=== PATIENT | female | born 1940 | race Caucasian/White ===

== ENCOUNTER → 2017-01-08 | Outpatient (CLI) | payer MEDICARE, BC ==
--- NOTE | 2017-01-09 09:29 | MM ---
Reason for exam: clinical finding. Last mammogram was performed 1 year and 9 months ago. History: Patient is postmenopausal. Physical Findings: Nurse did not find any significant physical abnormalities on exam. MG 3D Diag Mammo W/Cad EMETERIO CC with magnification and LM with magnification view(s) were taken of the right breast. Prior study comparison: April 21, 2015, right breast US breast workup limited RT. The breast tissue is heterogeneously dense. This may lower the sensitivity of mammography. Finding: There are fine, grouped calcifications in the 4 o'clock middle position of the right breast., approximately 6cm from nipple. New finding since April 21, 2015. These results were verbally communicated with the patient and result sheet given to the patient on 01/08/17. ASSESSMENT: Incomplete: need additional imaging evaluation, BI-RAD 0 RECOMMENDATION: Surgical consultation of the right breast. (calcifications) Stereotactic core biopsy of the right breast. (or localization and excision) Called Dr. Zaidi with mammographic findings and has scheduled an appointment for the patient for 01/23/17 at 2:[address] Marcelino. PRELIMINARY REPORT CALLED AND FAXED TO DR. MARCELINO ON 01/09/17 AT 300/TMP.
== END | disposition home or self-care (01) ==
LOC: RADMAMWWP 13:17
PROVIDERS: ATTEND Family Medicine
DX: N64.4 Mastodynia (principal)
CPT/HCPCS: G0204; G0279

== ENCOUNTER → 2017-02-03 | Day surgery (SDC) | payer MEDICARE, BC ==
[2017-02-03 08:17] VITALS: RESP 16; BMI 28.3
[2017-02-03 09:17] VITALS: BP 163/83; PULSE 67; TEMP 98.1
--- NOTE | 2017-02-03 10:06 | MM ---
Stereotactic core biopsy right breast. HISTORY: Microcalcifications. The calcifications in question within the right breast were targeted by the undersigned. The examina tion was performed by the surgeon. Specimen radiograph demonstrates numerous calcifications within t he specimen submitted. Post procedural mammogram demonstrates appropriate deployment of radiopaque c lip marker. The patient tolerated the procedure well and left the department in stable condition. P athology results are pending. IMPRESSION: Successful stereotactic core biopsy right breast with pathology results pending.
--- NOTE | 2017-02-03 11:23 | PCN ---
The patient is a 76-year-old white female who was seen in consultation for a mammographic abnormality noted in her right breast. Review of the radiographs reveal an area of grouped calcifications in the 4 o'clock middle position of the right breast approximately 6 cm from the nipple. The patient on physical examination was not noted to have any dominant masses or nodules of concern in either breast or axillary adenopathy of concern. PROCEDURE PERFORMED: Right breast stereotactic biopsy. LOCATION OF THE LESION: 4 o'clock middle position of the right breast, approximately 6 cm from the nipple. The approach used to target and biopsy the lesion was a CC inferior approach as this was the shortest distance and no obvious large vessels were in the path of biopsy. The patient was placed on the low RAD stereotactic table. The area of concern was localized. The skin was prepped using Betadine. 1% local anesthesia plain was used to anesthetize the area of the skin. An 8 gauge mammotome needle was driven to the correct coordinates. Multiple core biopsies were obtained. Radiographic specimen revealed that the microcalcifications of concern had been sampled. A mammo jovani 4 - [id number] marking clip was placed and radiographs reviewed that this was in the correct location. The patient tolerated the procedure in stable condition. The specimen was seen to Pathology. Patient will follow with Dr. Strickland for results of the biopsy and any further recommendation. JOSEPH
== END ==
LOC: RADMAMWWP 07:59
PROVIDERS: ATTEND Surgery
DX: N60.31 Fibrosclerosis of right breast (principal); R92.8 Other abnormal and inconclusive findings on diagnostic imaging of breast; N60.81 Other benign mammary dysplasias of right breast; N60.21 Fibroadenosis of right breast; N60.41 Mammary duct ectasia of right breast; N60.91 Unspecified benign mammary dysplasia of right breast; N64.89 Other specified disorders of breast; Z88.8 Allergy status to other drugs, medicaments and biological substances; Z91.09 Other allergy status, other than to drugs and biological substances
CPT/HCPCS: 88305; 19081; A4648; J2001

== ENCOUNTER → 2017-10-29 | Outpatient (CLI) | payer MEDICARE, BC ==
--- NOTE | 2017-10-29 14:53 | MM ---
Reason for exam: follow-up at short interval from prior study. Last mammogram was performed 10 months ago. History: Patient is postmenopausal. Benign MG stereo VAD BX RT of the right breast, February 03, 2017. Physical Findings: Nurse did not find any significant physical abnormalities on exam. MG 3D Diag Mammo W/Cad RT CC and MLO view(s) were taken of the right breast. Prior study comparison: January 08, 2017, bilateral MG 3d diag mammo w/cad EMETERIO. March 31, 2015, bilateral MG diagnostic mammo w CAD EMETERIO. There are scattered fibroglandular densities. Previous mammotome biopsy in the right breast. These results were verbally communicated with the patient and result sheet given to the patient on 10/29/17. ASSESSMENT: Benign, BI-RAD 2 RECOMMENDATION: Routine screening mammogram of both breasts in 3 months. Back on schedule for December 2017.
== END | disposition home or self-care (01) ==
LOC: RADMAMWWP 13:28
PROVIDERS: ATTEND Surgery
DX: R92.8 Other abnormal and inconclusive findings on diagnostic imaging of breast (principal)
CPT/HCPCS: 77065; G0279

== ENCOUNTER → 2019-04-13 | Outpatient (CLI) | payer MEDICARE, BC ==
--- NOTE | 2019-04-14 05:03 | CT ---
EXAMINATION TYPE: CT abdomen pelvis w con DATE OF EXAM: 04/13/2019 COMPARISON: 05/11/2015 HISTORY: 79-year-old female diverticulitis of large intestine TECHNIQUE: Contiguous axial scanning of the abdomen and pelvis following administration of 80 ml Omni paque 300 IV contrast. Delayed images through the kidneys and coronal/sagittal reconstructions perfo rmed. The technologist notes that the patient was unable to tolerate oral contrast. CT DLP: 720.6 mGycm Automated exposure control for dose reduction was used. FINDINGS: Heart upper limits of normal in size without pericardial effusion. Subpleural reticular densities sug gest underlying interstitial scarring. No pleural effusion. 1.8 cm anterior right hepatic dome lesion unchanged from 2015 suggesting a cyst. Similar smaller 1.5 cm lesion posterior right hepatic dome that is also stable. Status post cholecystectomy with stable 1 cm prominence of the bile duct. Portal venous system is pat ent. Adrenal glands, spleen with hilar splenule, and atrophic pancreas show no gross abnormality. Subcentimeter hypodensities within the left kidney too small for accurate CT characterization, likely cysts. There is delayed excretion of contrast from both kidneys. Multilocular cystic lesion with some internal thickened septations redemonstrated along the anterior upper to mid pole of the right kidney. This is larger now measuring 3.9 cm AP by 3.0 cm wide by 3.9 c m craniocaudal (versus 2.2 x 2.7 x 3.1 cm, previously). Moderate atherosclerotic calcifications abdominal aorta and iliac arteries. No dilated small bowel, free fluid, or free air. No mesenteric or retroperitoneal lymphadenopathy. Oral contrast progressed to the hepatic flexure. No significant stool burden. Diverticulosis at the l evel of the lower descending colon and sigmoid colon. Staple line from prior resection and reanastomo sis at the rectosigmoid junction with an end to side anastomosis demonstrated. No pericolonic inflamm atory change. Bladder urine distended. Tiny focus of nondependent intraluminal bladder air of uncertain etiology. U terus surgically absent. Pelvic phleboliths. What appears to be the right ovary is visualized. Left o vary not clearly seen. No abnormal fluid collection in the pelvis or pelvic lymphadenopathy. Bones: Degenerative changes at the hips. Advanced degenerative disc disease L4-L5. Hypertrophic facet arthropathy mid to lower lumbar spine. IMPRESSION: 1. LOWER DESCENDING AND SIGMOID DIVERTICULOSIS WITHOUT EVIDENCE FOR ACUTE DIVERTICULITIS. PRIOR RESEC TION AND REANASTOMOSIS AT THE RECTOSIGMOID JUNCTION. 2. COMPLEX CYSTIC RIGHT RENAL MASS HAS ENLARGED AT 3.9 X 2.9 X 3.0 CM (VERSUS 3.1 X 2.7 X 2.2 CM IN 2 015). THIS IS A B[place] CATEGORY 3 CYSTIC RENAL MASS AND RESECTION IS GENERALLY RECOMMENDED UNLESS TH ERE ARE PATIENT COMORBIDITIES, IN WHICH CASE, ANNUAL SURVEILLANCE IS INDICATED. CONSIDER UROLOGY REFE RRAL FOR FURTHER MANAGEMENT/SURVEILLANCE.
== END | disposition home or self-care (01) ==
LOC: RADCTMAIN 12:17
PROVIDERS: ATTEND Surgery Plastic and Reconstructive Surgery
DX: K57.30 Diverticulosis of large intestine without perforation or abscess without bleeding (principal)
CPT/HCPCS: 82565; 84520; 74177; 36415; Q9967 ×2

== ENCOUNTER 2019-04-21 08:07 | Day surgery (SDC) | payer MEDICARE, BC ==
[2019-04-19 08:22] VITALS: BMI 29.2
[~2019-04-21 08:07] MED LIST: DEXAMETHASONE SOD PHOSPHATE 10 MG/ML 1 ML VIAL IV ONE; LACTATED RINGERS 1,000 ML IV SCH; LIDOCAINE 1% 20 ML VIAL (10MG/ML) FOR IV START INTRADERMA PRN; MIDAZOLAM 2 MG/2 ML VIAL IV PRN; fentaNYL (PF) 50 MCG/ML 2 ML AMP IV PRN
[2019-04-21 08:23] VITALS: TEMP 97.2
[2019-04-21] MEDS ORDERED: LACTATED RINGERS 1,000 ML IV ONE ×2 (08:25)
[2019-04-21 08:28] LABS: Glucose,Whole Blood 134 mg/dL (75-99)
[2019-04-21] MEDS ORDERED: PROPOFOL 10 MG/ML 20 ML VIAL IV ONE (08:29)
--- NOTE | 2019-04-21 08:35 | P.GSHP ---
History of Present Illness H&P Date: 04/21/19 CHIEF COMPLAINT: Colon screen HISTORY OF PRESENT ILLNESS: The patient is a 79-year-old female who presents for colon screen. Lower endoscopy was offered for further evaluation and management. PAST MEDICAL HISTORY: Please see list. PAST SURGICAL HISTORY: Please see list. MEDICATIONS: Please see list. ALLERGIES: Please see list. SOCIAL HISTORY: No illicit drug use FAMILY HISTORY: No reports of Crohn disease or ulcerative colitis. REVIEW OF ORGAN SYSTEMS: CONSTITUTIONAL: No reports of fevers or chills. PHYSICAL EXAM: VITAL SIGNS: Stable GENERAL: Well-developed pleasant in no acute distress. HEENT: No scleral icterus. Extraocular movements grossly intact. Moist buccal mucosa. NECK: Supple without lymphadenopathy. CHEST: Unlabored respirations. Equal bilateral excursions. CARDIOVASCULAR: Regular rate and rhythm. Distal 2+ pulses. ABDOMEN: Soft, nontender, nondistended. MUSCULOSKELETAL: No clubbing, cyanosis, or edema. ASSESSMENT: 1. Colon screen. PLAN: 1. Recommend proceeding with a lower endoscopy Past Medical History Past Medical History: Coronary Artery Disease (CAD), Diabetes Mellitus, Eye Disorder, GERD/Reflux, Hypertension, Osteoarthritis (OA), Renal Disease Additional Past Medical History / Comment(s): Hx. 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 unaware of this hx., recent CT scan History of Any Multi-Drug Resistant Organisms: C-DIFF Date of last positivie culture/infection: 08/21/15 MDRO Source:: STOOL Past Surgical History: Bowel Resection, Cholecystectomy, Heart Catheterization, Hysterectomy, Tonsillectomy Additional Past Surgical History / Comment(s): 06/19/15 LAP SIGMOID RESECTION with lysis of adhesions. OTHER SX INCLUDE: lithotripsy, colonoscopy, L thigh cyst removed, cyst removed from underneath right breast, cataracts removed Past Anesthesia/Blood Transfusion Reactions: Previous Problems w/ Anesthesia Additional Past Anesthesia/Blood Transfusion Reaction / Comment(s): [facility] prior to past colonoscopy, not sure of issue but procedure was aborted, but has had anesthesia w/no problem Smoking Status: Never smoker - Past Family History Father Family Medical History: Cancer Mother Family Medical History: Cancer Medications and Allergies Home Medications Medication Instructions Recorded Confirmed Type Atenolol [Tenormin] 50 mg PO BID 06/08/15 04/16/19 History FLUoxetine HCL [PROzac] 40 mg PO DAILY PRN 01/27/17 04/16/19 History L.acidoph,Paracasei, B.lactis 1 tab PO DAILY PRN 01/27/17 04/16/19 History [Probiotic] Losartan/Hydrochlorothiazide 1 each PO DAILY 01/27/17 04/16/19 History [Hyzaar 50-12.5 Tablet] Gabapentin [Neurontin] 100 mg PO HS 04/19/19 04/19/19 History Insulin Degludec/Liraglutide 16 unit SQ HS 04/19/19 04/19/19 History [Xultophy 100 Unit-3.6MG/ml Pen] Allergies Allergy/AdvReac Type Severity Reaction Status Date / Time adhesive tape Allergy red skin Verified 04/16/19 15:26 pregabalin [From Lyrica] AdvReac Hallucinati Verified 04/16/19 15:26 ons Surgical - Exam Vital Signs Temp Pulse Resp BP Pulse Ox 97.2 F L 80 18 159/91 97 04/21/19 08:22 04/21/19 08:22 04/21/19 08:22 04/21/19 08:22 04/21/19 08:22 Results - Labs Abnormal Lab Results - Last 24 Hours (Table) 04/21/19 Range/Units 08:25 POC Glucose (mg/dL) 134 H (75-99) mg/dL
--- NOTE | 2019-04-21 08:49 | P.PCN ---
Date of Procedure: 04/21/19 Description of Procedure: PREOPERATIVE DIAGNOSIS: Change in bowel habits History of diverticulitis History of sigmoid colectomy POSTOPERATIVE DIAGNOSIS: Change in bowel habits History of sigmoid colectomy History of diverticulitis Diverticulosis, scattered, sigmoid External hemorrhoids, grade 3 OPERATION: Colonoscopy to the ileocecal valve and appendiceal orifice. SURGEON: Holly Marcelino MD. ANESTHESIA: MAC. INDICATIONS: The patient is a 79-year-old female who presents with change in bowel habits and history of diverticulitis. Benefits and risks were described and informed consent was obtained. DESCRIPTION OF PROCEDURE: The patient had undergone Gatorade, MiraLAX and Dulcolax prep. She had been brought into the operating room and laid in the left lateral decubitus position. After adequate intravenous sedation, the rectum was examined with 2% lidocaine jelly. External hemorrhoids were encountered. The rectal tone was within normal limits. No lesions were palpated in the rectal vault. An Olympus colonoscope was advanced until the ileocecal valve and appendiceal orifice were clearly viewed. The prep was excellent with clear visualization of the mucosal folds. The scope was removed with visualization of each mucosal fold. Scattered diverticulosis was encountered between 20 to 10 cm from the anal verge with colonic anastomosis at 10 cm from the anal verge. No large colonic polyps were found. No evidence of focal colitis was found. Retroflexion of the scope demonstrated grade 2 internal hemorrhoids without active bleeding or inflammation. The colon was desufflated. The patient had tolerated the procedure well. Withdrawal time was over 6 minutes. FINDINGS: Aronchick preparation quality scale 1 (1-5) Internal hemorrhoids, grade 2 External prolapsed hemorrhoids, grade 3 No arteriovenous malformations. No adenomatous polyps. No focal colitis. Moderate sigmoid diverticulosis between 20-10 cm from the anal verge Colonic anastomosis at 10 cm from the anal verge RECOMMENDATIONS: Lower endoscopy in 5 years, 2023 or use Cologuard Plan - Discharge Summary Discharge Rx Participant: No New Discharge Prescriptions: No Action Atenolol [Tenormin] 50 mg PO BID L.acidoph,Paracasei, B.lactis [Probiotic] 1 tab PO DAILY PRN PRN Reason: gi symptoms FLUoxetine HCL [PROzac] 40 mg PO DAILY PRN PRN Reason: Anxiety Losartan/Hydrochlorothiazide [Hyzaar 50-12.5 Tablet] 1 each PO DAILY Gabapentin [Neurontin] 100 mg PO HS Insulin Degludec/Liraglutide [Xultophy 100 Unit-3.6MG/ml Pen] 16 unit SQ HS Discharge Medication List Atenolol [Tenormin] 50 mg PO BID 06/08/15 [History] FLUoxetine HCL [PROzac] 40 mg PO DAILY PRN 01/27/17 [History] L.acidoph,Paracasei, B.lactis [Probiotic] 1 tab PO DAILY PRN 01/27/17 [History] Losartan/Hydrochlorothiazide [Hyzaar 50-12.5 Tablet] 1 each PO DAILY 01/27/17 [History] Gabapentin [Neurontin] 100 mg PO HS 04/19/19 [History] Insulin Degludec/Liraglutide [Xultophy 100 Unit-3.6MG/ml Pen] 16 unit SQ HS 04/19/19 [History] Follow up Appointment(s)/Referral(s): Holly Marcelino MD [STAFF PHYSICIAN] - 05/04/19 Patient Instructions/Handouts: Diverticulosis Diet (GEN), Diverticulosis (ED) Activity/Diet/Wound Care/Special Instructions: Repeat colonoscopy in 5 years, or use Cologuard Discharge Disposition: HOME SELF-CARE
[2019-04-21] MEDS ORDERED: LABETALOL 5 MG/ML VIAL MDV IVP ONE (10:00)
[2019-04-21 10:26] VITALS: BP 167/89; PULSE 61; RESP 18
== END 2019-04-21 10:38 | disposition home or self-care (01) ==
LOC: ORWHC2ENDO 08:07
PROVIDERS: ATTEND Surgery Plastic and Reconstructive Surgery
DX: K57.30 Diverticulosis of large intestine without perforation or abscess without bleeding (principal); K64.2 Third degree hemorrhoids; E11.9 Type 2 diabetes mellitus without complications; I10 Essential (primary) hypertension; I25.10 Atherosclerotic heart disease of native coronary artery without angina pectoris; K21.9 Gastro-esophageal reflux disease without esophagitis; K58.9 Irritable bowel syndrome, unspecified; M19.90 Unspecified osteoarthritis, unspecified site; Z79.4 Long term (current) use of insulin; Z79.899 Other long term (current) drug therapy; Z87.442 Personal history of urinary calculi; Z90.49 Acquired absence of other specified parts of digestive tract; H91.91 Unspecified hearing loss, right ear; I27.20 Pulmonary hypertension, unspecified; Z98.42 Cataract extraction status, left eye; Z98.41 Cataract extraction status, right eye; Z88.8 Allergy status to other drugs, medicaments and biological substances
CPT/HCPCS: 45378; J2704

== ENCOUNTER → 2019-12-28 | Outpatient (CLI) | payer MEDICARE, BC ==
--- NOTE | 2019-12-30 08:13 | MM ---
Reason for exam: screening (asymptomatic). Last mammogram was performed 2 years and 2 months ago. History: Patient is postmenopausal. Benign MG stereo VAD BX RT of the right breast, February 03, 2017. Physical Findings: A clinical breast exam by your physician is recommended on an annual basis and results should be correlated with mammographic findings. MG 3D Screening Mammo W/Cad Bilateral CC and MLO view(s) were taken. Prior study comparison: October 29, 2017, right breast MG 3d diag mammo w/cad RT. January 08, 2017, bilateral MG 3d diag mammo w/cad EMETERIO. Benign appearing bilateral calcifications. Previous mammotome biopsy in the right breast. ASSESSMENT: Benign, BI-RAD 2 RECOMMENDATION: Routine screening mammogram of both breasts in 1 year.
== END | disposition home or self-care (01) ==
LOC: RADMAMWWP 13:06
PROVIDERS: ATTEND Family Medicine
DX: Z12.31 Encounter for screening mammogram for malignant neoplasm of breast (principal)
CPT/HCPCS: 77063; 77067

== ENCOUNTER 2022-12-18 19:30 | Emergency (ER) | payer MEDICARE, BC ==
[2022-12-18 19:38] VITALS: RESP 18; TEMP 98
[2022-12-18 21:11] LABS: Basophils % (A) 0 %; Eosinophils % (A) 0 %; HCT 41.6 % (34.0-46.0); Lymphocytes # (A) 0.5 k/uL (1.0-4.8); Lymphocytes % (A) 7 %; MCH 29.6 pg (25.0-35.0); MCHC 33.6 g/dL (31.0-37.0); MCV 88.3 fL (80.0-100.0); Mean Platelet Volume 9.9; Monocytes # (A) 0.1 k/uL (0-1.0); Monocytes % (A) 1 %; Neutrophils % (A) 91 %; Platelet Count 169 k/uL (150-450); RBC 4.72 m/uL (3.80-5.40); RDW 14.2 % (11.5-15.5); WBC 7.7 k/uL (3.8-10.6)
[2022-12-18 21:47] VITALS: PULSE 100
[2022-12-18 21:54] LABS: Albumin 3.6 g/dL (3.5-5.0); C Reactive Protein 0.9 mg/dL (<1.0); Calcium 8.8 mg/dL (8.4-10.2); Potassium 3.7 mmol/L (3.5-5.1); Total Bilirubin 1.7 mg/dL (0.2-1.3); Total Protein 6.3 g/dL (6.3-8.2)
--- NOTE | 2022-12-18 22:30 | ED ---
General Adult HPI - General Chief complaint: Recheck/Abnormal Lab/Rx Stated complaint: Flank Pain Time Seen by Provider: 12/18/22 19:34 Source: patient, family (Daughter), EMS Mode of arrival: EMS Limitations: no limitations - History of Present Illness Initial comments: This patient is an 82-year-old woman transferred here from [facility]. The patient had gone to the other facility in relation to the left lower quadrant pain that is been going on for some time and she had a computed tomography scan performed there which showed no stone but reportedly showed some issues related to the left kidney. The patient then had subsequent CT angiogram which did show left renal artery narrowing. The patient was sent to have further evaluation. Patient also reportedly found to have evidence of urinary tract infection at the other facility. On arrival here the patient states that her symptoms are better following medication administered there. She did have a dose of antibiotics. -: days(s) Location: abdomen, left Radiation: flank Quality: dull Consistency: constant Improves with: none Worsens with: none Associated Symptoms: denies other symptoms Treatments Prior to Arrival: none - Related Data Home Medications Medication Instructions Recorded Confirmed atenoloL [Tenormin] 50 mg PO BID 06/08/15 12/18/22 Insulin Degludec/Liraglutide 18 unit SQ HS 04/19/19 12/18/22 [Xultophy 100 Unit-3.6MG/ml Pen] Losartan/Hydrochlorothiazide 1 tab PO DAILY 12/18/22 12/18/22 [Hyzaar 100-25 Tablet] Naproxen Sodium [Aleve] 220 mg PO DAILY PRN 12/18/22 12/18/22 amLODIPine [Norvasc] 10 mg PO DAILY 12/18/22 12/18/22 Previous Rx's Medication Instructions Recorded Cephalexin [Keflex] 500 mg PO Q6HR #28 cap 12/18/22 Allergies Allergy/AdvReac Type Severity Reaction Status Date / Time adhesive tape Allergy red skin Verified 12/18/22 20:15 pregabalin [From Lyrica] AdvReac Hallucinati Verified 12/18/22 20:15 ons Review of Systems ROS Statement: Those systems with pertinent positive or pertinent negative responses have been documented in the HPI. ROS Other: All systems not noted in ROS Statement are negative. Constitutional: Denies: fever, chills Respiratory: Denies: cough, dyspnea Cardiovascular: Denies: chest pain, palpitations Gastrointestinal: Reports: abdominal pain, nausea. 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 History of Any Multi-Drug Resistant Organisms: C-DIFF Date of last positivie culture/infection: 08/21/15 MDRO Source:: STOOL Past Surgical History: Cholecystectomy, Heart Catheterization, Hysterectomy, Tonsillectomy Additional Past Surgical History / Comment(s): 06/19/15 LAP SIGMOID RESECTION with lysis of adhesions. OTHER SX INCLUDE: lithotripsy, cardiac cath with mild disease to proximal LAD, colonoscopy, L thich cyst removed. Past Anesthesia/Blood Transfusion Reactions: No Reported Reaction Past Psychological History: Depression Smoking Status: Never smoker Past Alcohol Use History: None Reported Past Drug Use History: None Reported - Past Family History Father Family Medical History: Cancer Mother Family Medical History: Cancer General Exam Limitations: no limitations General appearance: alert, in no apparent distress Head exam: Present: atraumatic, normocephalic Eye exam: Present: normal appearance. Absent: scleral icterus, conjunctival injection Neck exam: Present: normal inspection Respiratory exam: Present: normal lung sounds bilaterally. Absent: respiratory distress, wheezes, rales, rhonchi, stridor Cardiovascular Exam: Present: regular rate, normal rhythm, normal heart sounds. Absent: systolic murmur, diastolic murmur, rubs, gallop GI/Abdominal exam: Present: soft. Absent: distended, tenderness, guarding, rebound, rigid, mass Extremities exam: Present: normal inspection, normal capillary refill. Absent: pedal edema, calf tenderness Back exam: Present: normal inspection. Absent: CVA tenderness (R), CVA tenderness (L) Neurological exam: Present: alert Skin exam: Present: warm, dry, intact, normal color. Absent: rash Course Vital Signs 12/18/22 12/18/22 12/18/22 19:34 20:00 20:30 Temperature 98 F Pulse Rate 106 H Respiratory 18 Rate Blood Pressure 173/108 164/104 170/105 O2 Sat by Pulse 94 L 94 L Oximetry 12/18/22 12/18/22 12/18/22 21:00 21:30 22:00 Temperature Pulse Rate 100 Respiratory 18 Rate Blood Pressure 175/108 157/96 149/85 O2 Sat by Pulse 96 92 L Oximetry 12/18/22 22:30 Temperature Pulse Rate Respiratory Rate Blood Pressure 161/96 O2 Sat by Pulse Oximetry Medical Decision Making - Medical Decision Making The patient did have repeat laboratory testing here. The vascular surgeon on- call was paged and I discussed the case with Dr. Britton. I reviewed the CAT scan readings with him, as well as the lab findings and clinical picture. The patient stable to have further follow-up in the clinic. He states that there is no acute intervention based on the current status. I discussed all this information with patient and family. They will continue the antibiotics for the urinary tract infection and follow-up. Discussed appropriate further care and follow-up as well as return parameters. Was pt. sent in by a medical professional or institution (, [facility], ASSOCIATE AUTOMATION ENGINEER, urgent care, hospital, or long-term...) When possible be specific @ -Yes transferred from other hospital Did you speak to anyone other than the patient for history (EMS, parent, family, police, friend...)? What history was obtained from this source @ -[EMS did report, patient's family also present Did you review nursing and triage notes (agree or disagree)? Why? @ -[I reviewed and agree with nursing and triage notes] Were old charts reviewed (outside hosp., previous admission, EMS record, old EKG, old radiological studies, urgent care reports/EKG's, long-term records)? Report findings @ -[The transfer records were reviewed Differential Diagnosis (chest pain, altered mental status, abdominal pain women, abdominal pain men, vaginal bleeding, weakness, fever, dyspnea, syncope, headache, dizziness, GI bleed, back pain, seizure, CVA, palpatations, mental health, musculoskeletal)? @ -[Differential Abdominal Pain Women: Appendicitis, Cholecystitis, diverticulosis, ischemic bowel, pancreatitis, hepatitis, UTI, gastroenteritis, AAA, incarcerated hernia, bowel obstruction, constipation, inflammatory bowel, hepatitis, peptic ulcer disease, splenic infarction, perforated viscus, vulvitis, ovarian torsion, PID, kidney stone, placenta abruption, this is not meant to be an all-inclusive list EKG interpreted by me (3pts min.). @ -[ X-rays interpreted by me (1pt min.). @ -[None done] CT interpreted by me (1pt min.). @ -[None done] U/S interpreted by me (1pt. min.). @ -[None done] What testing was considered but not performed or refused? (CT, X-rays, U/S, labs)? Why? @ -[None] What meds were considered but not given or refused? Why? @ -[None] Did you discuss the management of the patient with other professionals (professionals i.e. , PA, ASSOCIATE AUTOMATION ENGINEER, lab, RT, psych nurse, social sciences instructor, paper rewinder operator, teacher, chief safety officer, complex case manager)? Give summary @ -[As above case discussed with vascular surgery Was smoking cessation discussed for >3mins.? @ -[No] Was critical care preformed (if so, how long)? @ -[No] Were there social determinants of health that impacted care today? How? (Homel essness, low income, unemployed, alcoholism, drug addiction, transportation, low edu. Level, literacy, decrease access to med. care, half-way, rehab)? @ -[No] Was there de-escalation of care discussed even if they declined (Discuss DNR or withdrawal of care, Hospice)? DNR status @ -[No] What co-morbidities impacted this encounter? (DM, HTN, Smoking, COPD, CAD, Cancer, CVA, ARF, Chemo, Hep., AIDS, mental health diagnosis, sleep apnea, morbid obesity)? @ -[Hypertension Was patient admitted / discharged? Hospital course, mention meds given and route, prescriptions, significant lab abnormalities, going to OR and other pertinent info. @ -[Discharged with appropriate further care and follow-up is cussed Undiagnosed new problem with uncertain prognosis? @ -[No] Drug Therapy requiring intensive monitoring for toxicity (Heparin, Nitro, Insulin, Cardizem)? @ -[No] Were any procedures done? @ -[No] Diagnosis/symptom? @ -[Left renal artery atheroma/stenosis Urinary tract infection Acute, or Chronic, or Acute on Chronic? @ -[Acute Uncomplicated (without systemic symptoms) or Complicated (systemic symptoms)? @ -[Uncomplicated Side effects of treatment? @ -[No] Exacerbation, Progression, or Severe Exacerbation? @ -[No] Poses a threat to life or bodily function? How? (Chest pain, [place], [place], pneumonia, PE, COPD, DKA, ARF, appy, cholecystitis, CVA, Diverticulitis, Homicidal, Suicidal, threat to staff... and all critical care pts) @ -[No] - Lab Data Result diagrams: 12/18/22 20:59 12/18/22 20:59 Lab Results 12/18/22 12/18/22 Range/Units 20:59 20:59 WBC 7.7 (3.8-10.6) k/uL RBC 4.72 (3.80-5.40) m/uL Hgb 14.0 (11.4-16.0) gm/dL Hct 41.6 (34.0-46.0) % MCV 88.3 (80.0-100.0) fL MCH 29.6 (25.0-35.0) pg MCHC 33.6 (31.0-37.0) g/dL RDW 14.2 (11.5-15.5) % Plt Count 169 (150-450) k/uL MPV 9.9 Neutrophils % 91 % Lymphocytes % 7 % Monocytes % 1 % Eosinophils % 0 % Basophils % 0 % Neutrophils # 7.0 (1.3-7.7) k/uL Lymphocytes # 0.5 L (1.0-4.8) k/uL Monocytes # 0.1 (0-1.0) k/uL Eosinophils # 0.0 (0-0.7) k/uL Basophils # 0.0 (0-0.2) k/uL Sodium 136 L (137-145) mmol/L Potassium 3.7 (3.5-5.1) mmol/L Chloride 104 (98-107) mmol/L Carbon Dioxide 21 L (22-30) mmol/L Anion Gap 11 mmol/L BUN 21 H (7-17) mg/dL Creatinine 0.76 (0.52-1.04) mg/dL Est GFR (CKD-EPI)AfAm 86 (>60 ml/min/1.73 sqM) Est GFR (CKD-EPI)NonAf 74 (>60 ml/min/1.73 sqM) Glucose 135 H (74-99) mg/dL Calcium 8.8 (8.4-10.2) mg/dL Total Bilirubin 1.7 H (0.2-1.3) mg/dL AST 20 (14-36) U/L ALT 17 (4-34) U/L Alkaline Phosphatase 79 (38-126) U/L C-Reactive Protein 0.9 (<1.0) mg/dL Total Protein 6.3 (6.3-8.2) g/dL Albumin 3.6 (3.5-5.0) g/dL Disposition Clinical Impression: Urinary tract infection, Flank pain, Renal artery atheroma Disposition: HOME SELF-CARE Condition: Fair Instructions (If sedation given, give patient instructions): Urinary Tract Infection in Women (DC), Flank Pain (ED) Prescriptions: Cephalexin [Keflex] 500 mg PO Q6HR #28 cap Is patient prescribed a controlled substance at d/c from ED?: No Referrals: Dayana Fernandes MD [Primary Care Provider] - 1-2 days
[2022-12-18 22:39] VITALS: BP 161/96
== END 2022-12-18 23:03 | disposition home or self-care (01) ==
LOC: EC 19:30
DX: N39.0 Urinary tract infection, site not specified (principal); I70.1 Atherosclerosis of renal artery; I25.10 Atherosclerotic heart disease of native coronary artery without angina pectoris; I10 Essential (primary) hypertension; M19.90 Unspecified osteoarthritis, unspecified site; F32.A Depression, unspecified; Z79.1 Long term (current) use of non-steroidal anti-inflammatories (NSAID); Z79.4 Long term (current) use of insulin; Z91.09 Other allergy status, other than to drugs and biological substances; Z88.8 Allergy status to other drugs, medicaments and biological substances; Z79.899 Other long term (current) drug therapy
CPT/HCPCS: 36415; 80053; 85025; 86140; 99284

== ENCOUNTER 2023-01-29 07:12 | Day surgery (SDC) | payer MEDICARE, BC ==
[2023-01-27 09:46] VITALS: BMI 25.7
--- NOTE | 2023-01-29 06:20 | P.GSHP ---
History of Present Illness H&P Date: 01/29/23 CHIEF COMPLAINT: GERD and colon screen HISTORY OF PRESENT ILLNESS: The patient is a 82-year-old female who presents with gastroesophageal reflux disease and need for colon screen. Upper and lower endoscopy were offered for further evaluation and management. PAST MEDICAL HISTORY: Please see list. PAST SURGICAL HISTORY: Please see list. MEDICATIONS: Please see list. ALLERGIES: Please see list. SOCIAL HISTORY: No illicit drug use FAMILY HISTORY: No reports of Crohn disease or ulcerative colitis. REVIEW OF ORGAN SYSTEMS: CONSTITUTIONAL: No reports of fevers or chills. GI: Denies any blood in stools or constipation. PHYSICAL EXAM: VITAL SIGNS: Stable GENERAL: Well-developed pleasant in no acute distress. HEENT: No scleral icterus. Extraocular movements grossly intact. Moist buccal mucosa. NECK: Supple without lymphadenopathy. CHEST: Unlabored respirations. Equal bilateral excursions. CARDIOVASCULAR: Regular rate and rhythm. Distal 2+ pulses. ABDOMEN: Soft, nondistended. MUSCULOSKELETAL: No clubbing, cyanosis, or edema. ASSESSMENT: 1. Gastroesophageal reflux disease 2. Colon screen. PLAN: 1. 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 History of Any Multi-Drug Resistant Organisms: C-DIFF Date of last positivie culture/infection: 08/21/15 MDRO Source:: STOOL Past Surgical History: Bowel Resection, Cholecystectomy, Heart Catheterization, Hysterectomy, Tonsillectomy Additional Past Surgical History / Comment(s): 06/19/15 LAP SIGMOID RESECTION with lysis of adhesions, lithotripsy, cardiac cath with mild disease to proximal LAD, colonoscopy, L thiGH cyst removed. BILAT CATARACTS REMOVED WITH LENS IMPLANTS Past Anesthesia/Blood Transfusion Reactions: No Reported Reaction Smoking Status: Never smoker - Past Family History Father Family Medical History: Cancer Mother Family Medical History: Cancer Medications and Allergies Home Medications Medication Instructions Recorded Confirmed Type atenoloL [Tenormin] 50 mg PO BID 06/08/15 12/18/22 History Insulin Degludec/Liraglutide 18 unit SQ HS 04/19/19 12/18/22 History [Xultophy 100 Unit-3.6MG/ml Pen] Cephalexin [Keflex] 500 mg PO Q6HR #28 cap 12/18/22 Rx Losartan/Hydrochlorothiazide 1 tab PO DAILY 12/18/22 12/18/22 History [Hyzaar 100-25 Tablet] Naproxen Sodium [Aleve] 220 mg PO DAILY PRN 12/18/22 12/18/22 History amLODIPine [Norvasc] 10 mg PO DAILY 12/18/22 12/18/22 History Allergies Allergy/AdvReac Type Severity Reaction Status Date / Time adhesive tape Allergy red skin Verified 01/27/23 09:34 pregabalin [From Lyrica] AdvReac Hallucinati Verified 01/27/23 09:34 ons
[~2023-01-29 07:12] MED LIST changes: -DEXAMETHASONE SOD PHOSPHATE 10 MG/ML 1 ML VIAL IV ONE; +LIDOCAINE 1% (10MG/ML) FOR IV START INTRADERMA PRN; -LIDOCAINE 1% 20 ML VIAL (10MG/ML) FOR IV START INTRADERMA PRN; -MIDAZOLAM 2 MG/2 ML VIAL IV PRN; -fentaNYL (PF) 50 MCG/ML 2 ML AMP IV PRN
[2023-01-29 07:29] VITALS: TEMP 97.2
[2023-01-29] MEDS ORDERED: DEXTROSE 50% SYRINGE 50 ML IVP ONE (07:49)
[2023-01-29 07:53] LABS: Glucose,Whole Blood 80 mg/dL (70-110)
[2023-01-29 08:03] LABS: Glucose,Whole Blood 165 mg/dL (70-110)
[2023-01-29] MEDS ORDERED: PROPOFOL 10 MG/ML 20 ML VIAL IV ONE (08:04)
[2023-01-29] MEDS ORDERED: LIDOCAINE 2% INJ 20 MG/ML (2 ML VIAL) ONE (08:04)
--- NOTE | 2023-01-29 08:56 | P.PCN ---
Date of Procedure: 01/29/23 Description of Procedure: PREOPERATIVE DIAGNOSIS: Gastroesophageal reflux disease. Epigastric abdominal Change in bowel habits POSTOPERATIVE DIAGNOSIS: Acute gastritis with bleeding Acute gastric ulcers with bleeding Diaphragmatic hiatal hernia OPERATION: Esophagogastroduodenoscopy with biopsies along antrum and duodenum SURGEON: Holly Marcelino MD ANESTHESIA: MAC. INDICATIONS: The patient is a 82-year-old female who presents with epigastric abdominal pain change in bowel habits. Benefits and risks of the procedure were described. Informed consent was obtained. DESCRIPTION: The patient was brought into the endoscopy suite and laid in the left lateral decubitus position. An Olympus gastroscope was passed along the posterior oropharynx down to the distal esophagus where the squamocolumnar junction was encountered at 37 cm from the incisors. The stomach was entered and no bile reflux was found. Additional findings are listed below. Biopsies with cold forceps were obtained of the antrum. The first through third portion of the duodenum was examined. Retroflexion of the scope confirmed Hill grade 4 lower esophageal valve. The squamocolumnar junction demonstrated LA grade B erosive esophagitis. The stomach was desufflated. The patient tolerated the procedure well. FINDINGS: Squamocolumnar junction 37 cm from the incisors. Diaphragmatic hiatus at 40 cm. Hiatal hernia, 3 cm Hill grade 4 lower esophageal valve. LA grade B erosive esophagitis. Biopsies obtained of the duodenum. Bleeding acute gastritis with biopsies obtained. Acute gastric ulcers with bleeding, punctate at hiatal hernia and antrum RECOMMENDATIONS: Carafate 1 g twice a day Omeprazole 40 mg daily Treatment time 2-4 weeks Discontinue NSAIDs
--- NOTE | 2023-01-29 09:00 | P.PCN ---
Date of Procedure: 01/29/23 Description of Procedure: PREOPERATIVE DIAGNOSIS: Change in bowel habit Generalized abdominal pain History of sigmoid colectomy POSTOPERATIVE DIAGNOSIS: Diverticulosis Colitis, microscopic Internal/External hemorrhoids, grade 3 OPERATION: Colonoscopy to the cecum, ileocecal valve and appendiceal orifice. Colonoscopy with random cold forceps biopsies for microscopic colitis SURGEON: Holly Marcelino MD. ANESTHESIA: MAC. SPECIMENS: Stool for C. diff, stool active fair and, stool assays INDICATIONS: The patient is a 82-year-old female who presents with change in bowel habit. Benefits and risks were described and informed consent was obtained. DESCRIPTION OF PROCEDURE: The patient had undergone Sutab prep. The patient had been brought into the operating room and laid in the left lateral decubitus position. After adequate intravenous sedation, the rectum was examined with 2% lidocaine jelly. External hemorrhoids were encountered. The rectal tone was within normal limits. No lesions were palpated in the rectal vault. An Olympus colonoscope was advanced until the cecum, ileocecal valve and appendiceal orifice were clearly viewed. The prep was excellent. Sigmoid diverticulosis was encountered. Colorectal anastomosis without stricture. No colonic polyps were found. All forceps bio psies were obtained for microscopic colitis. Retroflexion of the scope demonstrated grade 3 internal hemorrhoids without active bleeding or inflammation. The colon was desufflated. The patient had tolerated the procedure well. Withdrawal time was over 6 minutes. FINDINGS: Aronchick preparation quality scale 1 (1-5) Internal hemorrhoids, grade 3 External prolapsed hemorrhoids, 3 Sigmoid diverticulosis with pandiverticulosis No arteriovenous malformations. No adenomatous polyps. Cold biopsies obtained for microscopic colitis RECOMMENDATIONS: Lower endoscopy as needed Plan - Discharge Summary Discharge Rx Participant: No New Discharge Prescriptions: New Sucralfate [Carafate] 1 gm PO BID #30 tablet Omeprazole [PriLOSEC] 40 mg PO DAILY #14 cap Continue atenoloL [Tenormin] 50 mg PO BID Insulin Degludec/Liraglutide [Xultophy 100 Unit-3.6MG/ml Pen] 18 unit SQ HS amLODIPine [Norvasc] 10 mg PO DAILY Losartan/Hydrochlorothiazide [Hyzaar 100-25 Tablet] 1 tab PO DAILY Discontinued Naproxen Sodium [Aleve] 220 mg PO DAILY PRN PRN Reason: Pain Cephalexin [Keflex] 500 mg PO Q6HR #28 cap Discharge Medication List atenoloL [Tenormin] 50 mg PO BID 06/08/15 [History] Insulin Degludec/Liraglutide [Xultophy 100 Unit-3.6MG/ml Pen] 18 unit SQ HS 04/19/19 [History] Losartan/Hydrochlorothiazide [Hyzaar 100-25 Tablet] 1 tab PO DAILY 12/18/22 [History] amLODIPine [Norvasc] 10 mg PO DAILY 12/18/22 [History] Omeprazole [PriLOSEC] 40 mg PO DAILY #14 cap 01/29/23 [Rx] Sucralfate [Carafate] 1 gm PO BID #30 tablet 01/29/23 [Rx] Follow up Appointment(s)/Referral(s): Holyl Marcelino MD [STAFF PHYSICIAN] - 03/04/23 1:00 pm Patient Instructions/Handouts: *Surgery [facility] - (Anesthesia) Discharge Instructions Outpatient Surgery, Peptic Ulcer (GEN), Gastritis (DC), Diverticulosis (ED), Diverticulosis Diet (GEN), Colonoscopy (DC), Upper Endoscopy (DC) Activity/Diet/Wound Care/Special Instructions: Repeat colonoscopy as needed Discharge Disposition: HOME SELF-CARE
[2023-01-29 09:03] VITALS: BP 151/86; PULSE 96; RESP 18
[2023-01-29 09:14] LABS: Glucose,Whole Blood 136 mg/dL (70-110)
== END 2023-01-29 09:27 | disposition home or self-care (01) ==
LOC: ORWHC2ENDO 07:12
PROVIDERS: ATTEND Surgery Plastic and Reconstructive Surgery
DX: K29.01 Acute gastritis with bleeding (principal); K21.9 Gastro-esophageal reflux disease without esophagitis; K44.9 Diaphragmatic hernia without obstruction or gangrene; K64.2 Third degree hemorrhoids; K64.8 Other hemorrhoids; K52.9 Noninfective gastroenteritis and colitis, unspecified; I25.10 Atherosclerotic heart disease of native coronary artery without angina pectoris; M19.90 Unspecified osteoarthritis, unspecified site; Z90.49 Acquired absence of other specified parts of digestive tract; Z90.710 Acquired absence of both cervix and uterus; Z90.89 Acquired absence of other organs; Z79.899 Other long term (current) drug therapy
CPT/HCPCS: 88305; 87045; 83630; 87046; 45380; 43239; J2704; J2001

== ENCOUNTER 2023-02-12 12:51 | Inpatient (IN) | payer MEDICARE, BC ==
--- NOTE | 2023-02-12 14:29 | ED ---
General Adult HPI - General Chief complaint: Shortness of Breath Stated complaint: post op - sob, black stools Time Seen by Provider: 02/12/23 13:00 Source: patient, RN notes reviewed, old records reviewed Mode of arrival: ambulatory Limitations: no limitations - History of Present Illness Initial comments: This is an 82-year-old female presents emergency Department stating a recent Colonoscopy she's had quite a bit of fullness and didn't she describes as air in her abdomen. Patient states she's also been constipated or having diarrhea since she's had the colonoscopy 2 weeks ago. Patient states she goes to bed and she's very uncomfortable and she takes a deep breath and she feels like somehow that makes her pain in her abdomen worse. Patient states it seems to move around a little bit. Patient states currently she is not having any pain. Patient denies any fevers or chills. Patient denies any nausea vomiting. Patient denies any chest pain patient denies any recent palpitations. Patient has a complaint also of generalized weakness. States she is very fatigued lately since she's had the colonoscopy. Patient also states she's had a black tarry stool and she was told she had a bleeding ulcer so this concerned her. - Related Data Home Medications Medication Instructions Recorded Confirmed Insulin Degludec/Liraglutide 14 unit SQ HS 04/19/19 02/12/23 [Xultophy 100 Unit-3.6MG/ml Pen] Losartan/Hydrochlorothiazide 1 tab PO DAILY 12/18/22 02/12/23 [Hyzaar 100-25 Tablet] amLODIPine [Norvasc] 10 mg PO DAILY 12/18/22 02/12/23 Previous Rx's Medication Instructions Recorded Omeprazole [PriLOSEC] 40 mg PO DAILY #14 cap 01/29/23 Allergies Allergy/AdvReac Type Severity Reaction Status Date / Time adhesive tape Allergy red skin Verified 02/12/23 13:40 pregabalin [From Lyrica] AdvReac Hallucinati Verified 02/12/23 13:40 ons Review of Systems ROS Statement: Those systems with pertinent positive or pertinent negative responses have been documented in the HPI. ROS Other: All systems not noted in ROS Statement are negative. 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 History of Any Multi-Drug Resistant Organisms: C-DIFF Date of last positivie culture/infection: 08/21/15 MDRO Source:: STOOL Past Surgical History: Bowel Resection, Cholecystectomy, Heart Catheterization, Hysterectomy, Tonsillectomy Additional Past Surgical History / Comment(s): 06/19/15 LAP SIGMOID RESECTION with lysis of adhesions, lithotripsy, cardiac cath with mild disease to proximal LAD, colonoscopy, L thiGH cyst removed. BILAT CATARACTS REMOVED WITH LENS IMPLANTS Past Anesthesia/Blood Transfusion Reactions: No Reported Reaction Past Psychological History: Depression Smoking Status: Never smoker Past Alcohol Use History: None Reported Past Drug Use History: None Reported - Past Family History Father Family Medical History: Cancer Mother Family Medical History: Cancer General Exam - General Exam Comments Initial Comments: GENERAL: Patient is well-developed and well-nourished. Patient is nontoxic and well- hydrated and is in mild distress. ENT: Neck is soft and supple. No significant lymphadenopathy is noted. Oropharynx is clear. Moist mucous membranes. Neck has full range of motion without eliciting any pain. EYES: The sclera were anicteric and conjunctiva were pink and moist. Extraocular movements were intact and pupils were equal round and reactive to light. Eyelids were unremarkable. PULMONARY: Unlabored respirations. Good breath sounds bilaterally. No audible rales rhonchi or wheezing was noted. CARDIOVASCULAR: There is a regular rate and rhythm without any murmurs gallops or rubs. ABDOMEN: Soft and nontender with normal bowel sounds. SKIN: Skin is clear with no lesions or rashes and otherwise unremarkable. NEUROLOGIC: Patient is alert and oriented x3. Cranial nerves II through XII are grossly intact. Motor and sensory are also intact. Normal speech, volume and content. Symmetrical smile. MUSCULOSKELETAL: Normal extremities with adequate strength and full range of motion. LYMPHATICS: No significant lymphadenopathy is noted PSYCHIATRIC: Normal psychiatric evaluation. Limitations: no limitations Course Vital Signs 02/12/23 02/12/23 02/12/23 12:53 14:00 15:25 Temperature 98.7 F Pulse Rate 99 92 99 Respiratory 20 18 16 Rate Blood Pressure 149/96 139/102 154/98 O2 Sat by Pulse 94 L 95 95 Oximetry Medical Decision Making - Medical Decision Making EKG is interpreted by myself EKG shows a sinus tachycardia at 100 bpm VT interval is 124 QRS is 122 QT interval 390 QTC is 455. Patient's EKG shows no ST segment elevation or depression. Was pt. sent in by a medical professional or institution (, PA, BODY DESIGNER, urgent care, hospital, or senior living...) When possible be specific @ -No Did you speak to anyone other than the patient for history (EMS, parent, family, police, friend...)? What history was obtained from this source @ -No Did you review nursing and triage notes (agree or disagree)? Why? @ -I reviewed and agree with nursing and triage notes Were old charts reviewed (outside hosp., previous admission, EMS record, old E KG, old radiological studies, urgent care reports/EKG's, senior living records)? Report findings @ -I reviewed prior charts per radiological studies prior medical labs Differential Diagnosis (chest pain, altered mental status, abdominal pain women, abdominal pain men, vaginal bleeding, weakness, fever, dyspnea, syncope, headache, dizziness, GI bleed, back pain, seizure, CVA, palpatations, mental health, musculoskeletal)? @ -Differential Dyspnea: Coronary syndrome, arrhythmia, tamponade, asthma, COPD, pulmonary embolism, pneumonia, pneumothorax, pulmonary effusion, anaphylaxis, diabetic ketoacidosis, flailed chest, pulmonary contusion, diaphragmatic rupture, anemia, neuromuscular, this is not meant to be an all-inclusive list. EKG interpreted by me (3pts min.). @ -As above X-rays interpreted by me (1pt min.). @ -Chest x-ray shows acute pulmonary edema CT interpreted by me (1pt min.). @ -None done U/S interpreted by me (1pt. min.). @ -None done What testing was considered but not performed or refused? (CT, X-rays, U/S, labs)? Why? @ -None What meds were considered but not given or refused? Why? @ -None Did you discuss the management of the patient with other professionals (prof carey i.eDarron Haines, PA, BODY DESIGNER, lab, RT, psych nurse, social security assessor, immigration lawyer, teacher, access control officer, director of casework department)? Give summary @ -I spoke with some physicians he agreed to admit the patient Was smoking cessation discussed for >3mins.? @ -No Was critical care preformed (if so, how long)? @ -No Were there social determinants of health that impacted care today? How? (Homelessness, low income, unemployed, alcoholism, drug addiction, transportation, low edu. Level, literacy, decrease access to med. care, usp, rehab)? @ -No Was there de-escalation of care discussed even if they declined (Discuss DNR or withdrawal of care, Hospice)? DNR status @ -No What co-morbidities impacted this encounter? (DM, HTN, Smoking, COPD, CAD, Cancer, CVA, ARF, Chemo, Hep., AIDS, mental health diagnosis, sleep apnea, morbid obesity)? @ -None Was patient admitted / discharged? Hospital course, mention meds given and route, prescriptions, significant lab abnormalities, going to OR and other pertinent info. @ -X-ray showed acute pulmonary edema. Patient also had an elevated BNP. I started the patient on Lasix and I saw physicians agreed to admit the patient admitted the patient I wrote admitting her to consult cardiology. I also ordered an echo. Undiagnosed new problem with uncertain prognosis? @ -No Drug Therapy requiring intensive monitoring for toxicity (Heparin, Nitro, Insulin, Cardizem)? @ -No Were any procedures done? @ -No Diagnosis/symptom? @ -Acute pulmonary edema Acute, or Chronic, or Acute on Chronic? @ -Acute Uncomplicated (without systemic symptoms) or Complicated (systemic symptoms)? @ -Complicated Side effects of treatment? @ -No Exacerbation, Progression, or Severe Exacerbation? @ -No Poses a threat to life or bodily function? How? (Chest pain, USA, ME, pneumonia, PE, COPD, DKA, ARF, appy, cholecystitis, CVA, Diverticulitis, Homicidal, Suicidal, threat to staff... and all critical care pts) @ -Yes this could lead to hypoxia and end organ dysfunction - Lab Data Result diagrams: 02/12/23 15:30 02/12/23 15:30 Lab Results 07/26/23 07/26/23 07/26/23 Range/Units 14:37 15:30 15:30 WBC 8.9 (3.8-10.6) k/uL RBC 4.59 (3.80-5.40) m/uL Hgb 13.9 (11.4-16.0) gm/dL Hct 41.5 (34.0-46.0) % MCV 90.3 (80.0-100.0) fL MCH 30.3 (25.0-35.0) pg MCHC 33.5 (31.0-37.0) g/dL RDW 14.1 (11.5-15.5) % Plt Count 207 (150-450) k/uL MPV 9.0 Neutrophils % 65 % Lymphocytes % 23 % Monocytes % 8 % Eosinophils % 2 % Basophils % 1 % Neutrophils # 5.7 (1.3-7.7) k/uL Lymphocytes # 2.0 (1.0-4.8) k/uL Monocytes # 0.7 (0-1.0) k/uL Eosinophils # 0.2 (0-0.7) k/uL Basophils # 0.1 (0-0.2) k/uL PT 11.1 (9.0-12.0) sec INR 1.1 (<1.2) APTT 25.0 (22.0-30.0) sec Sodium (137-145) mmol/L Potassium (3.5-5.1) mmol/L Chloride (98-107) mmol/L Carbon Dioxide (22-30) mmol/L Anion Gap mmol/L BUN (7-17) mg/dL Creatinine (0.52-1.04) mg/dL Est GFR (CKD-EPI)AfAm (>60 ml/min/1.73 sqM) Est GFR (CKD-EPI)NonAf (>60 ml/min/1.73 sqM) Glucose (74-99) mg/dL Plasma Lactic Acid Augustine (0.7-2.0) mmol/L Calcium (8.4-10.2) mg/dL Magnesium (1.6-2.3) mg/dL Total Bilirubin (0.2-1.3) mg/dL AST (14-36) U/L ALT (4-34) U/L Alkaline Phosphatase (38-126) U/L Troponin I (0.000-0.034) ng/mL NT-Pro-B Natriuret Pep pg/mL Total Protein (6.3-8.2) g/dL Albumin (3.5-5.0) g/dL Stool Occult Blood Negative (Negative) 02/12/23 02/12/23 02/12/23 Range/Units 15:30 15:30 15:30 WBC (3.8-10.6) k/uL RBC (3.80-5.40) m/uL Hgb (11.4-16.0) gm/dL Hct (34.0-46.0) % MCV (80.0-100.0) fL MCH (25.0-35.0) pg MCHC (31.0-37.0) g/dL RDW (11.5-15.5) % Plt Count (150-450) k/uL MPV Neutrophils % % Lymphocytes % % Monocytes % % Eosinophils % % Basophils % % Neutrophils # (1.3-7.7) k/uL Lymphocytes # (1.0-4.8) k/uL Monocytes # (0-1.0) k/uL Eosinophils # (0-0.7) k/uL Basophils # (0-0.2) k/uL PT (9.0-12.0) sec INR (<1.2) APTT (22.0-30.0) sec Sodium 138 (137-145) mmol/L Potassium 3.4 L (3.5-5.1) mmol/L Chloride 103 (98-107) mmol/L Carbon Dioxide 27 (22-30) mmol/L Anion Gap 8 mmol/L BUN 15 (7-17) mg/dL Creatinine 0.87 (0.52-1.04) mg/dL Est GFR (CKD-EPI)AfAm 72 (>60 ml/min/1.73 sqM) Est GFR (CKD-EPI)NonAf 63 (>60 ml/min/1.73 sqM) Glucose 79 (74-99) mg/dL Plasma Lactic Acid Augustine 1.1 (0.7-2.0) mmol/L Calcium 9.0 (8.4-10.2) mg/dL Magnesium 1.8 (1.6-2.3) mg/dL Total Bilirubin 1.3 (0.2-1.3) mg/dL AST 17 (14-36) U/L ALT 13 (4-34) U/L Alkaline Phosphatase 71 (38-126) U/L Troponin I 0.021 (0.000-0.034) ng/mL NT-Pro-B Natriuret Pep 52661 pg/mL Total Protein 6.3 (6.3-8.2) g/dL Albumin 3.4 L (3.5-5.0) g/dL Stool Occult Blood (Negative) Disposition Clinical Impression: Acute pulmonary edema Disposition: ADMITTED IP TO THIS HOSP Referrals: Dayana Fernandes MD [Primary Care Provider] - 1-2 days Time of Disposition: 17:53
--- NOTE | 2023-02-12 15:24 | XR ---
EXAMINATION TYPE: XR KUB DATE OF EXAM: 02/12/2023 3:16 PM INDICATION: Patient age:Female; 82 years old; Reason for study: Abdominal pain;. COMPARISON: None. TECHNIQUE: One radiographic view of the abdomen was obtained. FINDINGS: Atherosclerosis of the arterial vasculature. Surgical clips are upper quadrant left pelvis. Surgical sutures also in the pelvis. The bowel gas pattern is nonspecific without dilated loops of s mall or large bowel. There is no evidence for organomegaly or pneumoperitoneum. The osseous structur es are intact. No abnormal calcifications are present. Fecal material and gas are demonstrated throu ghout the colon and rectum. IMPRESSION: Nonspecific bowel gas pattern without radiographic evidence for acute process.
--- NOTE | 2023-02-12 15:25 | XR ---
EXAMINATION TYPE: XR chest 2V DATE OF EXAM: 02/12/2023 3:15 PM COMPARISON: Chest radiographs from chest radiograph 06/22/2015 TECHNIQUE: XR chest 2V Frontal and lateral views of the chest. CLINICAL INDICATION:Female, 82 years old with history of difficulty breathing; FINDINGS: Lungs/Pleura: Trace right and moderate-sized left pleural effusion with associated atelectasis. No pn eumothorax. Pulmonary vascularity: Pulmonary vascular congestion. Heart/mediastinum: Cardiomediastinal silhouette is enlarged and stable. Atherosclerotic calcificatio ns are seen in the aorta. Musculoskeletal: Multiple level degenerative disc disease changes seen throughout the spine. IMPRESSION: Cardiomegaly, pulmonary vascular congestion with trace right and moderate left pleural effusions. Cor relate with BNP for congestive heart failure.
[2023-02-12 16:18] LABS: Basophils # (A) 0.1 k/uL (0-0.2); Basophils % (A) 1 %; Eosinophils # (A) 0.2 k/uL (0-0.7); Eosinophils % (A) 2 %; HCT 41.5 % (34.0-46.0); HGB 13.9 gm/dL (11.4-16.0); Lymphocytes % (A) 23 %; MCH 30.3 pg (25.0-35.0); MCHC 33.5 g/dL (31.0-37.0); MCV 90.3 fL (80.0-100.0); Monocytes # (A) 0.7 k/uL (0-1.0); Monocytes % (A) 8 %; Neutrophils # (A) 5.7 k/uL (1.3-7.7); Neutrophils % (A) 65 %; Platelet Count 207 k/uL (150-450); RBC 4.59 m/uL (3.80-5.40); RDW 14.1 % (11.5-15.5); WBC 8.9 k/uL (3.8-10.6)
[2023-02-12 16:26] LABS: INR 1.1 (<1.2); Prothrombin Time 11.1 sec (9.0-12.0)
[2023-02-12 16:29] LABS: ALT 13 U/L (4-34); AST 17 U/L (14-36); African American GFR (CKD) 72 (>60 ml/min/1.73 sqM); Albumin 3.4 g/dL (3.5-5.0); Alkaline Phosphatase 71 U/L (38-126); Anion Gap 8 mmol/L; Blood Urea Nitrogen 15 mg/dL (7-17); Carbon Dioxide 27 mmol/L (22-30); Chloride 103 mmol/L (98-107); Glucose 79 mg/dL (74-99); Magnesium 1.8 mg/dL (1.6-2.3); Non-African American GFR(CKD) 63 (>60 ml/min/1.73 sqM); Potassium 3.4 mmol/L (3.5-5.1); Sodium 138 mmol/L (137-145); Total Bilirubin 1.3 mg/dL (0.2-1.3); Total Protein 6.3 g/dL (6.3-8.2)
[2023-02-12 16:59] LABS: NT-Pro-B-Type Natriuretic Pept 11100 pg/mL
[2023-02-12] MEDS ORDERED: FUROSEMIDE 10 MG/ML 2 ML VIAL IV ONE (17:31)
[2023-02-12] MEDS ORDERED: POTASSIUM CHLORIDE ER 20 MEQ TAB.ER PO STA (17:45)
[2023-02-12] MEDS: NITROGLYCERIN OINT 1 INCH/GM PACKET TOPICAL SCH (18:36)
[2023-02-12 22:33] LABS: Glucose,Whole Blood 85 mg/dL (70-110)
--- NOTE | 2023-02-13 01:37 | XR ---
EXAM: XR Right Shoulder Complete, 2 or More Views CLINICAL HISTORY: ITS.REASON XR Reason: dislocation TECHNIQUE: Two or more views of the right shoulder. COMPARISON: No relevant prior studies available. FINDINGS: Bones/joints: Anatomic alignment. Cortical irregularity along the undersurface of the head neck junction without a discrete fracture line. Potentially sequela of prior trauma. If there is concern for occult fracture consider CT. Soft tissues: Unremarkable. IMPRESSION: Anatomic alignment. Cortical irregularity along the undersurface of the head neck junction without a discrete fracture line. Potentially sequela of prior trauma. If there is concern for occult fracture consider CT.
[2023-02-13 02:19] LABS: Appearance,Urine Clear (Clear); Bilirubin,Urine Negative (Negative); Color,Urine Colorless; Glucose,Urine (UA) Negative (Negative); Ketones,Urine Trace (Negative); Protein,Urine Negative (Negative); Specific Gravity,Urine <1.005 (1.001-1.035)
[2023-02-13 02:20] LABS: Blood,Urine Negative (Negative); Leukocyte Esterase,Urine Large (Negative); Nitrite,Urine Negative (Negative); Urobilinogen,Urine <2.0 mg/dL (<2.0)
[2023-02-13 02:31] LABS: RBC,Urine 0 /hpf (0-5); Squamous Epithelial Cell,Urine 2 /hpf (0-4)
[2023-02-13 02:32] LABS: WBC,Urine 5 /hpf (0-5)
[2023-02-13] MEDS: NITROGLYCERIN OINT 1 INCH/GM PACKET TOPICAL SCH ×2 (03:21→06:36)
[2023-02-13] MEDS ORDERED: DEXTROSE 50% SYRINGE 50 ML IVP PRN ×2 (05:13)
--- NOTE | 2023-02-13 05:24 | P.HPIM ---
History of Present Illness H&P Date: 02/12/23 Chief Complaint: Abdominal distention 82-year-old female with coronary artery disease, hypertension, diabetes mellitus She is coming in today for increase abdominal distention feeling bloated since she had a colonoscopy done 2 weeks ago. This was done as a follow-up test as she had hemicolectomy 6 years ago for some adhesions and her surgeon recommended that she gets a follow-up colonoscopy after 5 years since she just got it 2 weeks ago along with an EGD and she was told she had 2 ulcers in her stomach. Since the procedure she noticed increased abdominal distention and having black tarry stool denies any overt bleeding she describes his stool as once every 3 d ays soft brown in color but turned black over the past couple days. Denies any vomiting denies any nausea denies any dizziness lightheadedness headache denies any chest pain however she does report some shortness of breath with mild exertion which is new to her but denies any leg edema denies any changes in her urinary habits denies any dysuria denies any hematuria. Denies fevers or chills Patient denies any orthopnea denies any paroxysmal maternal dyspnea however she noticed that just walking around the house is exerting her and this is again just since her colonoscopy she did not feel like this before the procedure. She denies any recent travel denies any history of blood clots. Denies any history of congestive heart failure She denies any tobacco smoking illicit drugs or alcohol She is also complaining of right shoulder pain since she was transferred from the stretcher to the hospital bed and initially she felt some numbness over her right hand currently at time of my exam she describes some numbness over the tips of her right fingers denies any swelling, however she feels extreme pain over her right shoulder, review of systems Pertinent positives as noted in HPI. All other systems were reviewed and are negative on exam Constitutional: No acute distress, conversant, pleasant Eyes: Anicteric sclerae, moist conjunctiva, Pupils equal round reactive to light ENMT: NC/AT Oropharynx clear, no erythema, or exudates Neck: Supple, no masses, or JVD No carotid bruits No thyromegaly Lungs: Inspiratory rales at lung bases otherwise good breath sounds throughout Clear to percussion Normal respiratory effort, no accessory muscle use Cardiovascular: Heart regular in rate and rhythm, No murmurs, gallops, or rubs No peripheral edema Abdominal: Soft Tenderness to gentle palpation diffusely, no guarding, rebound or rigidity Abdomen moving with respiration Normoactive bowel sounds No hepatomegaly, No splenomegaly No palpable mass No abdominal wall hernia noted Skin: Normal temperature, tone, texture, turgor Extremities: No digital cyanosis No clubbing Pedal pulses intact and symmetrical Radial pulses intact and symmetrical No calf tenderness Psychiatric: Alert and oriented to person, place and time Appropriate affect fair judgement Neuro Muscles Strength 5/5 in all 4 extremities with limitations over the right upper extremity due to pain over her right shoulder Sensation to light touch grossly present throughout Cranial nerves II-XII grossly intact Lymphatics: no palpable cervical or supraclavicular lymph nodes Past Medical History Past Medical History: Coronary Artery Disease (CAD), GERD/Reflux, Hypertension, Osteoarthritis (OA), Renal Disease Additional Past Medical History / Comment(s): IDDM, diverticulitis, C diff colitis, nephrolithiasis, "spots on liver per CT", arthritis, "complex mass on both kidneys"-pt instructed not to "worry about them", 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 History of Any Multi-Drug Resistant Organisms: C-DIFF Date of last positivie culture/infection: 08/21/15 MDRO Source:: STOOL Past Surgical History: Bowel Resection, Cholecystectomy, Heart Catheterization, Hysterectomy, Tonsillectomy Additional Past Surgical History / Comment(s): 06/19/15 LAP SIGMOID RESECTION with lysis of adhesions, lithotripsy, cardiac cath with mild disease to proxima l LAD, colonoscopy, L thiGH cyst removed. BILAT CATARACTS REMOVED WITH LENS IMPLANTS Past Anesthesia/Blood Transfusion Reactions: No Reported Reaction Past Psychological History: Depression Smoking Status: Never smoker Past Alcohol Use History: None Reported Past Drug Use History: None Reported - Past Family History Father Family Medical History: Cancer Mother Family Medical History: Cancer Medications and Allergies Home Medications Medication Instructions Recorded Confirmed Type Insulin Degludec/Liraglutide 14 unit SQ HS 04/19/19 02/12/23 History [Xultophy 100 Unit-3.6MG/ml Pen] Losartan/Hydrochlorothiazide 1 tab PO DAILY 12/18/22 02/12/23 History [Hyzaar 100-25 Tablet] amLODIPine [Norvasc] 10 mg PO DAILY 12/18/22 02/12/23 History Omeprazole [PriLOSEC] 40 mg PO DAILY #14 cap 01/29/23 02/12/23 Rx Allergies Allergy/AdvReac Type Severity Reaction Status Date / Time adhesive tape Allergy red skin Verified 02/12/23 13:40 pregabalin [From Lyrica] AdvReac Hallucinati Verified 02/12/23 13:40 ons Physical Exam Vitals: Vital Signs Temp Pulse Resp BP Pulse Ox 02/12/23 18:55 95 20 151/92 95 02/12/23 18:00 18 94 L 02/12/23 15:25 99 16 154/98 95 02/12/23 14:00 92 18 139/102 95 02/12/23 12:53 98.7 F 99 20 149/96 94 L Intake and Output 02/12/23 02/12/23 02/12/23 06:59 14:59 22:59 Other: Weight 65.771 kg Results CBC & Chem 7: 02/12/23 15:30 02/12/23 15:30 Labs: Abnormal Lab Results - Last 24 Hours (Table) 02/12/23 Range/Units 15:30 Potassium 3.4 L (3.5-5.1) mmol/L Albumin 3.4 L (3.5-5.0) g/dL Assessment and Plan Assessment: 82-year-old female coming in for new onset exertional dyspnea and increase abdominal bloating and distention I discussed the case with the ED doctor and accepted the admission to rule out acute congestive heart failure with anticipated length of stay more than 2 midnights Exertional dyspnea rule out acute congestive heart failure Check echocardiogram Cardiology consult EKG shows sinus tachycardia Elevated BMP 11,000 Troponins negative Renal function unremarkable BUN 15 creatinine 0.87 sodium 138 potassium 3.4 Chest x-ray showed pulmonary vascular congestion along with moderate left pleural effusion and trace right pleural effusion Continue with Lasix 20 mg IV twice a day Monitor vital signs Supplemental oxygen as needed Right shoulder pain X-ray of the right shoulder showed no acute fractures or dislocation Pain control with opiates Orthopedic consult Abdominal distention and bloating status post colonoscopy Peptic ulcers Continue with Protonix 40 mg twice a day Occult blood test is negative Monitor hemoglobin Pain control with opiates Diabetes mellitus Insulin sliding scale Hypertension Resume amlodipine Full code DVT prophylaxis heparin subcutaneously
[2023-02-13 05:58] LABS: Glucose,Whole Blood 116 mg/dL (70-110)
[2023-02-13] MEDS: INSULIN ASPART (NovoLOG) 100 UNIT/ML VIAL SQ SCH ×4 (06:21→20:31)
[2023-02-13] MEDS: PANTOPRAZOLE 40 MG TABLET PO SCH ×2 (06:36→16:57)
[2023-02-13] MEDS ORDERED: PANTOPRAZOLE 40 MG TABLET PO SCH (07:30)
[2023-02-13] MEDS: hydroCHLOROthiazide 25 MG TAB PO SCH (08:33)
[2023-02-13] MEDS: FUROSEMIDE 10 MG/ML 2 ML VIAL IV SCH ×2 (08:33→20:31)
[2023-02-13] MEDS: LOSARTAN 50 MG TAB PO SCH (08:33)
[2023-02-13] MEDS: HEPARIN SODIUM,PORCINE/PF 5,000 UNIT/0.5 ML SYRINGE SQ SCH ×2 (08:33→15:23)
[2023-02-13] MEDS: amLODIPine 10 MG TAB PO SCH (08:33)
[2023-02-13] MEDS: ACETAMINOPHEN TAB 325 MG TAB PO PRN (09:13)
--- NOTE | 2023-02-13 09:32 | P.CRDCN ---
History of Present Illness History of present illness: HISTORY OF PRESENT ILLNESS: This is a 82-year-old female with a past medical history significant for hypertension and diabetes. 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 We have been asked to see the patient in consultation for congestive heart failure. Patient examined at the bedside. Patient underwent EGD and colonoscopy on 01/29/[address] Marcelino. EGD revealed acute gastritis with bleeding, acute gastric ulcers with bleeding, and diaphragmatic hiatal hernia. Colonoscopy revealed diverticulosis, microscopic colitis, and internal and external hemorrhoids. Patient states since her endoscopy she has been feeling unwell. She reports that she has not had an appetite has not been eating well. She reports shortness of breath that is worse when she lays down and worse with exertion. She states she has been waking up at night short of breath. She denies having any chest pain or pressure. Denies any dizziness or lightheadedness. She states that she has had no energy. The patient was found to be in acute congestive heart failure on admission and started on IV Lasix. * EKG reveals sinus tachycardia with no signs of acute ischemia. Baseline artifact. * Chest xray cardiomegaly, pulmonary vascular congestion with trace right and moderate left pleural effusion. * Laboratory data: WBC 8.9. Hemoglobin 13.9. Platelet count 207. Sodium 138. Potassium 3.4. BUN 15. Creatinine 0.87. Troponin negative 1. ProBNP 11,100. * Current home cardiac medications include amlodipine 10 mg daily and losartan- hydrochlorothiazide 100-25mg daily * Most recent echocardiogram obtained in June 2015 revealed ejection fraction 60-65%, severe pulmonary hypertension, mild mitral regurgitation, and mild tricuspid regurgitation REVIEW OF SYSTEMS: At the time of my exam: CONSTITUTIONAL: Denies fever or chills. HEENT: Denies blurred vision, vision changes, or eye pain. Denies hemoptysis CARDIOVASCULAR: Denies chest pain. Denies orthopnea. Denies PND. Denies palpitations RESPIRATORY: Reports shortness of breath. GASTROINTESTINAL: Denies abdominal pain. Denies nausea or vomiting. HEMATOLOGIC: Denies bleeding disorders. GENITOURINARY: Denies any blood in urine. SKIN: Denies pruitis. Denies rash. PHYSICAL EXAM: VITAL SIGNS: Reviewed. GENERAL: Well-developed in no acute distress. HEENT: Head is normocephalic. Pupils are equal, round. Sclerae anicteric. Mucous membranes of the mouth are moist. Neck supple. No JVD or thyromegaly LUNGS: Respirations even and unlabored. Lungs diminished. Patient unable to sit up secondary to right shoulder pain to listen to lungs posteriorly. HEART: Regular rate and rhythm. S1 and S2 heard. ABDOMEN: Soft. Nondistended. Nontender. EXTREMITIES: Normal range of motion. No clubbing or cyanosis. Peripheral pulses intact. Trace bilateral ankle edema NEUROLOGIC: Awake and alert. Oriented x 3. ASSESSMENT: Generalized malaise Acute heart failure, proBNP 11,100, type unknown, repeat echo pending, previous EF 6065 Status post recent EGD and colonoscopy Hypertension Diabetes Right shoulder pain History of severe pulmonary hypertension PLAN: Obtain 2-D echo to assess cardiac structure and function Resume home cardiac medications Continue IV Lasix 20 mg every 12 hours Daily weights, accurate I&O, and monitoring of kidney function Further recommendations pending patient's course Nurse practitioner note has been reviewed by physician. Signing provider agrees with the documented findings, assessment, and plan of care. 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 History of Any Multi-Drug Resistant Organisms: C-DIFF Date of last positivie culture/infection: 08/21/15 MDRO Source:: STOOL Past Surgical History: Bowel Resection, Cholecystectomy, Heart Catheterization, Hysterectomy, Tonsillectomy Additional Past Surgical History / Comment(s): 06/19/15 LAP SIGMOID RESECTION wi th lysis of adhesions, lithotripsy, cardiac cath with mild disease to proximal LAD, colonoscopy, L thiGH cyst removed. BILAT CATARACTS REMOVED WITH LENS IMPLANTS Past Anesthesia/Blood Transfusion Reactions: No Reported Reaction Past Psychological History: Depression Smoking Status: Never smoker Past Alcohol Use History: None Reported Past Drug Use History: None Reported - Past Family History Father Family Medical History: Cancer Mother Family Medical History: Cancer Medications and Allergies Home Medications Medication Instructions Recorded Confirmed Type Insulin Degludec/Liraglutide 14 unit SQ HS 04/19/19 02/12/23 History [Xultophy 100 Unit-3.6MG/ml Pen] Losartan/Hydrochlorothiazide 1 tab PO DAILY 12/18/22 02/12/23 History [Hyzaar 100-25 Tablet] amLODIPine [Norvasc] 10 mg PO DAILY 12/18/22 02/12/23 History Omeprazole [PriLOSEC] 40 mg PO DAILY #14 cap 01/29/23 02/12/23 Rx Allergies Allergy/AdvReac Type Severity Reaction Status Date / Time adhesive tape Allergy red skin Verified 02/12/23 13:40 pregabalin [From Lyrica] AdvReac Hallucinati Verified 02/12/23 13:40 ons Physical Exam Vitals: Vital Signs Temp Pulse Pulse Resp BP BP Pulse Ox 02/13/23 03:29 97.6 F 105 H 16 167/103 92 L 02/13/23 01:51 97 02/12/23 23:37 97.6 F 100 16 168/90 91 L 02/12/23 22:13 98.0 F 97 16 156/94 92 L 02/12/23 21:43 95 22 151/92 97 02/12/23 18:55 95 20 151/92 95 02/12/23 18:00 18 94 L 02/12/23 15:25 99 16 154/98 95 02/12/23 14:00 92 18 139/102 95 02/12/23 12:53 98.7 F 99 20 149/96 94 L Intake and Output 02/12/23 02/13/23 02/13/23 22:59 06:59 14:59 Output Total 200 Balance -200 Output: Urine 200 Other: Voiding Method External Catheter Weight 65 kg Results 02/12/23 15:30 02/12/23 15:30 Cardiac Enzymes 02/12/23 02/12/23 Range/Units 15:30 15:30 AST 17 (14-36) U/L Troponin I 0.021 (0.000-0.034) ng/mL Coagulation 02/12/23 Range/Units 15:30 PT 11.1 (9.0-12.0) sec APTT 25.0 (22.0-30.0) sec CBC 02/12/23 Range/Units 15:30 WBC 8.9 (3.8-10.6) k/uL RBC 4.59 (3.80-5.40) m/uL Hgb 13.9 (11.4-16.0) gm/dL Hct 41.5 (34.0-46.0) % Plt Count 207 (150-450) k/uL Comprehensive Metabolic Panel 02/12/23 Range/Units 15:30 Sodium 138 (137-145) mmol/L Potassium 3.4 L (3.5-5.1) mmol/L Chloride 103 (98-107) mmol/L Carbon Dioxide 27 (22-30) mmol/L BUN 15 (7-17) mg/dL Creatinine 0.87 (0.52-1.04) mg/dL Glucose 79 (74-99) mg/dL Calcium 9.0 (8.4-10.2) mg/dL AST 17 (14-36) U/L ALT 13 (4-34) U/L Alkaline Phosphatase 71 (38-126) U/L Total Protein 6.3 (6.3-8.2) g/dL Albumin 3.4 L (3.5-5.0) g/dL Current Medications Generic Name Dose Route Start Last Admin Trade Name Freq PRN Reason Stop Dose Admin Amlodipine Besylate 10 mg 02/13/23 09:00 Amlodipine 10 Mg Tab PO DAILY [facility] Dextrose/Water 25 ml 02/13/23 05:13 Dextrose 50% Syringe 50 Ml IVP PER PROTOCOL PRN Hypoglycemia Protocol Dextrose/Water 50 ml 02/13/23 05:13 Dextrose 50% Syringe 50 Ml IVP PER PROTOCOL PRN Hypoglycemia Protocol Furosemide 20 mg 02/13/23 09:00 Furosemide 10 Mg/Ml 2 Ml Vial IV Q12HR [facility] Heparin Sodium (Porcine) 5,000 unit 02/13/23 08:00 Heparin Sodium,Porcine/Pf 5,000 Unit/0.5 Ml Syringe SQ Q8HR [facility] Hydrochlorothiazide 25 mg 02/13/23 09:00 Hydrochlorothiazide 25 Mg Tab PO DAILY [facility] Insulin Aspart 0 unit 02/13/23 07:30 02/13/23 06:21 Insulin Aspart (Novolog) 100 Unit/Ml Vial SQ Not Given ACHS [facility] Protocol Losartan Potassium 100 mg 02/13/23 09:00 Losartan 50 Mg Tab PO DAILY [facility] Nitroglycerin 1 inch 02/12/23 18:00 02/13/23 06:36 Nitroglycerin Oint 1 Inch/Gm Packet TOPICAL 02/13/23 18:01 1 inch Q6HR [facility] Administration Pantoprazole Sodium 40 mg 02/13/23 07:30 02/13/23 06:36 Pantoprazole 40 Mg Tablet PO 40 mg AC-BID [facility] Administration Intake and Output 02/12/23 02/13/23 02/13/23 22:59 06:59 14:59 Output Total 200 Balance -200 Output: Urine 200 Other: Voiding Method External Catheter Weight 65 kg 02/12/23 15:30 02/12/23 15:30
[2023-02-13] MEDS: traMADol 50 MG TAB PO PRN ×2 (11:05→20:31)
[2023-02-13 11:31] LABS: Glucose,Whole Blood 141 mg/dL (70-110)
--- NOTE | 2023-02-13 11:54 | P.CNOR ---
History of Present Illness - [facility] Consult date: 02/13/23 Consult reason: joint pain (Right shoulder pain) History of present illness: Patient is an 82-year-old female who was admitted to [facility] on 02/12/2023 2 to generalized fatigue and abdominal distention. Patient had a colonoscopy about 2 weeks ago and has had on-and-off constipation and diarrhea. She does have history of previous colon surgery and follows with a general surgeon in [facility]. After being admitted to the hospital, patient was being removed from the ER stretcher to a hospital bed when her arm got stuck between the bed, she heard a pop involving the right upper extremity and had immediate pain. Our orthopedic team was consulted for this reason. Patient was evaluated today at bedside, she is resting comfortably in her hospital bed, she has family at bedside. Patient was able to sit up at bedside exam. She states most the pain is in the proximal aspect of the right upper extremity. She's had a very difficult time moving the shoulder since the moving incident. Patient denies previous surgery to the right upper extremity. She denies any neck pain currently. She was getting a little bit of numbness and tingling in the hand, this seems to have improved. She is able to move the hand and wrist with minimal difficulty. Elbow range of motion is also intact, this does reproduce low bit of discomfort in the proximal aspect of the upper extremity. Shoulder range of motion is very limited at this time. Patient denies any pain involving the left upper extremity. Patient denies any pain of the bilateral lower extremities. 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 History of Any Multi-Drug Resistant Organisms: C-DIFF Year Discovered:: 08/21/15 MDRO Source:: STOOL Past Surgical History: Bowel Resection, Cholecystectomy, Heart Catheterization, Hysterectomy, Tonsillectomy Additional Past Surgical History / Comment(s): 06/19/15 LAP SIGMOID RESECTION with lysis of adhesions, lithotripsy, cardiac cath with mild disease to proximal LAD, colonoscopy, L thiGH cyst removed. BILAT CATARACTS REMOVED WITH LENS IMPLANTS Past Anesthesia/Blood Transfusion Reactions: No Reported Reaction Past Psychological History: Depression Smoking Status: Never smoker Past Alcohol Use History: None Reported Past Drug Use History: None Reported - Past Family History Father Family Medical History: Cancer Mother Family Medical History: Cancer Medications and Allergies Home Medications Medication Instructions Recorded Confirmed Type Insulin Degludec/Liraglutide 14 unit SQ HS 04/19/19 02/12/23 History [Xultophy 100 Unit-3.6MG/ml Pen] Losartan/Hydrochlorothiazide 1 tab PO DAILY 12/18/22 02/12/23 History [Hyzaar 100-25 Tablet] amLODIPine [Norvasc] 10 mg PO DAILY 12/18/22 02/12/23 History Omeprazole [PriLOSEC] 40 mg PO DAILY #14 cap 01/29/23 02/12/23 Rx Allergies Allergy/AdvReac Type Severity Reaction Status Date / Time adhesive tape Allergy red skin Verified 02/12/23 13:40 pregabalin [From Lyrica] AdvReac Hallucinati Verified 02/12/23 13:40 ons Physical Examination Osteopathic Statement: *. No significant issues noted on an osteopathic structural exam other than those noted in the History and Physical/Consult. Right upper extremity: No obvious open lesions or sores are visualized throughout the extremity, no erythema She does demonstrate some tenderness with palpation to the glenohumeral joint line, there is some swelling noted in that area. Patient is nontender to the acromioclavicular joint. She is nontender to the mid shaft of the humerus. She's nontender with palpation throughout the elbow, forearm, hand and wrist Wrist extension, wrist flexion and leak detection engineer are intact. Elbow extension and flexion are intact, this does reproduce some discomfort in the upper part of the arm. Active range of motion of the shoulder is very difficult with forward elevation and abduction due to pain. Passive range of motion, I can forward elevate and abduct to about 90 before pain is reproduced Sensory exam to light touch is intact throughout the extremity Radial and ulnar pulses are 2+ Results - Labs Labs: Abnormal Lab Results - Last 24 Hours (Table) 02/12/23 02/13/2302/13/23 Range/Units 15:30 05:57 11:30 Potassium 3.4 L (3.5-5.1) mmol/L POC Glucose (mg/dL) 116 H 141 H (70-110) mg/dL Albumin 3.4 L (3.5-5.0) g/dL H & H 02/12/23 Range/Units 15:30 Hgb 13.9 (11.4-16.0) gm/dL Hct 41.5 (34.0-46.0) % Coagulation 02/12/23 Range/Units 15:30 INR 1.1 (<1.2) Result Diagrams: 02/12/23 15:30 02/12/23 15:30 - Diagnostic results Shoulder x-ray: report reviewed, image reviewed Shoulder CT: report reviewed, image reviewed Assessment and Plan Assessment: Right shoulder pain Right shoulder acromioclavicular joint osteoarthritis Right shoulder glenohumeral joint arthritis Other medical comorbidities Plan: Imaging: Shoulder x-rays and computed tomography scan were reviewed from 02/13/2023, this concluded report and images. Images demonstrate no fractures or dislocations. There are some cortical changes noted to the surgical neck region of the humerus, this could've likely represent previous fracture that has healed or arthritic changes. There is also arthritic changes noted throughout the acromioclavicular joint. There are some subchondral cystic changes also noted in the greater tuberosity Plan: I was able to discuss the case, this including the physical exam findings and imaging studies my attending Dr. Padilla. No emergent orthopedic surgical intervention is recommended at this time Recommending conservative measures, this including the use of an arm sling as needed. We discussed icing the shoulder often. Patient cannot take oral anti- inflammatories at this time, recommending the use of Tylenol. I did order tramadol 50 mg every 6 hours to use as needed. She also could consider a topical NSAID if needed Would avoid excess lifting with the right upper extremity at this time Patient can advance her range of motion of the right shoulder she can tolerate, basic hand and wrist exercises are okay DVT prophylaxis per primary medical service Other medical solution recommendations appreciated Our orthopedic information will be placed in chart for follow-up, please contact our service any further questions regarding this patient Time with Patient: Less than 30
--- NOTE | 2023-02-13 11:56 | P.GSCN ---
History of Present Illness Consult date: 02/13/23 History of present illness: CHIEF COMPLAINT: Shortness of breath, abdominal pain HISTORY OF PRESENT ILLNESS: This is a 82-year-old female who had a recent colonoscopy and EGD about [address] Marcelino. Results had shown acute gastritis with bleeding and acute gastric ulcers with bleeding and a diaphragmatic hiatal hernia. Colonoscopy has shown diverticulosis, colitis and internal and external hemorrhoids. Patient presents to the hospital with complaints of abdominal pain with bloating, decreased appetite and shortness of breath. Patient reports that she has been having flatus. She also had black stools but scopes had shown gastric ulcers. Patient reports no bowel movement today. She also has had shortness of breath. Hemoglobin was stable at 13.9 chest x-ray had shown evidence of pulmonary vascular congestion and patient started on IV Lasix. Patient does report taking the omeprazole and Carafate at home. Hemoglobin stable at 13.9. Stool for occult blood was negative. Surgical service consulted due to abdominal distention and recent colonoscopy. KUB x-ray nonspecific bowel gas pattern without acute process. No pneumoperitoneum. Fecal material and gas are demonstrated throughout the colon and rectum. Patient does report her abdominal bloating and distention is less today. She continues to have decreased appetite. PAST MEDICAL HISTORY: See below PAST SURGICAL HISTORY: See below MEDICATIONS: See below ALLERGIES: See below SOCIAL HISTORY: No illicit drug use. REVIEW OF SYSTEMS: CONSTITUTIONAL: Denies fever or chills. HEENT: Denies blurred vision, vision changes, or eye pain. Denies hemoptysis CARDIOVASCULAR: Denies chest pain or pressure. RESPIRATORY: No shortness of breath. GASTROINTESTINAL: See HPI for pertinent findings HEMATOLOGIC: Denies bleeding disorders. GENITOURINARY: Denies any blood in urine or increased urinary frequency. SKIN: Denies pruitis. Denies rash. PHYSICAL EXAM: VITAL SIGNS: Reviewed GENERAL: Well-developed in no acute distress. HEENT: No sclera icterus. Extraocular movements grossly intact. Moist buccal mucosa. Head is atraumatic, normocephalic. No nasal drainage. ABDOMEN: Soft. Nondistended. Minimal Tenderness with palpation across upper abdomen NEUROLOGIC: Alert and oriented. Cranial nerves II through XII grossly intact. LABORATORY DATA: WBC 8.9 Hgb 13.9 platelets 207 Sodium 138 potassium 3.4 creatinine 0.87 Lactic acid 1.1 LFTs normal Urinalysis negative for infection Stool for occult blood negative BNP 11,100 IMAGING: KUB x-ray as stated above Chest x-ray cardiomegaly, pulmonary vascular congestion with trace right and moderate left pleural effusions. ASSESSMENT: 1. Abdominal pain with bloating and recent endoscopies 2. Recent diagnosis of gastric ulcers with bleeding and gastritis with bleeding. Patient having melanotic stool. But stool for occult blood negative. hemoglobin stable at 13.9 3. Acute congestive heart failure 4. Hypokalemia PLAN: -Computed tomography scan abdomen and pelvis with oral and IV contrast ordered for further evaluation of abdominal pain -Keep patient nothing by mouth -Cardiology management for congestive heart failure -Patient receiving potassium supplement -Continue supportive care -Further recommendations forthcoming per surgeon Physician Automatic Head Sawyer note has been reviewed by physician. Signing provider agrees with the documented findings, assessment, and plan of care. I have personally seen and examined the patient, reviewed the TRACK LAYER /PAs history, exam and MDM and agree with the assessment and plan as written. Based on total visit time, I have performed more than 50% of the visit. As above: Patient with abdominal pain and some bloating. Underwent recent endoscopy. Described black colored stools however did take Pepto-Bismol. Hemoccult negative. Await CT abdomen and pelvis. Resume diet if negative. 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 History of Any Multi-Drug Resistant Organisms: C-DIFF Year Discovered:: 08/21/15 MDRO Source:: STOOL Past Surgical History: Bowel Resection, Cholecystectomy, Heart Catheterization, Hysterectomy, Tonsillectomy Additional Past Surgical History / Comment(s): 06/19/15 LAP SIGMOID RESECTION with lysis of adhesions, lithotripsy, cardiac cath with mild disease to proximal LAD, colonoscopy, L thiGH cyst removed. BILAT CATARACTS REMOVED WITH LENS IMPLANTS Past Anesthesia/Blood Transfusion Reactions: No Reported Reaction Past Psychological History: Depression Smoking Status: Never smoker Past Alcohol Use History: None Reported Past Drug Use History: None Reported - Past Family History Father Family Medical History: Cancer Mother Family Medical History: Cancer Medications and Allergies Home Medications Medication Instructions Recorded Confirmed Type Insulin Degludec/Liraglutide 14 unit SQ HS 04/19/19 02/12/23 History [Xultophy 100 Unit-3.6MG/ml Pen] Losartan/Hydrochlorothiazide 1 tab PO DAILY 12/18/22 02/12/23 History [Hyzaar 100-25 Tablet] amLODIPine [Norvasc] 10 mg PO DAILY 12/18/22 02/12/23 History Omeprazole [PriLOSEC] 40 mg PO DAILY #14 cap 01/29/23 02/12/23 Rx Allergies Allergy/AdvReac Type Severity Reaction Status Date / Time adhesive tape Allergy red skin Verified 02/12/23 13:40 pregabalin [From Lyrica] AdvReac Hallucinati Verified 02/12/23 13:40 ons Surgical - Exam Vital Signs Temp Pulse Resp BP Pulse Ox 98.7 F 99 20 149/96 94 L 02/12/23 12:53 02/12/23 12:53 02/12/23 12:53 02/12/23 12:53 02/12/23 12:53 Results - Labs 02/12/23 15:30 02/12/23 15:30 Abnormal Lab Results - Last 24 Hours (Table) 02/12/23 02/13/23 Range/Units 15:30 05:57 Potassium 3.4 L (3.5-5.1) mmol/L POC Glucose (mg/dL) 116 H (70-110) mg/dL Albumin 3.4 L (3.5-5.0) g/dL Diabetes panel 02/12/23 Range/Units 15:30 Sodium 138 (137-145) mmol/L Potassium 3.4 L (3.5-5.1) mmol/L Chloride 103 (98-107) mmol/L Carbon Dioxide 27 (22-30) mmol/L BUN 15 (7-17) mg/dL Creatinine 0.87 (0.52-1.04) mg/dL Glucose 79 (74-99) mg/dL Calcium 9.0 (8.4-10.2) mg/dL AST 17 (14-36) U/L ALT 13 (4-34) U/L Alkaline Phosphatase 71 (38-126) U/L Total Protein 6.3 (6.3-8.2) g/dL Albumin 3.4 L (3.5-5.0) g/dL Calcium panel 02/12/23 Range/Units 15:30 Calcium 9.0 (8.4-10.2) mg/dL Albumin 3.4 L (3.5-5.0) g/dL Pituitary panel 02/12/23 Range/Units 15:30 Sodium 138 (137-145) mmol/L Potassium 3.4 L (3.5-5.1) mmol/L Chloride 103 (98-107) mmol/L Carbon Dioxide 27 (22-30) mmol/L BUN 15 (7-17) mg/dL Creatinine 0.87 (0.52-1.04) mg/dL Glucose 79 (74-99) mg/dL Calcium 9.0 (8.4-10.2) mg/dL Adrenal panel 02/12/23 Range/Units 15:30 Sodium 138 (137-145) mmol/L Potassium 3.4 L (3.5-5.1) mmol/L Chloride 103 (98-107) mmol/L Carbon Dioxide 27 (22-30) mmol/L BUN 15 (7-17) mg/dL Creatinine 0.87 (0.52-1.04) mg/dL Glucose 79 (74-99) mg/dL Calcium 9.0 (8.4-10.2) mg/dL Total Bilirubin 1.3 (0.2-1.3) mg/dL AST 17 (14-36) U/L ALT 13 (4-34) U/L Alkaline Phosphatase 71 (38-126) U/L Total Protein 6.3 (6.3-8.2) g/dL Albumin 3.4 L (3.5-5.0) g/dL
--- NOTE | 2023-02-13 12:36 | P.PN ---
Subjective Progress Note Date: 02/13/23 Hospital Course: 82-year-old female with coronary artery disease, hypertension, diabetes mellitus presenting for her exertional dyspnea and abdominal bloating following colonoscopy. On presentation, patient was saturating at 94% on room air, rest of the vital signs within normal limits. Laboratory workup showed potassium of 3.4, creatinine 0.87, proBNP 11,000. EKG showed sinus tachycardia. Troponin negative. Chest x-ray showed pulmonary vascular congestion with moderate left pleural effusion and trace right pleural effusion. Patient was started on IV Lasix. Cardiology consulted. Patient also complaining of right shoulder pain, orthopedic consulted. Subjective: She is seen and examined at bedside. No acute events overnight. Pertinent positives and negatives as discussed above, a complete review of systems was performed and all other systems are negative. Vitals Signs Reviewed. General: nontoxic, no distress, appears at stated age Derm: warm, dry Head: atraumatic, normocephalic, symmetric Eyes: EOMI, no lid lag, anicteric sclera Mouth: no lip lesion, mucus membranes moist Cardiovascular: S1S2 reg, no murmur Lungs: Bilateral rales , no accessory muscle use Abdominal: soft, nontender to palpation, no guarding, no appreciable organomegaly Ext: no gross muscle atrophy, trace edema, no contractures Neuro: CN II-XI grossly intact, no focal neuro deficits Psych: Alert, oriented, appropriate affect Data Reviewed Today: Pertinent Labs: Blood sugars range between 85-141 Imaging: Shoulder right x-ray, no discrete fracture line noted. Assessment and Plan: Active: Exertional dyspnea Suspected congestive heart failure Right shoulder pain Abdominal distention/bloating status post colonoscopy Peptic ulcer disease Diabetes mellitus -Continue Lasix 20 mg IV every 12 hours, monitor renal function -Echocardiogram pending -Cardiology note reviewed, continue diuretics -Orthopedic note reviewed, continue conservative therapy, shoulder CT pending -Surgery appropriate, CT abdomen and pelvis pending, currently NPO -Protonix 40 twice a day Resolved: Sinus tachycardia Chronic: Hypertension DVT ppx: Subcu heparin Code status: Full code Anticipated discharge place: Home Anticipated discharge time: 1-2 days Objective - Vital Signs Vital signs: Vital Signs Temp 98.0 F 02/13/23 08:26 Pulse 94 02/13/23 11:02 Resp 20 02/13/23 11:02 BP 138/85 02/13/23 11:02 Pulse Ox 97 02/13/23 11:03 FiO2 Intake & Output 02/12/23 02/13/23 02/13/23 18:59 06:59 18:59 Output Total 200 650 Balance -200 -650 Weight 65.771 kg 65 kg Output: Urine 200 650 Other: Voiding Method External Catheter External Catheter - Labs CBC & Chem 7: 02/12/23 15:30 02/12/23 15:30 Labs: Abnormal Lab Results - Last 24 Hours (Table) 02/12/23 02/13/23 02/13/23 Range/Units 15:30 05:57 11:30 Potassium 3.4 L (3.5-5.1) mmol/L POC Glucose (mg/dL) 116 H 141 H (70-110) mg/dL Albumin 3.4 L (3.5-5.0) g/dL
[2023-02-13] MEDS: IOPAMIDOL CONTRAST (ORAL USE) VIAL PO PRN ×2 (12:37→13:27)
--- NOTE | 2023-02-13 13:58 | CT ---
EXAMINATION TYPE: CT shoulder RT wo con CT DLP: 481.9 mGycm, Automated exposure control for dose reduction was used. DATE OF EXAM: 02/13/2023 10:54 AM COMPARISON: Extremity radiograph same day. CLINICAL INDICATION:Female, 82 years old with history of right shoulder pain; PHH, Right shoulder stef n TECHNIQUE: Axial images were obtained of the right shoulder . Additional coronal and sagittal reform atted images and soft tissue and bone window were obtained for review. 3-D reconstruction was created on a separate workstation. Contrast used: None Oral contrast used: None FINDINGS: There is degeneration changes of the right shoulder with osteophyte formation of the distal clavicle, acromion, humerus and glenoid. There is no evidence of fracture or dislocation. There is j oint space narrowing present. A small joint effusion is present. Tissues are grossly unremarkable. Vi sualized portions of the chest demonstrate right pleural effusion. No rib fractures are visualized. R otator cuff volume demonstrates atrophy changes of the supraspinatus and to a lesser extent infraspin atus. Acromiohumeral interval is decreased measuring 4 mm. IMPRESSION: Moderate to severe degeneration of the right shoulder with osteophyte formation joint space narrowing and effusion. No displaced fracture visualized. Atrophy changes of the supraspinatus muscle suggestive of rotator cuff tear slightly completely evalu ated with MRI if clinically warranted.
--- NOTE | 2023-02-13 15:17 | CT ---
EXAMINATION TYPE: CT abdomen pelvis w con CT DLP: 873.1 mGycm, Automated exposure control for dose reduction was used. DATE OF EXAM: 02/13/2023 2:52 PM COMPARISON: Multiple priors including 12/18/2022, 04/13/2019 and 05/11/2015. CLINICAL INDICATION:Female, 82 years old with history of abdominal pain; Abdominal pain. TECHNIQUE: Axial CT of the abdomen and pelvis. Sagittal and coronal reformats were created on a [employer] workstation. Contrast used:100ml mL of Isovue 300 with IV Contrast, (none if empty) Oral contrast used: with Oral Contrast (none if empty) FINDINGS: LOWER CHEST: Trace right and small left pleural effusion. Severe coronary artery cusp patient's. The heart is enlarged for size. ABDOMEN LIVER: Right hepatic lobe dome cystic lesion not significantly changed from priors. GALLBLADDER AND B ILE DUCTS: Gallbladder is surgically absent with mild intrahepatic and extra hepatic biliary dilatati on likely physiologic and a postcholecystectomy change. No evidence of choledocholithiasis. PANCREAS: Unremarkable. SPLEEN: Unremarkable. ADRENAL GLANDS: Unremarkable. KIDNEYS AND URETERS: Right anterior exophytic cystic renal lesion measuring 4.2 x 3.7 x 3.9 cm. Which is larger than 2019 right measured 3.2 x 3.0 x 3.3 cm. There is enhancing septi along this lesion most pronounced mediall y. Left kidney has similar dilation of the left collecting system. No evidence for obstructing mass. No left renal calculi. PELVIS BLADDER: Unremarkable REPRODUCTIVE: Unremarkable. ABDOMEN & PELVIS STOMACH AND BOWEL: No evidence of bowel obstruction. Scattered colonic diverticula. PERITONEUM/RETROPERITONEUM: No evidence of pneumoperitoneum or free fluid. No evidence distention of shortness of of colon within the ascending colon measuring up to 6.5 cm in length. No obvious wall th ickening visualized. VASCULATURE: Moderate atherosclerotic calcifications are present throughout the abdominal aorta and i ts branches. No evidence of aortic aneurysm. MUSCULOSKELETAL: No acute osseous abnormalities. Moderate disc degeneration changes are present throu ghout the thoracolumbar spine. LYMPH NODES: No gross evidence for lymphadenopathy. SOFT TISSUE/ABDOMINAL WALL: Unremarkable IMPRESSION: 1. No evidence for acute abdominal process. 2. Increasing size of right superior renal pole exophytic cystic lesion which is seen dating back to 2014. Urology consultation is recommended if not already performed. 3. Short segment of nondistention of the ascending colon. Findings could be secondary to nondistenti on. 4. Cardiomegaly with severe coronary artery calcifications. 5. Small left and trace right pleural effusion. 6. Colonic diverticulosis.
[2023-02-13 16:14] LABS: Glucose,Whole Blood 160 mg/dL (70-110)
--- NOTE | 2023-02-13 17:46 | CA ---
Transthoracic Echo Report Name: Estephania Varma Age: 82 Gender: F : 1940 Exam Date: 02/13/2023 07:46 Exam Location: [facility] Ht (in): 64 Wt (lb): 145 Ordering Physician: Keny Payan MD Attending/Referring Phys: [employer]dn[employer] Artificer Helper Melba Frausto [facility] Procedure CPT: Indications: Heart failure Cardiac Hx: Technical Quality: Fair Contrast 1: Lumason Total Dose (mL): 5 Contrast 2: Total Dose (mL): MEASUREMENTS (Male / Female) Normal Values 2D ECHO LV Diastolic Diameter PLAX 5.7 cm 4.2 - 5.9 / 3.9 - 5.3 cm LV Systolic Diameter PLAX 4.7 cm IVS Diastolic Thickness 0.8 cm 0.6 - 1.0 / 0.6 - 0.9 cm LVPW Diastolic Thickness 0.9 cm 0.6 - 1.0 / 0.6 - 0.9 cm LV Relative Wall Thickness 0.3 LVOT Diameter 2.0 cm LV Diastolic Volume MOD BP 192.4 cm??? 67 - 155 / 56 - 104 cm??? LV Systolic Volume MOD BP 122.1 cm??? 22 - 58 / 19 - 49 cm??? LV Ejection Fraction MOD BP 36.5 % >= 55 % LV Cardiac Index MOD BP 4053.0 cm???/min???m??? LV Diastolic Volume MOD 4C 166.0 cm??? LV Systolic Volume MOD 4C 96.3 cm??? LV Ejection Fraction MOD 4C 42.0 % LV Cardiac Index MOD 4C 4023.3 cm???/min???m??? LV Diastolic Length 4C 9.1 cm LV Systolic Length 4C 8.4 cm LV Diastolic Volume MOD 2C 200.8 cm??? LV Systolic Volume MOD 2C 138.2 cm??? LV Ejection Fraction MOD 2C 31.2 % LV Cardiac Index MOD 2C 3613.5 cm???/min???m??? LV Diastolic Length 2C 10.2 cm LV Systolic Length 2C 9.5 cm DOPPLER AV Peak Velocity 133.5 cm/s AV Peak Gradient 7.1 mmHg AV Mean Velocity 99.2 cm/s AV Mean Gradient 4.3 mmHg AV Velocity Time Integral 23.0 cm LVOT Peak Velocity 90.5 cm/s LVOT Peak Gradient 3.3 mmHg LVOT Velocity Time Integral 14.6 cm LVOT Stroke Volume 47.0 cm??? LVOT Stroke Volume Index 27.6 ml/m??? LVOT Cardiac Index 2710.4 cm???/min???m??? AV Area Cont Eq vti 2.0 cm??? AV Area Cont Eq pk 2.2 cm??? Mitral E Point Velocity 105.0 cm/s LV E' Lateral Velocity 9.3 cm/s Mitral E to LV E' Lateral Ratio 11.3 LV E' Septal Velocity 6.8 cm/s Mitral E to LV E' Septal Ratio 15.3 TR Peak Velocity 236.0 cm/s TR Peak Gradient 22.3 mmHg Right Atrial Pressure 8.0 mmHg Pulmonary Artery Systolic Pressu 30.3 mmHg Right Ventricular Systolic Press 30.3 mmHg FINDINGS Left Ventricle Mildly dilated left ventricular with severe impairment in the systolic function with anteroapical, anteroseptal and anterolateral akinesis. Ejection fraction is estimated at 25-30%. Right Ventricle Normal right ventricular size. Right Atrium Normal right atrial size. Left Atrium Moderate left atrial dilatation. Mitral Valve Mitral valve thickened. Mild mitral annular calcification. Mild to moderate mitral regurgitation. Aortic Valve Aortic valve not well visualized. No aortic regurgitation. Tricuspid Valve Structurally normal tricuspid valve. mild tricuspid regurgitation. Pulmonic Valve Pulmonic valve not well visualized. Pericardium No pericardial effusion. Left pleural effusion. Aorta Normal size aortic root. CONCLUSIONS 1. Severely impaired left ventricular systolic function with segmental wall abnormality consistent with CAD 2. [id number] mitral with mild tricuspid regurgitation and no evidence of pulmonary hypertension Previewed by: Dr. Todd Lehman MD (Electronically Signed) Final Date: 13 February 2023 17:45
[2023-02-13 19:56] LABS: Glucose,Whole Blood 240 mg/dL (70-110)
[2023-02-13] MEDS: ATORVASTATIN 20 MG TAB PO SCH (20:30)
[2023-02-14] MEDS: HEPARIN SODIUM,PORCINE/PF 5,000 UNIT/0.5 ML SYRINGE SQ SCH ×4 (01:07→23:56)
[2023-02-14 06:06] LABS: Glucose,Whole Blood 148 mg/dL (70-110)
[2023-02-14] MEDS: INSULIN ASPART (NovoLOG) 100 UNIT/ML VIAL SQ SCH ×4 (06:08→20:45)
[2023-02-14] MEDS: PANTOPRAZOLE 40 MG TABLET PO SCH ×2 (06:27→17:27)
[2023-02-14 06:34] LABS: African American GFR (CKD) 58 (>60 ml/min/1.73 sqM); Anion Gap 8 mmol/L; Blood Urea Nitrogen 16 mg/dL (7-17); Calcium 8.6 mg/dL (8.4-10.2); Carbon Dioxide 26 mmol/L (22-30); Chloride 96 mmol/L (98-107); Glucose 138 mg/dL (74-99); Magnesium 1.5 mg/dL (1.6-2.3); Non-African American GFR(CKD) 50 (>60 ml/min/1.73 sqM); Potassium 3.4 mmol/L (3.5-5.1); Sodium 130 mmol/L (137-145)
[2023-02-14] MEDS ORDERED: POTASSIUM CHLORIDE ER 20 MEQ TAB.ER PO STA (07:43)
[2023-02-14] MEDS ORDERED: ONDANSETRON 4 MG/2 ML VIAL IVP PRN (08:29)
[2023-02-14] MEDS: hydroCHLOROthiazide 25 MG TAB PO SCH (08:35)
[2023-02-14] MEDS: amLODIPine 10 MG TAB PO SCH (08:35)
[2023-02-14] MEDS: LOSARTAN 50 MG TAB PO SCH ×2 (08:35→08:36)
[2023-02-14] MEDS: MAGNESIUM SULFATE-D5W PMX 1 GM in DEXTROSE/WATER 1 100ML.BAG IVPB SCH ×2 (08:35→09:53)
[2023-02-14] MEDS: FUROSEMIDE 10 MG/ML 2 ML VIAL IV SCH (08:35)
[2023-02-14] MEDS: carvediloL 6.25 MG TAB PO SCH ×2 (10:01→17:27)
[2023-02-14] MEDS: ASPIRIN 81 MG PO SCH (10:01)
[2023-02-14] MEDS: SPIRONOLACTONE 25 MG TAB PO SCH (10:01)
--- NOTE | 2023-02-14 11:19 | P.PN ---
Subjective Progress Note Date: 02/14/23 Principal diagnosis: Abdominal pain Patient feels better today. She is tolerating regular foods. CAT scan performed yesterday shows no acute abnormalities to explain her abdominal discomfort. Mild nausea this morning. No vomiting. Objective - Vital Signs Vital signs: Vital Signs Temp 97.8 F 02/14/23 08:25 Pulse 82 02/14/23 11:14 Resp 16 02/14/23 11:14 BP 121/74 02/14/23 11:14 Pulse Ox 94 L 02/14/23 11:14 FiO2 Intake & Output 02/13/23 02/14/23 02/14/23 18:59 06:59 18:59 Intake Total 180 Output Total 1450 700 Balance -1450 -700 180 Weight 65 kg 68.5 kg Intake: Oral 180 Output: Urine 1450 700 Other: Voiding Method External Catheter External Catheter External Catheter - Exam Abdomen: Soft, nontender, nondistended - Labs CBC & Chem 7: 02/12/23 15:30 02/14/23 05:59 Labs: Abnormal Lab Results - Last 24 Hours (Table) 02/13/23 02/13/23 02/13/23 Range/Units 11:30 16:13 19:54 Sodium (137-145) mmol/L Potassium (3.5-5.1) mmol/L Chloride (98-107) mmol/L Creatinine (0.52-1.04) mg/dL Glucose (74-99) mg/dL POC Glucose (mg/dL) 141 H 160 H 240 H (70-110) mg/dL Magnesium (1.6-2.3) mg/dL 02/14/23 02/14/23 Range/Units 05:59 06:04 Sodium 130 L (137-145) mmol/L Potassium 3.4 L (3.5-5.1) mmol/L Chloride 96 L (98-107) mmol/L Creatinine 1.05 H (0.52-1.04) mg/dL Glucose 138 H (74-99) mg/dL POC Glucose (mg/dL) 148 H (70-110) mg/dL Magnesium 1.5 L (1.6-2.3) mg/dL Assessment and Plan (1) Abdominal pain Narrative/Plan: Patient doing well at this time. Continue regular diet. We'll sign off. Please reconsult if needed. Current Visit: Yes Status: Acute Code(s): R10.9 - UNSPECIFIED ABDOMINAL PAIN SNOMED Code(s): 97609721
[2023-02-14 11:37] LABS: Glucose,Whole Blood 254 mg/dL (70-110)
[2023-02-14 12:04] VITALS: BMI 25.9
--- NOTE | 2023-02-14 12:32 | P.PN ---
Subjective HISTORY OF PRESENT ILLNESS: This is a 82-year-old female with a past medical history significant for hypertension and diabetes. 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 We have been asked to see the patient in consultation for congestive heart failure. Patient examined at the bedside. Patient underwent EGD and colonoscopy on 01/29/[address] Marcelino. EGD revealed acute gastritis with bleeding, acute gastric ulcers with bleeding, and diaphragmatic hiatal hernia. Colonoscopy revealed diverticulosis, microscopic colitis, and internal and external hemorrhoids. Patient states since her endoscopy she has been feeling unwell. She reports that she has not had an appetite has not been eating well. She reports shortness of breath that is worse when she lays down and worse with exertion. She states she has been waking up at night short of breath. She denies having any chest pain or pressure. Denies any dizziness or lightheadedness. She states that she has had no energy. The patient was found to be in acute congestive heart failure on admission and started on IV Lasix. * EKG reveals sinus tachycardia with no signs of acute ischemia. Baseline artifact. * Chest xray cardiomegaly, pulmonary vascular congestion with trace right and moderate left pleural effusion. * Laboratory data: WBC 8.9. Hemoglobin 13.9. Platelet count 207. Sodium 138. Potassium 3.4. BUN 15. Creatinine 0.87. Troponin negative 1. ProBNP 11,100. * Current home cardiac medications include amlodipine 10 mg daily and losartan- hydrochlorothiazide 100-25mg daily * Most recent echocardiogram obtained in June 2015 revealed ejection fraction 60-65%, severe pulmonary hypertension, mild mitral regurgitation, and mild tricuspid regurgitation 02/14/2023 Patient examined this morning at the bedside. Patients son is present. Patient denies chest pain or pressure. She reports improvement in her shortness of breath. She remains on IV Lasix. Echocardiogram completed revealing ejection fraction 25-30%, anterior apical, anterior septal, and anterior lateral akinesis, [id number] mitral and mild tricuspid regurgitation. PHYSICAL EXAM: VITAL SIGNS: Reviewed. GENERAL: Well-developed in no acute distress. HEENT: Head is normocephalic. Pupils are equal, round. Sclerae anicteric. Mucous membranes of the mouth are moist. Neck supple. No JVD or thyromegaly LUNGS: Respirations even and unlabored. Lungs diminished. HEART: Regular rate and rhythm. S1 and S2 heard. ABDOMEN: Soft. Nondistended. Nontender. EXTREMITIES: Normal range of motion. No clubbing or cyanosis. Peripheral pulses intact. Trace bilateral ankle edema NEUROLOGIC: Awake and alert. Oriented x 3. ASSESSMENT: Generalized malaise Acute heart failure with reduced EF, 25-30% New-onset cardiomyopathy, etiology unclear, rule out underlying CAD Status post recent EGD and colonoscopy Hypertension Diabetes Right shoulder pain History of severe pulmonary hypertension PLAN: Discontinue IV Lasix. Begin oral Lasix 40 mg twice a day Discontinue amlodipine Add aspirin 81 mg daily, carvedilol 6.25 mg twice a day, and Aldactone 25 mg daily Continue losartan 100 mg daily Continue to maximize cardiomyopathy regimen Patient will require cardiac catheterization to rule out underlying CAD. Dr. Napoles discussed this with patient and her son and can be performed on an outpatient basis. Further recommendations pending patient's course Nurse practitioner note has been reviewed by physician. Signing provider agrees with the documented findings, assessment, and plan of care. Objective - Vital Signs Vital signs: Vital Signs Temp 97.8 F 02/14/23 08:25 Pulse 82 02/14/23 11:14 Resp 16 02/14/23 11:14 BP 121/74 02/14/23 11:14 Pulse Ox 94 L 02/14/23 11:14 FiO2 Intake & Output 02/13/23 02/14/23 02/14/23 18:59 06:59 18:59 Intake Total 180 Output Total 1450 700 Balance -1450 -700 180 Weight 65 kg 68.5 kg 68.5 kg Intake: Oral 180 Output: Urine 1450 700 Other: Voiding Method External Catheter External Catheter External Catheter - Labs CBC & Chem 7: 02/12/23 15:30 02/14/23 05:59 Labs: Abnormal Lab Results - Last 24 Hours (Table) 02/13/23 02/13/23 02/14/23 Range/Units 16:13 19:54 05:59 Sodium 130 L (137-145) mmol/L Potassium 3.4 L (3.5-5.1) mmol/L Chloride 96 L (98-107) mmol/L Creatinine 1.05 H (0.52-1.04) mg/dL Glucose 138 H (74-99) mg/dL POC Glucose (mg/dL) 160 H 240 H (70-110) mg/dL Magnesium 1.5 L (1.6-2.3) mg/dL 02/14/23 02/14/23 Range/Units 06:04 11:36 Sodium (137-145) mmol/L Potassium (3.5-5.1) mmol/L Chloride (98-107) mmol/L Creatinine (0.52-1.04) mg/dL Glucose (74-99) mg/dL POC Glucose (mg/dL) 148 H 254 H (70-110) mg/dL Magnesium (1.6-2.3) mg/dL
--- NOTE | 2023-02-14 13:37 | P.PN ---
Subjective Progress Note Date: 02/14/23 Hospital Course: 82-year-old female with coronary artery disease, hypertension, diabetes mellitus presenting for her exertional dyspnea and abdominal bloating following colonoscopy. On presentation, patient was saturating at 94% on room air, rest of the vital signs within normal limits. Laboratory workup showed potassium of 3.4, creatinine 0.87, proBNP 11,000. EKG showed sinus tachycardia. Troponin negative. Chest x-ray showed pulmonary vascular congestion with moderate left pleural effusion and trace right pleural effusion. Patient was started on IV Lasix. Cardiology consulted. Patient also complaining of right shoulder pain, orthopedic consulted. Now on oral lasix. Subjective: She is seen and examined at bedside. No acute events overnight. Breathing is improved. There is some nausea but denies any significant abdominal pain/bloating. Pertinent positives and negatives as discussed above, a complete review of systems was performed and all other systems are negative. Vitals Signs Reviewed. General: nontoxic, no distress, appears at stated age Derm: warm, dry Head: atraumatic, normocephalic, symmetric Eyes: EOMI, no lid lag, anicteric sclera Mouth: no lip lesion, mucus membranes moist Cardiovascular: S1S2 reg, no murmur Lungs: Bilateral rales , no accessory muscle use Abdominal: soft, nontender to palpation, no guarding, no appreciable organomegaly Ext: no gross muscle atrophy, trace edema, no contractures Neuro: CN II-XI grossly intact, no focal neuro deficits Psych: Alert, oriented, appropriate affect Data Reviewed Today: Pertinent Labs: Na 130. K 3.4, Cr 1.05, magnesium 1.5, blood sugars range between 138-40 Imaging: CT abdomen and pelvis shows increasing size of right superior renal pole exophytic cystic lesion, which has been seen dating back to 2014, cardiomegaly with severe coronary artery calcifications, small left and trace right pleural effusion, and colonic diverticulosis Shoulder CT showed moderate to severe degeneration of right shoulder with osteophyte formation, atrophy changes of the supraspinatus muscle suggestive of rotator cuff tear slightly. Assessment and Plan: Active: Systolic heart failure exacerbation, EF 25-30% Suspected ischemic cardiomyopathy Hypokalemia Hypomagnesemia Right shoulder pain Right rotator cuff tear Abdominal distention/bloating status post colonoscopy, resolved 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 Colonic diverticulosis, without diverticulitis Peptic ulcer disease Diabetes mellitus -Cardiology note reviewed, patient started on aspirin, carvedilol, Aldactone, oral Lasix -Continue losartan -40 mEq oral potassium given, and 2 g IV magnesium sulfate, repeat BMP and magnesium tomorrow -Needs to get evaluated for cardiomyopathy, will need cardiac catheterization as an outpatient -Orthopedic following, right arm in sling -Surgery note reviewed, continue regular diet, signed off -Protonix 40 twice a day -Sliding scale insulin Resolved: Sinus tachycardia Chronic: Hypertension DVT ppx: Subcu heparin Code status: Full code Anticipated discharge place: Home with home care Anticipated discharge time: Likely tomorrow Objective - Vital Signs Vital signs: Vital Signs Temp 97.8 F 02/14/23 08:25 Pulse 82 02/14/23 13:07 Resp 16 02/14/23 11:14 BP 121/74 02/14/23 11:14 Pulse Ox 94 L 02/14/23 11:14 FiO2 Intake & Output 02/13/23 02/14/23 02/14/23 18:59 06:59 18:59 Intake Total 180 Output Total 1450 700 Balance -1450 -700 180 Weight 65 kg 68.5 kg 68.5 kg Intake: Oral 180 Output: Urine 1450 700 Other: Voiding Method External Catheter External Catheter External Catheter - Labs CBC & Chem 7: 02/12/23 15:30 02/14/23 05:59 Labs: Abnormal Lab Results - Last 24 Hours (Table) 02/13/23 02/13/23 02/14/23 Range/Units 16:13 19:54 05:59 Sodium 130 L (137-145) mmol/L Potassium 3.4 L (3.5-5.1) mmol/L Chloride 96 L (98-107) mmol/L Creatinine 1.05 H (0.52-1.04) mg/dL Glucose 138 H (74-99) mg/dL POC Glucose (mg/dL) 160 H 240 H (70-110) mg/dL Magnesium 1.5 L (1.6-2.3) mg/dL 02/14/23 02/14/23 Range/Units 06:04 11:36 Sodium (137-145) mmol/L Potassium (3.5-5.1) mmol/L Chloride (98-107) mmol/L Creatinine (0.52-1.04) mg/dL Glucose (74-99) mg/dL POC Glucose (mg/dL) 148 H 254 H (70-110) mg/dL Magnesium (1.6-2.3) mg/dL
[2023-02-14] MEDS: FUROSEMIDE 40 MG TAB PO SCH (15:30)
[2023-02-14 16:39] LABS: Glucose,Whole Blood 137 mg/dL (70-110)
[2023-02-14] MEDS: traMADol 50 MG TAB PO PRN (18:43)
[2023-02-14 20:21] LABS: Glucose,Whole Blood 234 mg/dL (70-110)
[2023-02-14] MEDS: ATORVASTATIN 20 MG TAB PO SCH (20:45)
[2023-02-15 06:20] LABS: Glucose,Whole Blood 163 mg/dL (70-110)
[2023-02-15] MEDS: PANTOPRAZOLE 40 MG TABLET PO SCH ×2 (06:44→16:58)
[2023-02-15] MEDS: INSULIN ASPART (NovoLOG) 100 UNIT/ML VIAL SQ SCH ×4 (06:45→20:30)
[2023-02-15] MEDS: HEPARIN SODIUM,PORCINE/PF 5,000 UNIT/0.5 ML SYRINGE SQ SCH ×2 (08:32→16:58)
[2023-02-15] MEDS: FUROSEMIDE 40 MG TAB PO SCH (08:32)
[2023-02-15] MEDS: ASPIRIN 81 MG PO SCH (08:32)
[2023-02-15 10:17] LABS: African American GFR (CKD) 26 (>60 ml/min/1.73 sqM); Anion Gap 5 mmol/L; Blood Urea Nitrogen 30 mg/dL (7-17); Calcium 8.5 mg/dL (8.4-10.2); Carbon Dioxide 31 mmol/L (22-30); Chloride 90 mmol/L (98-107); Glucose 144 mg/dL (74-99); Magnesium 2.1 mg/dL (1.6-2.3); Non-African American GFR(CKD) 23 (>60 ml/min/1.73 sqM); Sodium 126 mmol/L (137-145)
--- NOTE | 2023-02-15 11:15 | P.PN ---
Subjective Progress Note Date: 02/15/23 This is a 82-year-old female with a past medical history significant for hypertension and diabetes. Patient does not follow with a public welfare director. We have been asked to see the patient in consultation for congestive heart failure. Patient examined at the bedside. Patient underwent EGD and colonoscopy on 01/29/[address] Marcelino. EGD revealed acute gastritis with bleeding, acute gastric ulcers with bleeding, and diaphragmatic hiatal hernia. Colonoscopy revealed diverticulosis, microscopic colitis, and internal and external hemorrhoids. Patient states since her endoscopy she has been feeling unwell. She reports that she has not had an appetite has not been eating well. She reports shortness of breath that is worse when she lays down and worse with exertion. She states she has been waking up at night short of breath. She denies having any chest pain or pressure. Denies any dizziness or lightheadedness. She states that she has had no energy. The patient was found to be in acute congestive heart failure on admission and started on IV Lasix. * EKG reveals sinus tachycardia with no signs of acute ischemia. Baseline artifact. * Chest xray cardiomegaly, pulmonary vascular congestion with trace right and moderate left pleural effusion. * Laboratory data: WBC 8.9. Hemoglobin 13.9. Platelet count 207. Sodium 138. Potassium 3.4. BUN 15. Creatinine 0.87. Troponin negative 1. ProBNP 11,100. * Current home cardiac medications include amlodipine 10 mg daily and losartan- hydrochlorothiazide 100-25mg daily * Most recent echocardiogram obtained in June 2015 revealed ejection fraction 60-65%, severe pulmonary hypertension, mild mitral regurgitation, and mild tricuspid regurgitation 02/15/23 Patient is is doing well from cardiac standpoint. She did not have any acute overnight events. She is tolerating by mouth diuretic therapy value. She did not extend his any lightheadedness or dizziness while participating in physical therapy and went to the restroom. She is going to be discharged home cardiac vessel standpoint PHYSICAL EXAM: VITAL SIGNS: Reviewed. GENERAL: Well-developed in no acute distress. HEENT: Head is normocephalic. Pupils are equal, round. Sclerae anicteric. Mucous membranes of the mouth are moist. Neck supple. No JVD or thyromegaly LUNGS: Respirations even and unlabored. Lungs diminished. HEART: Regular rate and rhythm. S1 and S2 heard. ABDOMEN: Soft. Nondistended. Nontender. EXTREMITIES: Normal range of motion. No clubbing or cyanosis. Peripheral pulses intact. Trace bilateral ankle edema NEUROLOGIC: Awake and alert. Oriented x 3. ASSESSMENT: Generalized malaise Acute heart failure with reduced EF, 25-30% New-onset cardiomyopathy, etiology unclear, rule out underlying CAD Status post recent EGD and colonoscopy Hypertension Diabetes Right shoulder pain History of severe pulmonary hypertension PLAN: Continue oral Lasix 40 mg twice a day Continue aspirin 81 mg daily, carvedilol 6.25 mg twice a day, and Aldactone 25 mg daily Continue losartan 100 mg daily Patient is cleared to be discharged from cardiac vessel standpoint. She needs outpatient follow-up with Dr. marquez in outpatient heart catheterization for new cardiomyopathy Objective - Vital Signs Vital signs: Vital Signs Temp 97.4 F L 02/15/23 08:00 Pulse 70 02/15/23 08:00 Resp 20 02/15/23 08:00 BP 94/61 02/15/23 08:00 Pulse Ox 90 L 02/15/23 08:00 FiO2 Intake & Output 02/14/23 02/15/23 02/15/23 18:59 06:59 18:59 Intake Total 360 180 Output Total 200 Balance 160 180 Weight 68.5 kg Intake: Oral 360 180 Output: Urine 200 Other: Voiding Method External Catheter External Catheter - Labs CBC & Chem 7: 02/12/23 15:30 02/15/23 09:07 Labs: Abnormal Lab Results - Last 24 Hours (Table) 02/14/23 02/14/23 02/14/23 Range/Units 11:36 16:37 20:19 Sodium (137-145) mmol/L Chloride (98-107) mmol/L Carbon Dioxide (22-30) mmol/L BUN (7-17) mg/dL Creatinine (0.52-1.04) mg/dL Glucose (74-99) mg/dL POC Glucose (mg/dL) 254 H 137 H 234 H (70-110) mg/dL 02/15/23 02/15/23 Range/Units 06:18 09:07 Sodium 126 L (137-145) mmol/L Chloride 90 L (98-107) mmol/L Carbon Dioxide 31 H (22-30) mmol/L BUN 30 H (7-17) mg/dL Creatinine 2.03 H (0.52-1.04) mg/dL Glucose 144 H (74-99) mg/dL POC Glucose (mg/dL) 163 H (70-110) mg/dL
[2023-02-15 11:32] LABS: Glucose,Whole Blood 161 mg/dL (70-110)
[2023-02-15] MEDS: SPIRONOLACTONE 25 MG TAB PO SCH (12:10)
[2023-02-15] MEDS: carvediloL 6.25 MG TAB PO SCH ×2 (12:10→16:58)
--- NOTE | 2023-02-15 14:34 | P.PN ---
Subjective Progress Note Date: 02/15/23 Hospital Course: 82-year-old female with coronary artery disease, hypertension, diabetes mellitus presenting for her exertional dyspnea and abdominal bloating following colonoscopy. On presentation, patient was saturating at 94% on room air, rest of the vital signs within normal limits. Laboratory workup showed potassium of 3.4, creatinine 0.87, proBNP 11,000. EKG showed sinus tachycardia. Troponin negative. Chest x-ray showed pulmonary vascular congestion with moderate left pleural effusion and trace right pleural effusion. Patient was started on IV Lasix. Cardiology consulted. Patient also complaining of right shoulder pain, orthopedic consulted. Now on oral lasix. Renal function worsened. Hyponatremia worsening, Lasix decreased, losartan also decreased. Patient pending rehab discharge. CT abdomen and pelvis shows increasing size of right superior renal pole exop hytic cystic lesion, which has been seen dating back to 2014, cardiomegaly with severe coronary artery calcifications, small left and trace right pleural effusion, and colonic diverticulosis Shoulder CT showed moderate to severe degeneration of right shoulder with osteophyte formation, atrophy changes of the supraspinatus muscle suggestive of rotator cuff tear slightly. Subjective: She is seen and examined at bedside. No acute events overnight. Breathing is improved. Pertinent positives and negatives as discussed above, a complete review of systems was performed and all other systems are negative. Vitals Signs Reviewed. General: nontoxic, no distress, appears at stated age Derm: warm, dry Head: atraumatic, normocephalic, symmetric Eyes: EOMI, no lid lag, anicteric sclera Mouth: no lip lesion, mucus membranes moist Cardiovascular: S1S2 reg, no murmur Lungs: Bilateral rales , no accessory muscle use Abdominal: soft, nontender to palpation, no guarding, no appreciable organomega ly Ext: no gross muscle atrophy, trace edema, no contractures Neuro: CN II-XI grossly intact, no focal neuro deficits Psych: Alert, oriented, appropriate affect Data Reviewed Today: Pertinent Labs: Na 126, chloride 90, bicarb 31, BUN 30, creatinine 2.03, glucose range between 144-234 Imaging: No new imaging Assessment and Plan: Active: Systolic heart failure exacerbation, EF 25-30% Suspected ischemic cardiomyopathy Hypokalemia, resolved Hypomagnesemia, resolved Acute kidney injury Hyponatremia Right shoulder pain Right rotator cuff tear Abdominal distention/bloating status post colonoscopy, resolved 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, outpatient MRI pending Colonic diverticulosis, without diverticulitis Peptic ulcer disease Diabetes mellitus -Cardiology note reviewed, patient started on aspirin, carvedilol, Aldactone, losartan oral Lasix -Diuretic dose decreased in the setting of hyponatremia and worsening renal function, losartan decreased -repeat BMP and magnesium tomorrow -Needs to get evaluated for cardiomyopathy, will need cardiac catheterization as an outpatient -Orthopedic following, right arm in sling -Surgery signed off, continue regular diet, signed off -Protonix 40 twice a day -Sliding scale insulin Resolved: Sinus tachycardia Chronic: Hypertension DVT ppx: Subcu heparin Code status: Full code Anticipated discharge place: Rehab facility Anticipated discharge time: Likely Friday Objective - Vital Signs Vital signs: Vital Signs Temp 97.8 F 02/15/23 11:44 Pulse 70 02/15/23 11:44 Resp 20 02/15/23 11:44 BP 105/54 02/15/23 11:44 Pulse Ox 93 L 02/15/23 11:44 FiO2 Intake & Output 02/14/23 02/15/23 02/15/23 18:59 06:59 18:59 Intake Total 360 300 Output Total 200 Balance 160 300 Weight 68.5 kg Intake: Oral 360 300 Output: Urine 200 Other: Voiding Method External Catheter External Catheter - Labs CBC & Chem 7: 02/12/23 15:30 02/15/23 09:07 Labs: Abnormal Lab Results - Last 24 Hours (Table) 02/14/23 02/14/23 02/15/23 Range/Units 16:37 20:19 06:18 Sodium (137-145) mmol/L Chloride (98-107) mmol/L Carbon Dioxide (22-30) mmol/L BUN (7-17) mg/dL Creatinine (0.52-1.04) mg/dL Glucose (74-99) mg/dL POC Glucose (mg/dL) 137 H 234 H 163 H (70-110) mg/dL 02/15/23 02/15/23 Range/Units 09:07 11:31 Sodium 126 L (137-145) mmol/L Chloride 90 L (98-107) mmol/L Carbon Dioxide 31 H (22-30) mmol/L BUN 30 H (7-17) mg/dL Creatinine 2.03 H (0.52-1.04) mg/dL Glucose 144 H (74-99) mg/dL POC Glucose (mg/dL) 161 H (70-110) mg/dL
[2023-02-15 16:20] LABS: Glucose,Whole Blood 191 mg/dL (70-110)
[2023-02-15 19:52] LABS: Glucose,Whole Blood 215 mg/dL (70-110)
[2023-02-15] MEDS: ATORVASTATIN 20 MG TAB PO SCH (20:30)
[2023-02-15] MEDS: traMADol 50 MG TAB PO PRN (20:31)
[2023-02-16] MEDS: HEPARIN SODIUM,PORCINE/PF 5,000 UNIT/0.5 ML SYRINGE SQ SCH ×4 (00:11→23:45)
[2023-02-16] MEDS: ACETAMINOPHEN TAB 325 MG TAB PO PRN (00:14)
[2023-02-16 06:17] LABS: Glucose,Whole Blood 175 mg/dL (70-110)
[2023-02-16] MEDS: carvediloL 6.25 MG TAB PO SCH ×2 (06:45→17:05)
[2023-02-16] MEDS: INSULIN ASPART (NovoLOG) 100 UNIT/ML VIAL SQ SCH ×4 (06:45→20:49)
[2023-02-16] MEDS: PANTOPRAZOLE 40 MG TABLET PO SCH ×2 (06:45→17:05)
[2023-02-16 08:44] LABS: African American GFR (CKD) 30 (>60 ml/min/1.73 sqM); Anion Gap 6 mmol/L; Blood Urea Nitrogen 33 mg/dL (7-17); Calcium 8.5 mg/dL (8.4-10.2); Carbon Dioxide 30 mmol/L (22-30); Chloride 89 mmol/L (98-107); Glucose 160 mg/dL (74-99); Magnesium 1.8 mg/dL (1.6-2.3); Non-African American GFR(CKD) 26 (>60 ml/min/1.73 sqM); Potassium 4.3 mmol/L (3.5-5.1); Sodium 125 mmol/L (137-145)
[2023-02-16] MEDS: SPIRONOLACTONE 25 MG TAB PO SCH (09:02)
[2023-02-16] MEDS: ASPIRIN 81 MG PO SCH (09:02)
[2023-02-16] MEDS: LOSARTAN 25 MG TAB PO SCH (09:02)
[2023-02-16] MEDS: FUROSEMIDE 40 MG TAB PO SCH (09:02)
[2023-02-16 11:35] LABS: Glucose,Whole Blood 191 mg/dL (70-110)
--- NOTE | 2023-02-16 11:51 | P.PN ---
Subjective Progress Note Date: 02/16/23 Hospital Course: 82-year-old female with coronary artery disease, hypertension, diabetes mellitus presenting for her exertional dyspnea and abdominal bloating following colonoscopy. On presentation, patient was saturating at 94% on room air, rest of the vital signs within normal limits. Laboratory workup showed potassium of 3.4, creatinine 0.87, proBNP 11,000. EKG showed sinus tachycardia. Troponin negative. Chest x-ray showed pulmonary vascular congestion with moderate left pleural effusion and trace right pleural effusion. Patient was started on IV Lasix. Cardiology consulted. Patient also complaining of right shoulder pain, orthopedic consulted. Now on oral lasix. Renal function worsened. Hyponatremia worsening, Lasix decreased, losartan also decreased. Patient pending rehab discharge. CT abdomen and pelvis shows increasing size of right superior renal pole exophytic cystic lesion, which has been seen dating back to 2014, cardiomegaly with severe coronary artery calcifications, small left and trace right pleural effusion, and colonic diverticulosis Shoulder CT showed moderate to severe degeneration of right shoulder with osteophyte formation, atrophy changes of the supraspinatus muscle suggestive of rotator cuff tear slightly. Subjective: She is seen and examined at bedside. No acute events overnight. Breathing is improved. Pertinent positives and negatives as discussed above, a complete review of systems was performed and all other systems are negative. Vitals Signs Reviewed. General: nontoxic, no distress, appears at stated age Derm: warm, dry Head: atraumatic, normocephalic, symmetric Eyes: EOMI, no lid lag, anicteric sclera Mouth: no lip lesion, mucus membranes moist Cardiovascular: S1S2 reg, no murmur Lungs: Bilateral rales , no accessory muscle use Abdominal: soft, nontender to palpation, no guarding, no appreciable organomegaly Ext: no gross muscle atrophy, trace edema, no contractures Neuro: CN II-XI grossly intact, no focal neuro deficits Psych: Alert, oriented, appropriate affect Data Reviewed Today: Pertinent Labs: Na 125, chloride 89, BUN 33, creatinine 1.79 range between 160 to 2:15 Imaging: No new imaging Assessment and Plan: Active: Systolic heart failure exacerbation, EF 25-30% Suspected ischemic cardiomyopathy Hypokalemia, resolved Hypomagnesemia, resolved Acute kidney injury, resolving Hyponatremia, stable Right shoulder pain Right rotator cuff tear Abdominal distention/bloating status post colonoscopy, resolved 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, outpatient MRI pending Colonic diverticulosis, without diverticulitis Peptic ulcer disease Diabetes mellitus -Cardiology following, patient started on aspirin, carvedilol, Aldactone, losartan oral Lasix -Renal function improving, continue reduced dose of Lasix and losartan -repeat BMP and magnesium tomorrow -Needs to get evaluated for cardiomyopathy, will need cardiac catheterization as an outpatient -Orthopedic following, right arm in sling -Surgery signed off, continue regular diet, signed off -Protonix 40 twice a day -Sliding scale insulin Resolved: Sinus tachycardia Chronic: Hypertension DVT ppx: Subcu heparin Code status: Full code Anticipated discharge place: Rehab facility Anticipated discharge time: Likely Friday Objective - Vital Signs Vital signs: Vital Signs Temp 97.6 F 02/16/23 08:00 Pulse 64 02/16/23 08:00 Resp 20 02/16/23 08:00 BP 106/65 02/16/23 08:00 Pulse Ox 93 L 02/16/23 08:00 FiO2 Intake & Output 02/15/23 02/16/23 02/16/23 18:59 06:59 18:59 Intake Total 300 120 Output Total 450 825 Balance -150 -825 120 Intake: Oral 300 120 Output: Urine 450 825 Other: Voiding Method External Catheter External Catheter - Labs CBC & Chem 7: 02/12/23 15:30 02/16/23 06:40 Labs: Abnormal Lab Results - Last 24 Hours (Table) 02/15/23 02/15/23 02/16/23 Range/Units 16:18 19:50 06:15 Sodium (137-145) mmol/L Chloride (98-107) mmol/L BUN (7-17) mg/dL Creatinine (0.52-1.04) mg/dL Glucose (74-99) mg/dL POC Glucose (mg/dL) 191 H 215 H 175 H (70-110) mg/dL 02/16/23 02/16/23 Range/Units 06:40 11:34 Sodium 125 L (137-145) mmol/L Chloride 89 L (98-107) mmol/L BUN 33 H (7-17) mg/dL Creatinine 1.79 H (0.52-1.04) mg/dL Glucose 160 H (74-99) mg/dL POC Glucose (mg/dL) 191 H (70-110) mg/dL
--- NOTE | 2023-02-16 14:13 | P.PN ---
Subjective Progress Note Date: 02/16/23 This is a 82-year-old female with a past medical history significant for hypertension and diabetes. Patient does not follow with a ordained minister. We have been asked to see the patient in consultation for congestive heart failure. Patient examined at the bedside. Patient underwent EGD and colonoscopy on 01/29/[address] Marcelino. EGD revealed acute gastritis with bleeding, acute gastric ulcers with bleeding, and diaphragmatic hiatal hernia. Colonoscopy revealed diverticulosis, microscopic colitis, and internal and external hemorrhoids. Patient states since her endoscopy she has been feeling unwell. She reports that she has not had an appetite has not been eating well. She reports shortness of breath that is worse when she lays down and worse with exertion. She states she has been waking up at night short of breath. She denies having any chest pain or pressure. Denies any dizziness or lightheadedness. She states that she has had no energy. The patient was found to be in acute congestive heart failure on admission and started on IV Lasix. * EKG reveals sinus tachycardia with no signs of acute ischemia. Baseline artifact. * Chest xray cardiomegaly, pulmonary vascular congestion with trace right and moderate left pleural effusion. * Laboratory data: WBC 8.9. Hemoglobin 13.9. Platelet count 207. Sodium 138. Potassium 3.4. BUN 15. Creatinine 0.87. Troponin negative 1. ProBNP 11,100. * Current home cardiac medications include amlodipine 10 mg daily and losartan- hydrochlorothiazide 100-25mg daily * Most recent echocardiogram obtained in June 2015 revealed ejection fraction 60-65%, severe pulmonary hypertension, mild mitral regurgitation, and mild tricuspid regurgitation 02/15/23 Patient is is doing well from cardiac standpoint. She did not have any acute overnight events. She is tolerating by mouth diuretic therapy value. She did not extend his any lightheadedness or dizziness while participating in physical therapy and went to the restroom. She is going to be discharged home cardiac vessel standpoint 02/16/2023 Patient is doing well from cardiovascular standpoint. Her renal function is stable. She is cleared to discharge from cardiac vessel standpoint PHYSICAL EXAM: VITAL SIGNS: Reviewed. GENERAL: Well-developed in no acute distress. HEENT: Head is normocephalic. Pupils are equal, round. Sclerae anicteric. Mucous membranes of the mouth are moist. Neck supple. No JVD or thyromegaly LUNGS: Respirations even and unlabored. Lungs diminished. HEART: Regular rate and rhythm. S1 and S2 heard. ABDOMEN: Soft. Nondistended. Nontender. EXTREMITIES: Normal range of motion. No clubbing or cyanosis. Peripheral pulses intact. Trace bilateral ankle edema NEUROLOGIC: Awake and alert. Oriented x 3. ASSESSMENT: Generalized malaise Acute heart failure with reduced EF, 25-30% New-onset cardiomyopathy, etiology unclear, rule out underlying CAD Status post recent EGD and colonoscopy Hypertension Diabetes Right shoulder pain History of severe pulmonary hypertension PLAN: Continue oral Lasix 40 mg twice a day Continue aspirin 81 mg daily, carvedilol 6.25 mg twice a day, and Aldactone 25 mg daily Continue losartan 100 mg daily Patient is cleared to be discharged from cardiac vessel standpoint. She needs outpatient follow-up with Dr. Napoles in outpatient heart catheterization for new cardiomyopathy Objective - Vital Signs Vital signs: Vital Signs Temp 98 F 02/16/23 12:01 Pulse 70 02/16/23 12:01 Resp 20 02/16/23 12:01 BP 120/74 02/16/23 12:01 Pulse Ox 96 02/16/23 13:00 FiO2 Intake & Output 02/15/23 02/16/23 02/16/23 18:59 06:59 18:59 Intake Total 300 240 Output Total 450 825 Balance -150 -825 240 Intake: Oral 300 240 Output: Urine 450 825 Other: Voiding Method External Catheter External Catheter # Bowel Movements 1 - Labs CBC & Chem 7: 02/12/23 15:30 02/16/23 06:40 Labs: Abnormal Lab Results - Last 24 Hours (Table) 02/15/23 02/15/23 02/16/23 Range/Units 16:18 19:50 06:15 Sodium (137-145) mmol/L Chloride (98-107) mmol/L BUN (7-17) mg/dL Creatinine (0.52-1.04) mg/dL Glucose (74-99) mg/dL POC Glucose (mg/dL) 191 H 215 H 175 H (70-110) mg/dL 02/16/23 02/16/23 Range/Units 06:40 11:34 Sodium 125 L (137-145) mmol/L Chloride 89 L (98-107) mmol/L BUN 33 H (7-17) mg/dL Creatinine 1.79 H (0.52-1.04) mg/dL Glucose 160 H (74-99) mg/dL POC Glucose (mg/dL) 191 H (70-110) mg/dL
[2023-02-16 16:43] LABS: Glucose,Whole Blood 254 mg/dL (70-110)
[2023-02-16 20:41] LABS: Glucose,Whole Blood 133 mg/dL (70-110)
[2023-02-16 20:44] VITALS: RESP 16
[2023-02-16] MEDS: traMADol 50 MG TAB PO PRN (20:47)
[2023-02-16] MEDS: ATORVASTATIN 20 MG TAB PO SCH (20:47)
[2023-02-17 06:06] LABS: Glucose,Whole Blood 161 mg/dL (70-110)
[2023-02-17] MEDS: PANTOPRAZOLE 40 MG TABLET PO SCH (06:25)
[2023-02-17] MEDS: carvediloL 6.25 MG TAB PO SCH (06:26)
[2023-02-17] MEDS: INSULIN ASPART (NovoLOG) 100 UNIT/ML VIAL SQ SCH ×2 (06:26→12:04)
[2023-02-17] MEDS: SPIRONOLACTONE 25 MG TAB PO SCH (09:34)
[2023-02-17] MEDS: HEPARIN SODIUM,PORCINE/PF 5,000 UNIT/0.5 ML SYRINGE SQ SCH (09:34)
[2023-02-17] MEDS: ASPIRIN 81 MG PO SCH (09:34)
[2023-02-17] MEDS: FUROSEMIDE 40 MG TAB PO SCH (09:34)
[2023-02-17] MEDS: LOSARTAN 25 MG TAB PO SCH (09:34)
[2023-02-17 09:45] VITALS: TEMP 97.6
--- NOTE | 2023-02-17 11:08 | P.PN ---
Subjective Progress Note Date: 02/17/23 CHIEF COMPLAINT: Diarrhea/constipation with abdominal pain HISTORY OF PRESENT ILLNESS: The patient is a 82-year-old female who recently had colonoscopy for change in bowel habits. Incidentally, patient had notified my office of abdominal pain and, to the emergency room. Patient was being evaluated by covering provider. Per request of the patient, she is requesting further assessment. Since admission, she reports abdominal pain has improved. She reports intermittent diarrhea versus constipation where constipation is 3 days followed by diarrhea. She presented with shortness of breath due to congestive heart failure. ROS: No reports of nausea and vomiting. No fevers or chills. No new chest pain. No productive sputum PHYSICAL EXAM: VITAL SIGNS: Reviewed CONSTITUTIONAL: Well developed and in no acute distress. EYES: Conjuctivae without sclera icterus. Extraocular movements grossly intact. HEAD, EARS, NOSE, THROAT: Moist buccal mucosa. Head is atraumatic, normocephalic. Hears conversational speech. No nasal drainage. RESPIRATORY: Non-labored respirations and equal bilateral excursions. CARDIOVASCULAR: Palpable 2+ radial pulses. ABDOMEN: No peritonitis. MUSCULOSKELETAL: No gross deformity of the lower extremities noted. No clubbing. No cyanosis. SKIN: Good skin turgor. Well perfused. NEUROLOGIC: Cranial nerves II through XII grossly intact. No focal or lateraliz ing signs. PSYCH: Appropriate affect. Alert and oriented to person, place and time. CLINICAL LABS: Reviewed. Sodium at 125, low, hyponatremia. Creatinine elevated 1.79 STUDIES: CT of the abdomen and pelvis independently reviewed demonstrates a large left pleural effusion with pulmonary edema. Exophytic extrarenal mass along the superior pole of the right kidney identified questionable for neoplastic process. This is my independent interpretation. Colonic diverticulosis without colitis identified. No fat stranding for colitis identified. REPORT: CT report reviewed demonstrating growing neoplastic process of the right kidney. ASSESSMENT: 1. Change in bowel habits with abdominal pain 2. Left pleural effusion 3. Acute pulmonary edema and congestive heart failure 4. Hyponatremia 5. Right neoplasm, kidney PLAN: 1. Overall, clinically she stable regarding her change in bowel habits. Recommend bowel regimen for constipation/diarrhea 2. She has increasing growth of a mass of the right kidney suspicious for neoplasm. Urology consulted. Objective - Vital Signs Vital signs: Vital Signs Temp 97.6 F 02/17/23 08:00 Pulse 67 02/17/23 08:00 Resp 16 02/17/23 08:00 BP 104/63 02/17/23 08:00 Pulse Ox 95 02/17/23 08:00 FiO2 Intake & Output 02/16/23 02/17/23 02/17/23 18:59 06:59 18:59 Intake Total 360 120 Output Total 750 700 275 Balance -390 -580 -275 Intake: Oral 360 120 Output: Urine 750 700 275 Other: Voiding Method External Catheter External Catheter # Bowel Movements 1 - Labs CBC & Chem 7: 02/12/23 15:30 02/16/23 06:40 Labs: Abnormal Lab Results - Last 24 Hours (Table) 02/16/23 02/16/23 02/16/23 Range/Units 11:34 16:41 20:40 POC Glucose (mg/dL) 191 H 254 H 133 H (70-110) mg/dL 02/17/23 Range/Units 06:04 POC Glucose (mg/dL) 161 H (70-110) mg/dL
[2023-02-17 11:15] LABS: Glucose,Whole Blood 210 mg/dL (70-110)
[2023-02-17 12:08] VITALS: BP 100/67; PULSE 78
[2023-02-17 12:14] LABS: African American GFR (CKD) 45 (>60 ml/min/1.73 sqM); Anion Gap 9 mmol/L; Blood Urea Nitrogen 35 mg/dL (7-17); Carbon Dioxide 28 mmol/L (22-30); Chloride 90 mmol/L (98-107); Glucose 203 mg/dL (74-99); Magnesium 1.7 mg/dL (1.6-2.3); Non-African American GFR(CKD) 39 (>60 ml/min/1.73 sqM); Potassium 4.4 mmol/L (3.5-5.1); Sodium 127 mmol/L (137-145)
--- NOTE | 2023-02-17 12:56 | P.DS ---
Providers Date of admission: 02/12/23 17:54 Expected date of discharge: 02/17/23 Attending physician: Raymundo New MD Consults: 02/12/23 17:54 Consult Physician Routine Consulting Provider: [facility] Consult Reason/Comments: Acute pulmonary edema Do you want consulting provider notified?: Yes 02/13/23 05:13 Consult Physician Routine Consulting Provider: Todd Padilla Consult Reason/Comments: right shoulder pain Do you want consulting provider notified?: Yes, Notify in am 02/17/23 11:08 Consult Physician Routine Consulting Provider: Reed Miguel Consult Reason/Comments: Renal mass, right Do you want consulting provider notified?: Yes Primary care physician: Dayana Fernandes MD Hospital Course: Discharge Diagnosis: Systolic heart failure exacerbation, EF 25-30% Suspected ischemic cardiomyopathy Hypokalemia Hypomagnesemia Acute kidney injury Hyponatremia Right shoulder pain Right rotator cuff tear Abdominal distention/bloating status post colonoscopy Right shoulder osteoarthritis Worsening Right superior renal pole exophytic cystic lesion, outpatient MRI scheduled Colonic diverticulosis, without diverticulitis Peptic ulcer disease Diabetes mellitus Hospital Course: 82-year-old female with coronary artery disease, hypertension, diabetes mellitus presenting for her exertional dyspnea and abdominal bloating following colonos copy. On presentation, patient was saturating at 94% on room air, rest of the vital signs within normal limits. Laboratory workup showed potassium of 3.4, creatinine 0.87, proBNP 11,000. EKG showed sinus tachycardia. Troponin negative. Chest x-ray showed pulmonary vascular congestion with moderate left pleural effusion and trace right pleural effusion. Patient was started on IV Lasix. Cardiology consulted. Patient also complaining of right shoulder pain, orthopedic consulted. Now on oral lasix. Renal function worsened. Hyponatremia worsening, Lasix decreased, losartan also decreased. Patient now stable for discharge. CT abdomen and pelvis shows increasing size of right superior renal pole exophytic cystic lesion, which has been seen dating back to 2014, cardiomegaly with severe coronary artery calcifications, small left and trace right pleural effusion, and colonic diverticulosis Shoulder CT showed moderate to severe degeneration of right shoulder with osteophyte formation, atrophy changes of the supraspinatus muscle suggestive of rotator cuff tear slightly. Patient already scheduled right renal mass. Follow-up outpatient. Patient seen and examined at bedside. Vital signs reviewed and stable. General: nontoxic, no distress, appears at stated age Derm: warm, dry Head: atraumatic, normocephalic, symmetric Eyes: EOMI, no lid lag, anicteric sclera Mouth: no lip lesion, mucus membranes moist Cardiovascular: S1S2 reg, no murmur Lungs: Bilateral rales , no accessory muscle use Abdominal: soft, nontender to palpation, no guarding, no appreciable organomegaly Ext: no gross muscle atrophy, trace edema, no contractures Neuro: CN II-XI grossly intact, no focal neuro deficits Psych: Alert, oriented, appropriate affect A total of 36 minutes of time were spent preparing this complex discharge summary. Patient was discharged on 02/17/23 at 11:15. Patient Condition at Discharge: Stable Plan - Discharge Summary Discharge Rx Participant: No New Discharge Prescriptions: New Spironolactone [Aldactone] 25 mg PO DAILY tab carvediloL [Coreg] 6.25 mg PO BID-W/MEALS tab Losartan [Cozaar] 25 mg PO DAILY tab Acetaminophen Tab [Tylenol] 650 mg PO Q6HR PRN tab PRN Reason: Fever And/ Or Pain traMADol HCL 50 mg PO Q8H PRN 3 Days #9 tab PRN Reason: Severe Breakthrough Pain Furosemide [Lasix] 40 mg PO DAILY tab Atorvastatin [Lipitor] 20 mg PO HS tab traMADol HCl [Ultram] 50 mg PO TID PRN tab PRN Reason: Pain Continue Insulin Degludec/Liraglutide [Xultophy 100 Unit-3.6MG/ml Pen] 14 unit SQ HS Omeprazole [PriLOSEC] 40 mg PO DAILY #14 cap Discontinued amLODIPine [Norvasc] 10 mg PO DAILY Losartan/Hydrochlorothiazide [Hyzaar 100-25 Tablet] 1 tab PO DAILY Discharge Medication List Insulin Degludec/Liraglutide [Xultophy 100 Unit-3.6MG/ml Pen] 14 unit SQ HS 04/19/19 [History] Omeprazole [PriLOSEC] 40 mg PO DAILY #14 cap 01/29/23 [Rx] Acetaminophen Tab [Tylenol] 650 mg PO Q6HR PRN tab 02/17/23 [Rx] Atorvastatin [Lipitor] 20 mg PO HS tab 02/17/23 [Rx] Furosemide [Lasix] 40 mg PO DAILY tab 02/17/23 [Rx] Losartan [Cozaar] 25 mg PO DAILY tab 02/17/23 [Rx] Spironolactone [Aldactone] 25 mg PO DAILY tab 02/17/23 [Rx] carvediloL [Coreg] 6.25 mg PO BID-W/MEALS tab 02/17/23 [Rx] traMADol HCL 50 mg PO Q8H PRN 3 Days #9 tab 02/17/23 [Rx] traMADol HCl [Ultram] 50 mg PO TID PRN tab 02/17/23 [Rx] Follow up Appointment(s)/Referral(s): Gisel Napoles MD [STAFF PHYSICIAN] - 1 Week Rajesh Salcido DO [Doctor of Osteopathic Medicine] - As Needed Dayana Fernandes MD [Primary Care Provider] - 1-2 days [facility] [NON-STAFF] - 1-2 Days ([facility] will call you to schedule your in home nursing and physical therapy visits.) Patient Instructions/Handouts: Heart Failure (DC) Activity/Diet/Wound Care/Special Instructions: Please see cardiology. You will also need repeat blood work in 3 days to find out about your kidney function and electrolytes. Please also see your PCP. Resources to obtain a bedside commode: 1. [facility]: [phone] 2. [facility] on [phone] 3. You may also purchase one on [employer] or at most local pharmacies and medical equipment [employer]. Discharge Disposition: TRANSFER TO SNF/ECF
== END 2023-02-17 13:50 | DRG 291 ==
LOC: EC 12:51 → 3SCARD 17:54
PROVIDERS: ADMIT Student in an Organized Health Care Education/Training Program; ATTEND Student in an Organized Health Care Education/Training Program
DX: I11.0 Hypertensive heart disease with heart failure (principal); I50.23 Acute on chronic systolic (congestive) heart failure; N17.9 Acute kidney failure, unspecified; E87.1 Hypo-osmolality and hyponatremia; I27.20 Pulmonary hypertension, unspecified; I25.5 Ischemic cardiomyopathy; F32.A Depression, unspecified; I25.10 Atherosclerotic heart disease of native coronary artery without angina pectoris; H91.91 Unspecified hearing loss, right ear; K44.9 Diaphragmatic hernia without obstruction or gangrene; H81.01 Meniere's disease, right ear; E87.6 Hypokalemia; E83.42 Hypomagnesemia; E11.9 Type 2 diabetes mellitus without complications; K57.90 Diverticulosis of intestine, part unspecified, without perforation or abscess without bleeding; K58.2 Mixed irritable bowel syndrome; K64.8 Other hemorrhoids; K64.4 Residual hemorrhoidal skin tags; M19.011 Primary osteoarthritis, right shoulder; M75.101 Unspecified rotator cuff tear or rupture of right shoulder, not specified as traumatic; N28.89 Other specified disorders of kidney and ureter; Z79.4 Long term (current) use of insulin; Z79.899 Other long term (current) drug therapy; Z88.8 Allergy status to other drugs, medicaments and biological substances; Z87.442 Personal history of urinary calculi; Z90.49 Acquired absence of other specified parts of digestive tract; Z87.11 Personal history of peptic ulcer disease
CPT/HCPCS: 36415; 71046; 74018; 74177; 80048; 80053; 81001; 82272; 83036; 83605; 83735; 83880; 84484; 85025; 85610; 85730; 93005; 93306; 94760; 96374; 99285

== ENCOUNTER → 2023-05-30 | Day surgery (SDC) | payer MEDICARE, BC ==
[~2023-05-30] MED LIST changes: +ACETAMINOPHEN TAB 325 MG TAB ONE; +ACETAMINOPHEN TAB 325 MG TAB PO ONE; +ACETAMINOPHEN TAB 500 MG TAB PO PRN; +DEXTROSE 50% SYRINGE 50 ML IVP ONE; +HEPARIN SODIUM,PORCINE/PF 5,000 UNIT/0.5 ML SYRINGE SQ PRN; +LIDOCAINE 0.5%-EPI 1:200,000 50 ML VIAL SQ ONE; -LIDOCAINE 1% (10MG/ML) FOR IV START INTRADERMA PRN; +MELOXICAM 7.5 MG TAB PO PRN; +MIDAZOLAM 2 MG/2 ML VIAL IVP ONE; +ONDANSETRON 4 MG/2 ML VIAL IVP ONE; +ONDANSETRON 4 MG/2 ML VIAL IVP PRN; +fentaNYL (PF) 50 MCG/ML 2 ML AMP IVP ONE
--- NOTE | 2023-05-30 07:27 | P.GSHP ---
History of Present Illness H&P Date: 05/30/23 CHIEF COMPLAINT: Ventral hernia. HISTORY OF PRESENT ILLNESS: The patient is a 83-year-old female who presents with swelling along the abdomen for over 1 month with pain and tenderness. Findings were consistent with ventral hernia. She reports change in bowel habits as a result. Now she presents for further evaluation and management. PAST MEDICAL HISTORY: Please see list and reviewed. PAST SURGICAL HISTORY: Please see list and reviewed. MEDICATIONS: Please see list and reviewed. ALLERGIES: Please see list and reviewed. SOCIAL HISTORY: Please see list and reviewed. FAMILY HISTORY: No reports of Crohn disease or ulcerative colitis. REVIEW OF ORGAN SYSTEMS: CONSTITUTIONAL: No reports of fevers or chills. GI: Denies any blood in stools or constipation. HEENT: Denies any trouble with vision, hearing or nosebleeds. No difficulty swallowing. LYMPHATIC: The patient denies any lumps and bumps around the neck. ENDOCRINE: Denies any thyroid disorders. Has blood sugar glucose intolerance. RESPIRATORY: Denies pneumonia. Denies any troubles with breathing or dyspnea on exertion. CARDIOVASCULAR: Denies any chest pain, palpitations, or recent heart attacks. GENITOURINARY: Denies any blood in urine or increased urinary frequency. MUSCULOSKELETAL: Denies any back pain, stiffness, joint arthritis. NEUROLOGIC: Denies any numbness or tingling along the distal extremities. No seizure disorders or headaches. PSYCHIATRIC: Has depression. No suidical ideation. HEMATOLOGIC: Denies any abnormal bleeding or bruising. BREASTS: Denies any breast lumps, pain or nipple discharge. PHYSICAL EXAM: VITAL SIGNS: Stable GENERAL: Well-developed pleasant female in no acute distress. HEENT: No scleral icterus. Extraocular movements grossly intact. Moist buccal mucosa. NECK: Supple without lymphadenopathy. CHEST: Unlabored respirations. Equal bilateral excursions. CARDIOVASCULAR: Regular rate and rhythm. Distal 2+ pulses. ABDOMEN: Soft, nondistended. Tender along the abdomen. MUSCULOSKELETAL: No clubbing, cyanosis, or edema. SKIN: Well perfused. PSYCH: Alert and oriented. No focal or lateralizing signs. ASSESSMENT: 1. Ventral hernia. PLAN: 1. Recommend proceeding with robotic ventral hernia repair with mesh. 2. Benefits and risks of surgical intervention was discussed including possibility of open technique. 3. DVT prophylaxis. 4. Antibiotic prophylaxis. 5. She is elevated risk with pre-existing comorbidities 6. Non-narcotic pain managment reviewed. 7. Diabetes with strict glycemic control reviewed. 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 History of Any Multi-Drug Resistant Organisms: C-DIFF Date of last positivie culture/infection: 08/21/15 MDRO Source:: STOOL Past Surgical History: Bowel Resection, Cholecystectomy, Heart Catheterization, Hysterectomy, Tonsillectomy Additional Past Surgical History / Comment(s): 06/19/15 LAP SIGMOID RESECTION with lysis of adhesions, lithotripsy, cardiac cath with mild disease to proximal LAD, colonoscopy, L thiGH cyst removed. BILAT CATARACTS REMOVED WITH LENS IMPLANTS Past Anesthesia/Blood Transfusion Reactions: No Reported Reaction Smoking Status: Never smoker - Past Family History Father Family Medical History: Cancer Mother Family Medical History: Cancer Medications and Allergies Home Medications Medication Instructions Recorded Confirmed Type Insulin Degludec/Liraglutide 14 unit SQ HS 04/19/19 05/27/23 History [Xultophy 100 Unit-3.6MG/ml Pen] Acetaminophen Tab [Tylenol] 650 mg PO Q6HR PRN tab 02/17/23 05/27/23 Rx Atorvastatin [Lipitor] 20 mg PO HS tab 02/17/23 05/27/23 Rx carvediloL [Coreg] 6.25 mg PO BID-W/MEALS tab 02/17/23 05/27/23 Rx Aspirin [Adult Low Dose Aspirin EC] 81 mg PO HS 05/27/23 05/27/23 History Cephalexin [Keflex] 250 mg PO HS 05/27/23 05/27/23 History Coq 10 (Unk) 200 mg PO DAILY 05/27/23 05/27/23 History Cranberry(Unk) 2 tab PO DAILY 05/27/23 05/27/23 History Donepezil [Aricept] 10 mg PO HS 05/27/23 05/27/23 History Furosemide [Lasix] 20 mg PO DAILY 05/27/23 05/27/23 History Isosorbide Mononitrate ER [Imdur] 30 mg PO DAILY 05/27/23 05/27/23 History Losartan [Cozaar] 25 mg PO 1200 05/27/23 05/27/23 History Magnesium 400 mg PO HS 05/27/23 05/27/23 History Multivitamins, Thera [Multivitamin 1 tab PO DAILY 05/27/23 05/27/23 History (formulary)] traMADol HCl [Ultram] 50 mg PO BID 05/27/23 05/27/23 History Allergies Allergy/AdvReac Type Severity Reaction Status Date / Time adhesive tape Allergy red skin Verified 05/27/23 15:55 pregabalin [From Lyrica] AdvReac Hallucinati Verified 05/27/23 15:55 ons
[2023-05-30 08:31] LABS: Glucose,Whole Blood 52 mg/dL (70-110)
[2023-05-30 08:38] LABS: Basophils % (A) 0 %; Eosinophils # (A) 0.2 k/uL (0-0.7); Eosinophils % (A) 2 %; HCT 38.2 % (34.0-46.0); HGB 12.8 gm/dL (11.4-16.0); Lymphocytes # (A) 2.1 k/uL (1.0-4.8); Lymphocytes % (A) 26 %; MCHC 33.4 g/dL (31.0-37.0); MCV 89.9 fL (80.0-100.0); Mean Platelet Volume 9.3; Monocytes # (A) 0.6 k/uL (0-1.0); Monocytes % (A) 8 %; Neutrophils # (A) 4.7 k/uL (1.3-7.7); Neutrophils % (A) 59 %; Platelet Count 218 k/uL (150-450); RBC 4.25 m/uL (3.80-5.40); RDW 14.5 % (11.5-15.5); WBC 7.9 k/uL (3.8-10.6)
[2023-05-30 08:48] LABS: Glucose,Whole Blood 87 mg/dL (70-110)
[2023-05-30 08:49] VITALS: RESP 16
[2023-05-30 08:53] LABS: ALT 15 U/L (4-34); AST 22 U/L (14-36); African American GFR (CKD) 74 (>60 ml/min/1.73 sqM); Albumin 3.7 g/dL (3.5-5.0); Alkaline Phosphatase 71 U/L (38-126); Anion Gap 9 mmol/L; Blood Urea Nitrogen 21 mg/dL (7-17); Calcium 9.2 mg/dL (8.4-10.2); Carbon Dioxide 29 mmol/L (22-30); Chloride 102 mmol/L (98-107); Non-African American GFR(CKD) 64 (>60 ml/min/1.73 sqM); Potassium 3.5 mmol/L (3.5-5.1); Sodium 140 mmol/L (137-145); Total Bilirubin 1.7 mg/dL (0.2-1.3); Total Protein 6.6 g/dL (6.3-8.2)
[2023-05-30 08:57] LABS: Glucose 43 mg/dL (74-99)
--- NOTE | 2023-05-30 09:29 | P.ANPRN ---
Procedure Note - Anesthesia - Nerve Block Performed Bilateral Erector Spinae Single Time Out Performed: Yes Date of Procedure: 05/30/23 Procedure Start Time: 08:55 Procedure Stop Time: 09:07 Location of Patient: PreOp Indication: Acute Post-Operative Pain, Requested by Surgeon Sedation Type: Sedate with meaningful contact maintained Preparation: Sterile Prep Position: Sitting Needle Types: Pajunk Needle Gauge: 21 Ultrasound used to visualize needle placement: Yes Ultrasound used to observe medication spread: Yes Injectate: 0.5% Ropivacaine (see comment for volume) (15 ml +15 ml NS +4 mg Dexamethasone per side) Blood Aspirated: No Pain Paresthesia on Injection Noted: No Resistance on Injection: Normal Image Stored and Saved: Yes Events: Uneventful and Well Tolerated
[2023-05-30 10:41] LABS: Glucose,Whole Blood 84 mg/dL (70-110)
[2023-05-30 11:38] LABS: Glucose,Whole Blood 104 mg/dL (70-110)
[2023-05-30 11:41] VITALS: TEMP 96.8
[2023-05-30] MEDS: HYDROmorphone 0.5 MG/0.5 ML SYRINGE IVP ONE ×2 (13:15→13:33)
--- NOTE | 2023-05-30 13:37 | P.OP ---
Date of Procedure: 05/30/23 Description of Procedure: SURGEON: HOLLY MARCELINO MD PREOPERATIVE DIAGNOSES: 1. Initial incisional ventral hernia with incarceration, 5-cm 2. Diabetes type 2, [id number] 3. Hypertensive heart disease with congestive heart failure and stage III chronic kidney disease 4. Dementia 5. History of refractory C. diff colitis 6. Hyperlipidemia 7. Coronary artery disease 8. History of multiple abdominal procedures 9. Gastroesophageal reflux disease 10. Kidney stones 11. Renal neoplasm 12. Pulmonary hypertension 13. Mnire's disease POSTOPERATIVE DIAGNOSES: 1. Initial incisional ventral hernia with incarceration, 5-cm 2. Diabetes type 2, [id number] 3. Hypertensive heart disease with congestive heart failure and stage III chronic kidney disease 4. Dementia 5. History of refractory C. diff colitis 6. Hyperlipidemia 7. Coronary artery disease 8. History of multiple abdominal procedures 9. Gastroesophageal reflux disease 10. Kidney stones 11. Renal neoplasm 12. Pulmonary hypertension 13. Mnire's disease 14. Severe pelvic adhesions 15. Severe intra-abdominal adhesions OPERATION: 1. Robotic-assisted daVinci Xi laparoscopic repair of initial incarcerated incisional ventral hernia 5-cm with fascial imbrication 3 without mesh 2. Robotic-assisted daVinci Xi laparoscopic extensive lysis of adhesions over 1 hour ANESTHESIA: General with local, blck ESTIMATED BLOOD LOSS: 5 mL. SPECIMENS: None. COMPLICATIONS: None. Operative Findings: 1. Severe intra-abdominal adhesions including pelvic adhesions requiring additional trocar pelvis 2. Fascial defect 2 cm addressed with fascial imbrication 3 4. Placement of mesh avoided due to severe intra-abdominal adhesions INDICATIONS: The patient is a 83-year-old female who presents with incisional ventral hernia and diffuse abdominal pain. Surgical intervention with laparoscopic versus robotic and open techniques were reviewed. Placement of mesh was also reviewed. Benefits and risks were thoroughly described. Informed consent was obtained. DESCRIPTION OF PROCEDURE: The patient was brought into the operating room and laid in supine position. After general induction, the abdomen had been prepped and draped in standard sterile fashion. Ioban draping was also placed. Prior to incision, a timeout protocol was confirmed with surgical team regarding the patient's name including procedures to be performed. The robot was primed prior to the procedure. A field block using local anesthetis was placed along hernia site including the proposed port sites. Initial incision was made with an #11 blade along the left upper quadrant. A 0 degree 5 mm laparoscopic trocar entry was performed. Diagnostic laparoscopy demonstrated severe peritoneal adhesions along the midline, upper abdomen and pelvis. Peritoneal adhesions of small bowel to the abdominal wall along the midline was identified leading pelvis. Robotic 8 mm trochars were placed on the left lateral abdominal wall including above the pelvis. The 5-mm port was exchanged for an 12 mm robotic port. Placements of the ports were 15 cm from the target anatomy and 9 cm apart. The da Karime XI robot was previously primed, prepped and draped then docked along the left side of the patient. I then sat at the robot Da Karime XI console where working arms of the robot including Bovie cautery connected to robotic scissors, vessel sealer and graspers placed by the retail assistant manager. Adhesions along the midline were initially addressed with scissors and vessel sealer however limited view of the left upper quadrant was confirmed. The robot was docked for repositioning of trochars The robot was re-docked. Extensive lysis of adhesions occurred over 1 hour without enterotomies using vessel sealer and blunt dissection to release the small bowel including colon from the abdominal wall right upper quadrant and pelvis. The hernia bordering fascia was cleaned of peritoneal fat. Next, hemostasis was checked with cautery. The hernia defect was oversewn using #1 VLOC with fascial imbrication 3. Mesh placement was avoided given the severe peritoneal adhesions and foreign body reaction to the mesh. A final endoscopic imaging was obtained. All instruments and pneumoperitoneum were evacuated from the abdominal cavity. The da Karime XI robot was undocked from the patient. I re-scrubbed into the case for closure of incisions. The incisions were reapproximated using 4-0 Monocryl in an interrupted subcuticular fashion. Liquid glue was applied to the skin. At the end of the procedure, needle, sponge, and instrument count had been verified correct by surgical resident. The patient was taken to the postanesthesia care unit in stable condition with abdominal binder. Plan - Discharge Summary Discharge Rx Participant: No New Discharge Prescriptions: New Acetaminophen Tab [Tylenol Tab] 1,000 mg PO Q6HR PRN #30 tablet PRN Reason: Pain Continue Insulin Degludec/Liraglutide [Xultophy 100 Unit-3.6MG/ml Pen] 14 unit SQ HS carvediloL [Coreg] 6.25 mg PO BID-W/MEALS tab Furosemide [Lasix] 20 mg PO DAILY Losartan [Cozaar] 25 mg PO 1200 Isosorbide Mononitrate ER [Imdur] 30 mg PO DAILY Atorvastatin [Lipitor] 20 mg PO HS tab traMADol HCl [Ultram] 50 mg PO BID Cephalexin [Keflex] 250 mg PO HS Donepezil [Aricept] 10 mg PO HS Multivitamins, Thera [Multivitamin (formulary)] 1 tab PO DAILY Magnesium 400 mg PO HS Cranberry(Unk) 2 tab PO DAILY Coq 10 (Unk) 200 mg PO DAILY Aspirin [Adult Low Dose Aspirin EC] 81 mg PO HS Discontinued Acetaminophen Tab [Tylenol] 650 mg PO Q6HR PRN tab PRN Reason: Fever And/ Or Pain Discharge Medication List Insulin Degludec/Liraglutide [Xultophy 100 Unit-3.6MG/ml Pen] 14 unit SQ HS 04/19/19 [History] Atorvastatin [Lipitor] 20 mg PO HS tab 02/17/23 [Rx] carvediloL [Coreg] 6.25 mg PO BID-W/MEALS tab 02/17/23 [Rx] Aspirin [Adult Low Dose Aspirin EC] 81 mg PO HS 05/27/23 [History] Cephalexin [Keflex] 250 mg PO HS 05/27/23 [History] Coq 10 (Unk) 200 mg PO DAILY 05/27/23 [History] Cranberry(Unk) 2 tab PO DAILY 05/27/23 [History] Donepezil [Aricept] 10 mg PO HS 05/27/23 [History] Furosemide [Lasix] 20 mg PO DAILY 05/27/23 [History] Isosorbide Mononitrate ER [Imdur] 30 mg PO DAILY 05/27/23 [History] Losartan [Cozaar] 25 mg PO 1200 05/27/23 [History] Magnesium 400 mg PO HS 05/27/23 [History] Multivitamins, Thera [Multivitamin (formulary)] 1 tab PO DAILY 05/27/23 [History] traMADol HCl [Ultram] 50 mg PO BID 05/27/23 [History] Acetaminophen Tab [Tylenol Tab] 1,000 mg PO Q6HR PRN #30 tablet 05/30/23 [Rx] Follow up Appointment(s)/Referral(s): Holly Marcelino MD [STAFF PHYSICIAN] - 06/03/23 3:00 pm Patient Instructions/Handouts: Laparoscopic Herniorrhaphy (PRE), Ventral Hernia Repair (DC), Abdominal Binder (DC), High Protein Diet (DC) Activity/Diet/Wound Care/Special Instructions: TELEHEALTH - DR WILL CALL YOU BETWEEN 8 am to 8 pm No lifting for 4 pounds in 4 weeks, Jun 29 Using antibacterial soap. November shower. No bathtub soaks for 2 weeks, Jun 03 Wear abdominal binder daily for comfort except for showering. Use ice along incisions for today to prevent swelling. Use Tylenol, simethicone and ibuprofen or Aleve scheduled for the next 24-48 hours for best pain relief. Discharge Disposition: HOME SELF-CARE
[2023-05-30 15:29] LABS: Glucose,Whole Blood 113 mg/dL (70-110)
[2023-05-30 17:07] VITALS: BP 135/85; PULSE 87
== END | disposition home or self-care (01) ==
LOC: OR 07:55
PROVIDERS: ATTEND Surgery Plastic and Reconstructive Surgery
DX: K43.6 Other and unspecified ventral hernia with obstruction, without gangrene (principal); M19.90 Unspecified osteoarthritis, unspecified site; K21.9 Gastro-esophageal reflux disease without esophagitis; E11.9 Type 2 diabetes mellitus without complications; N73.6 Female pelvic peritoneal adhesions (postinfective); K43.2 Incisional hernia without obstruction or gangrene; E11.22 Type 2 diabetes mellitus with diabetic chronic kidney disease; I50.9 Heart failure, unspecified; I13.0 Hypertensive heart and chronic kidney disease with heart failure and stage 1 through stage 4 chronic kidney disease, or unspecified chronic kidney disease; N18.30 Chronic kidney disease, stage 3 unspecified; F03.90 Unspecified dementia, unspecified severity, without behavioral disturbance, psychotic disturbance, mood disturbance, and anxiety; E78.5 Hyperlipidemia, unspecified; N20.0 Calculus of kidney; I27.20 Pulmonary hypertension, unspecified; Z90.49 Acquired absence of other specified parts of digestive tract; Z79.82 Long term (current) use of aspirin; Z79.4 Long term (current) use of insulin; Z91.048 Other nonmedicinal substance allergy status; Z98.890 Other specified postprocedural states; Z79.899 Other long term (current) drug therapy
CPT/HCPCS: 49594; S2900; 64999; 80053; 85025

== ENCOUNTER → 2023-08-04 | Outpatient (CLI) | payer MEDICARE, BC ==
--- NOTE | 2023-08-04 12:52 | XR ---
EXAMINATION TYPE: XR chest 2V DATE OF EXAM: 08/04/2023 12:10 PM CLINICAL INDICATION:Female, 83 years old with history of C64.1 renal ca; [facility] COMPARISON: Chest radiographs from 02/12/2023 TECHNIQUE: XR chest 2V Frontal and lateral views of the chest. FINDINGS: Lungs/Pleura: There is no evidence of pleural effusion, focal consolidation, or pneumothorax. Pulmonary vascularity: Unremarkable. Heart/mediastinum: Cardiomediastinal silhouette is enlarged and stable. Atherosclerotic calcificatio ns are seen in the aorta. Musculoskeletal: No acute osseous pathology. Other findings: None IMPRESSION: No acute cardiopulmonary disease/process.
== END | disposition home or self-care (01) ==
LOC: RADXRMAIN 11:55
PROVIDERS: ATTEND Urology
DX: C64.1 Malignant neoplasm of right kidney, except renal pelvis (principal)
CPT/HCPCS: 71046

== ENCOUNTER 2023-08-28 11:08 | Day surgery (SDC) | payer MEDICARE, BC ==
[2023-08-21 11:17] VITALS: BMI 23.0
--- NOTE | 2023-08-27 21:15 | P.GSHP ---
History of Present Illness H&P Date: 08/27/23 Chief Complaint: Right renal mass The patient is an 83-year-old white female with a right upper pole cystic renal mass with enhancing septi, measuring 3.7 x 4.2 cm in size. This has been slowly growing since 2016. The appearance is suspicious for renal cell carcinoma. Based on the size and location of the mass, it is not amenable to a partial nephrectomy. 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-65% History of Any Multi-Drug Resistant Organisms: C-DIFF Date of last positivie culture/infection: 08/21/15 MDRO Source:: STOOL Past Surgical History: Bowel Resection, Cholecystectomy, Heart Catheterization, Hernia Repair, Hysterectomy, Orthopedic Surgery, Tonsillectomy Additional Past Surgical History / Comment(s): 06/19/15 LAP SIGMOID RESECTION with lysis of adhesions, lithotripsy, cardiac cath with mild disease to proximal LAD, colonoscopy, L thigh cyst removed, BILAT CATARACTS REMOVED WITH LENS IMPLANTS, left ACL repair Past Anesthesia/Blood Transfusion Reactions: No Reported Reaction Past Psychological History: Depression Additional Psychological History / Comment(s): due to pain Smoking Status: Never smoker Past Alcohol Use History: None Reported Additional Past Alcohol Use History / Comment(s): . Past Drug Use History: None Reported - Past Family History Father Family Medical History: Cancer Additional Family Medical History / Comment(s): prostate CA Mother Family Medical History: Cancer Additional Family Medical History / Comment(s): liver issues Medications and Allergies Home Medications Medication Instructions Recorded Confirmed Type Insulin Degludec/Liraglutide 14 unit SQ HS 04/19/19 08/21/23 History [Xultophy 100 Unit-3.6MG/ml Pen] Atorvastatin [Lipitor] 20 mg PO HS tab 02/17/23 08/21/23 Rx carvediloL [Coreg] 6.25 mg PO BID-W/MEALS tab 02/17/23 08/21/23 Rx Aspirin [Adult Low Dose Aspirin EC] 81 mg PO HS 05/27/23 08/21/23 History Coq 10 (Unk) 0 mg PO DAILY 05/27/23 08/21/23 History Cranberry(Unk) 2 tab PO DAILY 05/27/23 08/21/23 History Donepezil [Aricept] 10 mg PO HS 05/27/23 08/21/23 History Furosemide [Lasix] 20 mg PO DAILY 05/27/23 08/21/23 History Isosorbide Mononitrate ER [Imdur] 30 mg PO DAILY 05/27/23 08/21/23 History Losartan [Cozaar] 25 mg PO 1200 05/27/23 08/21/23 History Magnesium 400 mg PO HS 05/27/23 08/21/23 History Multivitamins, Thera [Multivitamin 1 tab PO DAILY 05/27/23 08/21/23 History (formulary)] traMADol HCl [Ultram] 50 mg PO BID 05/27/23 08/21/23 History Acetaminophen Tab [Tylenol Tab] 1,000 mg PO Q6HR PRN #30 tablet 05/30/23 08/21/23 Rx Allergies Allergy/AdvReac Type Severity Reaction Status Date / Time adhesive tape Allergy red skin Verified 08/21/23 09:35 pregabalin [From Lyrica] AdvReac Hallucinati Verified 08/21/23 09:35 ons Surgical - Exam - General well developed, well nourished, no distress - Neck no masses, trachea midline - Respiratory normal respiratory effort - Abdomen Abdomen: soft, non tender, no guarding, no rigid, no rebound - Psychiatric oriented to time (Vomiting sleep and into his room but ambulance and then I will make), oriented to person, oriented to place, speech is normal, memory intact Results - Imaging CT scan - abdomen: report reviewed, image reviewed Assessment and Plan (1) Neoplasm of uncertain behavior of right kidney Status: Acute Code(s): D41.01 - NEOPLASM OF UNCERTAIN BEHAVIOR OF RIGHT KIDNEY SNOMED Code(s): 977989033869747 Plan: Right radical nephrectomy. The procedure has been reviewed in detail with the patient and her daughter. She has been made aware of potential risks, which include anesthesia, bleeding, infection, bowel injury, chylous ascites, paralytic ileus, pneumonia, deep venous thrombosis, and wound related complications. She was offered the option of this being performed via an open or robotic approach and chose to undergo the former. She has been cleared by Cardiology (Dr. Eddy), though at an increased risk given her history of CHF, cardiomyopathy, and LV dysfunction.
[~2023-08-28 11:08] MED LIST changes: -ACETAMINOPHEN TAB 325 MG TAB ONE; -ACETAMINOPHEN TAB 325 MG TAB PO ONE; -ACETAMINOPHEN TAB 500 MG TAB PO PRN; +DEXAMETHASONE SOD PHOSPHATE 4 MG/ML 1 ML VIAL IV ONE; -DEXTROSE 50% SYRINGE 50 ML IVP ONE; -HEPARIN SODIUM,PORCINE/PF 5,000 UNIT/0.5 ML SYRINGE SQ PRN; +HYDROmorphone 0.5 MG/0.5 ML SYRINGE IVP PRN; -LIDOCAINE 0.5%-EPI 1:200,000 50 ML VIAL SQ ONE; +LIDOCAINE 1% (10MG/ML) FOR IV START INTRADERMA PRN; -MELOXICAM 7.5 MG TAB PO PRN; +MIDAZOLAM 2 MG/2 ML VIAL IV PRN; -MIDAZOLAM 2 MG/2 ML VIAL IVP ONE; -ONDANSETRON 4 MG/2 ML VIAL IVP PRN; -fentaNYL (PF) 50 MCG/ML 2 ML AMP IVP ONE
[2023-08-28] MEDS: ONDANSETRON 4 MG/2 ML VIAL IVP ONE (12:10)
[2023-08-28] MEDS: DEXAMETHASONE SOD PHOSPHATE 4 MG/ML 1 ML VIAL IVP ONE (12:10)
[2023-08-28] MEDS: LACTATED RINGERS 1,000 ML IV ONE (12:10)
[2023-08-28] MEDS: MIDAZOLAM 2 MG/2 ML VIAL IVP ONE ×2 (12:21)
[2023-08-28 12:28] LABS: Glucose,Whole Blood 121 mg/dL (70-110)
[2023-08-28 13:03] VITALS: BP 162/77; PULSE 71; RESP 14; TEMP 97.7
[2023-08-28] MEDS ORDERED: NALOXONE 0.4 MG/ML 1 ML VIAL IV PRN (13:20)
[2023-08-28] MEDS ORDERED: diphenhydrAMINE 50 MG/ML 1 ML VIAL IVP PRN (13:26)
[2023-08-28] MEDS ORDERED: ROPIVACAINE 250 MG, HYDROMORPHONE (PF) 2.5 MG in SODIUM CHLORIDE 0.9% 200 ML EPIDURAL PRN (13:26)
[2023-08-28] MEDS ORDERED: ONDANSETRON 4 MG/2 ML VIAL IVP PRN (13:26)
[2023-08-28] MEDS ORDERED: NALBUPHINE 10 MG/ML (10 ML MDV) IV PRN (13:26)
--- NOTE | 2023-08-28 13:35 | P.ANPRN ---
Procedure Note - Anesthesia - Epidural/Spinal Epidural Date of Procedure: 08/28/23 Procedure Start Time: 12:20 Procedure Stop Time: 12:31 Indication: Acute Post-Operative Pain, Requested by Surgeon Sedation Type: Sedate with meaningful contact maintained Preparation: Sterile Prep Position: Sitting Catheter Depth at Skin (cm): 11 Catheter: Indwelling Needle Guage: 18 Narrative: T7-8 level Blood Aspirated: No Pain Paresthesia on Injection Noted: No Events: Uneventful and Well Tolerated
[2023-08-28 13:45] LABS: African American GFR (CKD) 73 (>60 ml/min/1.73 sqM); Blood Urea Nitrogen 24 mg/dL (7-17); Non-African American GFR(CKD) 64 (>60 ml/min/1.73 sqM)
--- NOTE | 2023-08-28 13:48 | P.ANPRN ---
Procedure Note - Anesthesia - Invasive Line Left Arterial Line Time Out Performed: Yes Date of Procedure: 08/28/23 Time of Procedure: 12:36 Preparation: Sterile Prep, Sterile Dressing Arterial Line Location: Radial Ultrasound Used: No Narrative: Central line placement per sterile protocol utilized.
== END 2023-08-28 14:21 | disposition home or self-care (01) ==
LOC: UNDOADMIN 11:08 → 2ORMAIN 11:08 → OR 11:08 → EDSTATUS 12:00 → OR 14:21 → UNDODISIN 14:21
PROVIDERS: ATTEND Urology
DX: D41.01 Neoplasm of uncertain behavior of right kidney (principal); I11.0 Hypertensive heart disease with heart failure; I50.9 Heart failure, unspecified; I25.10 Atherosclerotic heart disease of native coronary artery without angina pectoris; E11.9 Type 2 diabetes mellitus without complications; K21.9 Gastro-esophageal reflux disease without esophagitis; Z79.82 Long term (current) use of aspirin; Z79.899 Other long term (current) drug therapy
CPT/HCPCS: 86900; 86901; 83880; 82565; 84520; 86850; J2250; J1100; J2405

== ENCOUNTER 2023-09-23 11:07 | Inpatient (IN) | payer MEDICARE, BC ==
--- NOTE | 2023-09-23 11:20 | ED ---
Back Pain HPI - General Chief Complaint: Back Pain/Injury Stated Complaint: Back Lower Pain Source: patient, RN notes reviewed Limitations: no limitations - History of Present Illness Initial Comments: 83 year-old female presents with chief complaint of left flank and left lower quadrant abdominal pain. Patient states that this pain has been ongoing since Friday and worsening is a stabbing pain in the left flank region that is exacerbated with movement and radiates to the front left lower quadrant. She denies hematuria, painful urination, hematochezia, bladder or bowel incontinence. Patient has a known history of multiple cysts on bilateral kidneys that is documented as non-ammendable to surgery. - Related Data Home Medications Medication Instructions Recorded Confirmed Insulin Degludec/Liraglutide 9 unit SQ HS 04/19/19 09/23/23 [Xultophy 100 Unit-3.6MG/ml Pen] Aspirin [Adult Low Dose Aspirin EC] 81 mg PO HS 05/27/23 09/23/23 Donepezil [Aricept] 10 mg PO HS 05/27/23 09/23/23 Furosemide [Lasix] 40 mg PO DAILY 05/27/23 09/23/23 Isosorbide Mononitrate ER [Imdur] 30 mg PO DAILY 05/27/23 09/23/23 Losartan [Cozaar] 25 mg PO DAILY@1200 05/27/23 09/23/23 Magnesium 400 mg PO HS 05/27/23 09/23/23 Multivitamins, Thera [Multivitamin 1 tab PO HS 05/27/23 09/23/23 (formulary)] traMADol HCl [Ultram] 50 mg PO BID PRN 05/27/23 09/23/23 HYDROcodone/APAP 5-325MG [[place] 1 tab PO Q4HR PRN 09/23/23 09/23/23 5-325] Insulin Glargine,Hum.rec.anlog 8 units SQ DIRECTED 09/23/23 09/23/23 [Basaglar Kwikpen U-100] Ondansetron [Zofran] 4 mg PO BID PRN 09/23/23 09/23/23 Ubidecarenone [Coenzyme Q10] 200 mg PO HS 09/23/23 09/23/23 Previous Rx's Medication Instructions Recorded Atorvastatin [Lipitor] 20 mg PO HS tab 02/17/23 carvediloL [Coreg] 6.25 mg PO BID-W/MEALS tab 02/17/23 Acetaminophen Tab [Tylenol Tab] 1,000 mg PO Q6HR PRN #30 tablet 05/30/23 Allergies Allergy/AdvReac Type Severity Reaction Status Date / Time adhesive tape Allergy red skin Verified 08/21/23 09:35 pregabalin [From Lyrica] AdvReac Hallucinati Verified 08/21/23 09:35 ons Review of Systems ROS Statement: Those systems with pertinent positive or pertinent negative responses have been documented in the HPI. ROS Other: All systems not noted in ROS Statement are negative. 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-65% History of Any Multi-Drug Resistant Organisms: C-DIFF Date of last positivie culture/infection: 08/21/15 MDRO Source:: STOOL Past Surgical History: Bowel Resection, Cholecystectomy, Heart Catheterization, Hernia Repair, Hysterectomy, Orthopedic Surgery, Tonsillectomy Additional Past Surgical History / Comment(s): 06/19/15 LAP SIGMOID RESECTION with lysis of adhesions, lithotripsy, cardiac cath with mild disease to proximal LAD, colonoscopy, L thigh cyst removed, BILAT CATARACTS REMOVED WITH LENS IMPLANTS, left ACL repair Past Anesthesia/Blood Transfusion Reactions: No Reported Reaction Past Psychological History: Depression Smoking Status: Never smoker Past Alcohol Use History: None Reported Past Drug Use History: None Reported - Past Family History Father Family Medical History: Cancer Additional Family Medical History / Comment(s): prostate CA Mother Family Medical History: Cancer Additional Family Medical History / Comment(s): liver issues General Exam Limitations: no limitations General appearance: alert, in distress Head exam: Present: atraumatic, normocephalic, normal inspection Eye exam: Present: normal appearance, PERRL, EOMI. Absent: scleral icterus, conjunctival injection, periorbital swelling ENT exam: Present: normal exam, mucous membranes moist Neck exam: Present: normal inspection. Absent: tenderness, meningismus, lymphadenopathy Respiratory exam: Present: normal lung sounds bilaterally. Absent: respiratory distress, wheezes, rales, rhonchi, stridor Cardiovascular Exam: Present: regular rate, normal rhythm, normal heart sounds. Absent: systolic murmur, diastolic murmur, rubs, gallop, clicks GI/Abdominal exam: Present: soft, tenderness (left lower quadrant), normal bowel sounds. Absent: pulsatile mass, hernia Extremities exam: Present: normal inspection, full ROM, normal capillary refill. Absent: tenderness, pedal edema, joint swelling, calf tenderness Back exam: Present: normal inspection, tenderness (left flank), CVA tenderness (L). Absent: CVA tenderness (R), rash noted Neurological exam: Present: alert, oriented X3, CN II-XII intact Psychiatric exam: Present: normal affect, normal mood Skin exam: Present: warm, dry, intact, normal color. Absent: rash Course Vital Signs 09/23/23 09/23/23 09/23/23 11:08 12:56 14:46 Temperature 97.7 F Pulse Rate 65 66 80 Respiratory 18 16 18 Rate Blood Pressure 203/97 187/87 186/97 O2 Sat by Pulse 97 94 L 93 L Oximetry 09/23/23 09/23/23 17:26 18:38 Temperature Pulse Rate 67 65 Respiratory 18 18 Rate Blood Pressure 158/109 164/89 O2 Sat by Pulse 95 95 Oximetry - Reevaluation(s) Reevaluation #1: pain has improved since morphine administration. 09/23/23 12:38 Reevaluation #2: States that pain is starting to come back, ordered second dose of morphine. 09/23/23 14:20 Medical Decision Making - Medical Decision Making Was pt. sent in by a medical professional or institution (, PA, NURSES DIRECTOR, urgent care, hospital, or residential...) When possible be specific @ -No Did you speak to anyone other than the patient for history (EMS, parent, family, police, friend...)? What history was obtained from this source @ -Patient's family at bedside states that patient has been having increasing back pain and bloating complaints over the past few weeks. Did you review nursing and triage notes (agree or disagree)? Why? @ -I reviewed and agree with nursing and triage notes Were old charts reviewed (outside hosp., previous admission, EMS record, old EKG, old radiological studies, urgent care reports/EKG's, residential records)? Report findings @ -previous charts reviewed. There are known right kidney masses of bilateral kidneys, and patient was previous candidate for possible right total nephrectomy, but surgery has since been canceled due to patient's kidney function. Differential Diagnosis (chest pain, altered mental status, abdominal pain women, abdominal pain men, vaginal bleeding, weakness, fever, dyspnea, syncope, headache, dizziness, GI bleed, back pain, seizure, CVA, palpatations, mental health, musculoskeletal)? @ -Differential Abdominal Pain Women: Appendicitis, Cholecystitis, diverticulosis, ischemic bowel, pancreatitis, hepatitis, UTI, gastroenteritis, AAA, incarcerated hernia, bowel obstruction, constipation, inflammatory bowel, hepatitis, peptic ulcer disease, splenic infarction, perforated viscus, vulvitis, ovarian torsion, PID, kidney stone, placenta abruption, this is not meant to be an all-inclusive list EKG interpreted by me (3pts min.). @ -None X-rays interpreted by me (1pt min.). @ -KUB xray interpreted as gas pattern nonobstructive, significant vascular calcific calcifications abdominal aorta, visualized portions of the heart moderately enlarged. CT interpreted by me (1pt min.). @ -CT abdomen pelvis. Moderate bilateral hydronephrosis ends at the ureteropelvic junctions. Subacute appearing compression fracture of L1 vertebral body. U/S interpreted by me (1pt. min.). @ -None done What testing was considered but not performed or refused? (CT, X-rays, U/S, labs)? Why? @ -None What meds were considered but not given or refused? Why? @ -None Did you discuss the management of the patient with other professionals (professionals i.e. , PA, NURSES DIRECTOR, lab, RT, psych nurse, oncology social work, game agent, teacher, custom protection officer, case checker)? Give summary @ -Intermittent discussed with attending and admitting physician for further evaluation and treatment of patient's recent lumbar fracture Was smoking cessation discussed for >3mins.? @ -No Was critical care preformed (if so, how long)? @ -No Were there social determinants of health that impacted care today? How? (Homelessness, low income, unemployed, alcoholism, drug addiction, transportat ion, low edu. Level, literacy, decrease access to med. care, long term, rehab)? @ -No Was there de-escalation of care discussed even if they declined (Discuss DNR or withdrawal of care, Hospice)? DNR status @ -No What co-morbidities impacted this encounter? (DM, HTN, Smoking, COPD, CAD, Cancer, CVA, ARF, Chemo, Hep., AIDS, mental health diagnosis, sleep apnea, morbid obesity)? @ -Diabetes CHF, HTN Was patient admitted / discharged? Hospital course, mention meds given and route, prescriptions, significant lab abnormalities, going to OR and other pertinent info. @ -83-year-old female presents with chief complaint of left flank pain and left lower quadrant abdominal pain. On arrival to ED patient appeared to be in extreme distress, dose of morphine given. CMP revealed potassium of 3.0, rate 95 CO2 36 BUN 19 glucose 70. Alkalosis likely secondary to hypokalemia, potassium supplement given to patient and given orange juice at bedside for low glucose. States that pain has decreased since given morphine. KUB xray interpreted as gas pattern nonobstructive, significant vascular calcific calcif ications abdominal aorta, visualized portions of the heart moderately enlarged. CT abdomen pelvis revealed Moderate bilateral hydronephrosis ends at the ureteropelvic junctions. Subacute appearing compression fracture of L1 vertebral body. straight catheterization done to obtain urinalysis with reflex culture to rule out possible urinary tract infection. UA with no signs of acute infection. Family at bedside, and is concerned for patient's increasing incontinence, generalized weakness, and pain. discussed admission with general medicine team for further evaluation and treatment. Undiagnosed new problem with uncertain prognosis? @ -No Drug Therapy requiring intensive monitoring for toxicity (Heparin, Nitro, Insulin, Cardizem)? @ -No Were any procedures done? @ -No Diagnosis/symptom? @ -Lumbar fracture, incontinence, generalized weakness Acute, or Chronic, or Acute on Chronic? @ -Acute Uncomplicated (without systemic symptoms) or Complicated (systemic symptoms)? @ -Uncomplicated Side effects of treatment? @ -No Exacerbation, Progression, or Severe Exacerbation? @ -No Poses a threat to life or bodily function? How? (Chest pain, [place], [place], pneumonia, PE, COPD, DKA, ARF, appy, cholecystitis, CVA, Diverticulitis, Homicidal, Suicidal, threat to staff... and all critical care pts) @ Yes. Patient's increasing weakness is leading to difficulty completing ALDs at home, and patient lives at home by herself with little difficulty. Patient to be admitted for pain management and further evaluation by general medicine and orthopedics. - Lab Data Result diagrams: 09/24/23 05:53 09/24/23 05:53 Lab Results 09/23/23 09/23/23 09/23/23 Range/Units 11:56 11:56 11:56 WBC 8.8 (3.8-10.6) k/uL RBC 4.64 (3.80-5.40) m/uL Hgb 13.8 (11.4-16.0) gm/dL Hct 42.0 (34.0-46.0) % MCV 90.3 (80.0-100.0) fL MCH 29.8 (25.0-35.0) pg MCHC 32.9 (31.0-37.0) g/dL RDW 14.2 (11.5-15.5) % Plt Count 224 (150-450) k/uL MPV 8.9 Neutrophils % 73 % Lymphocytes % 17 % Monocytes % 7 % Eosinophils % 1 % Basophils % 1 % Neutrophils # 6.4 (1.3-7.7) k/uL Lymphocytes # 1.4 (1.0-4.8) k/uL Monocytes # 0.6 (0-1.0) k/uL Eosinophils # 0.1 (0-0.7) k/uL Basophils # 0.1 (0-0.2) k/uL Sodium (137-145) mmol/L Potassium (3.5-5.1) mmol/L Chloride (98-107) mmol/L Carbon Dioxide (22-30) mmol/L Anion Gap mmol/L BUN (7-17) mg/dL Creatinine (0.52-1.04) mg/dL Est GFR (CKD-EPI)AfAm (>60 ml/min/1.73 sqM) Est GFR (CKD-EPI)NonAf (>60 ml/min/1.73 sqM) Glucose (74-99) mg/dL Plasma Lactic Acid [place] 1.2 (0.7-2.0) mmol/L Calcium (8.4-10.2) mg/dL Total Bilirubin (0.2-1.3) mg/dL AST (14-36) U/L ALT (4-34) U/L Alkaline Phosphatase (38-126) U/L Total Protein (6.3-8.2) g/dL Albumin (3.5-5.0) g/dL Amylase (30-110) U/L Lipase (23-300) U/L Urine Color Colorless Urine Appearance Clear (Clear) Urine pH 6.0 (5.0-8.0) Ur Specific [place] 1.012 (1.001-1.035) Urine Protein Negative (Negative) Urine Glucose (UA) Negative (Negative) Urine Ketones Trace H (Negative) Urine Blood Negative (Negative) Urine Nitrite Negative (Negative) Urine Bilirubin Negative (Negative) Urine Urobilinogen <2.0 (<2.0) mg/dL Ur Leukocyte Esterase Moderate H (Negative) Urine RBC 4 (0-5) /hpf Urine WBC 3 (0-5) /hpf Ur Squamous Epith Cells <1 (0-4) /hpf Urine Mucus Rare H (None) /hpf 09/23/23 Range/Units 11:56 WBC (3.8-10.6) k/uL RBC (3.80-5.40) m/uL Hgb (11.4-16.0) gm/dL Hct (34.0-46.0) % MCV (80.0-100.0) fL MCH (25.0-35.0) pg MCHC (31.0-37.0) g/dL RDW (11.5-15.5) % Plt Count (150-450) k/uL MPV Neutrophils % % Lymphocytes % % Monocytes % % Eosinophils % % Basophils % % Neutrophils # (1.3-7.7) k/uL Lymphocytes # (1.0-4.8) k/uL Monocytes # (0-1.0) k/uL Eosinophils # (0-0.7) k/uL Basophils # (0-0.2) k/uL Sodium 138 (137-145) mmol/L Potassium 3.0 L (3.5-5.1) mmol/L Chloride 95 L (98-107) mmol/L Carbon Dioxide 36 H (22-30) mmol/L Anion Gap 7 mmol/L BUN 19 H (7-17) mg/dL Creatinine 0.84 (0.52-1.04) mg/dL Est GFR (CKD-EPI)AfAm 75 (>60 ml/min/1.73 sqM) Est GFR (CKD-EPI)NonAf 65 (>60 ml/min/1.73 sqM) Glucose 70 L (74-99) mg/dL Plasma Lactic Acid [place] (0.7-2.0) mmol/L Calcium 9.0 (8.4-10.2) mg/dL Total Bilirubin 1.1 (0.2-1.3) mg/dL AST 30 (14-36) U/L ALT 15 (4-34) U/L Alkaline Phosphatase 87 (38-126) U/L Total Protein 6.7 (6.3-8.2) g/dL Albumin 3.8 (3.5-5.0) g/dL Amylase 53 (30-110) U/L Lipase 61 (23-300) U/L Urine Color Urine Appearance (Clear) Urine pH (5.0-8.0) Ur Specific [place] (1.001-1.035) Urine Protein (Negative) Urine Glucose (UA) (Negative) Urine Ketones (Negative) Urine Blood (Negative) Urine Nitrite (Negative) Urine Bilirubin (Negative) Urine Urobilinogen (<2.0) mg/dL Ur Leukocyte Esterase (Negative) Urine RBC (0-5) /hpf Urine WBC (0-5) /hpf Ur Squamous Epith Cells (0-4) /hpf Urine Mucus (None) /hpf Disposition Clinical Impression: Lumbar compression fracture, Generalized weakness, Back pain Disposition: ADMITTED IP TO THIS [facility] Condition: Good Is patient prescribed a controlled substance at d/c from ED?: No Time of Disposition: 14:40 Decision to Admit Reason: Admit from EC
[2023-09-23] MEDS: ONDANSETRON ODT 4 MG TAB PO STA (11:51)
[2023-09-23] MEDS: MORPHINE SULFATE 2 MG/ML SYRINGE IVP ONE ×2 (11:51→14:47)
[2023-09-23 12:08] LABS: Basophils # (A) 0.1 k/uL (0-0.2); Basophils % (A) 1 %; Eosinophils # (A) 0.1 k/uL (0-0.7); Eosinophils % (A) 1 %; HGB 13.8 gm/dL (11.4-16.0); Lymphocytes # (A) 1.4 k/uL (1.0-4.8); Lymphocytes % (A) 17 %; MCH 29.8 pg (25.0-35.0); MCHC 32.9 g/dL (31.0-37.0); MCV 90.3 fL (80.0-100.0); Mean Platelet Volume 8.9; Monocytes # (A) 0.6 k/uL (0-1.0); Monocytes % (A) 7 %; Neutrophils # (A) 6.4 k/uL (1.3-7.7); Neutrophils % (A) 73 %; Platelet Count 224 k/uL (150-450); RBC 4.64 m/uL (3.80-5.40); RDW 14.2 % (11.5-15.5); WBC 8.8 k/uL (3.8-10.6)
[2023-09-23 12:18] LABS: ALT 15 U/L (4-34); AST 30 U/L (14-36); African American GFR (CKD) 75 (>60 ml/min/1.73 sqM); Albumin 3.8 g/dL (3.5-5.0); Alkaline Phosphatase 87 U/L (38-126); Amylase 53 U/L (30-110); Anion Gap 7 mmol/L; Blood Urea Nitrogen 19 mg/dL (7-17); Carbon Dioxide 36 mmol/L (22-30); Chloride 95 mmol/L (98-107); Glucose 70 mg/dL (74-99); Lipase 61 U/L (23-300); Non-African American GFR(CKD) 65 (>60 ml/min/1.73 sqM); Sodium 138 mmol/L (137-145); Total Bilirubin 1.1 mg/dL (0.2-1.3); Total Protein 6.7 g/dL (6.3-8.2)
--- NOTE | 2023-09-23 12:34 | XR ---
Supine abdomen. DATE: 09/23/2023. COMPARISON: None available. Clinical history: Abdominal pain. IMPRESSION: The bowel gas pattern is nonobstructive. There is significant vascular calcification throughout the abdominal aorta and iliac vessels. Mild scoliotic curvature of the spine and degenerative changes are otherwise noted. The visualized portions of the heart appear moderately enlarged.
[2023-09-23] MEDS: SODIUM CHLORIDE 0.9% 1,000 ML IV STA (12:59)
[2023-09-23] MEDS: POTASSIUM CHLORIDE ER 20 MEQ TAB.ER PO STA (12:59)
--- NOTE | 2023-09-23 13:15 | CT ---
EXAMINATION: CT ABDOMEN AND PELVIS WITH IV CONTRAST DATE OF EXAMINATION: 09/23/2023. COMPARISON: 02/13/2023. INDICATION: Flank pain. Known renal cell carcinoma. PROCEDURE: Axial CT of the abdomen and pelvis was performed with contrast and sagittal and coronal reformatted images were performed. CT dose lowering techniques were used, to include: automated expos ure control, adjustment for patient size, and/or use of iterative reconstruction. 100 mL of Isovue-30 0 was given intravenously. FINDINGS: LOWER CHEST : There are a few linear bands of opacities at the lung bases bilaterally which are like ly atelectasis or scarring. There are no pleural or pericardial effusions. Mild cardiomegaly to moder ate cardiomegaly. ABDOMEN: Liver and Biliary system: Slightly hyperdense lesions within the right and left lobe of the liver ap pear very similar to the previous examination and remain indeterminate. No new liver lesions are seen . Adrenal glands: Normal. Kidneys and ureters: There is an enhancing mass within the interpolar region to upper pole of the rig ht kidney that measures approximately 4.0 x 3.5 cm in diameter which is very similar to the previous examination. Moderate bilateral hydronephrosis appears to end at the ureteropelvic junction and is in creased since the previous examination. Spleen: Normal. Pancreas: Normal. Gallbladder: Surgically absent. Lymph nodes, Peritoneum and mesentery: There is no mesenteric or retroperitoneal lymphadenopathy. Gastrointestinal tract: There are no dilated loops of bowel or free intraperitoneal air. The appe ndix is normal. There is mild descending colonic and sigmoid colonic diverticulosis without evidence of diverticulitis. There appears to be a rectosigmoid anastomosis. Duodenal diverticulum is present. Aorta/IVC: There is significant vascular calcification throughout the abdominal aorta without evide nce of aneurysmal dilation or dissection IVC normal. Abdominal wall: Normal. PELVIS: Fluid: There is no free fluid in the pelvis. Lymph Nodes: There is no pelvic or inguinal lymphadenopathy.. Urinary bladder: Normal. BONES: Multilevel degenerative disc and facet changes are seen throughout the spine. There is a suba cute to chronic compression deformity with approximately 50% vertebral body height loss of the T12 ve rtebral body. There are no acute osseous abnormalities. ADDITIONAL SIGNIFICANT FINDINGS: None. IMPRESSION: 1. Similar appearance to the right renal cell carcinoma. 2. Moderate bilateral hydronephrosis appears to end at the ureteropelvic junctions and is increased s nery the previous examination. 3. Indeterminate liver lesions are very similar to the previous examination. No new liver lesions are identified. 4. Diverticulosis without evidence of diverticulitis. 5. Subacute appearing compression fracture of the L1 vertebral body is new since the previous examina tion.
[2023-09-23 15:03] LABS: Appearance,Urine Clear (Clear); Bilirubin,Urine Negative (Negative); Blood,Urine Negative (Negative); Color,Urine Colorless; Glucose,Urine (UA) Negative (Negative); Ketones,Urine Trace (Negative); Leukocyte Esterase,Urine Moderate (Negative); Mucus,Urine Rare /hpf; Nitrite,Urine Negative (Negative); Protein,Urine Negative (Negative); RBC,Urine 4 /hpf (0-5); Specific Gravity,Urine 1.012 (1.001-1.035); Squamous Epithelial Cell,Urine <1 /hpf (0-4); Urobilinogen,Urine <2.0 mg/dL (<2.0); WBC,Urine 3 /hpf (0-5)
[2023-09-23] MEDS ORDERED: NALOXONE 0.4 MG/ML 1 ML VIAL IV PRN (16:03)
[2023-09-23] MEDS ORDERED: ONDANSETRON 4 MG TAB PO PRN (16:21)
[2023-09-23] MEDS ORDERED: DEXTROSE 50% SYRINGE 50 ML IVP PRN ×2 (17:09)
--- NOTE | 2023-09-23 17:21 | P.HPIM ---
History of Present Illness H&P Date: 09/23/23 Chief Complaint: Back pain and nausea and vomiting Patient is a 83-year-old female with a past medical history of coronary artery disease, hypertension, diabetes mellitus, chronic systolic heart failure, right renal mass, urinary incontinence, stool incontinence who presents to the ED with 1 week of lower back pain that is radiating to her left side and also nausea vomiting with a poor appetite. Per family patient did go to another ED a week ago and was discharged home on [place] and Zofran. Per patient the [place] is not helping with her pain. Patient was scheduled for a right-sided nephrectomy 1 month ago. Patient states that the surgery was canceled because the surgeon was concerned about her renal function and patient herself was concerned about the surgery because it was high risk so no longer wanted it. In the ED patient had a CT scan done that showed similar appearance of the right renal cell carcinoma. Bilateral moderate size hydronephrosis, indeterminant liver lesions that are similar to previous examination with no new liver lesions, subacute compression fraction of L1 is new from previous examination and moderately distended bladder. Daughter states that about a week ago patient was fixing her bed and afterwards did complain of some back pain. Patient states that in the ED she did have a straight cath done with large amount of urine output. She states that after the straight cath her abdominal pain did not resolve. I was unable to confirm with the nurse how much urine output the patient had. Review of systems: 10 ROS reviewed and are negative except as noted in HPI Physical exam General: [Alert and oriented, well nourished, no acute distress]. Eye: [PERRL, EOMI, normal conjunctiva]. HENT: [Normocephalic, clear tympanic membranes, normal hearing, moist oral mucosa, no scleral icterus, no sinus tenderness]. Neck: [Supple, non-tender, no carotid bruits, no JVD, no lymphadenopathy]. Lungs: [Clear to auscultation and percussion, non-labored respiration]. Heart: [Normal rate, regular rhythm, no murmur, gallop or edema]. Abdomen: [Soft, non-tender, non-distended, normal bowel sounds, no masses]. Musculoskeletal: [Tenderness to palpate of the lower spine]. Skin: [Skin is warm, dry and pink, no rashes or lesions]. Neurologic: [Awake, alert, and oriented X3, CN II-XII intact]. Psychiatric: [Cooperative, appropriate mood and affect]. Assessment and plan Lower back pain radiating to left side I suspect this is most likely from the subacute lumbar fracture Will consult orthopedic surgery Pain control with IV morphine as needed Will also resume [place] and tramadol as needed which are patient's home medications Moderate-sized bilateral hydronephrosis Urinary incontinence I requested nurse to place a Mendes catheter Will monitor urine output Consult urology Intractable nausea vomiting Unclear etiology UA was negative for UTI CT abdomen and pelvis showed the findings as above which would not explain her intractable nausea vomiting This may be due to bladder distention from urinary incontinence. Will monitor the patient's symptoms after Mendes catheter insertion Symptomatic care with as needed Zofran Hypokalemia Patient given 40 mill eq of potassium chloride Monitor BMP Right-sided renal mass Patient refused surgery I doubt this is causing patient's symptoms due to location of her pain Chronic systolic heart failure Patient appears compensated Resume losartan Imdur and home dose Lasix and Coreg and aspirin and statin Diabetes mellitus Continue Levemir 8 units at bedtime and sliding scale insulin Dementia Continue with donepezil Hyperlipidemia Continue with statin DVT prophylaxis: Subcu heparin 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-65% History of Any Multi-Drug Resistant Organisms: C-DIFF Date of last positivie culture/infection: 08/21/15 MDRO Source:: STOOL Past Surgical History: Bowel Resection, Cholecystectomy, Heart Catheterization, Hernia Repair, Hysterectomy, Orthopedic Surgery, Tonsillectomy Additional Past Surgical History / Comment(s): 06/19/15 LAP SIGMOID RESECTION with lysis of adhesions, lithotripsy, cardiac cath with mild disease to proximal LAD, colonoscopy, L thigh cyst removed, BILAT CATARACTS REMOVED WITH LENS IMPLANTS, left ACL repair Past Anesthesia/Blood Transfusion Reactions: No Reported Reaction Past Psychological History: Depression Smoking Status: Never smoker Past Alcohol Use History: None Reported Past Drug Use History: None Reported - Past Family History Father Family Medical History: Cancer Additional Family Medical History / Comment(s): prostate CA Mother Family Medical History: Cancer Additional Family Medical History / Comment(s): liver issues Medications and Allergies Home Medications Medication Instructions Recorded Confirmed Type Insulin Degludec/Liraglutide 9 unit SQ HS 04/19/19 09/23/23 History [Xultophy 100 Unit-3.6MG/ml Pen] Atorvastatin [Lipitor] 20 mg PO HS tab 02/17/23 09/23/23 Rx carvediloL [Coreg] 6.25 mg PO BID-W/MEALS tab 02/17/23 09/23/23 Rx Aspirin [Adult Low Dose Aspirin EC] 81 mg PO HS 05/27/23 09/23/23 History Donepezil [Aricept] 10 mg PO HS 05/27/23 09/23/23 History Furosemide [Lasix] 40 mg PO DAILY 05/27/23 09/23/23 History Isosorbide Mononitrate ER [Imdur] 30 mg PO DAILY 05/27/23 09/23/23 History Losartan [Cozaar] 25 mg PO DAILY@1200 05/27/23 09/23/23 History Magnesium 400 mg PO HS 05/27/23 09/23/23 History Multivitamins, Thera [Multivitamin 1 tab PO HS 05/27/23 09/23/23 History (formulary)] traMADol HCl [Ultram] 50 mg PO BID PRN 05/27/23 09/23/23 History Acetaminophen Tab [Tylenol Tab] 1,000 mg PO Q6HR PRN #30 tablet 05/30/23 09/23/23 Rx HYDROcodone/APAP 5-325MG [[place] 1 tab PO Q4HR PRN 09/23/23 09/23/23 History 5-325] Insulin Glargine,Hum.rec.anlog 8 units SQ DIRECTED 09/23/23 09/23/23 History [Basaglar Kwikpen U-100] Ondansetron [Zofran] 4 mg PO BID PRN 09/23/23 09/23/23 History Ubidecarenone [Coenzyme Q10] 200 mg PO HS 09/23/23 09/23/23 History Allergies Allergy/AdvReac Type Severity Reaction Status Date / Time adhesive tape Allergy red skin Verified 08/21/23 09:35 pregabalin [From Lyrica] AdvReac Hallucinati Verified 08/21/23 09:35 ons Physical Exam Osteopathic Statement: *. No significant issues noted on an osteopathic structural exam other than those noted in the History and Physical/Consult. Vitals: Vital Signs Temp Pulse Resp BP Pulse Ox 09/23/23 14:46 80 18 186/97 93 L 09/23/23 12:56 66 16 187/87 94 L 09/23/23 11:08 97.7 F 65 18 203/97 97 Intake and Output 09/23/23 09/23/23 09/23/23 06:59 14:59 22:59 Other: Weight 58.967 kg Results CBC & Chem 7: 09/23/23 11:56 09/23/23 11:56 Labs: Abnormal Lab Results - Last 24 Hours (Table) 09/23/23 09/23/23 Range/Units 11:56 11:56 Potassium 3.0 L (3.5-5.1) mmol/L Chloride 95 L (98-107) mmol/L Carbon Dioxide 36 H (22-30) mmol/L BUN 19 H (7-17) mg/dL Glucose 70 L (74-99) mg/dL Urine Ketones Trace H (Negative) Ur Leukocyte Esterase Moderate H (Negative) Urine Mucus Rare H (None) /hpf
[2023-09-23 18:23] LABS: Glucose,Whole Blood 72 mg/dL (70-110)
[2023-09-23] MEDS: INSULIN ASPART (NovoLOG) 100 UNIT/ML VIAL SQ SCH (18:23)
[2023-09-23] MEDS: MORPHINE SULFATE 4 MG/ML SYRINGE IV PRN (18:38)
[2023-09-23] MEDS: carvediloL 6.25 MG TAB PO SCH (18:38)
[2023-09-23 20:22] LABS: Glucose,Whole Blood 78 mg/dL (70-110)
[2023-09-23] MEDS ORDERED: INS SQ SCH (21:00)
[2023-09-23] MEDS ORDERED: NON FORMULARY DRUG (Ubidecarenone [Coenzyme Q10] 200 MG Capsule) PO SCH (21:00)
[2023-09-23] MEDS ORDERED: INSULIN DEGLUDEC SQ SCH (21:00)
[2023-09-23] MEDS ORDERED: LIRAGLUTIDE SQ SCH (21:00)
[2023-09-23] MEDS: INSULIN DETEMIR (LEVEMIR) 100 UNIT/ML SYR SQ SCH (21:50)
[2023-09-23] MEDS: MAGNESIUM OXIDE 400 MG TAB PO SCH (21:56)
[2023-09-23] MEDS: ASPIRIN 81 MG PO SCH (21:56)
[2023-09-23] MEDS: MULTIVITAMINS, THERA 1 EACH TAB PO SCH (21:57)
[2023-09-23] MEDS: DONEPEZIL 10 MG TAB PO SCH (21:57)
[2023-09-23] MEDS: ATORVASTATIN 20 MG TAB PO SCH (21:57)
[2023-09-23] MEDS: HEPARIN SODIUM,PORCINE 5,000 UNIT/ML 1 ML VIAL SQ SCH (21:57)
[2023-09-24 02:55] LABS: Glucose,Whole Blood 66 mg/dL (70-110)
[2023-09-24 03:16] LABS: Glucose,Whole Blood 77 mg/dL (70-110)
[2023-09-24 07:37] LABS: Glucose,Whole Blood 93 mg/dL (70-110)
[2023-09-24 08:37] LABS: Basophils # (A) 0.09 X 10*3/uL (0.00-0.10); Basophils % (A) 1.3 %; Eosinophils # (A) 0.22 X 10*3/uL (0.04-0.35); Eosinophils % (A) 3.1 %; HCT 38.7 % (37.2-46.3); HGB 12.5 g/dL (12.0-15.0); Lymphocytes # (A) 2.73 X 10*3/uL (0.90-5.00); Lymphocytes % (A) 38.8 %; MCH 28.9 pg (27.0-32.0); MCHC 32.3 g/dL (32.0-37.0); MCV 89.6 FL (80.0-97.0); Mean Platelet Volume 11.6 FL (9.5-12.2); Monocytes # (A) 0.82 X 10*3/uL (0.20-1.00); Monocytes % (A) 11.7 %; NRBC Per 100 WBC 0 X 10*3/uL (0.00-0.01); Neutrophils # (A) 3.14 X 10*3/uL (1.80-7.70); Neutrophils % (A) 44.7 %; Platelet Count 219 X 10*3/uL (140-440); RBC 4.32 X 10*6/uL (4.10-5.20); RDW 14.4 % (11.5-14.5); WBC 7.03 X 10*3/uL (4.50-10.00)
[2023-09-24 08:42] LABS: Blood Urea Nitrogen 14.3 mg/dL (9.0-27.0); Calcium 9.2 mg/dL (8.7-10.3); Carbon Dioxide 33.5 mmol/L (21.6-31.8); Chloride 97 mmol/L (96-109); Glucose 81 mg/dL (70-110); Potassium 3.5 mmol/L (3.5-5.5); Sodium 140 mmol/L (135-145)
[2023-09-24] MEDS: ISOSORBIDE MONONITRATE ER 30 MG TAB.ER.24H PO SCH (09:47)
[2023-09-24] MEDS: FUROSEMIDE 40 MG TAB PO SCH (09:47)
[2023-09-24] MEDS: ONDANSETRON 4 MG/2 ML VIAL IVP PRN (10:05)
[2023-09-24 12:01] LABS: Glucose,Whole Blood 127 mg/dL (70-110)
--- NOTE | 2023-09-24 12:57 | P.GSCN ---
History of Present Illness Consult date: 09/24/23 Reason for Consult: Bilateral hydronephrosis, right renal mass History of present illness: This is an 83-year-old female patient of Dr. Miguel history of right-sided renal mass that is being managed with active surveillance, she is refused tate rgery due to concern of requiring hemodialysis postoperatively. Presented to the hospital with left flank/back pain. Underwent a CT abdomen and pelvis that showed bilateral hydronephrosis, that is chronic but has worsened compared to baseline. CT also showed L1 subacute compression fracture. in addition the bladder was distended and subsequently a Mendes catheter was placed. She does have history of chronic urinary incontinence which is unchanged compared to her baseline. But is also complaining of some fecal incontinence which is new onset. Denies any dysuria or gross hematuria. Denies any right-sided flank pain. Indicated flank pain is associated with nausea and vomiting. She did indicate some improvement of the flank pain since hospital admission. Her creatinine is at 1 her baseline is a 0.8-0.9 Review of Systems - Constitutional Denies fever, Denies weight loss - EENT Ears, nose, mouth and throat: Denies dysphagia - Respiratory Denies cough, Denies 7 - Gastrointestinal Reports abdominal pain, Reports nausea, Reports vomiting - Genitourinary Genitourinary: Reports flank pain 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-65% History of Any Multi-Drug Resistant Organisms: C-DIFF Year Discovered:: 08/21/15 MDRO Source:: STOOL Past Surgical History: Bowel Resection, Cholecystectomy, Heart Catheterization, Hernia Repair, Hysterectomy, Orthopedic Surgery, Tonsillectomy Additional Past Surgical History / Comment(s): 06/19/15 LAP SIGMOID RESECTION with lysis of adhesions, lithotripsy, cardiac cath with mild disease to proximal LAD, colonoscopy, L thigh cyst removed, BILAT CATARACTS REMOVED WITH LENS IMPLANTS, left ACL repair Past Anesthesia/Blood Transfusion Reactions: No Reported Reaction Smoking Status: Never smoker Past Alcohol Use History: None Reported Additional Past Alcohol Use History / Comment(s): . Past Drug Use History: None Reported - Past Family History Father Family Medical History: Cancer Additional Family Medical History / Comment(s): prostate CA Mother Family Medical History: Cancer Additional Family Medical History / Comment(s): liver issues Medications and Allergies Home Medications Medication Instructions Recorded Confirmed Type Insulin Degludec/Liraglutide 9 unit SQ HS 04/19/19 09/23/23 History [Xultophy 100 Unit-3.6MG/ml Pen] Atorvastatin [Lipitor] 20 mg PO HS tab 02/17/23 09/23/23 Rx carvediloL [Coreg] 6.25 mg PO BID-W/MEALS tab 02/17/23 09/23/23 Rx Aspirin [Adult Low Dose Aspirin EC] 81 mg PO HS 05/27/23 09/23/23 History Donepezil [Aricept] 10 mg PO HS 05/27/23 09/23/23 History Furosemide [Lasix] 40 mg PO DAILY 05/27/23 09/23/23 History Isosorbide Mononitrate ER [Imdur] 30 mg PO DAILY 05/27/23 09/23/23 History Losartan [Cozaar] 25 mg PO DAILY@1200 05/27/23 09/23/23 History Magnesium 400 mg PO HS 05/27/23 09/23/23 History Multivitamins, Thera [Multivitamin 1 tab PO HS 05/27/23 09/23/23 History (formulary)] traMADol HCl [Ultram] 50 mg PO BID PRN 05/27/23 09/23/23 History Acetaminophen Tab [Tylenol Tab] 1,000 mg PO Q6HR PRN #30 tablet 05/30/2312/11 Rx HYDROcodone/APAP 5-325MG [[place] 1 tab PO Q4HR PRN 09/23/23 09/23/23 History 5-325] Insulin Glargine,Hum.rec.anlog 8 units SQ DIRECTED 09/23/23 09/23/23 History [Basaglar Kwikpen U-100] Ondansetron [Zofran] 4 mg PO BID PRN 09/23/23 09/23/23 History Ubidecarenone [Coenzyme Q10] 200 mg PO HS 09/23/23 09/23/23 History Allergies Allergy/AdvReac Type Severity Reaction Status Date / Time adhesive tape Allergy red skin Verified 08/21/23 09:35 pregabalin [From Lyrica] AdvReac Hallucinati Verified 08/21/23 09:35 ons Surgical - Exam Vital Signs Temp Pulse Resp BP Pulse Ox 97.7 F 65 18 203/97 97 09/23/23 11:08 09/23/23 11:08 09/23/23 11:08 09/23/23 11:08 09/23/23 11:08 - General no distress, moderate pain - Eyes normal ocular movement, no pale - ENT normal nares, normal mucosa - Respiratory normal expansion, normal respiratory effort - Abdomen Abdomen: soft, non tender - Psychiatric oriented to time, oriented to person, oriented to place Results - Labs 09/24/23 05:53 09/24/23 05:53 Abnormal Lab Results - Last 24 Hours (Table) 09/23/23 09/24/23 09/24/23 Range/Units 11:56 02:50 05:53 Carbon Dioxide 33.5 H (21.6-31.8) mmol/L POC Glucose (mg/dL) 66 L (70-110) mg/dL Urine Ketones Trace H (Negative) Ur Leukocyte Esterase Moderate H (Negative) Urine Mucus Rare H (None) /hpf 09/24/23 Range/Units 12:00 Carbon Dioxide (21.6-31.8) mmol/L POC Glucose (mg/dL) 127 H (70-110) mg/dL Urine Ketones (Negative) Ur Leukocyte Esterase (Negative) Urine Mucus (None) /hpf Diabetes panel 09/24/23 Range/Units 05:53 Sodium 140 (135-145) mmol/L Potassium 3.5 (3.5-5.5) mmol/L Chloride 97 (96-109) mmol/L Carbon Dioxide 33.5 H (21.6-31.8) mmol/L BUN 14.3 (9.0-27.0) mg/dL Creatinine 1.0 (0.6-1.5) mg/dL Glucose 81 (70-110) mg/dL Calcium 9.2 (8.7-10.3) mg/dL Calcium panel 09/24/23 Range/Units 05:53 Calcium 9.2 (8.7-10.3) mg/dL Pituitary panel 09/24/23 Range/Units 05:53 Sodium 140 (135-145) mmol/L Potassium 3.5 (3.5-5.5) mmol/L Chloride 97 (96-109) mmol/L Carbon Dioxide 33.5 H (21.6-31.8) mmol/L BUN 14.3 (9.0-27.0) mg/dL Creatinine 1.0 (0.6-1.5) mg/dL Glucose 81 (70-110) mg/dL Calcium 9.2 (8.7-10.3) mg/dL Adrenal panel 09/24/23 Range/Units 05:53 Sodium 140 (135-145) mmol/L Potassium 3.5 (3.5-5.5) mmol/L Chloride 97 (96-109) mmol/L Carbon Dioxide 33.5 H (21.6-31.8) mmol/L BUN 14.3 (9.0-27.0) mg/dL Creatinine 1.0 (0.6-1.5) mg/dL Glucose 81 (70-110) mg/dL Calcium 9.2 (8.7-10.3) mg/dL - Imaging CT scan - abdomen: image reviewed (Right-sided renal mass, bilateral mild hydronephrosis, bladder) Assessment and Plan Assessment: 83-year-old female admitted to the hospital with left flank pain, history of right-sided renal mass. CT did show bilateral hydronephrosis, and bladder distention. Creatinine is at baseline. Her right-sided renal mass is not the cause of her left flank pain, there is potential that the left hydronephrosis could be the cause of her pain. At this time recommend continued pain management, will reassess tomorrow if still having persistent pain then we will proceed with left retrograde pyelogram and possible stent -Keep Mendes catheter in place -Will add Toradol for pain -Will reassess tomorrow, if having persistent pain then we will proceed with left retrograde pyelogram and possible stent
--- NOTE | 2023-09-24 13:59 | P.PN ---
Subjective Progress Note Date: 09/24/23 Patient is a 83-year-old female with a past medical history of coronary artery disease, hypertension, diabetes mellitus, chronic systolic heart failure, right renal mass, urinary incontinence, stool incontinence who presents to the ED with 1 week of lower back pain that is radiating to her left side and also nausea vomiting with a poor appetite. Per family patient did go to another ED a week ago and was discharged home on [place] and Zofran. Per patient the [place] is not helping with her pain. Patient was scheduled for a right-sided nephrectomy 1 month ago. Patient states that the surgery was canceled because the surgeon was concerned about her renal function and patient herself was concerned about the surgery because it was high risk so no longer wanted it. In the ED patient had a CT scan done that showed similar appearance of the right renal cell carcinoma. Bilateral moderate size hydronephrosis, indeterminant liver lesions that are similar to previous examination with no new liver lesions, subacute compression fraction of L1 is new from previous examination and moderately distended chela dder. Daughter states that about a week ago patient was fixing her bed and afterwards did complain of some back pain. Patient states that in the ED she did have a straight cath done with large amount of urine output. She states that after the straight cath her abdominal pain did not resolve. I was unable to confirm with the nurse how much urine output the patient had. Patient seen this morning. Patient states that she is still having back pain. She states that she took 2 bites of her pancake this morning and was able to keep down some juice and coffee. She states that she has not vomited since she was admitted however still feels nauseous. Patient states that the morphine is helping with her pain. Review of systems: 10 ROS reviewed and are negative except as noted in HPI Physical exam General examination - Alert and Oriented 3 in NAD Heart - + S1S2 no murmurs Lungs - Clear to auscultation Abdomen soft NT ND +ve BS Extremities - No edema FISH RECEIVER - Moving all 4 extremities spontaneously Psych - Calm and cooperative Assessment and plan Lower back pain radiating to left side I suspect this is most likely from the subacute lumbar fracture Per urology pain could also be due to the left-sided hydronephrosis Urology plans on doing left-sided urogram and possible cystoscopy if patient has persistent pain Will consult orthopedic surgery. Consult is still pending Pain control with IV morphine as needed Will also resume [place] and tramadol as needed which are patient's home medications Moderate-sized bilateral hydronephrosis Urinary incontinence Will keep the Mendes catheter in for now Will monitor urine output Urology on board Intractable nausea vomiting Unclear etiology UA was negative for UTI CT abdomen and pelvis showed the findings as above which would not explain her intractable nausea vomiting We will continue with the workup as above If all workup is negative then we will have to consider psychiatric cause as a reason for her nausea and vomiting. Currently patient states that she feels nauseous however she is able to keep food and fluids down and denies having any vomiting since admission. Hypokalemia Resolved Right-sided renal mass Patient refused surgery I doubt this is causing patient's symptoms due to location of her pain Chronic systolic heart failure Patient appears compensated Resume losartan Imdur and home dose Lasix and Coreg and aspirin and statin Diabetes mellitus Continue Levemir 8 units at bedtime and sliding scale insulin Dementia Continue with donepezil Hyperlipidemia Continue with statin DVT prophylaxis: Subcu heparin Patient's labs are unremarkable so no need to trend Objective - Vital Signs Vital signs: Vital Signs Temp 98.5 F 09/24/23 11:23 Pulse 61 09/24/23 11:23 Resp 16 09/24/23 11:23 BP 118/53 09/24/23 11:23 Pulse Ox 92 L 09/24/23 11:23 FiO2 Intake & Output 09/23/23 09/24/23 09/24/23 18:59 06:59 18:59 Intake Total 590 Balance 590 Weight 58.967 kg 58.967 kg Intake: Oral 590 Other: Voiding Method Indwelling Catheter Indwelling Catheter - Labs CBC & Chem 7: 09/24/23 05:53 09/24/23 05:53 Labs: Abnormal Lab Results - Last 24 Hours (Table) 09/23/23 09/24/23 09/24/23 Range/Units 11:56 02:50 05:53 Carbon Dioxide 33.5 H (21.6-31.8) mmol/L POC Glucose (mg/dL) 66 L (70-110) mg/dL Urine Ketones Trace H (Negative) Ur Leukocyte Esterase Moderate H (Negative) Urine Mucus Rare H (None) /hpf 09/24/23 Range/Units 12:00 Carbon Dioxide (21.6-31.8) mmol/L POC Glucose (mg/dL) 127 H (70-110) mg/dL Urine Ketones (Negative) Ur Leukocyte Esterase (Negative) Urine Mucus (None) /hpf
[2023-09-24] MEDS: LOSARTAN 25 MG TAB PO SCH (14:14)
--- NOTE | 2023-09-24 15:24 | P.CNOR ---
History of Present Illness - [facility] Consult date: 09/24/23 Requesting physician: Keny Tong Consult reason: fracture (T12 compression fracture) History of present illness: Patient is a very pleasant 83-year-old female who is seen and examined at bedside for further evaluation of her thoracolumbar spine. Patient states she has been experiencing back pain that started 1 week ago without injury. She was seen and examined by Dr. Amato and pain management at [facility] on yesterday. She has been following him for treatment. She has had injections at her lumbar spine in the past. She presented to the emergency department for further evaluation 1 week ago and was discharged home with oral [place] and Zofran. Patient does admit to increased pain at her lower thoracic spine with palpation. She states she has had some increased difficulty with her mobilization due to her pain. She does not describe any specific lower extremity weakness or radiculopathy pattern. During evaluation the emergency department, CT imaging of the abdomen pelvis was performed. This showed evidence of T12 compression fracture deformity. She is being seen and examined by urology. She was previously scheduled for right nephrectomy but decided not to proceed forward with surgical intervention. She has a history of right-sided renal mass that is being managed with active surveillance, she has refused surgery due to concern of requiring hemodialysis postoperatively. Presented to the hospital with left flank/back pain. Underwent a CT abdomen and pelvis that showed bilateral hydronephrosis, that is chronic but has worsened compared to baseline. Patient does state she is having difficulty with her right kidney before but currently has some increased pain at her left flank area. She also has pain along the midline at the thoracolumbar junction. She has a Mendes catheter intact. Urology is planning for continued evaluation with reassessment tomorrow. Patient is being seen and examined by medicine as well. 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-65% History of Any Multi-Drug Resistant Organisms: C-DIFF Year Discovered:: 08/21/15 MDRO Source:: STOOL Past Surgical History: Bowel Resection, Cholecystectomy, Heart Catheterization, Hernia Repair, Hysterectomy, Orthopedic Surgery, Tonsillectomy Additional Past Surgical History / Comment(s): 06/19/15 LAP SIGMOID RESECTION with lysis of adhesions, lithotripsy, cardiac cath with mild disease to proximal LAD, colonoscopy, L thigh cyst removed, BILAT CATARACTS REMOVED WITH LENS IMPLANTS, left ACL repair Past Anesthesia/Blood Transfusion Reactions: No Reported Reaction Smoking Status: Never smoker Past Alcohol Use History: None Reported Additional Past Alcohol Use History / Comment(s): . Past Drug Use History: None Reported - Past Family History Father Family Medical History: Cancer Additional Family Medical History / Comment(s): prostate CA Mother Family Medical History: Cancer Additional Family Medical History / Comment(s): liver issues Medications and Allergies Home Medications Medication Instructions Recorded Confirmed Type Insulin Degludec/Liraglutide 9 unit SQ HS 04/19/19 09/23/23 History [Xultophy 100 Unit-3.6MG/ml Pen] Atorvastatin [Lipitor] 20 mg PO HS tab 02/17/23 09/23/23 Rx carvediloL [Coreg] 6.25 mg PO BID-W/MEALS tab 02/17/23 09/23/23 Rx Aspirin [Adult Low Dose Aspirin EC] 81 mg PO HS 05/27/23 09/23/23 History Donepezil [Aricept] 10 mg PO HS 05/27/23 09/23/23 History Furosemide [Lasix] 40 mg PO DAILY 05/27/23 09/23/23 History Isosorbide Mononitrate ER [Imdur] 30 mg PO DAILY 05/27/23 09/23/23 History Losartan [Cozaar] 25 mg PO DAILY@1200 05/27/23 09/23/23 History Magnesium 400 mg PO HS 05/27/23 09/23/23 History Multivitamins, Thera [Multivitamin 1 tab PO HS 05/27/23 09/23/23 History (formulary)] traMADol HCl [Ultram] 50 mg PO BID PRN 05/27/23 09/23/23 History Acetaminophen Tab [Tylenol Tab] 1,000 mg PO Q6HR PRN #30 tablet 05/30/23 09/23/23 Rx HYDROcodone/APAP 5-325MG [[place] 1 tab PO Q4HR PRN 09/23/23 09/23/23 History 5-325] Insulin Glargine,Hum.rec.anlog 8 units SQ DIRECTED 09/23/23 09/23/23 History [Basaglar Kwikpen U-100] Ondansetron [Zofran] 4 mg PO BID PRN 09/23/23 09/23/23 History Ubidecarenone [Coenzyme Q10] 200 mg PO HS 09/23/23 09/23/23 History Allergies Allergy/AdvReac Type Severity Reaction Status Date / Time adhesive tape Allergy red skin Verified 08/21/23 09:35 pregabalin [From Lyrica] AdvReac Hallucinati Verified 08/21/23 09:35 ons Physical Examination Osteopathic Statement: *. No significant issues noted on an osteopathic structural exam other than those noted in the History and Physical/Consult. Physical exam: Patient is awake, alert, and oriented 3 Vital signs stable Good chest excursion with deep inspiration and expiration Examination of thoracic and lumbar spine reveals skin is intact with no abrasions, lacerations, or bruises; no erythema, purulence or signs of infection Pain with palpation at the midline at the lower thoracic spine No significant pain with palpation along the lumbar spine Dorsiflexion, plantarflexion, and extensor hallucis longus positive sustained bilaterally Patient is able to lift her legs off of the bed independently Straight leg test negative bilateral lower extremities No signs or symptoms of DVT; no calf pain No pain with internal and external rotation of the hips bilaterally Neurovascularly intact Mendes catheter intact Results Pertinent studies: CT of the abdomen pelvis: T12 wedging compression fracture deformity approximately 30% height loss which appears new as compared to previous imaging taken on 02/13/2023; L3-4 spinal stenosis; L4-5 significant degenerative disc disease and spinal canal stenosis; there may be endplate change at the superior endplate of L3 - Labs Labs: Abnormal Lab Results - Last 24 Hours (Table) 09/23/23 09/24/23 09/24/23 Range/Units 11:56 02:50 05:53 Carbon Dioxide 33.5 H (21.6-31.8) mmol/L POC Glucose (mg/dL) 66 L (70-110) mg/dL Urine Ketones Trace H (Negative) Ur Leukocyte Esterase Moderate H (Negative) Urine Mucus Rare H (None) /hpf 09/24/23 Range/Units 12:00 Carbon Dioxide (21.6-31.8) mmol/L POC Glucose (mg/dL) 127 H (70-110) mg/dL Urine Ketones (Negative) Ur Leukocyte Esterase (Negative) Urine Mucus (None) /hpf H & H 09/23/23 09/24/23 Range/Units 11:56 05:53 Hgb 13.8 12.5 (11.4-16.0) gm/dL Hct 42.0 38.7 (34.0-46.0) % Result Diagrams: 09/24/23 05:53 09/24/23 05:53 Assessment and Plan Assessment: Assessment: T12 subacute compression fracture deformity with approximate 30% height loss Lower thoracic back pain Difficulty with ambulation due to pain L3-4 and L4-5 spinal stenosis Possible L3 superior endplate change Renal disease Right renal mass Hydronephrosis Coronary artery disease Diabetes mellitus Hypertension (1) T12 compression fracture Current Visit: Yes Status: Acute Code(s): S22.080A - WEDGE COMPRESSION FRACTURE OF T11-T12 VERTEBRA, INIT SNOMED Code(s): 070012644 (2) Thoracic back pain Current Visit: Yes Status: Acute Code(s): M54.6 - PAIN IN THORACIC SPINE SNOMED Code(s): 931061913 (3) Lumbar spinal stenosis Current Visit: Yes Status: Acute Code(s): M48.061 - SPINAL STENOSIS, LUMBAR REGION WITHOUT NEUROGENIC ESPERANZA SNOMED Code(s): 80880126 (4) Renal mass, right Current Visit: Yes Status: Acute Code(s): N28.89 - OTHER SPECIFIED DISORDERS OF KIDNEY AND URETER SNOMED Code(s): 017364082 (5) Renal disease Current Visit: Yes Status: Acute Code(s): N28.9 - DISORDER OF KIDNEY AND URETER, UNSPECIFIED SNOMED Code(s): 81582529 (6) Hydronephrosis Current Visit: Yes Status: Acute Code(s): N13.30 - UNSPECIFIED HYDRONEPHROSIS SNOMED Code(s): 60642390 (7) Coronary artery disease Current Visit: Yes Status: Acute Code(s): I25.10 - ATHSCL HEART DISEASE OF [place] CORONARY ARTERY W/O ANG PCTRS SNOMED Code(s): 46368348 (8) Hypertension Current Visit: Yes Status: Acute Code(s): I10 - ESSENTIAL (PRIMARY) HYPERTEN FER[place]NDEZ SNOMED Code(s): 08897223 (9) Difficulty in walking Current Visit: Yes Status: Acute Code(s): R26.2 - DIFFICULTY IN WALKING, NOT ELSEWHERE CLASSIFIED SNOMED Code(s): 641086277 (10) Diabetes Current Visit: No Status: Acute Code(s): E11.9 - TYPE 2 DIABETES MELLITUS WITHOUT COMPLICATIONS SNOMED Code(s): 03796673 Plan: Plan: 1. Patient has been experiencing significant back pain since last Friday without injury. Reviewing of imaging does show evidence of at least subacute T12 compression fracture deformity. She does have pain with palpation at her lower thoracic spine along the midline. She always other multilevel degenerative change at her lumbar spine and has follow with pain management in the outpatient setting. She has undergone injections at her lumbar spine previously. Currently, given her T12 compression fracture deformity, we will plan to treat this conservatively. After reviewing of imaging, physical examination the patient, and further discussion with the patient, will currently planned to continue with conservative treatment at this time. At this time we'll plan for bracing. A prescription has been written and provided to case management for a Spinomed TLSO brace or equivalent bracing. Once this brace is delivered and fitted appropriately, patient should wear this brace while sitting upright at greater than 45, during increase activities, during ambulation. Brace does not have to or while lying in bed or while bathing. Following fitting of this brace, patient is clear for discharge from an orthopedic spine standpoint. Following discharge, patient may follow-up with Santiago Brasher PA-C or Dr. Nirav Green at [facility]. 2. Patient will continue to be seen and examined by medicine and urology for her other medical diagnoses The patient is seen and examined. I reviewed the images. I agree with ordering a TLSO brace for her T12 compression fracture. She should continue her medical management as well.. Time with Patient: Greater than 30 (Including obtaining history, physical examination, reviewing of imaging, and dictation.)
[2023-09-24] MEDS: KETOROLAC 15 MG/ML 1 ML VIAL IVP SCH (16:25)
[2023-09-24 17:27] LABS: Glucose,Whole Blood 155 mg/dL (70-110)
[2023-09-24 20:33] LABS: Glucose,Whole Blood 200 mg/dL (70-110)
[2023-09-25 07:39] LABS: Glucose,Whole Blood 137 mg/dL (70-110)
[2023-09-25] MEDS: traMADol 50 MG TAB PO PRN (09:17)
[2023-09-25] MEDS: HYDROcodone/APAP 5-325MG 1 EACH TAB PO PRN (10:54)
--- NOTE | 2023-09-25 11:28 | P.PN ---
Subjective Progress Note Date: 09/25/23 No acute overnight event, pain is improved this morning significantly. Denies any nausea or vomiting. Urine is clear. Was evaluated by orthopedic surgery yesterday which recommended a back brace for her lumbar fracture Objective - Vital Signs Vital signs: Vital Signs Temp 98.2 F 09/25/23 07:12 Pulse 57 L 09/25/23 07:12 Resp 15 09/25/23 07:12 BP 161/80 09/25/23 07:12 Pulse Ox 95 09/25/23 07:12 FiO2 Intake & Output 09/24/23 09/25/23 09/25/23 18:59 06:59 18:59 Intake Total 200 240 Output Total 1000 300 Balance -800 -300 240 Intake: Oral 200 240 Output: Urine 1000 300 Other: Voiding Method Indwelling Catheter Indwelling Catheter Indwelling Catheter # Bowel Movements 0 - Constitutional General appearance: Present: no acute distress - Labs CBC & Chem 7: 09/24/23 05:53 09/24/23 05:53 Labs: Abnormal Lab Results - Last 24 Hours (Table) 09/24/23 09/24/23 09/24/23 Range/Units 12:00 17:25 20:32 POC Glucose (mg/dL) 127 H 155 H 200 H (70-110) mg/dL 09/25/23 Range/Units 07:15 POC Glucose (mg/dL) 137 H (70-110) mg/dL Assessment and Plan Assessment: 83-year-old female admitted to the hospital with left flank pain, history of right-sided renal mass. CT did show bilateral hydronephrosis, and bladder distention. Creatinine is at baseline. Her right-sided renal mass is not the cause of her left flank pain. Pain improved this morning. Denies any nausea or vomiting. Creatinine is stable at baseline -Mendes catheter can be removed prior to discharge -Okay for discharge from a urology standpoint, she does have a follow-up scheduled with Dr. Velasco in November, advised her to keep that follow-up
[2023-09-25 12:07] LABS: Glucose,Whole Blood 179 mg/dL (70-110)
--- NOTE | 2023-09-25 16:03 | P.PN ---
Subjective Progress Note Date: 09/25/23 Pt is doing better in terms of pain. Working with PT today is the plan. Pending discharge to either home or SNF, awaiting recommendations from PT/CM. Gen: In NAD, non-toxic HEENT: normocephalic, atraumatic, hearing acuity is intant, mucous membranes moist CVS: perfusing all extremities well, no pitting edema, Respiratory: symmetric chest expansion, no accessory muscle use, GI: soft, NTTP, ND, : no suprapubic tenderness, no CVA tenderness MSK/Derm: no rashes, cyanosis Neuro: CN II-XII intact, no motor weakness, Psych: cooperative, euthymic mood, judgment and insight is intact Hospital course: Patient is a 83-year-old female with a past medical history of coronary artery disease, hypertension, diabetes mellitus, chronic systolic heart failure, right renal mass, urinary incontinence, stool incontinence who presents to the ED with 1 week of lower back pain that is radiating to her left side and also nausea vomiting with a poor appetite. Per family patient did go to another ED a week ago and was discharged home on [place] and Zofran. Per patient the [place] is not helping with her pain. Patient was scheduled for a right-sided nephrectomy 1 month ago. Patient states that the surgery was canceled because the surgeon was concerned about her renal function and patient herself was concerned about the surgery because it was high risk so no longer wanted it. In the ED patient had a CT scan done that showed similar appearance of the right renal cell carcinoma. Bilateral moderate size hydronephrosis, indeterminant liver lesions that are similar to previous examination with no new liver lesions, subacute compression fraction of L1 is new from previous examination and moderately distended bladder. Daughter states that about a week ago patient was fixing her bed and afterwards did complain of some back pain. Patient states that in the ED she did have a straight cath done with large amount of urine output. She states that after the straight cath her abdominal pain did not resolve. I was unable to confirm with the nurse how much urine output the patient had. Patient seen this morning. Patient states that she is still having back pain. She states that she took 2 bites of her pancake this morning and was able to keep down some juice and coffee. She states that she has not vomited since she was admitted however still feels nauseous. Patient states that the morphine is helping with her pain. Assessment and plan Lower back pain radiating to left side I suspect this is most likely from the subacute lumbar fracture Per urology pain could also be due to the left-sided hydronephrosis Urology plans on doing left-sided urogram and possible cystoscopy if patient has persistent pain Will consult orthopedic surgery. Consult is still pending Pain control with IV morphine as needed Will also resume [place] and tramadol as needed which are patient's home medications Moderate-sized bilateral hydronephrosis Urinary incontinence Will keep the Mendes catheter in for now Will monitor urine output Urology on board Intractable nausea vomiting Unclear etiology UA was negative for UTI CT abdomen and pelvis showed the findings as above which would not explain her intractable nausea vomiting We will continue with the workup as above If all workup is negative then we will have to consider psychiatric cause as a reason for her nausea and vomiting. Currently patient states that she feels nauseous however she is able to keep food and fluids down and denies having any vomiting since admission. Hypokalemia Resolved Right-sided renal mass Patient refused surgery I doubt this is causing patient's symptoms due to location of her pain Chronic systolic heart failure Patient appears compensated Resume losartan Imdur and home dose Lasix and Coreg and aspirin and statin Diabetes mellitus Continue Levemir 8 units at bedtime and sliding scale insulin Dementia Continue with donepezil Hyperlipidemia Continue with statin DVT prophylaxis: Subcu heparin Patient's labs are unremarkable so no need to trend Objective - Vital Signs Vital signs: Vital Signs Temp 98.4 F 09/25/23 12:59 Pulse 56 L 09/25/23 12:59 Resp 19 09/25/23 12:59 BP 133/66 09/25/23 12:59 Pulse Ox 97 09/25/23 12:59 FiO2 Intake & Output 09/24/23 09/25/23 09/25/23 18:59 06:59 18:59 Intake Total 200 360 Output Total 1000 300 Balance -800 -300 360 Intake: Oral 200 360 Output: Urine 1000 300 Other: Voiding Method Indwelling Catheter Indwelling Catheter Indwelling Catheter # Bowel Movements 0 - Labs CBC & Chem 7: 09/24/23 05:53 09/24/23 05:53 Labs: Abnormal Lab Results - Last 24 Hours (Table) 09/24/23 09/24/23 09/25/23 Range/Units 17:25 20:32 07:15 POC Glucose (mg/dL) 155 H 200 H 137 H (70-110) mg/dL 09/25/23 Range/Units 12:01 POC Glucose (mg/dL) 179 H (70-110) mg/dL
[2023-09-25 17:29] LABS: Glucose,Whole Blood 198 mg/dL (70-110)
[2023-09-25 20:36] LABS: Glucose,Whole Blood 243 mg/dL (70-110)
[2023-09-26 07:22] LABS: Glucose,Whole Blood 96 mg/dL (70-110)
[2023-09-26 08:20] VITALS: BP 136/78; PULSE 60; RESP 16; TEMP 98.5
--- NOTE | 2023-09-26 09:13 | P.PN ---
Progress Note - Text Progress Note Date: 09/26/23 Orthopedic spine: History of present illness: Patient is a very pleasant 83-year-old female who is seen and examined at bedside for follow-up evaluation of her thoracolumbar spine. Patient is also discussed in detail with the patient's daughter over the phone. Patient states she has been experiencing back pain that started 1 week ago without injury. She was seen and examined by Dr. Amato and pain management at [facility] on yesterday. She has been following him for treatment. She has had injections at her lumbar spine in the past. She presented to the emergency department for further evaluation 1 week ago and was discharged home with oral [place] and Zofran. Patient does admit to increased pain at her lower thoracic spine with palpation. She states she has had some increased difficulty with her mobilization due to her pain. She does not describe any specific lower extremity weakness or radiculopathy pattern. During evaluation the emergency department, CT imaging of the abdomen pelvis was performed. This showed evidence of T12 compression fracture deformity. She was prescribed and fitted with a TLSO brace. She does not have this brace intact well sitting in bed. She does state today she continues to have some pain at the midline at the level of the teeth 12 compression fracture site. She feels her left flank pain has improved. Currently, patient is planned for discharge to a rehabilitation facility pending authorization. She is being seen and examined by urology. She was previously scheduled for right nephrectomy but decided not to proceed forward with surgical intervention. She has a history of right-sided renal mass that is being managed with active surveillance, she has refused surgery due to concern of requiring hemodialysis postoperatively. Presented to the hospital with left flank/back pain. Underwent a CT abdomen and pelvis that showed bilateral hydronephrosis, that is chronic but has worsened compared to baseline. Patient does state she is having difficulty with her right kidney before but currently has some increased pain at her left flank area. She also has pain along the midline at the thoracolumbar junction. She has a Mendes catheter intact. Urology has continued to follow the patient and states based on the patient's improvement, she is cleared for discharge from their standpoint with plans to follow-up with Dr. Miguel in the outpatient setting. Patient is being seen and examined by medicine as well. She has multiple other medical diagnoses including coronary artery disease, diabetes mellitus, and hypertension Physical exam: Patient is awake, alert, and oriented 3 Vital signs stable Good chest excursion with deep inspiration and expiration Examination of thoracic and lumbar spine reveals skin is intact with no ab rasions, lacerations, or bruises; no erythema, purulence or signs of infection Pain with palpation at the midline at the lower thoracic spine No significant pain with palpation along the lumbar spine Dorsiflexion, plantarflexion, and extensor hallucis longus positive sustained bilaterally Patient is able to lift her legs off of the bed independently Straight leg test negative bilateral lower extremities No signs or symptoms of DVT; no calf pain No pain with internal and external rotation of the hips bilaterally Neurovascularly intact Mendes catheter intact Pertinent studies: CT of the abdomen pelvis: T12 wedging compression fracture deformity approximately 30% height loss which appears new as compared to previous imaging taken on 02/13/2023; L3-4 spinal stenosis; L4-5 significant degenerative disc disease and spinal canal stenosis; there may be endplate change at the superior endplate of L3 Assessment: T12 subacute compression fracture deformity with approximate 30% height loss Lower thoracic back pain Difficulty with ambulation due to pain L3-4 and L4-5 spinal stenosis Possible L3 superior endplate change Renal disease Right renal mass Hydronephrosis Coronary artery disease Diabetes mellitus Hypertension Plan: 1. Patient has been experiencing significant back pain since last Friday without injury. Reviewing of imaging does show evidence of at least subacute T12 compression fracture deformity. She does have pain with palpation at her lower thoracic spine along the midline. She also has evidence of other multilevel degenerative change at her lumbar spine and has follow with pain management in the outpatient setting. She has undergone injections at her lumbar spine previously. Currently, given her T12 compression fracture deformity, we will plan to treat this conservatively. After reviewing of imaging, physical examination the patient, and further discussion with the patient, will currently planned to continue with conservative treatment at this time. Currently, we will plan to continue with our plan of care as set forth previously after further discussion with the patient and her daughter. At this time we'll plan for bracing. A prescription was written and provided to case management for a Spinomed TLSO brace or equivalent bracing. This brace has been delivered and fitted appropriately, patient should wear this brace while sitting upright at greater than 45, during increase activities, during ambulation. Brace does not have to or while lying in bed or while bathing. Following fitting of this brace, patient is clear for discharge from an orthopedic spine standpoint. Following discharge, patient may follow-up with Santiago Brasher PA-C or Dr. Nirav Green at [facility] in approximately 2 weeks. We did discuss if she were to fail conservative treatment we may plan to proceed forward with T12 kyphoplasty with biopsy. Patient and her daughter feel this is a good plan of care. 2. Patient will continue to be seen and examined by medicine and urology for her other medical diagnoses
[2023-09-26 12:42] LABS: Glucose,Whole Blood 126 mg/dL (70-110)
--- NOTE | 2023-09-26 13:40 | P.DS ---
Providers Date of admission: 09/23/23 16:38 Expected date of discharge: 09/26/23 Attending physician: Raymundo New MD Consults: 09/23/23 15:43 Consult Physician Routine Consulting Provider: Roderick Cassidy Consult Reason/Comments: back pain Do you want consulting provider notified?: Yes, Notify in am 09/23/23 17:21 Consult Physician Routine Consulting Provider: Reed Miguel Consult Reason/Comments: Bilateral hydronephrosis and urinary incontinence Do you want consulting provider notified?: Yes Primary care physician: Dayana Fernandes MD Hospital Course: Lower back pain radiating to left side, Compression Fracture Moderate-sized bilateral hydronephrosis Urinary incontinence Intractable nausea vomiting Hypokalemia Right-sided renal mass Chronic systolic heart failure Diabetes mellitus Dementia Hyperlipidemia Gen: In NAD, non-toxic HEENT: normocephalic, atraumatic, hearing acuity is intant, mucous membranes moist CVS: perfusing all extremities well, no pitting edema, Respiratory: symmetric chest expansion, no accessory muscle use, GI: soft, NTTP, ND, : no suprapubic tenderness, no CVA tenderness MSK/Derm: no rashes, cyanosis Neuro: CN II-XII intact, no motor weakness, Psych: cooperative, euthymic mood, judgment and insight is intact Hospital course: Patient is a 83-year-old female with a past medical history of coronary artery disease, hypertension, diabetes mellitus, chronic systolic heart failure, right renal mass, urinary incontinence, stool incontinence who presents to the ED with 1 week of lower back pain that is radiating to her left side and also nausea vomiting with a poor appetite. Per family patient did go to another ED a week ago and was discharged home on Bryant and Zofran. Per patient the Bryant is not helping with her pain. Patient was scheduled for a right-sided nephrectomy 1 month ago. Patient states that the surgery was canceled because the surgeon was concerned about her renal function and patient herself was concerned about the surgery because it was high risk so no longer wanted it. In the ED patient had a CT scan done that showed similar appearance of the right renal cell carcinoma. Bilateral moderate size hydronephrosis, indeterminant liver lesions that are similar to previous examination with no new liver lesions, subacute compression fraction of L1 is new from previous examination and moderately distended bladder. Pt was seen and cleared by urology for outpatient f/u regarding her renal mass. For her compression fracture, seen by orthopedic surgery who recommended conservative management with TLSO brace, PT, and pain control. Failing these measures, she would be considered for kyphoplasty outpatient. She is stable for discharge with ortho, urology, and PCP f/u. I spent 38 minutes coordinating this discharge on 09/25 Patient Condition at Discharge: Good Plan - Discharge Summary Discharge Rx Participant: No New Discharge Prescriptions: Continue Insulin Degludec/Liraglutide [Xultophy 100 Unit-3.6MG/ml Pen] 9 unit SQ HS carvediloL [Coreg] 6.25 mg PO BID-W/MEALS tab Furosemide [Lasix] 40 mg PO DAILY Losartan [Cozaar] 25 mg PO DAILY@1200 Isosorbide Mononitrate ER [Imdur] 30 mg PO DAILY Acetaminophen Tab [Tylenol] 1,000 mg PO Q6HR PRN #30 tablet PRN Reason: Pain Insulin Glargine,Hum.rec.anlog [Shaanaglrimma Grimes U-100] 8 units SQ DIRECTED Ubidecarenone [Coenzyme Q10] 200 mg PO HS Ondansetron [Zofran] 4 mg PO BID PRN PRN Reason: Nausea HYDROcodone/APAP 5-325MG [[place] 5-325] 1 tab PO Q4HR PRN #18 tab PRN Reason: Severe Pain (Scale 7 To 10) Atorvastatin [Lipitor] 20 mg PO HS tab Donepezil [Aricept] 10 mg PO HS Multivitamins, Thera [Multivitamin (formulary)] 1 tab PO HS Magnesium 400 mg PO HS Aspirin [Adult Low Dose Aspirin EC] 81 mg PO HS traMADol HCl [Ultram] 50 mg PO BID PRN #6 tab PRN Reason: Moderate Pain (Scale 4 To 6) Discharge Medication List Insulin Degludec/Liraglutide [Xultophy 100 Unit-3.6MG/ml Pen] 9 unit SQ HS 04/19/19 [History] Atorvastatin [Lipitor] 20 mg PO HS tab 02/17/23 [Rx] carvediloL [Coreg] 6.25 mg PO BID-W/MEALS tab 02/17/23 [Rx] Aspirin [Adult Low Dose Aspirin EC] 81 mg PO HS 05/27/23 [History] Donepezil [Aricept] 10 mg PO HS 05/27/23 [History] Furosemide [Lasix] 40 mg PO DAILY 05/27/23 [History] Isosorbide Mononitrate ER [Imdur] 30 mg PO DAILY 05/27/23 [History] Losartan [Cozaar] 25 mg PO DAILY@1200 05/27/23 [History] Magnesium 400 mg PO HS 05/27/23 [History] Multivitamins, Thera [Multivitamin (formulary)] 1 tab PO HS 05/27/23 [History] Acetaminophen Tab [Tylenol] 1,000 mg PO Q6HR PRN #30 tablet 05/30/23 [Rx] Insulin Glargine,Hum.rec.anlog [Basaglar Kwikpen U-100] 8 units SQ DIRECTED 09/23/23 [History] Ondansetron [Zofran] 4 mg PO BID PRN 09/23/23 [History] Ubidecarenone [Coenzyme Q10] 200 mg PO HS 09/23/23 [History] HYDROcodone/APAP 5-325MG [[place] 5-325] 1 tab PO Q4HR PRN #18 tab 09/26/23 [Rx] traMADol HCl [Ultram] 50 mg PO BID PRN #6 tab 09/26/23 [Rx] Follow up Appointment(s)/Referral(s): Santiago Brasher PAC [PHYSICIAN SHAFTING WORKER] - 2 Weeks (Patient may follow-up with Santiago Brasher PA-C or Dr. Nirav Green at [facility] in 2-3 weeks following discharge. ) Dayana Fernandes MD [Primary Care Provider] - 1-2 days Activity/Diet/Wound Care/Special Instructions: 1. Patient may wear TLSO brace for comfort and support while sitting upright at greater than 45, while working with therapy, and while ambulating; patient does not have to wear the brace while lying in bed or bathing 2. Patient should avoid excessive bending, twisting, and lifting; no lifting greater than 10 pounds Discharge Disposition: TRANSFER TO SNF/ECF
== END 2023-09-26 14:53 | DRG 543 ==
LOC: EC 11:07 → 5NMEDONC 16:38
PROVIDERS: ADMIT Student in an Organized Health Care Education/Training Program; ATTEND Student in an Organized Health Care Education/Training Program
DX: M48.54XA Collapsed vertebra, not elsewhere classified, thoracic region, initial encounter for fracture (principal); C64.1 Malignant neoplasm of right kidney, except renal pelvis; N13.30 Unspecified hydronephrosis; E87.3 Alkalosis; I50.22 Chronic systolic (congestive) heart failure; M48.56XA Collapsed vertebra, not elsewhere classified, lumbar region, initial encounter for fracture; E87.6 Hypokalemia; Z53.9 Procedure and treatment not carried out, unspecified reason; K76.89 Other specified diseases of liver; E78.5 Hyperlipidemia, unspecified; R32 Unspecified urinary incontinence; E11.9 Type 2 diabetes mellitus without complications; H91.91 Unspecified hearing loss, right ear; F32.A Depression, unspecified; I11.0 Hypertensive heart disease with heart failure; M48.061 Spinal stenosis, lumbar region without neurogenic claudication; N32.89 Other specified disorders of bladder; Z79.4 Long term (current) use of insulin; Z79.82 Long term (current) use of aspirin; Z79.899 Other long term (current) drug therapy; Z87.442 Personal history of urinary calculi; Z87.891 Personal history of nicotine dependence; Z90.5 Acquired absence of kidney; Z90.710 Acquired absence of both cervix and uterus; Z96.1 Presence of intraocular lens; Z87.19 Personal history of other diseases of the digestive system; Z90.49 Acquired absence of other specified parts of digestive tract; Z91.048 Other nonmedicinal substance allergy status
CPT/HCPCS: 36415; 51702; 74018; 74177; 80048; 80053; 81001; 82150; 83605; 83690; 83735; 85025; 96361; 96374; 96376; 99285

== ENCOUNTER → 2023-10-24 | Outpatient (CLI) | payer MEDICARE, BC ==
--- NOTE | 2023-10-24 12:35 | XR ---
EXAMINATION TYPE: XR chest 2V DATE OF EXAM: 10/24/2023 COMPARISON: 08/04/2023 INDICATION: Presurgical testing TECHNIQUE: Frontal and lateral views of the chest are obtained. FINDINGS: The heart size is normal. The pulmonary vasculature is normal. The lungs are clear. IMPRESSION: 1. No acute pulmonary process.
[2023-10-24 13:05] LABS: INR 1.1 (<1.2); Partial Thromboplastin Time 26.3 sec (22.0-30.0); Prothrombin Time 11.8 sec (10.0-12.5)
[2023-10-24 15:55] LABS: Basophils # (A) 0.08 X 10*3/uL (0.00-0.10); Basophils % (A) 1.3 %; Eosinophils # (A) 0.17 X 10*3/uL (0.04-0.35); Eosinophils % (A) 2.7 %; HCT 39.9 % (37.2-46.3); HGB 12.5 g/dL (12.0-15.0); Lymphocytes # (A) 1.88 X 10*3/uL (0.90-5.00); Lymphocytes % (A) 29.4 %; MCH 29.5 pg (27.0-32.0); MCHC 31.3 g/dL (32.0-37.0); MCV 94.1 FL (80.0-97.0); Mean Platelet Volume 11.5 FL (9.5-12.2); Monocytes # (A) 0.68 X 10*3/uL (0.20-1.00); Monocytes % (A) 10.6 %; NRBC Per 100 WBC 0 X 10*3/uL (0.00-0.01); Neutrophils # (A) 3.58 X 10*3/uL (1.80-7.70); Neutrophils % (A) 55.8 %; Platelet Count 223 X 10*3/uL (140-440); RBC 4.24 X 10*6/uL (4.10-5.20); RDW 15.9 % (11.5-14.5)
[2023-10-24 16:03] LABS: BUN/Creat Ratio 11.56 Ratio (12.00-20.00); Blood Urea Nitrogen 10.4 mg/dL (9.0-27.0); Calcium 9.6 mg/dL (8.7-10.3); Carbon Dioxide 30.3 mmol/L (21.6-31.8); Chloride 98 mmol/L (96-109); Glucose 105 mg/dL (70-110); Potassium 3.8 mmol/L (3.5-5.5); Sodium 138 mmol/L (135-145)
[2023-10-24 16:28] LABS: Appearance,Urine Clear (Clear); Bilirubin,Urine Negative (Negative); Blood,Urine Negative (Negative); Color,Urine Yellow (Yellow); Ketones,Urine Negative (Negative); Nitrite,Urine Negative (Negative); Specific Gravity,Urine 1.009 (1.001-1.030); Urobilinogen,Urine 0.2 E.U./DL
[2023-10-24 16:41] LABS: Bacteria,Urine None Seen (None Seen)
== END | disposition home or self-care (01) ==
LOC: LABPAT 10:37
PROVIDERS: ATTEND Orthopaedic Surgery Orthopaedic Surgery of the Spine
DX: Z01.818 Encounter for other preprocedural examination (principal); S22.089A Unspecified fracture of T11-T12 vertebra, initial encounter for closed fracture; X58.XXXA Exposure to other specified factors, initial encounter; I44.4 Left anterior fascicular block; R94.31 Abnormal electrocardiogram [ECG] [EKG]
CPT/HCPCS: 36415; 71046; 80048; 81001; 85025; 85610; 85730; 87070; 93005

== ENCOUNTER 2023-11-05 07:12 | Day surgery (SDC) | payer MEDICARE, BC ==
[~2023-11-05 07:12] MED LIST changes: -DEXAMETHASONE SOD PHOSPHATE 4 MG/ML 1 ML VIAL IV ONE; -LACTATED RINGERS 1,000 ML IV SCH; -LIDOCAINE 1% (10MG/ML) FOR IV START INTRADERMA PRN; -MIDAZOLAM 2 MG/2 ML VIAL IV PRN; -ONDANSETRON 4 MG/2 ML VIAL IVP ONE; +SODIUM CHLORIDE 0.9% IRRIGATIO 1,000 ML IRRIGATION PRN; +fentaNYL (PF) 50 MCG/ML 2 ML AMP IV PRN
[2023-11-05] MEDS: LACTATED RINGERS 1,000 ML IV SCH (08:18)
[2023-11-05] MEDS ORDERED: PROPOFOL 10 MG/ML 20 ML VIAL IV ONE (08:26)
[2023-11-05] MEDS ORDERED: ePHEDrine 50 MG/ML 1 ML VIAL ONE (08:26)
[2023-11-05] MEDS ORDERED: LIDOCAINE 1% INJ 10MG/ML (20 ML MDV) ONE (08:26)
[2023-11-05] MEDS ORDERED: fentaNYL (PF) 50 MCG/ML 2 ML AMP ONE (08:26)
[2023-11-05] MEDS ORDERED: SUCCINYLCHOLINE CHLORIDE 200 MG/10 ML VIAL IV ONE (08:26)
[2023-11-05] MEDS: DEXTROSE 50% SYRINGE 50 ML IVP ONE (08:27)
[2023-11-05] MEDS: ONDANSETRON 4 MG/2 ML VIAL IVP ONE (08:29)
[2023-11-05 08:32] LABS: Glucose,Whole Blood 55 mg/dL (70-110)
[2023-11-05] MEDS: LIDOCAINE 1%-EPI 1:100,000 20 ML VIAL SQ ONE ×3 (08:47→08:58)
[2023-11-05] MEDS: IOPAMIDOL M200 10 ML VIAL INTRATHECA ONE ×2 (08:48→08:58)
[2023-11-05] MEDS: LACTATED RINGERS 1,000 ML IV ONE ×2 (09:14)
[2023-11-05] MEDS ORDERED: BENZOCAINE/MENTHOL LOZENG 1 EACH LOZENGE MUCOUS MEM PRN (09:28)
[2023-11-05] MEDS ORDERED: HYDROmorphone 0.5 MG/0.5 ML SYRINGE IVP PRN (09:28)
[2023-11-05] MEDS ORDERED: ONDANSETRON 4 MG/2 ML VIAL IVP PRN (09:29)
[2023-11-05] MEDS ORDERED: ACETAMINOPHEN TAB 500 MG TAB PO PRN ×2 (09:29→09:31)
[2023-11-05] MEDS ORDERED: KETOROLAC 15 MG/ML 1 ML VIAL IVP PRN (09:29)
[2023-11-05] MEDS ORDERED: IBUPROFEN 600 MG TAB PO PRN (09:29)
[2023-11-05] MEDS ORDERED: HYDROcodone/APAP 5-325MG 1 EACH TAB PO PRN (09:31)
[2023-11-05] MEDS ORDERED: ONDANSETRON 4 MG TAB PO PRN (09:31)
[2023-11-05] MEDS ORDERED: traMADol 50 MG TAB PO PRN (09:31)
--- NOTE | 2023-11-05 09:35 | P.OP ---
Date of Procedure: 11/05/23 Preoperative Diagnosis: T12 subacute compression fracture, osteoporotic Thoracolumbar back pain Failed conservative management Degenerative spondylosis thoracolumbar spine Postoperative Diagnosis: Same Anesthesia: GETA Pathology: other (T12 vertebral body biopsy sent to pathology) Condition: stable Disposition: PACU Description of Procedure: BRIEF OPERATIVE NOTE Preoperative Diagnosis: T12 subacute compression fracture, osteoporotic Thoracolumbar back pain Failed conservative management Degenerative spondylosis thoracolumbar spine Postoperative Diagnosis: Same Procedure: Kyphoplasty T12 Vertebral body biopsy T12 Use of biplanar fluoroscopic guidance Surgeon: Dr. Green [employer] Supervisor: Santiago PEACE who is present throughout the entire the case persistence during positioning, dissection, exposure, visualization, and all crucial elements of the case as well as closure. Anesthesia: General anesthesia Estimated blood loss: Less than 10 mL Specimen: Vertebral body biopsy sent to pathology in formalin Complications: None apparent Components implanted: Bone cement approximately 5 and half cc Disposition: To recovery room in good stable condition. OPERATIVE INDICATIONS The patient has been having issues in their back ever since sustaining an injury. She has a long history of low back pain but was having new pain after an injury. She was found to have compression deformity at T12 and significant osteopenia which correlated with well with her osteoporotic compression fracture. The patient has been through conservative treatment. They attempted conservative care with bracing however they're not having any benefit despite brace use. They continue to have significant pain and debility due to their f racture. We discussed various treatment options including surgery, and the patient wishes to proceed with surgery We discussed the risk, patient's alternatives and benefits of surgery including but not limited to, risk of bleeding risk of infection, risk of need for further surgery, risk of decreased, loss of motion, loss of function, cement extravasation, nerve damage, paralysis, heart attack, blindness and . OPERATIVE SUMMARY After discussing all the risks, patient alternatives and benefits at length, the patient elected to proceed with surgical intervention, signed informed consent, and presented for their procedure. The patient was seen and examined in the preoperative holding area and the surgical site was marked. The patient was given antibiotics and brought to the operating room. The patient was sedated and intubated by anesthesia in standard fashion. The patient was positioned on to the operating room table in a prone position on the appropriate well-padded and well molded bilateral chest rolls. We were careful to pad any bony prominences and pressure points. We were careful to maintain the patient's cervical spine and good neutral alignment and position throughout. We used 2 C-arm machines to establish biplanar fluoroscopic guidance in AP and lateral positions. We were able to localize the fractures appropriately. The patient was prepped and draped in a normal standard fashion. An appropriate timeout and keystone protocol performed. We were able to proceed with the surgery. The local wound area was infiltrated with local anesthetic. An incision was made over the lateral aspect of the pedicle over the appropriate levels with a small 2 mm stab incision on the left side pedicle of T12. Intraoperative fluoroscopy was taken which showed a marker at the appropriate level at T12. With the appropriate level positively confirmed, I was able to position a sharp trocar over the lateral aspect of the pedicle. As able to advance the trocar into the pedicle and into the posterior aspect of vertebral body being careful to avoid penetration cephalad caudad or medially. The trocar was placed appropriately into the posterior aspect of vertebral body at the appropriate levels. This was confirmed with C-arm guidance. With the trocar intact I was then able to take a bone biopsy with a biopsy punch or a bony drill. The biopsy specimen was passed off to be sent to pathology in formalin. I was then able to place the kyphoplasty balloon within the vertebral body. The position was checked on C-arm. I was able to inflate the balloon under low pressure and visualization with C-arm. The balloon was well enclosed within the vertebral body. The cement was prepared. With the cement at appropriate working condition the balloons were deflated and removed. I was able to place bony cement with trocar with the cement delivery device under low pressure. It had good fill within the vertebral body. There is no evidence of any extravasation of the cement posteriorly toward the canal. The cement was well contained at the appropriate levels approximately 5 and half cc. The cement was allowed to cure appropriately. The trochars removed and final images were taken on C-arm. This showed the cement at the appropriate levels. We were able to proceed with closure. The wound was cleaned and dried and dressed with the appropriate dressing. The drapes were broken down. The patient was gently rolled back onto their hospital bed being careful to maintain their cervical spine and good neutral alignment and position. They were woken up by anesthesia, extubated, and brought to the recovery room in good stable condition. The patient will be admitted to the hospital for observation and for appropriate postoperative care, medical management and monitoring. We will continue to follow them closely about the postoperative course.
[2023-11-05 09:47] LABS: Glucose,Whole Blood 84 mg/dL (70-110)
--- NOTE | 2023-11-05 10:37 | FL ---
EXAMINATION TYPE: FL guidance operating room, XR thoracic spine 2V Intraoperative/procedural fluorosc opic services were provided. Total fluoroscopy time is 52 seconds with a total of 2 submitted images to PACS. Please see the operative/procedural note for further details. DAP: 1.19359 Gycm2
[2023-11-05] MEDS: hydrALAZINE HCL 20 MG/ML 1 ML VIAL IVP ONE (10:52)
[2023-11-05] MEDS: HYDROcodone/APAP 5-325MG 1 EACH TAB PO PRN (14:29)
[2023-11-05] MEDS ORDERED: hydrALAZINE HCL 20 MG/ML 1 ML VIAL IVP PRN (14:40)
[2023-11-05 16:00] LABS: Glucose,Whole Blood 117 mg/dL (70-110)
[2023-11-05] MEDS: carvediloL 6.25 MG TAB PO SCH (19:03)
[2023-11-05] MEDS: SODIUM CHLORIDE 0.9% 1,000 ML IV SCH (19:03)
[2023-11-05 20:55] LABS: Glucose,Whole Blood 202 mg/dL (70-110)
[2023-11-05] MEDS: DONEPEZIL 10 MG TAB PO SCH (21:11)
[2023-11-05] MEDS: ATORVASTATIN 20 MG TAB PO SCH (21:11)
[2023-11-05] MEDS: ASPIRIN 81 MG PO SCH (21:11)
[2023-11-05] MEDS: traMADol 50 MG TAB PO PRN (21:11)
[2023-11-05] MEDS: INSULIN DETEMIR (LEVEMIR) 100 UNIT/ML SYR SQ SCH (21:18)
--- NOTE | 2023-11-05 22:42 | CONS ---
CONSULTATION REASON FOR CONSULTATION: Advice regarding diabetes mellitus and hypertension, CHF, requested by Orthopedics. HISTORY OF PRESENT ILLNESS: This is an 83-year-old woman with a past medical history of multiple medical problems including hypertension, diabetes mellitus, CHF, underwent kyphoplasty of T12 and biopsy, possibly the patient has some elevation of blood pressure, which was managed by hydralazine. There is no history of any fever, rigors, or chills at this time. The patient has some [id number] pain at this time. PAST MEDICAL HISTORY: Reviewed include CAD, CHF, diabetes, hypertension, rest of the history and rest of the chart is also reviewed. HOME MEDICATIONS: Reviewed include Zofran, doses and rest of medications reviewed. ALLERGIES: Adhesive tapes. FAMILY HISTORY: History of CHF in the family. SOCIAL HISTORY: No history of smoking or alcohol. REVIEW OF SYSTEMS: A 14-point review is negative except as mentioned earlier. PHYSICAL EXAMINATION: VITAL SIGNS: Pulse 78, blood pressure 150/88, respirations 17. HEENT: Conjunctivae normal. NECK: No jugular venous distention. CARDIOVASCULAR: S1, S2. RESPIRATIONS: Diminished at the bases. No rhonchi, no crackles. ABDOMEN: Soft, nontender. LEGS: No edema. NERVOUS SYSTEM: Nonfocal. SKIN: No ulcers or rashes. JOINTS: No active deforming arthropathy. LABORATORY DATA: Glucose 55 and 84. ASSESSMENT: 1. Status post kyphoplasty T12. 2. Hypertension. 3. CHF. 4. Diabetes mellitus, type 2. 5. DJD. 6. History of C difficile. 7. Multiple complex medical issues. RECOMMENDATIONS AND DISCUSSION: This 83-year-old woman presented after surgery. At this time, I recommended to continue current management, continue symptomatic treatment, resume the home medications. I would also recommend hydralazine p.r.n. to control further blood pressure, pain management, DVT prophylaxis. We will follow the patient closely with you. MMODL / IJN: [id number] /
[2023-11-06 05:51] LABS: Glucose,Whole Blood 55 mg/dL (70-110)
[2023-11-06 06:06] LABS: Glucose,Whole Blood 53 mg/dL (70-110)
[2023-11-06 06:24] LABS: Glucose,Whole Blood 71 mg/dL (70-110)
[2023-11-06 08:28] VITALS: BP 127/73; PULSE 61; RESP 16; TEMP 98.3
[2023-11-06] MEDS ORDERED: ANTIBIOTIC PO SCH (09:00)
[2023-11-06] MEDS: LOSARTAN 25 MG TAB PO SCH (09:05)
[2023-11-06] MEDS: ISOSORBIDE MONONITRATE ER 30 MG TAB.ER.24H PO SCH (09:05)
[2023-11-06] MEDS: FUROSEMIDE 10 MG TAB PO SCH (09:05)
--- NOTE | 2023-11-06 09:27 | P.DS ---
Providers Expected date of discharge: 11/06/23 Attending physician: Krish Green Consults: 11/05/23 12:09 Consult Physician Routine Consulting Provider: Corky Benavides Consult Reason/Comments: OVERNIGHT MEDICAL MAMAGEMENT Do you want consulting provider notified?: Yes Primary care physician: Dayana Fernandes MD - Discharge Diagnosis(es) (1) Status post kyphoplasty Status: Acute (2) T12 compression fracture Status: Acute Hospital Course: This is an 83-year-old female with a known history of recent T12 compression fracture. The patient presented to the orthopedic office for evaluation and treatment. After discussion and consideration the patient elects to proceed with a T12 kyphoplasty. The patient was seen preoperatively by her primary care physician and cleared for surgery. The patient was admitted to [facility] on 11/05/2023 for a T12 kyphoplasty. The procedure was performed without complication or sequelae. The patient is doing well postoperatively. Vital signs are stable the day of discharge. Her pain is controlled. On the day of discharge the patient's back incision is healing well. There is no erythema. There is no drainage noted at this time. The patient has full foot and ankle motion without difficulty or pain. Neurovascular and circulatory status to the bilateral lower extremities are intact. The patient will be discharged home today in stable condition. Pertinent Studies: Laboratory Tests 11/06/23 11:32 POC Glucose (mg/dL) 117 H Patient Condition at Discharge: Stable Plan - Discharge Summary Discharge Rx Participant: No New Discharge Prescriptions: New HYDROcodone/APAP 5-325MG [[place] 5] 1 each PO Q6HR PRN #20 tab PRN Reason: Severe Pain (Scale 7 To 10) traMADol HCl [Ultram] 50 mg PO Q4H PRN #20 tab PRN Reason: Moderate Pain (Scale 4 To 6) No Action carvediloL [Coreg] 6.25 mg PO BID-W/MEALS tab Furosemide [Lasix] 30 mg PO QAM Losartan [Cozaar] 25 mg PO QAM Isosorbide Mononitrate ER [Imdur] 30 mg PO QAM Acetaminophen Tab [Tylenol] 1,000 mg PO Q6HR PRN #30 tablet PRN Reason: Pain Insulin Glargine,Hum.rec.anlog [Basaglar Kwikpen U-100] 8 units SQ HS Ondansetron [Zofran] 8 mg PO BID PRN PRN Reason: Nausea traMADol HCl [Ultram] 50 mg PO BID PRN PRN Reason: Pain HYDROcodone/APAP 5-325MG [[place] 5-325] 1 tab PO Q4HR PRN PRN Reason: Pain Antibiotic 1 tab PO DAILY Atorvastatin [Lipitor] 20 mg PO HS tab Donepezil [Aricept] 10 mg PO HS Aspirin [Adult Low Dose Aspirin EC] 81 mg PO HS Discharge Medication List Atorvastatin [Lipitor] 20 mg PO HS tab 02/17/23 [Rx] carvediloL [Coreg] 6.25 mg PO BID-W/MEALS tab 02/17/23 [Rx] Aspirin [Adult Low Dose Aspirin EC] 81 mg PO HS 05/27/23 [History] Donepezil [Aricept] 10 mg PO HS 05/27/23 [History] Furosemide [Lasix] 30 mg PO QAM 05/27/23 [History] Isosorbide Mononitrate ER [Imdur] 30 mg PO QAM 05/27/23 [History] Losartan [Cozaar] 25 mg PO QAM 05/27/23 [History] Acetaminophen Tab [Tylenol] 1,000 mg PO Q6HR PRN #30 tablet 05/30/23 [Rx] Insulin Glargine,Hum.rec.anlog [Basaglar Kwikpen U-100] 8 units SQ HS 09/23/23 [History] Ondansetron [Zofran] 8 mg PO BID PRN 09/23/23 [History] Antibiotic 1 tab PO DAILY 10/31/23 [History] HYDROcodone/APAP 5-325MG [[place] 5-325] 1 tab PO Q4HR PRN 10/31/23 [History] traMADol HCl [Ultram] 50 mg PO BID PRN 10/31/23 [History] HYDROcodone/APAP 5-325MG [[place] 5] 1 each PO Q6HR PRN #20 tab 11/06/23 [Rx] traMADol HCl [Ultram] 50 mg PO Q4H PRN #20 tab 11/06/23 [Rx] Follow up Appointment(s)/Referral(s): Krish Green DO [Doctor of Osteopathic Medicine] - 11/21/23 9:30 am Activity/Diet/Wound Care/Special Instructions: Keep site clean. May shower with waterproof Tegaderm intact. Do not soak in a tub. After 72 hours postoperatively, patient May remove dressing and then may shower with area uncovered. Leave glue intact and allow it to fray off on its own. May ambulate as tolerated. Avoid heavy or rigorous activity. No repetitive bending twisting or lifting. No overhead work. Discharge Disposition: HOME SELF-CARE
[2023-11-06 10:41] VITALS: BMI 24.7
[2023-11-06 11:34] LABS: Glucose,Whole Blood 117 mg/dL (70-110)
--- NOTE | 2023-11-06 14:11 | PN ---
PROGRESS NOTE DATE OF SERVICE: 11/06/2023 SUBJECTIVE: This is an 83-year-old woman who was admitted after kyphoplasty, improved significantly. No chest pain, no palpitation, no fever. OBJECTIVE: VITAL SIGNS: Pulse is 61, blood pressure 127/70, respirations 16. CHEST: Clear to auscultation. CARDIOVASCULAR: S1, S2. ABDOMEN: Soft. NERVOUS SYSTEM: No focal deficits. LABORATORY DATA: Accu-Cheks noted. ASSESSMENT: 1. Status post kyphoplasty T12. 2. Hypertension. 3. CHF. 4. Diabetes mellitus, type 2. 5. DJD. RECOMMENDATIONS: Recommended to continue current management, continue symptomatic treatment. Otherwise resume the home medications, closely follow with primary physician. Rest of the recommendations per Orthopedic surgery. MMODL / IJN: [id number] /
== END 2023-11-06 13:10 | disposition home or self-care (01) ==
LOC: OR 07:12 → 4SSUR 13:26 → OR 11-06 13:10
PROVIDERS: ATTEND Orthopaedic Surgery Orthopaedic Surgery of the Spine
DX: S22.080A Wedge compression fracture of T11-T12 vertebra, initial encounter for closed fracture (principal); I10 Essential (primary) hypertension; E78.5 Hyperlipidemia, unspecified; F32.A Depression, unspecified; E11.9 Type 2 diabetes mellitus without complications; Z82.49 Family history of ischemic heart disease and other diseases of the circulatory system; Z90.710 Acquired absence of both cervix and uterus; Z79.899 Other long term (current) drug therapy; Z79.82 Long term (current) use of aspirin; Z90.49 Acquired absence of other specified parts of digestive tract; Z98.890 Other specified postprocedural states; X58.XXXA Exposure to other specified factors, initial encounter
CPT/HCPCS: 94760 ×2; 97161; 84132; 88307; 88311; 72070; 22513; C1713; J0360; J0690; J2405; Q9966

== ENCOUNTER → 2023-11-24 | Outpatient (CLI) | payer MEDICARE, BC ==
[2023-11-24 18:21] LABS: Blood Urea Nitrogen 15.3 mg/dL (9.0-27.0)
--- NOTE | 2023-11-25 12:27 | CT ---
EXAMINATION TYPE: CT abdomen wo con CT DLP: 427 mGycm, Automated exposure control for dose reduction was used. DATE OF EXAM: 11/24/2023 2:15 PM COMPARISON: CT abdomen pelvis most recent from 09/23/2023 CLINICAL INDICATION:Female, 83 years old with history of D41.01 Right renal mass; Right renal mass TECHNIQUE: Axial CT abdomen wo con;Sagittal and coronal reformats were created on a separate worksta tion. Contrast used: mL of , (none if empty) Oral contrast used: without Oral Contrast (none if empty) FINDINGS: LOWER CHEST: Unremarkable ABDOMEN LIVER: Unremarkable. Due to lack of IV contrast, poorly visible benign-appearing liver cysts are re identified and appear stable. GALLBLADDER AND BILE DUCTS: Cholecystectomy clips in the gallbladder fossa. PANCREAS: Unremarkable. SPLEEN: Unremarkable. ADRENAL GLANDS: Unremarkable. KIDNEYS AND URETERS: Poorly illustrated right kidney mass appears similar size to the prior exam fr om September 23, 2023. Lack of IV contrast limits evaluation. Left kidney extrarenal pelvis. No evidence of hydronephrosis or renal calculus. The ureters are unremarkable. PELVIS BLADDER: Unremarkable REPRODUCTIVE: Unremarkable. ABDOMEN & PELVIS STOMACH AND BOWEL: No evidence of bowel obstruction. PERITONEUM/RETROPERITONEUM: No evidence of pneumoperitoneum or free fluid. VASCULATURE: No evidence of aortic aneurysm. MUSCULOSKELETAL: No acute osseous abnormalities LYMPH NODES: No gross evidence for lymphadenopathy. SOFT TISSUE/ABDOMINAL WALL: Unremarkable IMPRESSION: 1.. Evaluation and comparison to previous study is limited due to lack of IV contrast, no change is a ppreciated
== END | disposition home or self-care (01) ==
LOC: RADCTMAIN 12:58
PROVIDERS: ATTEND Urology
DX: D41.01 Neoplasm of uncertain behavior of right kidney (principal); N28.89 Other specified disorders of kidney and ureter
CPT/HCPCS: 36415; 74150; 82565; 84520

== ENCOUNTER 2024-01-06 18:44 | Inpatient (IN) | payer MEDICARE, BC ==
[2024-01-06] MEDS ORDERED: NALOXONE 0.4 MG/ML 1 ML VIAL IV PRN (19:17)
[2024-01-06] MEDS ORDERED: ONDANSETRON 4 MG/2 ML VIAL IVP PRN (19:17)
--- NOTE | 2024-01-06 19:24 | ED ---
SOB HPI - General Chief Complaint: Shortness of Breath Stated Complaint: SOB, hypertension Time Seen by Provider: 01/06/24 18:46 Source: EMS, RN notes reviewed, old records reviewed Mode of arrival: EMS Limitations: no limitations - History of Present Illness Initial Comments: This is an 83-year-old female to the ER for evaluation of persistent dyspnea. Patient accepted in transfer from outpatient facility for evaluation of persistent shortness of breath despite diuresis with history of CHF. Patient will be admitted for further cardiology evaluation MD Complaint: shortness of breath, cough, chest pain, pain with inspiration, anxiety -: hour(s) Radiation: back Severity: moderate Severity scale (1-10): 5 Consistency: constant Improves With: nothing Worsens With: nothing, exertion Known History Of: congestive heart failure Context: recent URI, recent illness Associated Symptoms: chest pain Treatments Prior to Arrival: none - Related Data Home Medications Medication Instructions Recorded Confirmed Aspirin [Adult Low Dose Aspirin EC] 81 mg PO HS 05/27/23 01/06/24 Donepezil [Aricept] 10 mg PO HS 05/27/23 01/06/24 Furosemide [Lasix] 40 mg PO DAILY 05/27/23 01/06/24 Losartan [Cozaar] 25 mg PO DAILY 05/27/23 01/06/24 Insulin Glargine,Hum.rec.anlog 8 units SQ HS 09/23/23 01/06/24 [Basaglar Kwikpen U-100] Ondansetron [Zofran] 8 mg PO BID PRN 09/23/23 01/06/24 Calcium Carbonate/Vitamin D3 2 tab PO DAILY 01/06/24 01/06/24 [Calcium 600 mg-Vit D3 10 mcg (400 Unit)] Dicyclomine HCl 10 mg PO DAILY PRN 01/06/24 01/06/24 Magnesium Oxide [Mag-Ox] 400 mg PO HS 01/06/24 01/06/24 Multivitamins, Thera [Multivitamin 1 tab PO DAILY 01/06/24 01/06/24 (formulary)] Ubidecarenone [Q-Sorb Co Q-10] 200 mg PO DAILY 01/06/24 01/06/24 traMADol HCl [Ultram] 50 mg PO BID PRN 01/06/24 01/06/24 Previous Rx's Medication Instructions Recorded carvediloL [Coreg] 6.25 mg PO BID-W/MEALS tab 02/17/23 Acetaminophen Tab [Tylenol] 1,000 mg PO Q6HR PRN #30 tablet 05/30/23 Atorvastatin [Lipitor] 40 mg PO HS #60 tab 01/10/24 Dapagliflozin Propanediol [Farxiga] 10 mg PO DAILY #60 tab 01/10/24 Isosorbide Mononitrate ER [Imdur] 60 mg PO DAILY #0 01/10/24 Pantoprazole [Protonix] 40 mg PO DAILY #60 tab 01/10/24 Spironolactone [Aldactone] 25 mg PO DAILY #60 tab 01/10/24 Allergies Allergy/AdvReac Type Severity Reaction Status Date / Time adhesive tape Allergy red skin Verified 01/06/24 19:27 pregabalin [From Lyrica] AdvReac Hallucinati Verified 01/06/24 19:27 ons Review of Systems ROS Statement: Those systems with pertinent positive or pertinent negative responses have been documented in the HPI. ROS Other: All systems not noted in ROS Statement are negative. 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-65% History of Any Multi-Drug Resistant Organisms: C-DIFF Date of last positivie culture/infection: 08/21/15 MDRO Source:: STOOL Past Surgical History: Bowel Resection, Cholecystectomy, Heart Catheterization, Hernia Repair, Hysterectomy, Orthopedic Surgery, Tonsillectomy Additional Past Surgical History / Comment(s): 06/19/15 LAP SIGMOID RESECTION with lysis of adhesions, lithotripsy, cardiac cath with mild disease to proximal LAD, colonoscopy, L thigh cyst removed, BILAT CATARACTS REMOVED WITH LENS IMPLANTS, left ACL repair Past Anesthesia/Blood Transfusion Reactions: No Reported Reaction Past Psychological History: Depression Smoking Status: Never smoker Past Alcohol Use History: None Reported Past Drug Use History: None Reported - Past Family History Father Family Medical History: Cancer, Congestive Heart Failure (CHF) Additional Family Medical History / Comment(s): prostate CA,lived to 93 Mother Family Medical History: Cancer Additional Family Medical History / Comment(s): liver issues-caused by tylenol. lived to 95 General Exam Limitations: no limitations General appearance: alert, in no apparent distress, anxious Head exam: Present: atraumatic, normocephalic, normal inspection Eye exam: Present: normal appearance, PERRL, EOMI. Absent: scleral icterus, conjunctival injection, periorbital swelling ENT exam: Present: normal exam, mucous membranes moist Neck exam: Present: normal inspection. Absent: tenderness, meningismus, lymphadenopathy Respiratory exam: Present: respiratory distress, wheezes, accessory muscle use, decreased breath sounds, prolonged expiratory. Absent: rales, rhonchi, stridor Cardiovascular Exam: Present: normal rhythm, tachycardia, normal heart sounds. Absent: systolic murmur, diastolic murmur, rubs, gallop, clicks GI/Abdominal exam: Present: soft, normal bowel sounds. Absent: distended, tenderness, guarding, rebound, rigid Extremities exam: Present: normal inspection, full ROM, normal capillary refill. Absent: tenderness, pedal edema, joint swelling, calf tenderness Back exam: Present: normal inspection Neurological exam: Present: alert, oriented X3, CN II-XII intact Psychiatric exam: Present: normal affect, normal mood Skin exam: Present: warm, dry, intact, normal color. Absent: rash Course Vital Signs 01/06/24 01/06/24 01/06/24 18:46 19:30 20:00 Temperature 97.8 F Pulse Rate 78 75 70 Respiratory 18 13 22 Rate Blood Pressure 164/115 172/100 167/103 O2 Sat by Pulse 93 L 94 L 94 L Oximetry 01/06/24 01/07/24 22:58 00:00 Temperature Pulse Rate 66 71 Respiratory 22 25 H Rate Blood Pressure 155/99 147/94 O2 Sat by Pulse 97 95 Oximetry - Reevaluation(s) Reevaluation #1: 01/06/24 19:20 Medical records reviewed Reevaluation #2: 01/06/24 19:20 Symptoms are unchanged Reevaluation #3: 01/06/24 19:20 1 results questions answered Reevaluation #4: Was pt. sent in by a medical professional or institution (, PA, [employer], urgent care, hospital, or penitentiary...) When possible be specific @ -no Did you speak to anyone other than the patient for history (EMS, parent, family, police, friend...)? What history was obtained from this source @ -no Did you review nursing and triage notes (agree or disagree)? Why? @ -agree Are old charts reviewed (outside hosp., previous admission, EMS record, old EKG, old radiological studies, urgent care reports/EKG's, penitentiary records)? Report findings @ -yes Differential Diagnosis (chest pain, altered mental status, abdominal pain women, abdominal pain men, vaginal bleeding, weakness, fever, dyspnea, syncope, h eadache, dizziness, GI bleed, back pain, seizure, CVA, palpatations, mental health, musculoskeletal)? @ -prior EKG interpreted by me (3pts min.). @ -yes X-rays interpreted by me (1pt min.). @ -yes negative for acute disease CT interpreted by me (1pt min.). @ -no U/S interpreted by me (1pt. min.). @ -no What testing was considered but not performed or refused? (CT, X-rays, U/S, labs)? Why? @ -none What meds were considered but not given or refused? Why? @ -none Did you discuss the management of the patient with other professionals (professionals i.e. , PA, [employer], lab, RT, psych nurse, social media intern, associate manager, teacher, public affairs officer, case supervisor)? Give summary @ -no Was smoking cessation discussed for >3mins.? @ -no Was critical care preformed (if so, how long)? @ -no Were there social determinants of health that impacted care today? How? (Homelessness, low income, unemployed, alcoholism, drug addiction, transportation, low edu. Level, literacy, decrease access to med. care, shelter, rehab)? @ -none Was there de-escalation of care discussed even if they declined (Discuss DNR or withdrawal of care, Hospice)? DNR status @ -no What co-morbidities impacted this encounter? (DM, HTN, Smoking, COPD, CAD, Cancer, CVA, ARF, Chemo, Hep., AIDS, mental health diagnosis, sleep apnea, morbid obesity)? @ -none Was patient admitted / discharged? Hospital course, mention meds given and route, prescriptions, significant lab abnormalities, going to OR and other pertinent info. @ - 83 Female to ER for severe dyspnea and shortness of breath with CHF. Patient will be admitted for further evaluation of heart failure Admitted Undiagnosed new problem with uncertain prognosis? @ -no Drug Therapy requiring intensive monitoring for toxicity (Heparin, Nitro, Insulin, Cardizem)? @ -no Were any procedures done? @ -no Diagnosis/symptom? @ -Chest pain, CHF Acute, or Chronic, or Acute on Chronic? @ -Acute Uncomplicated (without systemic symptoms) or Complicated (systemic symptoms)? @ -Complicated Side effects of treatment? @ -no Exacerbation, Progression, or Severe Exacerbation? @ -exacerbation Poses a threat to life or bodily function? How? (Chest pain, [place], [place], pneumonia, PE, COPD, DKA, ARF, appy, cholecystitis, CVA, Diverticulitis, Homicidal, Suicidal, threat to staff... and all critical care pts) @ -yes with extremes of age Reevaluation #5: Differential Dyspnea: Coronary syndrome, arrhythmia, tamponade, asthma, COPD, pulmonary embolism, pn eumonia, pneumothorax, pulmonary effusion, anaphylaxis, diabetic ketoacidosis, flailed chest, pulmonary contusion, diaphragmatic rupture, anemia, neuromuscular, this is not meant to be an all-inclusive list. - Consultations Consultation #1: Spoke with sound who agrees to admit this patient Medical Decision Making - Medical Decision Making 83 Female to ER for severe dyspnea and shortness of breath with CHF. Patient will be admitted for further evaluation of heart failure - Lab Data Result diagrams: 01/07/24 07:10 01/10/24 06:16 Lab Results 01/06/24 01/06/24 01/06/24 Range/Units 19:25 19:25 19:25 WBC 4.7 (3.8-10.6) k/uL RBC 4.91 (3.80-5.40) m/uL Hgb 15.1 (11.4-16.0) gm/dL Hct 47.4 H (34.0-46.0) % MCV 96.4 (80.0-100.0) fL MCH 30.6 (25.0-35.0) pg MCHC 31.8 (31.0-37.0) g/dL RDW 15.2 (11.5-15.5) % Plt Count 152 (150-450) k/uL MPV 10.5 Immature Gran % (Auto) % Absolute Nucleated RBC % Neutrophils % 84 % Lymphocytes % 12 % Monocytes % 3 % Eosinophils % 0 % Basophils % 1 % Immature Gran # (0.00-0.04) X 10*3/uL Neutrophils # 4.0 (1.3-7.7) k/uL Lymphocytes # 0.6 L (1.0-4.8) k/uL Monocytes # 0.1 (0-1.0) k/uL Eosinophils # 0.0 (0-0.7) k/uL Basophils # 0.0 (0-0.2) k/uL NRBC/100 WBC Diff (0.00-0.01) X 10*3/uL PT 14.3 H (10.0-12.5) sec INR 1.4 H (<1.2) APTT 22.7 (22.0-30.0) sec Sodium 137 (137-145) mmol/L Potassium 3.7 (3.5-5.1) mmol/L Chloride 100 (98-107) mmol/L Carbon Dioxide 26 (22-30) mmol/L Anion Gap 11 mmol/L BUN 32 H (7-17) mg/dL Creatinine 0.96 (0.52-1.04) mg/dL Est GFR (CKD-EPI) (>=60) Est GFR (CKD-EPI)AfAm 64 (>60 ml/min/1.73 sqM) Est GFR (CKD-EPI)NonAf 55 (>60 ml/min/1.73 sqM) BUN/Creatinine Ratio (12.00-20.00) Ratio Glucose 254 H (74-99) mg/dL POC Glucose (mg/dL) (70-110) mg/dL POC Glu Microbiology Laboratory Manager ID Calcium 8.8 (8.4-10.2) mg/dL Phosphorus (2.4-5.1) mg/dL Magnesium 1.7 (1.6-2.3) mg/dL Total Bilirubin 2.4 H (0.2-1.3) mg/dL AST 41 H (14-36) U/L ALT 41 H (4-34) U/L Alkaline Phosphatase 97 (38-126) U/L Troponin I (0.000-0.034) ng/mL NT-Pro-B Natriuret Pep 87076 pg/mL Total Protein 5.9 L (6.3-8.2) g/dL Albumin 3.5 (3.5-5.0) g/dL Globulin (1.6-3.3) g/dL Albumin/Globulin Ratio (1.60-3.17) Ratio 01/06/24 01/06/24 01/07/24 Range/Units 19:25 20:54 05:36 WBC (3.8-10.6) k/uL RBC (3.80-5.40) m/uL Hgb (11.4-16.0) gm/dL Hct (34.0-46.0) % MCV (80.0-100.0) fL MCH (25.0-35.0) pg MCHC (31.0-37.0) g/dL RDW (11.5-15.5) % Plt Count (150-450) k/uL MPV Immature Gran % (Auto) % Absolute Nucleated RBC % Neutrophils % % Lymphocytes % % Monocytes % % Eosinophils % % Basophils % % Immature Gran # (0.00-0.04) X 10*3/uL Neutrophils # (1.3-7.7) k/uL Lymphocytes # (1.0-4.8) k/uL Monocytes # (0-1.0) k/uL Eosinophils # (0-0.7) k/uL Basophils # (0-0.2) k/uL NRBC/100 WBC Diff (0.00-0.01) X 10*3/uL PT (10.0-12.5) sec INR (<1.2) APTT (22.0-30.0) sec Sodium (137-145) mmol/L Potassium (3.5-5.1) mmol/L Chloride (98-107) mmol/L Carbon Dioxide (22-30) mmol/L Anion Gap mmol/L BUN (7-17) mg/dL Creatinine (0.52-1.04) mg/dL Est GFR (CKD-EPI) (>=60) Est GFR (CKD-EPI)AfAm (>60 ml/min/1.73 sqM) Est GFR (CKD-EPI)NonAf (>60 ml/min/1.73 sqM) BUN/Creatinine Ratio (12.00-20.00) Ratio Glucose (74-99) mg/dL POC Glucose (mg/dL) 218 H 179 H (70-110) mg/dL POC Glu Microbiology Laboratory Manager ID Priscilla Edouard Allison Calcium (8.4-10.2) mg/dL Phosphorus (2.4-5.1) mg/dL Magnesium (1.6-2.3) mg/dL Total Bilirubin (0.2-1.3) mg/dL AST (14-36) U/L ALT (4-34) U/L Alkaline Phosphatase (38-126) U/L Troponin I 0.022 (0.000-0.034) ng/mL NT-Pro-B Natriuret Pep pg/mL Total Protein (6.3-8.2) g/dL Albumin (3.5-5.0) g/dL Globulin (1.6-3.3) g/dL Albumin/Globulin Ratio (1.60-3.17) Ratio 01/07/24 01/07/24 01/07/24 Range/Units 07:10 07:10 12:22 WBC 6.79 (3.8-10.6) k/uL RBC 4.55 (3.80-5.40) m/uL Hgb 13.7 (11.4-16.0) gm/dL Hct 42.1 (34.0-46.0) % MCV 92.5 (80.0-100.0) fL MCH 30.1 (25.0-35.0) pg MCHC 32.5 (31.0-37.0) g/dL RDW 15.9 H (11.5-15.5) % Plt Count 165 (150-450) k/uL MPV 12.2 Immature Gran % (Auto) 0.30 % Absolute Nucleated RBC 0 % Neutrophils % 65.2 % Lymphocytes % 20.2 % Monocytes % 13.7 % Eosinophils % 0 % Basophils % 0.6 % Immature Gran # 0.02 (0.00-0.04) X 10*3/uL Neutrophils # 4.43 (1.3-7.7) k/uL Lymphocytes # 1.37 (1.0-4.8) k/uL Monocytes # 0.93 (0-1.0) k/uL Eosinophils # 0 L (0-0.7) k/uL Basophils # 0.04 (0-0.2) k/uL NRBC/100 WBC Diff 0 (0.00-0.01) X 10*3/uL PT (10.0-12.5) sec INR (<1.2) APTT (22.0-30.0) sec Sodium 137 (137-145) mmol/L Potassium 3.8 (3.5-5.1) mmol/L Chloride 98 (98-107) mmol/L Carbon Dioxide 26.2 (22-30) mmol/L Anion Gap 12.80 H mmol/L BUN 31.4 H (7-17) mg/dL Creatinine 1.2 (0.52-1.04) mg/dL Est GFR (CKD-EPI) 45 L (>=60) Est GFR (CKD-EPI)AfAm (>60 ml/min/1.73 sqM) Est GFR (CKD-EPI)NonAf (>60 ml/min/1.73 sqM) BUN/Creatinine Ratio 26.17 H (12.00-20.00) Ratio Glucose 199 H (74-99) mg/dL POC Glucose (mg/dL) 156 H (70-110) mg/dL POC Glu Microbiology Laboratory Manager ID Diana Sanchez Calcium 9.1 (8.4-10.2) mg/dL Phosphorus 5.0 (2.4-5.1) mg/dL Magnesium 1.8 (1.6-2.3) mg/dL Total Bilirubin 1.4 H (0.2-1.3) mg/dL AST 26 (14-36) U/L ALT 37 (4-34) U/L Alkaline Phosphatase 78 (38-126) U/L Troponin I (0.000-0.034) ng/mL NT-Pro-B Natriuret Pep pg/mL Total Protein 5.5 L (6.3-8.2) g/dL Albumin 3.6 L (3.5-5.0) g/dL Globulin 1.9 (1.6-3.3) g/dL Albumin/Globulin Ratio 1.89 (1.60-3.17) Ratio - EKG Data -: EKG Interpreted by Me (EKG is sinus 69 AR 185 QRS 102 QTc 452) - Radiology Data Radiology results: report reviewed (CXR is Positive for pulmonary edema), image reviewed Disposition Clinical Impression: Congestive heart failure, Generalized weakness, Systolic congestive heart failure Disposition: ADMITTED IP TO THIS HOSP Condition: Stable Is patient prescribed a controlled substance at d/c from ED?: No
[2024-01-06] MEDS: IPRATROPIUM-ALBUTEROL 3 ML NEB INHALATION STA (19:34)
[2024-01-06 19:37] LABS: Basophils % (A) 1 %; Eosinophils % (A) 0 %; HCT 47.4 % (34.0-46.0); HGB 15.1 gm/dL (11.4-16.0); Lymphocytes # (A) 0.6 k/uL (1.0-4.8); Lymphocytes % (A) 12 %; MCH 30.6 pg (25.0-35.0); MCHC 31.8 g/dL (31.0-37.0); MCV 96.4 fL (80.0-100.0); Mean Platelet Volume 10.5; Monocytes # (A) 0.1 k/uL (0-1.0); Monocytes % (A) 3 %; Neutrophils % (A) 84 %; Platelet Count 152 k/uL (150-450); RBC 4.91 m/uL (3.80-5.40); RDW 15.2 % (11.5-15.5); WBC 4.7 k/uL (3.8-10.6)
[2024-01-06] MEDS: SODIUM CHLORIDE 0.9% 1,000 ML IV SCH (19:40)
[2024-01-06 19:46] LABS: INR 1.4 (<1.2); Partial Thromboplastin Time 22.7 sec (22.0-30.0); Prothrombin Time 14.3 sec (10.0-12.5)
[2024-01-06 20:02] LABS: ALT 41 U/L (4-34); AST 41 U/L (14-36); African American GFR (CKD) 64 (>60 ml/min/1.73 sqM); Albumin 3.5 g/dL (3.5-5.0); Alkaline Phosphatase 97 U/L (38-126); Anion Gap 11 mmol/L; Blood Urea Nitrogen 32 mg/dL (7-17); Calcium 8.8 mg/dL (8.4-10.2); Carbon Dioxide 26 mmol/L (22-30); Chloride 100 mmol/L (98-107); Glucose 254 mg/dL (74-99); Magnesium 1.7 mg/dL (1.6-2.3); Non-African American GFR(CKD) 55 (>60 ml/min/1.73 sqM); Potassium 3.7 mmol/L (3.5-5.1); Sodium 137 mmol/L (137-145); Total Bilirubin 2.4 mg/dL (0.2-1.3); Total Protein 5.9 g/dL (6.3-8.2)
--- NOTE | 2024-01-06 20:08 | XR ---
EXAMINATION TYPE: XR chest 1V portable DATE OF EXAM: 01/06/2024 8:02 PM CLINICAL INDICATION:Female, 83 years old with history of cp; [facility] COMPARISON: Chest radiographs from 10/24/2023 TECHNIQUE: XR chest 1V portable Frontal view of the chest. FINDINGS: Lungs/Pleura: Demonstration with slight progression of hazy airspace opacity within the right lower q uadrant. A trace right pleural effusion is identified. No evidence of pneumothorax. Pulmonary vascularity: Unremarkable. Heart/mediastinum: Cardiomediastinal silhouette is unremarkable. Atherosclerotic calcifications are seen in the aorta. Musculoskeletal: No acute osseous pathology. IMPRESSION: Right lung base airspace disease with associated trace pleural effusion.
[2024-01-06 20:32] LABS: NT-Pro-B-Type Natriuretic Pept 47800 pg/mL
[2024-01-06 20:55] LABS: Glucose,Whole Blood 218 mg/dL (70-110)
[2024-01-07] MEDS: MORPHINE SULFATE 4 MG/ML SYRINGE IV PRN (00:20)
--- NOTE | 2024-01-07 03:04 | P.HPIM ---
History of Present Illness H&P Date: 01/06/24 Patient is a 83-year-old female with a PMH of type II DM, chronic systolic CHF, hyperlipidemia, hypertension, urinary incontinence, and dementia who was transferred from [facility] where the patient had presented with complaints of shortness of breath. The patient notes that she has been feeling short of breath for the past several weeks and has also noticed some lower extremity edema. She denied experiencing chest discomfort, cough, fever, chills, nausea, vomiting, abdominal pain, diarrhea. The patient underwent an extensive evaluation at [facility] which was all reviewed with EKG showing sinus rhythm at [address]/T wave changes noted aside from poor R wave progression as reviewed by me. A CTA chest with contrast revealed mild bilateral pleural effusions with no pulmonary embolism. A CT abdomen and pelvis with contrast revealed a complex enhancing cystic mass in the superior pole of the right kidney suspicious for potential carcinoma with MRI recommended with a simple appearing cyst of the liver as well as bilateral hydronephrosis. Laboratory evaluation was remarkable for sodium 142, potassium 3.8, chloride 102, CO2 26, BUN 32, creatinine 1.2, troponin less than 0.05, with BNP 3900. WBC count was 7.1, hemoglobin 13.2, platelet count 149. The patient was treated for CHF exacerbation with IV Lasix prior to transfer. The patient had an SpO2 of 88% on room air in the emergency room. ED documentation reviewed and case discussed with ED provider. Review of systems: Pertinent positives and negatives as discussed in HPI, a complete review of s ystems was performed and all other systems are negative. Physical examination: Vital signs reviewed General: non toxic, no distress, appears at stated age, normal weight Derm: no unusual rashes/lesions, warm Head: atraumatic, normocephalic, symmetric Eyes: EOMI, no lid lag, anicteric sclera, pupils equal round reactive to light ENT: Nose and ears atraumatic Neck: No cervical lymphadenopathy, trachea midline, supple Mouth: no lip lesion, mucus membranes moist Cardiovascular: S1S2 reg, no murmur, positive dorsalis pedis pulse bilateral, 1+ bilateral lower extremity pitting edema Lungs: CTA bilateral, no rhonchi, no rales, no accessory muscle use Abdominal: soft, nontender to palpation, no guarding Ext: muscle strength 4 out of 5 in all 4 extremities grossly, no gross muscle atrophy, no contractures, Neuro: CN II-XI grossly intact, no gross focal neuro deficits Psych: Alert, oriented, appropriate affect Assessment: Acute CHF exacerbation with acute hypoxic respiratory failure Chronic conditions: Type II DM, hypertension, hyperlipidemia, urinary incontinence Imaging: The patient underwent an extensive evaluation at [facility] which was all reviewed with EKG showing sinus rhythm at [address]/T wave changes noted aside from poor R wave progression as reviewed by me. A CTA chest with contrast revealed mild bilateral pleural effusions with no pulmonary embolism. A CT abdomen and pelvis with contrast revealed a complex enhancing cystic mass in the superior pole of the right kidney suspicious for potential carcinoma with MRI recommended with a simple appearing cyst of the liver as well as bilateral hydronephrosis. Data Review: Laboratory evaluation was remarkable for sodium 142, potassium 3.8, chloride 102, CO2 26, BUN 32, creatinine 1.2, troponin less than 0.05, with BNP 3900. WBC count was 7.1, hemoglobin 13.2, platelet count 149. The patient was treated for CHF exacerbation with IV Lasix prior to transfer. The patient had an SpO2 of 88% on room air in the emergency room. Plan: Continue patient on IV Lasix 40 mg every 12 hourly Cardiology consulted Cardiac monitoring Monitor electrolytes daily Intake and output Daily weights Continue with Mendes catheter in light of patient's incontinence Insulin sliding scale blood glucose monitoring Resume patient's home medications DVT prophylaxis: Lovenox subcu The patient is admitted with an anticipated less than 2 midnight stay for evaluation of CHF CODE STATUS: Full Code Discussed with: Patient Anticipated discharge place: Home Past Medical History Past Medical History: Coronary Artery Disease (CAD), Cancer, Diabetes Mellitus, GERD/Reflux, Hypertension, Myocardial Infarction ([place]), Osteoarthritis (OA), Renal Disease Additional Past Medical History / Comment(s): IDDM, diverticulitis, C diff colitis, nephrolithiasis, "spots on liver per CT", arthritis, renal mass- cancerous (being monitored), 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, IBS, severe pulmonary HTN with EF 60-65%, silent [place] Last Myocardial Infarction Date:: unknown History of Any Multi-Drug Resistant Organisms: C-DIFF Date of last positivie culture/infection: 08/21/15 MDRO Source:: STOOL Past Surgical History: Bowel Resection, Cholecystectomy, Heart Catheterization, Hernia Repair, Hysterectomy, Orthopedic Surgery, Tonsillectomy Additional Past Surgical History / Comment(s): 06/19/15 LAP SIGMOID RESECTION with lysis of adhesions, lithotripsy, cardiac cath with mild disease to proximal LAD, colonoscopy, L thigh cyst removed, BILAT CATARACTS REMOVED WITH LENS IMPLANTS, left ACL repair Past Anesthesia/Blood Transfusion Reactions: No Reported Reaction Past Psychological History: Depression Additional Psychological History / Comment(s): due to pain Smoking Status: Never smoker Past Alcohol Use History: None Reported Additional Past Alcohol Use History / Comment(s): . Past Drug Use History: None Reported - Past Family History Father Family Medical History: Cancer, Congestive Heart Failure (CHF) Additional Family Medical History / Comment(s): prostate CA,lived to 93 Mother Family Medical History: Cancer Additional Family Medical History / Comment(s): liver issues-caused by tylenol. lived to 95 Medications and Allergies Home Medications Medication Instructions Recorded Confirmed Type Atorvastatin [Lipitor] 20 mg PO HS tab 02/17/23 01/06/24 Rx carvediloL [Coreg] 6.25 mg PO BID-W/MEALS tab 02/17/23 01/06/24 Rx Aspirin [Adult Low Dose Aspirin EC] 81 mg PO HS 05/27/23 01/06/24 History Donepezil [Aricept] 10 mg PO HS 05/27/23 01/06/24 History Furosemide [Lasix] 40 mg PO DAILY 05/27/23 01/06/24 History Isosorbide Mononitrate ER [Imdur] 30 mg PO DAILY 05/27/23 01/06/24 History Losartan [Cozaar] 25 mg PO DAILY 05/27/23 01/06/24 History Acetaminophen Tab [Tylenol] 1,000 mg PO Q6HR PRN #30 tablet 05/30/23 01/06/24 Rx Insulin Glargine,Hum.rec.anlog 8 units SQ HS 09/23/23 01/06/24 History [Basaglar Kwikpen U-100] Ondansetron [Zofran] 8 mg PO BID PRN 09/23/23 01/06/24 History Calcium Carbonate/Vitamin D3 2 tab PO DAILY 01/06/24 01/06/24 History [Calcium 600 mg-Vit D3 10 mcg (400 Unit)] Dicyclomine HCl 10 mg PO DAILY PRN 01/06/24 01/06/24 History Magnesium Oxide [Mag-Ox] 400 mg PO HS 01/06/24 01/06/24 History Multivitamins, Thera [Multivitamin 1 tab PO DAILY 01/06/24 01/06/24 History (formulary)] Ubidecarenone [Q-Sorb Co Q-10] 200 mg PO DAILY 01/06/24 01/06/24 History traMADol HCl [Ultram] 50 mg PO BID PRN 01/06/24 01/06/24 History Allergies Allergy/AdvReac Type Severity Reaction Status Date / Time adhesive tape Allergy red skin Verified 01/06/24 19:27 pregabalin [From Lyrica] AdvReac Hallucinati Verified 01/06/24 19:27 ons Physical Exam Vitals: Vital Signs Temp Pulse Pulse Resp BP BP Pulse Ox 01/07/24 00:56 97.5 F L 76 16 167/94 97 01/07/24 00:00 71 25 H 147/94 95 01/06/24 22:58 66 22 155/99 97 01/06/24 20:00 70 22 167/103 94 L 01/06/24 19:30 75 13 172/100 94 L 01/06/24 18:46 97.8 F 78 18 164/115 93 L Intake and Output 01/06/24 01/06/24 01/07/24 14:59 22:59 06:59 Other: Weight 60.781 kg Results CBC & Chem 7: 01/06/24 19:25 01/06/24 19:25 Labs: Abnormal Lab Results - Last 24 Hours (Table) 01/06/24 01/06/24 01/06/24 Range/Units 19:25 19:25 19:25 Hct 47.4 H (34.0-46.0) % Lymphocytes # 0.6 L (1.0-4.8) k/uL PT 14.3 H (10.0-12.5) sec INR 1.4 H (<1.2) BUN 32 H (7-17) mg/dL Glucose 254 H (74-99) mg/dL POC Glucose (mg/dL) (70-110) mg/dL Total Bilirubin 2.4 H (0.2-1.3) mg/dL AST 41 H (14-36) U/L ALT 41 H (4-34) U/L Total Protein 5.9 L (6.3-8.2) g/dL 01/06/24 Range/Units 20:54 Hct (34.0-46.0) % Lymphocytes # (1.0-4.8) k/uL PT (10.0-12.5) sec INR (<1.2) BUN (7-17) mg/dL Glucose (74-99) mg/dL POC Glucose (mg/dL) 218 H (70-110) mg/dL Total Bilirubin (0.2-1.3) mg/dL AST (14-36) U/L ALT (4-34) U/L Total Protein (6.3-8.2) g/dL Thrombosis Risk Factor Assmnt - Choose All That Apply Any of the Below Risk Factors Present?: Yes Each Risk Factor Represents 3 Points: Age 75 years or older Thrombosis Risk Factor Assessment Total Risk Factor Score: 3 Thrombosis Risk Factor Assessment Level: Moderate Risk
[2024-01-07 05:37] LABS: Glucose,Whole Blood 179 mg/dL (70-110)
[2024-01-07] MEDS: INSULIN ASPART (NovoLOG) 100 UNIT/ML VIAL SQ SCH (05:44)
[2024-01-07] MEDS: PANTOPRAZOLE 40 MG/10 ML VIAL IV SCH (10:00)
[2024-01-07] MEDS: MULTIVITAMINS, THERA 1 EACH TAB PO SCH (10:00)
[2024-01-07] MEDS: FUROSEMIDE 10 MG/ML 4 ML VIAL IV SCH (10:01)
[2024-01-07] MEDS: ENOXAPARIN 40 MG/0.4 ML SYRINGE SQ SCH (10:01)
[2024-01-07] MEDS: ISOSORBIDE MONONITRATE ER 30 MG TAB.ER.24H PO SCH (10:01)
[2024-01-07] MEDS: LOSARTAN 25 MG TAB PO SCH (10:01)
[2024-01-07] MEDS: SPIRONOLACTONE 25 MG TAB PO SCH (10:01)
[2024-01-07] MEDS: DAPAGLIFLOZIN PROPANEDIOL 10 MG TABLET PO SCH (10:02)
[2024-01-07 10:10] LABS: Basophils # (A) 0.04 X 10*3/uL (0.00-0.10); Basophils % (A) 0.6 %; Eosinophils # (A) 0 X 10*3/uL (0.04-0.35); Eosinophils % (A) 0 %; HCT 42.1 % (37.2-46.3); HGB 13.7 g/dL (12.0-15.0); Lymphocytes # (A) 1.37 X 10*3/uL (0.90-5.00); Lymphocytes % (A) 20.2 %; MCH 30.1 pg (27.0-32.0); MCHC 32.5 g/dL (32.0-37.0); MCV 92.5 FL (80.0-97.0); Mean Platelet Volume 12.2 FL (9.5-12.2); Monocytes # (A) 0.93 X 10*3/uL (0.20-1.00); Monocytes % (A) 13.7 %; NRBC Per 100 WBC 0 X 10*3/uL (0.00-0.01); Neutrophils # (A) 4.43 X 10*3/uL (1.80-7.70); Neutrophils % (A) 65.2 %; Platelet Count 165 X 10*3/uL (140-440); RBC 4.55 X 10*6/uL (4.10-5.20); RDW 15.9 % (11.5-14.5); WBC 6.79 X 10*3/uL (4.50-10.00)
[2024-01-07] MEDS: carvediloL 6.25 MG TAB PO SCH (10:23)
[2024-01-07 10:27] LABS: ALT 37 U/L (8-44); AST 26 U/L (13-35); Albumin 3.6 g/dL (3.8-4.9); Albumin/Globulin Ratio 1.89 Ratio (1.60-3.17); Alkaline Phosphatase 78 U/L (41-126); BUN/Creat Ratio 26.17 Ratio (12.00-20.00); Blood Urea Nitrogen 31.4 mg/dL (9.0-27.0); Calcium 9.1 mg/dL (8.7-10.3); Carbon Dioxide 26.2 mmol/L (21.6-31.8); Chloride 98 mmol/L (96-109); Globulin 1.9 g/dL (1.6-3.3); Glucose 199 mg/dL (70-110); Magnesium 1.8 mg/dL (1.5-2.4); Potassium 3.8 mmol/L (3.5-5.5); Sodium 137 mmol/L (135-145); Total Bilirubin 1.4 mg/dL (0.3-1.2); Total Protein 5.5 g/dL (6.2-8.2)
--- NOTE | 2024-01-07 11:00 | P.CRDCN ---
History of Present Illness History of present illness: HISTORY OF PRESENT ILLNESS: This is a 83-year-old female with a past medical history significant for hypertension, hyperlipidemia, diabetes, congestive heart failure, and cardiomyopathy. Patient follows in the office with Dr. Eddy. We have been asked to see the patient in consultation for congestive heart failure. Patient examined at the bedside. Patient states that she began feeling short of breath on Friday and it has progressively got worse. She states that she is having a hard time having a conversation due to her dyspnea. She also reports increased swelling in her lower extremities. She states that she has not gained any weight recently. She states that she has been compliant at home with her Lasix and a low-sodium diet. It is noted that the patient had an echocardiogram performed last year revealing EF 25 to 30%, anterior apical anterior septal and anterior lateral akinesis, mild to moderate mitral regurgitation, and mild tricuspid regurgitation. Patient's previous echocardiogram revealed preserved EF. The patient states that she does not remember having a cardiac catheterization. She states if she did it was at least 5 to 10 years ago. DIAGNOSTICS: - EKG reveals sinus mechanism with Q waves inferiorly and anteriorly. No signs of acute ischemia.. - Chest xray right lung base airspace disease with associated trace pleural effusion. - Laboratory data: WBC 6.79. Hemoglobin 13.7. Platelet count 165. Sodium 137. Potassium 3.8. BUN 31. Creatinine 1.2. Troponin negative x 1. proBNP 47,800. - Current home cardiac medications include carvedilol 6.25 mg twice a day, losartan 25 mg daily, Imdur 30 mg daily, Lasix 40 mg daily, Lipitor 20 mg at n ight, aspirin 81 mg at night. REVIEW OF SYSTEMS: At the time of my exam: CONSTITUTIONAL: Denies fever or chills. HEENT: Denies blurred vision, vision changes, or eye pain. Denies hemoptysis CARDIOVASCULAR: Denies chest pain. Denies orthopnea. Denies PND. Denies palpitations RESPIRATORY: Denies shortness of breath. GASTROINTESTINAL: Denies abdominal pain. Denies nausea or vomiting. HEMATOLOGIC: Denies bleeding disorders. GENITOURINARY: Denies any blood in urine. SKIN: Denies pruitis. Denies rash. PHYSICAL EXAM: VITAL SIGNS: Reviewed. GENERAL: Well-developed in no acute distress. HEENT: Head is normocephalic. Pupils are equal, round. Sclerae anicteric. Mucous membranes of the mouth are moist. Neck supple. No JVD or thyromegaly LUNGS: Respirations even and unlabored. Lungs essentially clear to auscultation bilaterally. HEART: Regular rate and rhythm. S1 and S2 heard. ABDOMEN: Soft. Nondistended. Nontender. EXTREMITIES: Normal range of motion. No clubbing or cyanosis. Peripheral pulses intact. Trace bilateral lower extremity edema, worse at the ankles NEUROLOGIC: Awake and alert. Oriented x 3. ASSESSMENT: Shortness of breath Acute on chronic heart failure with reduced EF, 35 to 40% New onset cardiomyopathy in 2022, Ischemic versus nonischemic, no record of previous catheterization Hypertension Hyperlipidemia Diabetes PLAN: 2D echo has been ordered. Await results Resume home cardiac medications Aldactone 25 mg daily Add Farxiga 10 mg daily Add IV Lasix 40 mg every 12 hours Daily weights, accurate intake and output, and monitoring of kidney function Patient will require cardiac catheterization when she is medically stable to evaluate cardiomyopathy Further recommendations pending patient course Nurse practitioner note has been reviewed by physician. Signing provider agrees with the documented findings, assessment, and plan of care documented by PROCESS MECHANIC as a scribe. 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, IBS, severe pulmonary HTN with EF 60-65%, silent PR Last Myocardial Infarction Date:: unknown History of Any Multi-Drug Resistant Organisms: C-DIFF Date of last positivie culture/infection: 08/21/15 MDRO Source:: STOOL Past Surgical History: Bowel Resection, Cholecystectomy, Heart Catheterization, Hernia Repair, Hysterectomy, Orthopedic Surgery, Tonsillectomy Additional Past Surgical History / Comment(s): 06/19/15 LAP SIGMOID RESECTION with lysis of adhesions, lithotripsy, cardiac cath with mild disease to proximal LAD, colonoscopy, L thigh cyst removed, BILAT CATARACTS REMOVED WITH LENS IMPLANTS, left ACL repair Past Anesthesia/Blood Transfusion Reactions: No Reported Reaction Past Psychological History: Depression Additional Psychological History / Comment(s): due to pain Smoking Status: Never smoker Past Alcohol Use History: None Reported Additional Past Alcohol Use History / Comment(s): . Past Drug Use History: None Reported - Past Family History Father Family Medical History: Cancer, Congestive Heart Failure (CHF) Additional Family Medical History / Comment(s): prostate CA,lived to 93 Mother Family Medical History: Cancer Additional Family Medical History / Comment(s): liver issues-caused by tylenol. lived to 95 Medications and Allergies Home Medications Medication Instructions Recorded Confirmed Type Atorvastatin [Lipitor] 20 mg PO HS tab 02/17/23 01/06/24 Rx carvediloL [Coreg] 6.25 mg PO BID-W/MEALS tab 02/17/23 01/06/24 Rx Aspirin [Adult Low Dose Aspirin EC] 81 mg PO HS 05/27/23 01/06/24 History Donepezil [Aricept] 10 mg PO HS 05/27/23 01/06/24 History Furosemide [Lasix] 40 mg PO DAILY 05/27/23 01/06/24 History Isosorbide Mononitrate ER [Imdur] 30 mg PO DAILY 05/27/23 01/06/24 History Losartan [Cozaar] 25 mg PO DAILY 05/27/23 01/06/24 History Acetaminophen Tab [Tylenol] 1,000 mg PO Q6HR PRN #30 tablet 05/30/23 01/06/24 Rx Insulin Glargine,Hum.rec.anlog 8 units SQ HS 09/23/23 01/06/24 History [Basaglar Kwikpen U-100] Ondansetron [Zofran] 8 mg PO BID PRN 09/23/23 01/06/24 History Calcium Carbonate/Vitamin D3 2 tab PO DAILY 01/06/24 01/06/24 History [Calcium 600 mg-Vit D3 10 mcg (400 Unit)] Dicyclomine HCl 10 mg PO DAILY PRN 01/06/24 01/06/24 History Magnesium Oxide [Mag-Ox] 400 mg PO HS 01/06/24 01/06/24 History Multivitamins, Thera [Multivitamin 1 tab PO DAILY 01/06/24 01/06/24 History (formulary)] Ubidecarenone [Q-Sorb Co Q-10] 200 mg PO DAILY 01/06/24 01/06/24 History traMADol HCl [Ultram] 50 mg PO BID PRN 01/06/24 01/06/24 History Allergies Allergy/AdvReac Type Severity Reaction Status Date / Time adhesive tape Allergy red skin Verified 01/06/24 19:27 pregabalin [From Lyrica] AdvReac Hallucinati Verified 01/06/24 19:27 ons Physical Exam Vitals: Vital Signs Temp Pulse Pulse Resp BP BP Pulse Ox 01/07/24 07:00 97.5 F L 71 18 160/83 97 01/07/24 00:56 97.5 F L 76 16 167/94 97 01/07/24 00:00 71 25 H 147/94 95 01/06/24 22:58 66 22 155/99 97 01/06/24 20:00 70 22 167/103 94 L 01/06/24 19:30 75 13 172/100 94 L 01/06/24 18:46 97.8 F 78 18 164/115 93 L Intake and Output 01/06/24 01/07/24 01/07/24 22:59 06:59 14:59 Output Total 1 Balance -1 Output: Urine 1 Other: # Bowel Movements 0 Weight 60.781 kg 61.2 kg Results 01/07/24 07:10 01/07/24 07:10 Cardiac Enzymes 01/06/24 01/06/24 01/07/24 Range/Units 19:25 19:25 07:10 AST 41 H 26 (14-36) U/L Troponin I 0.022 (0.000-0.034) ng/mL Coagulation 01/06/24 Range/Units 19:25 PT 14.3 H (10.0-12.5) sec APTT 22.7 (22.0-30.0) sec CBC 01/06/24 01/07/24 Range/Units 19:25 07:10 WBC 4.7 6.79 (3.8-10.6) k/uL RBC 4.91 4.55 (3.80-5.40) m/uL Hgb 15.1 13.7 (11.4-16.0) gm/dL Hct 47.4 H 42.1 (34.0-46.0) % Plt Count 152 165 (150-450) k/uL Comprehensive Metabolic Panel 01/06/24 01/07/24 Range/Units 19:25 07:10 Sodium 137 137 (137-145) mmol/L Potassium 3.7 3.8 (3.5-5.1) mmol/L Chloride 100 98 (98-107) mmol/L Carbon Dioxide 26 26.2 (22-30) mmol/L BUN 32 H 31.4 H (7-17) mg/dL Creatinine 0.96 1.2 (0.52-1.04) mg/dL Glucose 254 H 199 H (74-99) mg/dL Calcium 8.8 9.1 (8.4-10.2) mg/dL AST 41 H 26 (14-36) U/L ALT 41 H 37 (4-34) U/L Alkaline Phosphatase 97 78 (38-126) U/L Total Protein 5.9 L 5.5 L (6.3-8.2) g/dL Albumin 3.5 3.6 L (3.5-5.0) g/dL Current Medications Generic Name Dose Route Start Last Admin Trade Name Freq PRN Reason Stop Dose Admin Acetaminophen 1,000 mg 01/07/24 08:15 Acetaminophen Tab 500 Mg Tab PO Q6HR PRN Pain Aspirin 81 mg 01/07/24 21:00 Aspirin 81 Mg PO HS HOLLY Atorvastatin Calcium 40 mg 01/07/24 21:00 Atorvastatin 40 Mg Tab PO HS HOLLY Carvedilol 6.25 mg 01/07/24 08:15 01/07/24 10:23 Carvedilol 6.25 Mg Tab PO 6.25 mg BID-W/MEALS HOLLY Administration Dapagliflozin 10 mg 01/07/24 09:00 01/07/24 10:02 Dapagliflozin Propanediol 10 Mg Tablet PO 10 mg DAILY HOLLY Administration Donepezil HCl 10 mg 01/07/24 21:00 Donepezil 10 Mg Tab PO HS HOLLY Enoxaparin Sodium 40 mg 01/07/24 09:00 01/07/24 10:01 Enoxaparin 40 Mg/0.4 Ml Syringe SQ 40 mg DAILY HOLLY Administration Furosemide 40 mg 01/07/24 09:00 01/07/24 10:01 Furosemide 10 Mg/Ml 4 Ml Vial IV 40 mg Q12HR HOLLY Administration Insulin Aspart 0 unit 01/07/24 07:30 01/07/24 05:44 Insulin Aspart (Novolog) 100 Unit/Ml Vial SQ 2 unit ACHS HOLLY Administration Protocol Insulin Detemir 8 unit 01/07/24 21:00 Insulin Detemir (Levemir) 100 Unit/Ml Syr SQ HS HOLLY Isosorbide Mononitrate 30 mg 01/07/24 09:00 01/07/24 10:01 Isosorbide Mononitrate Er 30 Mg Tab.Er.24h PO 30 mg DAILY HOLLY Administration Losartan Potassium 25 mg 01/07/24 09:00 01/07/24 10:01 Losartan 25 Mg Tab PO 25 mg DAILY HOLLY Administration Morphine Sulfate 4 mg 01/06/24 19:17 Morphine Sulfate 4 Mg/Ml Syringe IV Q4HR PRN Severe Pain (Scale 7 to 10) Multivitamins 1 each 01/07/24 09:00 01/07/24 10:00 Multivitamins, Thera 1 Each Tab PO 1 each DAILY HOLLY Administration Naloxone HCl 0.2 mg 01/06/24 19:17 Naloxone 0.4 Mg/Ml 1 Ml Vial IV Q2M PRN Opioid Reversal Ondansetron HCl 4 mg 01/06/24 19:17 Ondansetron 4 Mg/2 Ml Vial IVP Q8HR PRN Nausea And Vomiting Pantoprazole Sodium 40 mg 01/07/24 09:00 01/07/24 10:00 Pantoprazole 40 Mg/10 Ml Vial IV 40 mg DAILY HOLLY Administration Spironolactone 25 mg 01/07/24 09:00 01/07/24 10:01 Spironolactone 25 Mg Tab PO 25 mg DAILY HOLLY Administration Intake and Output 01/06/24 01/07/24 01/07/24 22:59 06:59 14:59 Output Total 1 Balance -1 Output: Urine 1 Other: # Bowel Movements 0 Weight 60.781 kg 61.2 kg 01/07/24 07:10 01/07/24 07:10
[2024-01-07 12:24] LABS: Glucose,Whole Blood 156 mg/dL (70-110)
[2024-01-07 14:31] VITALS: BMI 23.8
--- NOTE | 2024-01-07 14:36 | CA ---
Transthoracic Echo Report Name: Estephania Varma Age: 83 Gender: F : 1940 Exam Date: 01/07/2024 10:48 Exam Location: [place] [facility] Ht (in): 63 Wt (lb): 134 Ordering Physician: Rafaela Manning Attending/Referring Phys: [id number], Nigel Hvac Designer Taylor Conrad RDCS Procedure CPT: Indications: LV function, CHF Cardiac Hx: Technical Quality: Good Contrast 1: Definity Total Dose (mL): 1 Contrast 2: Total Dose (mL): MEASUREMENTS (Male / Female) Normal Values 2D ECHO LV Diastolic Diameter PLAX 4.8 cm 4.2 - 5.9 / 3.9 - 5.3 cm LV Systolic Diameter PLAX 4.4 cm IVS Diastolic Thickness 1.4 cm 0.6 - 1.0 / 0.6 - 0.9 cm LVPW Diastolic Thickness 1.3 cm 0.6 - 1.0 / 0.6 - 0.9 cm LV Relative Wall Thickness 0.6 RV Internal Dim ED PLAX 3.7 cm LA Systolic Diameter LX 4.2 cm 3.0 - 4.0 / 2.7 - 3.8 cm LV Diastolic Volume MOD BP 175.5 cm??? 67 - 155 / 56 - 104 cm??? LV Systolic Volume MOD BP 121.5 cm??? 22 - 58 / 19 - 49 cm??? LV Ejection Fraction MOD BP 30.8 % >= 55 % LV Cardiac Index MOD BP 2322.6 cm???/min???m??? LV Diastolic Volume MOD 4C 168.9 cm??? LV Systolic Volume MOD 4C 103.7 cm??? LV Ejection Fraction MOD 4C 38.6 % LV Cardiac Index MOD 4C 2803.1 cm???/min???m??? LV Diastolic Length 4C 9.7 cm LV Systolic Length 4C 8.6 cm LV Diastolic Volume MOD 2C 174.8 cm??? LV Systolic Volume MOD 2C 140.2 cm??? LV Ejection Fraction MOD 2C 19.8 % LV Cardiac Index MOD 2C 1486.4 cm???/min???m??? LV Diastolic Length 2C 9.3 cm LV Systolic Length 2C 8.8 cm M-MODE Aortic Root Diameter MM 2.9 cm AV Cusp Separation MM 1.8 cm DOPPLER AV Peak Velocity 126.8 cm/s AV Peak Gradient 6.4 mmHg AI Peak Velocity 254.6 cm/s AI Peak Gradient 25.9 mmHg AI Pressure Half Time 949.5 ms Mitral E Point Velocity 90.2 cm/s Mitral A Point Velocity 77.2 cm/s Mitral E to A Ratio 1.2 MV Deceleration Time 171.9 ms MV E' Velocity 4.1 cm/s Mitral E to MV E' Ratio 22.0 TR Peak Velocity 372.4 cm/s TR Peak Gradient 55.5 mmHg Right Ventricular Systolic Press 70.8 mmHg FINDINGS Left Ventricle Left ventricular ejection fraction is estimated at 25-30 %. Left ventricular cavity size normal. Moderately increased septal wall thickness. Mildly increased posterior wall thickness. Severely increased left ventricular diastolic volume. Severely increased left ventricular systolic volume. Moderately decreased left ventricular ejection fraction. No thromus in LV [place] Right Ventricle Mild right ventricular dilatation. Severe pulmonary hypertension. Right ventricular systolic pressure estimated at 71 mm hg. Right Atrium Normal right atrial size. No right atrial thrombus or mass seen. Left Atrium Mildly increased left atrial diameter. No left atrial thrombus or mass present. Mitral Valve Structurally normal mitral valve. Moderate mitral regurgitation. Aortic Valve Trileaflet aortic valve. No aortic valve stenosis or regurgitation. Tricuspid Valve Structurally normal tricuspid valve. [id number] tricuspid regurgitation. Pulmonic Valve Pulmonic valve not well visualized. No pulmonic regurgitation. Pericardium No pericardial effusion. Aorta Normal size aortic root and proximal ascending aorta. CONCLUSIONS Impaired LV function with EF around 30% Moderate mitral regurgitation Severe pulmonary hypertension Previewed by: Dr. Serafin Zheng MD (Electronically Signed) Final Date: 07 January 2024 14:35
--- NOTE | 2024-01-07 15:29 | P.PN ---
Subjective Progress Note Date: 01/07/24 Hospital Course: 83-year-old female with a PMH of type II DM, chronic systolic CHF, hyperlipide susie, hypertension, urinary incontinence, and dementia who was transferred from outside hospital where the patient had presented with complaints of shortness of breath. The patient underwent an extensive evaluation at [facility] which was all reviewed with EKG showing sinus rhythm at [address]/T wave changes noted aside from poor R wave progression as reviewed by me. A CTA chest with contrast revealed mild bilateral pleural effusions with no pulmonary embolism. A CT abdomen and pelvis with contrast revealed a complex enhancing cystic mass in the superior pole of the right kidney suspicious for potential carcinoma with MRI recommended with a simple appearing cyst of the liver as well as bilateral hydronephrosis. Laboratory evaluation was remarkable for sodium 142, potassium 3.8, chloride 102, CO2 26, BUN 32, creatinine 1.2, troponin less than 0.05, with BNP 3900. WBC count was 7.1, hemoglobin 13.2, platelet count 149. The patient was treated for CHF exacerbation with IV Lasix prior to transfer. The patient had an SpO2 of 88% on room air in the emergency room. Urology consulted. Subjective: Patient seen and examined at bedside. No acute events overnight. Still having orthopnea and conversational dyspnea Pertinent positives and negatives as discussed above, a complete review of systems was performed and all other systems are negative. Vitals Signs Reviewed. General: Nontoxic, no distress, appears at stated age Derm: Warm, dry Head: Atraumatic, normocephalic, symmetric Eyes: EOMI, no lid lag, anicteric sclera Mouth: No lip lesion, mucus membranes moist Cardiovascular: S1S2 reg, no murmur Lungs: Bibasilar rales, no accessory muscle use Abdominal: Soft, nontender to palpation, no guarding, no appreciable organomegaly Ext: No gross muscle atrophy, no edema, no contractures Neuro: CN II-XI grossly intact, no focal neuro deficits Psych: Alert, oriented, appropriate affect Data Reviewed Today: Pertinent Labs: WBC 6.79, hemoglobin 13.7, platelet 165, creatinine 1.2, potassium 3.8, magnesium 1.8 Imaging: Echocardiogram report reviewed, shows LVEF around 30%, moderate mitral regurgitation, severe pulmonary hypertension. EKG independently interpreted, shows sinus rhythm and prolonged QTc Assessment and Plan: Active: Acute systolic CHF exacerbation Cardiomyopathy Hypertension Dyslipidemia -Cardiology note reviewed,,continue IV Lasix 40 mg every 12 hours, monitor electrolytes and renal function -Intake and output, daily weights -Continue aspirin 81 mg, atorvastatin 40 mg, carvedilol 6.25 mg, Farxiga added by cardiology at 10 mg daily, losartan 25 mg, isosorbide 30 mg Diabetes -Continue Levemir 8 units nightly -Sliding scale insulin, monitor for hypoglycemia Chronic: GERD Cognitive impairment DVT ppx: Lovenox Code status: Full code Anticipated discharge place: Pending clinical course Anticipated discharge time: Pending clinical course Objective - Vital Signs Vital signs: Vital Signs Temp 98 F 01/07/24 14:23 Pulse 69 01/07/24 14:23 Resp 16 01/07/24 14:23 BP 120/62 01/07/24 14:23 Pulse Ox 95 01/07/24 14:23 FiO2 Intake & Output 01/06/24 01/07/24 01/07/24 18:59 06:59 18:59 Intake Total 236 Output Total 1 Balance -1 236 Weight 60.781 kg 61.2 kg 61.2 kg Intake: Oral 236 Output: Urine 1 Other: # Voids 2 # Bowel Movements 0 - Labs CBC & Chem 7: 01/07/24 07:10 01/07/24 07:10 Labs: Abnormal Lab Results - Last 24 Hours (Table) 01/06/24 01/06/24 01/06/24 Range/Units 19:25 19:25 19:25 Hct 47.4 H (34.0-46.0) % RDW (11.5-14.5) % Lymphocytes # 0.6 L (1.0-4.8) k/uL Eosinophils # (0.04-0.35) X 10*3/uL PT 14.3 H (10.0-12.5) sec INR 1.4 H (<1.2) Anion Gap (4.00-12.00) mmol/L BUN 32 H (7-17) mg/dL Est GFR (CKD-EPI) (>=60) BUN/Creatinine Ratio (12.00-20.00) Ratio Glucose 254 H (74-99) mg/dL POC Glucose (mg/dL) (70-110) mg/dL Total Bilirubin 2.4 H (0.2-1.3) mg/dL AST 41 H (14-36) U/L ALT 41 H (4-34) U/L Total Protein 5.9 L (6.3-8.2) g/dL Albumin (3.8-4.9) g/dL 01/06/24 01/07/24 01/07/24 Range/Units 20:54 05:36 07:10 Hct (34.0-46.0) % RDW 15.9 H (11.5-14.5) % Lymphocytes # (1.0-4.8) k/uL Eosinophils # 0 L (0.04-0.35) X 10*3/uL PT (10.0-12.5) sec INR (<1.2) Anion Gap (4.00-12.00) mmol/L BUN (7-17) mg/dL Est GFR (CKD-EPI) (>=60) BUN/Creatinine Ratio (12.00-20.00) Ratio Glucose (74-99) mg/dL POC Glucose (mg/dL) 218 H 179 H (70-110) mg/dL Total Bilirubin (0.2-1.3) mg/dL AST (14-36) U/L ALT (4-34) U/L Total Protein (6.3-8.2) g/dL Albumin (3.8-4.9) g/dL 01/07/24 01/07/24 Range/Units 07:10 12:22 Hct (34.0-46.0) % RDW (11.5-14.5) % Lymphocytes # (1.0-4.8) k/uL Eosinophils # (0.04-0.35) X 10*3/uL PT (10.0-12.5) sec INR (<1.2) Anion Gap 12.80 H (4.00-12.00) mmol/L BUN 31.4 H (7-17) mg/dL Est GFR (CKD-EPI) 45 L (>=60) BUN/Creatinine Ratio 26.17 H (12.00-20.00) Ratio Glucose 199 H (74-99) mg/dL POC Glucose (mg/dL) 156 H (70-110) mg/dL Total Bilirubin 1.4 H (0.2-1.3) mg/dL AST (14-36) U/L ALT (4-34) U/L Total Protein 5.5 L (6.3-8.2) g/dL Albumin 3.6 L (3.8-4.9) g/dL
[2024-01-07 17:14] LABS: Glucose,Whole Blood 213 mg/dL (70-110)
[2024-01-07] MEDS: ATORVASTATIN 40 MG TAB PO SCH (20:11)
[2024-01-07] MEDS: ASPIRIN 81 MG PO SCH (20:11)
[2024-01-07] MEDS: DONEPEZIL 10 MG TAB PO SCH (20:11)
[2024-01-07 20:44] LABS: Glucose,Whole Blood 214 mg/dL (70-110)
[2024-01-07] MEDS ORDERED: ATORVASTATIN 20 MG TAB PO SCH (21:00)
[2024-01-07] MEDS: INSULIN DETEMIR (LEVEMIR) 100 UNIT/ML SYR SQ SCH (21:43)
[2024-01-08 05:38] LABS: Glucose,Whole Blood 100 mg/dL (70-110)
--- NOTE | 2024-01-08 09:06 | CDI ---
Documentation Clarification Form Date: 01/08/2024 From: Afia Singleton Phone: [phone] Admit Date: 01/07/2024 12:45:00 PM Patient Name: Estephania Varma Visit Number: [id number] Discharge Date: ATTENTION: The Clinical Documentation Specialists (CDI) and [facility] Coding Staff appreciate your assistance in clarifying documentation. Please respond to the clarification below the line at the bottom and electronically sign. The CDI & [facility] Coding staff will review the response and follow-up if needed. Please note: Queries are made part of the Legal Health Record. If you have any questions, please contact the author of this message via ITS. Dr. Raymundo New: Acute hypoxic respiratory failure is documented in the H&P 01/06 which may lack sufficient clinical evidence/support in the medical record. Additional clarification is requested. History/Risk Factors: 83-year-old female with a history of systolic CHF, DM2, HTN, dementia who presents with complaints of SOB and lower extremity edema Clinical Indicators: 01/05 Triage VS: 164/115, 97.8, 78, 18, 93% room air 01/05-01/07 Patient on room air except for Nasal cannula at 1 liter on 01/06 @0823 SaO2 range: 93%(01/05)-97%(01/06) 01/06 H&P, Assessment: "Acute CHF exacerbation with acute hypoxic respiratory failure" Treatment: Monitor SaO2 Please clarify if acute hypoxic respiratory failure is a valid diagnosis? [ x ] No, acute hypoxic respiratory failure is ruled out [ ] Yes, acute hypoxic respiratory failure is present as evidence by (additional clinical support): [ ] Other (please specify diagnosis) [ ] Unable to determine MTDD
[2024-01-08 09:29] LABS: Magnesium 1.9 mg/dL (1.5-2.4)
[2024-01-08 09:58] LABS: BUN/Creat Ratio 22.14 Ratio (12.00-20.00); Calcium 8.7 mg/dL (8.7-10.3); Carbon Dioxide 28.4 mmol/L (21.6-31.8); Chloride 100 mmol/L (96-109); Glucose 86 mg/dL (70-110); Potassium 3.3 mmol/L (3.5-5.5); Sodium 140 mmol/L (135-145)
--- NOTE | 2024-01-08 10:27 | P.PN ---
Subjective HISTORY OF PRESENT ILLNESS: This is a 83-year-old female with a past medical history significant for hypertension, hyperlipidemia, diabetes, congestive heart failure, and cardiomyopathy. Patient follows in the office with Dr. Eddy. We have been asked to see the patient in consultation for congestive heart failure. Patient examined at the bedside. Patient states that she began feeling short of breath on Friday and it has progressively got worse. She states that she is having a hard time having a conversation due to her dyspnea. She also reports increased swelling in her lower extremities. She states that she has not gained any weight recently. She states that she has been compliant at home with her Lasix and a low-sodium diet. It is noted that the patient had an echocardiogram performed last year revealing EF 25 to 30%, anterior apical anterior septal and anterior lateral akinesis, mild to moderate mitral regurgitation, and mild tricuspid regurgitation. Patient's previous echocardiogram revealed preserved EF. The patient states that she does not remember having a cardiac catheterization. She states if she did it was at least 5 to 10 years ago. DIAGNOSTICS: - EKG reveals sinus mechanism with Q waves inferiorly and anteriorly. No signs of acute ischemia.. - Chest xray right lung base airspace disease with associated trace pleural effusion. - Laboratory data: WBC 6.79. Hemoglobin 13.7. Platelet count 165. Sodium 137. Potassium 3.8. BUN 31. Creatinine 1.2. Troponin negative x 1. proBNP 47,800. - Current home cardiac medications include carvedilol 6.25 mg twice a day, losartan 25 mg daily, Imdur 30 mg daily, Lasix 40 mg daily, Lipitor 20 mg at night, aspirin 81 mg at night. 01/08/2024 Patient examined this morning at the bedside. Patient currently denies chest pain or pressure. She reports improvement in her shortness of breath. Vital signs are stable. She remains on IV Lasix 40 mg every 12 hours.. Echocardiogram completed revealing ejection fraction 25 to 30% with moderate mitral regurgitati on and severe pulmonary hypertension PHYSICAL EXAM: VITAL SIGNS: Reviewed. GENERAL: Well-developed in no acute distress. HEENT: Head is normocephalic. Pupils are equal, round. Sclerae anicteric. Mucous membranes of the mouth are moist. Neck supple. No JVD or thyromegaly LUNGS: Respirations even and unlabored. Lungs essentially clear to auscultation bilaterally. HEART: Regular rate and rhythm. S1 and S2 heard. ABDOMEN: Soft. Nondistended. Nontender. EXTREMITIES: Normal range of motion. No clubbing or cyanosis. Peripheral pulses intact. Trace bilateral lower extremity edema, worse at the ankles NEUROLOGIC: Awake and alert. Oriented x 3. ASSESSMENT: Shortness of breath Acute on chronic heart failure with reduced EF, 35 to 40%, now 25 to 30% New onset cardiomyopathy in 2022, Ischemic versus nonischemic, no record of previous catheterization Hypertension Hyperlipidemia Diabetes Moderate mitral regurgitation Severe pulmonary hypertension PLAN: Continue current cardiac medications Continue IV Lasix 40 mg every 12 hours Daily weights, accurate intake and output, and monitoring of kidney function N.p.o. at midnight for possible cardiac catheterization tomorrow to evaluate cardiomyopathy Further recommendations pending patient course Nurse practitioner note has been reviewed by physician. Signing provider agrees with the documented findings, assessment, and plan of care documented by MECHANICAL MAINTENANCE FOREMAN as a scribe. Objective - Vital Signs Vital signs: Vital Signs Temp 97.6 F 01/08/24 07:00 Pulse 61 01/08/24 07:00 Resp 15 01/08/24 07:00 BP 137/69 01/08/24 07:00 Pulse Ox 96 01/08/24 07:00 FiO2 Intake & Output 01/07/24 01/08/24 01/08/24 18:59 06:59 18:59 Intake Total 714 Output Total 300 350 Balance 414 -350 Weight 61.2 kg 61.1 kg Intake: Oral 714 Output: Urine 300 350 Other: Voiding Method Diaper Diaper External Catheter External Catheter # Voids 2 # Bowel Movements 0 - Labs CBC & Chem 7: 01/07/24 07:10 01/08/24 06:03 Labs: Abnormal Lab Results - Last 24 Hours (Table) 01/07/24 01/07/24 01/07/24 Range/Units 07:10 07:10 12:22 RDW 15.9 H (11.5-14.5) % Eosinophils # 0 L (0.04-0.35) X 10*3/uL Anion Gap 12.80 H (4.00-12.00) mmol/L BUN 31.4 H (9.0-27.0) mg/dL Est GFR (CKD-EPI) 45 L (>=60) BUN/Creatinine Ratio 26.17 H (12.00-20.00) Ratio Glucose 199 H (70-110) mg/dL POC Glucose (mg/dL) 156 H (70-110) mg/dL Total Bilirubin 1.4 H (0.3-1.2) mg/dL Total Protein 5.5 L (6.2-8.2) g/dL Albumin 3.6 L (3.8-4.9) g/dL 01/07/24 01/07/24 Range/Units 17:12 20:43 RDW (11.5-14.5) % Eosinophils # (0.04-0.35) X 10*3/uL Anion Gap (4.00-12.00) mmol/L BUN (9.0-27.0) mg/dL Est GFR (CKD-EPI) (>=60) BUN/Creatinine Ratio (12.00-20.00) Ratio Glucose (70-110) mg/dL POC Glucose (mg/dL) 213 H 214 H (70-110) mg/dL Total Bilirubin (0.3-1.2) mg/dL Total Protein (6.2-8.2) g/dL Albumin (3.8-4.9) g/dL
[2024-01-08] MEDS ORDERED: NITROGLYCERIN SL TABS 0.4 MG TAB SUBLINGUAL PRN (11:50)
[2024-01-08] MEDS ORDERED: ALPRAZolam 0.25 MG TAB PO PRN (11:50)
[2024-01-08] MEDS ORDERED: ALPRAZolam 0.5 MG TAB PO PRN (11:50)
[2024-01-08 12:41] LABS: Glucose,Whole Blood 136 mg/dL (70-110)
--- NOTE | 2024-01-08 15:41 | P.PN ---
Subjective Progress Note Date: 01/08/24 Hospital Course: 83-year-old female with a PMH of type II DM, chronic systolic CHF, hyperlipide susie, hypertension, urinary incontinence, and dementia who was transferred from outside hospital where the patient had presented with complaints of shortness of breath. The patient underwent an extensive evaluation at [facility] which was all reviewed with EKG showing sinus rhythm at [address]/T wave changes noted aside from poor R wave progression as reviewed by me. A CTA chest with contrast revealed mild bilateral pleural effusions with no pulmonary embolism. A CT abdomen and pelvis with contrast revealed a complex enhancing cystic mass in the superior pole of the right kidney suspicious for potential carcinoma with MRI recommended with a simple appearing cyst of the liver as well as bilateral hydronephrosis. Laboratory evaluation was remarkable for sodium 142, potassium 3.8, chloride 102, CO2 26, BUN 32, creatinine 1.2, troponin less than 0.05, with BNP 3900. WBC count was 7.1, hemoglobin 13.2, platelet count 149. The patient was treated for CHF exacerbation with IV Lasix prior to transfer. The patient had an SpO2 of 88% on room air in the emergency room. Cardiology consulted. Currently on IV Lasix. Subjective: Patient seen and examined at bedside. No acute events overnight. Apnea and dyspnea improving. Pertinent positives and negatives as discussed above, a complete review of systems was performed and all other systems are negative. Vitals Signs Reviewed. General: Nontoxic, no distress, appears at stated age Derm: Warm, dry Head: Atraumatic, normocephalic, symmetric Eyes: EOMI, no lid lag, anicteric sclera Mouth: No lip lesion, mucus membranes moist Cardiovascular: S1S2 reg, no murmur Lungs: Bibasilar rales, no accessory muscle use Abdominal: Soft, nontender to palpation, no guarding, no appreciable organomegaly Ext: No gross muscle atrophy, no edema, no contractures Neuro: CN II-XI grossly intact, no focal neuro deficits Psych: Alert, oriented, appropriate affect Data Reviewed Today: Pertinent Labs: WBC 6.79, hemoglobin 13.7, platelet 165, creatinine 1.2, potassium 3.8, magnesium 1.8 Imaging: Echocardiogram report reviewed, shows LVEF around 30%, moderate mitral regurgitation, severe pulmonary hypertension. EKG independently interpreted, shows sinus rhythm and prolonged QTc Assessment and Plan: Active: Acute systolic CHF exacerbation Cardiomyopathy Hypertension Dyslipidemia -Cardiology note reviewed,,continue IV Lasix 40 mg every 12 hours, monitor electrolytes and renal function -Intake and output, daily weights -Continue aspirin 81 mg, atorvastatin 40 mg, carvedilol 6.25 mg, Farxiga added by cardiology at 10 mg daily, losartan 25 mg, isosorbide 30 mg Diabetes -Continue Levemir 8 units nightly -Sliding scale insulin, monitor for hypoglycemia Right kidney complex cyst - outpatient MRI Chronic: GERD Cognitive impairment DVT ppx: Lovenox Code status: Full code Anticipated discharge place: Pending clinical course Anticipated discharge time: Pending clinical course Failed obs status - now inpatient. Objective - Vital Signs Vital signs: Vital Signs Temp 97.6 F 01/08/24 07:00 Pulse 61 01/08/24 07:00 Resp 15 01/08/24 07:00 BP 137/69 01/08/24 07:00 Pulse Ox 96 01/08/24 07:00 FiO2 Intake & Output 01/07/24 01/08/24 01/08/24 18:59 06:59 18:59 Intake Total 714 976 Output Total 300 350 850 Balance 414 -350 126 Weight 61.2 kg 61.1 kg Intake: Oral 714 976 Output: Urine 300 350 850 Other: Voiding Method Diaper Diaper Diaper External Catheter External Catheter External Catheter # Voids 2 # Bowel Movements 0 - Labs CBC & Chem 7: 01/07/24 07:10 01/08/24 06:03 Labs: Abnormal Lab Results - Last 24 Hours (Table) 01/07/24 01/07/24 01/08/24 Range/Units 17:12 20:43 06:03 Potassium 3.3 L (3.5-5.5) mmol/L BUN 31.0 H (9.0-27.0) mg/dL Est GFR (CKD-EPI) 38 L (>=60) BUN/Creatinine Ratio 22.14 H (12.00-20.00) Ratio POC Glucose (mg/dL) 213 H 214 H (70-110) mg/dL 01/08/24 Range/Units 12:39 Potassium (3.5-5.5) mmol/L BUN (9.0-27.0) mg/dL Est GFR (CKD-EPI) (>=60) BUN/Creatinine Ratio (12.00-20.00) Ratio POC Glucose (mg/dL) 136 H (70-110) mg/dL
[2024-01-08 17:28] LABS: Glucose,Whole Blood 216 mg/dL (70-110)
[2024-01-08] MEDS: POTASSIUM CHLORIDE ER 20 MEQ TAB.ER PO STA (18:32)
[2024-01-08 20:37] LABS: Glucose,Whole Blood 207 mg/dL (70-110)
[2024-01-09] MEDS: SODIUM CHLORIDE 0.9% 1,000 ML in EMPTY BAG 1 BAG IV SCH (00:24)
[2024-01-09] MEDS: ACETAMINOPHEN TAB 500 MG TAB PO PRN (00:24)
[2024-01-09 01:30] LABS: Glucose,Whole Blood 72 mg/dL (70-110)
[2024-01-09 05:53] LABS: Glucose,Whole Blood 104 mg/dL (70-110)
[2024-01-09] MEDS: ENOXAPARIN 30 MG/0.3 ML SYRINGE SQ SCH (06:01)
[2024-01-09] MEDS: FUROSEMIDE 10 MG/ML 4 ML VIAL IV SCH (06:02)
[2024-01-09] MEDS: ASPIRIN 325 MG TAB PO ONE (06:02)
[2024-01-09] MEDS: ATORVASTATIN 80 MG TAB PO ONE (06:02)
[2024-01-09] MEDS ORDERED: HEPARIN SODIUM,PORCINE (1 ML) 2,500 UNIT in SODIUM CHLORIDE 0.9% 250 ML IRRIGATION PRN (07:00)
[2024-01-09] MEDS ORDERED: HEPARIN SODIUM,PORCINE 10,000 UNIT in SODIUM CHLORIDE 0.9% 1,000 ML IRRIGATION PRN (07:00)
[2024-01-09 07:34] LABS: African American GFR (CKD) 50 (>60 ml/min/1.73 sqM); Anion Gap 5 mmol/L; Blood Urea Nitrogen 28 mg/dL (7-17); Calcium 8.5 mg/dL (8.4-10.2); Carbon Dioxide 32 mmol/L (22-30); Chloride 101 mmol/L (98-107); Glucose 105 mg/dL (74-99); Magnesium 1.9 mg/dL (1.6-2.3); Non-African American GFR(CKD) 43 (>60 ml/min/1.73 sqM); Potassium 3.8 mmol/L (3.5-5.1); Sodium 138 mmol/L (137-145)
[2024-01-09] MEDS: fentaNYL (PF) 50 MCG/ML 2 ML AMP IVP ONE (09:19)
[2024-01-09] MEDS: MIDAZOLAM 2 MG/2 ML VIAL IVP ONE (09:19)
[2024-01-09] MEDS: LIDOCAINE 1% INJ 10MG/ML (5 ML VIAL-PF) SQ ONE (09:21)
[2024-01-09] MEDS: VERAPAMIL SYRINGE (5 MG/10 ML) INTRAARTER ONE (09:23)
[2024-01-09] MEDS: HEPARIN SODIUM 1,000 UN/ML (10ML VL) IVP ONE (09:26)
[2024-01-09] MEDS: IV FLUID CONTINUATION 600 ML IV ONE (09:31)
[2024-01-09] MEDS: IOPAMIDOL-370 200ML BTL INJ ONE (10:04)
--- NOTE | 2024-01-09 10:28 | P.PN ---
Subjective HISTORY OF PRESENT ILLNESS: This is a 83-year-old female with a past medical history significant for hypertension, hyperlipidemia, diabetes, congestive heart failure, and cardiomyopathy. Patient follows in the office with Dr. Eddy. We have been asked to see the patient in consultation for congestive heart failure. Patient examined at the bedside. Patient states that she began feeling short of breath on Friday and it has progressively got worse. She states that she is having a hard time having a conversation due to her dyspnea. She also reports increased swelling in her lower extremities. She states that she has not gained any weight recently. She states that she has been compliant at home with her Lasix and a low-sodium diet. It is noted that the patient had an echocardiogram performed last year revealing EF 25 to 30%, anterior apical anterior septal and anterior lateral akinesis, mild to moderate mitral regurgitation, and mild tricuspid regurgitation. Patient's previous echocardiogram revealed preserved EF. The patient states that she does not remember having a cardiac catheterization. She states if she did it was at least 5 to 10 years ago. DIAGNOSTICS: - EKG reveals sinus mechanism with Q waves inferiorly and anteriorly. No signs of acute ischemia.. - Chest xray right lung base airspace disease with associated trace pleural effusion. - Laboratory data: WBC 6.79. Hemoglobin 13.7. Platelet count 165. Sodium 137. Potassium 3.8. BUN 31. Creatinine 1.2. Troponin negative x 1. proBNP 47,800. - Current home cardiac medications include carvedilol 6.25 mg twice a day, losartan 25 mg daily, Imdur 30 mg daily, Lasix 40 mg daily, Lipitor 20 mg at night, aspirin 81 mg at night. 01/08/2024 Patient examined this morning at the bedside. Patient currently denies chest pain or pressure. She reports improvement in her shortness of breath. Vital signs are stable. She remains on IV Lasix 40 mg every 12 hours.. Echocardiogram completed revealing ejection fraction 25 to 30% with moderate mitral regurgitati on and severe pulmonary hypertension 01/09/2024 Patient examined this morning at the bedside. Patient is s/p cardiac cath revealing 90% diagonal, 60-70% LAD stenosis, and also a PDA lesion. Dr. Norm spainwed images and plan is to bring patient back next week for intervention. Patient currently denies chest pain or pressure. She denies SOB. Vital signs are stable. PHYSICAL EXAM: VITAL SIGNS: Reviewed. GENERAL: Well-developed in no acute distress. HEENT: Head is normocephalic. Pupils are equal, round. Sclerae anicteric. Mucous membranes of the mouth are moist. Neck supple. No JVD or thyromegaly LUNGS: Respirations even and unlabored. Lungs essentially clear to auscultation bilaterally. HEART: Regular rate and rhythm. S1 and S2 heard. ABDOMEN: Soft. Nondistended. Nontender. EXTREMITIES: Normal range of motion. No clubbing or cyanosis. Peripheral pulses intact. Trace bilateral lower extremity edema, worse at the ankles NEUROLOGIC: Awake and alert. Oriented x 3. ASSESSMENT: Shortness of breath Acute on chronic heart failure with reduced EF, 35 to 40%, now 25 to 30% New onset cardiomyopathy in 2022, Ischemic S/P cardiac cath revealing 90% diagonal, 60-70% LAD stenosis, and also a PDA lesion Hypertension Hyperlipidemia Diabetes Moderate mitral regurgitation Severe pulmonary hypertension PLAN: Continue current cardiac medications Continue IV fluid hydration. Continue to monitor kidney function Patient may be discharged home tomorrow if kidney function remains stable Patient will follow up in the office and will be scheduled for outpatient intervention of diagonal branch and FFR of LAD Further recommendations pending patient course Nurse practitioner note has been reviewed by physician. Signing provider agrees with the documented findings, assessment, and plan of care documented by TRANSACTIONAL ATTORNEY as a scribe. Objective - Vital Signs Vital signs: Vital Signs Temp 97.6 F 01/09/24 07:05 Pulse 66 01/09/24 07:05 Resp 15 01/09/24 07:05 BP 150/86 01/09/24 07:05 Pulse Ox 96 01/09/24 07:05 FiO2 Intake & Output 01/08/24 01/09/24 01/09/24 18:59 06:59 18:59 Intake Total 1331 100 Output Total 1450 1000 240 Balance -119 -1000 -140 Weight 59.7 kg Intake: IV 100 Oral 1331 Output: Urine 1450 1000 240 Other: Voiding Method Diaper Diaper Diaper External Catheter External Catheter External Catheter # Voids 1 1 # Bowel Movements 1 - Labs CBC & Chem 7: 01/07/24 07:10 01/09/24 06:10 Labs: Abnormal Lab Results - Last 24 Hours (Table) 01/08/24 01/08/24 01/08/24 Range/Units 12:39 17:27 20:33 Carbon Dioxide (22-30) mmol/L BUN (7-17) mg/dL Creatinine (0.52-1.04) mg/dL Glucose (74-99) mg/dL POC Glucose (mg/dL) 136 H 216 H 207 H (70-110) mg/dL 01/09/24 Range/Units 06:10 Carbon Dioxide 32 H (22-30) mmol/L BUN 28 H (7-17) mg/dL Creatinine 1.18 H (0.52-1.04) mg/dL Glucose 105 H (74-99) mg/dL POC Glucose (mg/dL) (70-110) mg/dL
--- NOTE | 2024-01-09 10:36 | CC ---
CARDIAC CATHETERIZATION REPORT INDICATION: Unstable angina. PROCEDURE NOTE: After obtaining informed consent, left heart catheterization and coronary angiogram were performed via the right radial artery using standard Phyllis catheters. The patient tolerated the procedure well without any obvious immediate complications. The patient received moderate conscious sedation. Total sedation time was 19 minutes. The patient received verapamil per protocol. I gave her 1500 units of heparin. She already received Lovenox dose this morning for DVT prophylaxis. FINDINGS: 1. Hemodynamics: Central aortic pressure is 120/80 mm. 2. Left ventriculogram: Left ventriculogram is not performed. 3. Angiographic data: Right coronary artery is a large dominant vessel that gives off a large caliber PDA that shows a 70% stenosis in the distal portion. Circumflex coronary artery which is a codominant vessel is free of stenosis. LAD gives off a large caliber diagonal branch that shows a focal 90% stenosis. There is a long segment of diffuse disease between the 1st and 2nd diagonal branch involving the LAD. CONCLUSIONS: Significant stenosis involving PDA, critical stenosis involving the diagonal branch, and significant disease involving the LAD. PLAN: Dr. Zheng, the on-call fitter tacker, will review the angiographic data and will advise on percutaneous revascularization. MMODL / IJN: [id number] /
[2024-01-09 12:13] LABS: Glucose,Whole Blood 141 mg/dL (70-110)
--- NOTE | 2024-01-09 14:08 | P.PN ---
Subjective Progress Note Date: 01/09/24 Hospital Course: 83-year-old female with a PMH of type II DM, chronic systolic CHF, hyperlipide susie, hypertension, urinary incontinence, and dementia who was transferred from outside hospital where the patient had presented with complaints of shortness of breath. The patient underwent an extensive evaluation at [facility] which was all reviewed with EKG showing sinus rhythm at [address]/T wave changes noted aside from poor R wave progression as reviewed by me. A CTA chest with contrast revealed mild bilateral pleural effusions with no pulmonary embolism. A CT abdomen and pelvis with contrast revealed a complex enhancing cystic mass in the superior pole of the right kidney suspicious for potential carcinoma with MRI recommended with a simple appearing cyst of the liver as well as bilateral hydronephrosis. Laboratory evaluation was remarkable for sodium 142, potassium 3.8, chloride 102, CO2 26, BUN 32, creatinine 1.2, troponin less than 0.05, with BNP 3900. WBC count was 7.1, hemoglobin 13.2, platelet count 149. The patient was treated for CHF exacerbation with IV Lasix prior to transfer. The patient had an SpO2 of 88% on room air in the emergency room. Cardiology consulted. Currently on IV Lasix. Echocardiogram report reviewed, shows LVEF around 30%, moderate mitral regurgitation, severe pulmonary hypertension. Cardiac cath showed significant stenosis involving PDA, critical stenosis involving the diagonal branch and significant disease involving the LAD. Cardiology recommending outpatient follow-up and scheduled outpatient intervention. Subjective: Patient seen and examined at bedside. No acute events overnight. Dyspnea improved Pertinent positives and negatives as discussed above, a complete review of systems was performed and all other systems are negative. Vitals Signs Reviewed. General: Nontoxic, no distress, appears at stated age Derm: Warm, dry Head: Atraumatic, normocephalic, symmetric Eyes: EOMI, no lid lag, anicteric sclera Mouth: No lip lesion, mucus membranes moist Cardiovascular: S1S2 reg, no murmur Lungs: Bibasilar rales, no accessory muscle use Abdominal: Soft, nontender to palpation, no guarding, no appreciable organomegaly Ext: No gross muscle atrophy, no edema, no contractures Neuro: CN II-XI grossly intact, no focal neuro deficits Psych: Alert, oriented, appropriate affect Data Reviewed Today: Pertinent Labs: Sodium 138, potassium 3.8, creatinine 1.18, magnesium 1.9, blood sugars range between 72-1 41 Imaging: No new imaging Assessment and Plan: Active: Acute systolic CHF exacerbation Ischemic cardiomyopathy Multivessel CAD Hypertension Dyslipidemia -Cardiology note reviewed, likely discharge tomorrow if renal function stays stable -Continue IV Lasix 40 daily, monitor renal function and electrolytes -Intake and output, daily weights -Continue aspirin 81 mg, atorvastatin 40 mg, carvedilol 6.25 mg, Farxiga added by cardiology at 10 mg daily, losartan 25 mg, isosorbide 30 mg Diabetes -Continue Levemir 8 units nightly -Sliding scale insulin, monitor for hypoglycemia Right kidney complex cyst - outpatient MRI Chronic: GERD Cognitive impairment DVT ppx: Lovenox Code status: Full code Anticipated discharge place: Pending clinical course Anticipated discharge time: Pending clinical course Objective - Vital Signs Vital signs: Vital Signs Temp 97.6 F 01/09/24 07:05 Pulse 66 01/09/24 07:05 Resp 15 01/09/24 07:05 BP 150/86 01/09/24 07:05 Pulse Ox 96 01/09/24 07:05 FiO2 Intake & Output 01/08/24 01/09/24 01/09/24 18:59 06:59 18:59 Intake Total 1331 100 Output Total 1450 1000 240 Balance -119 -1000 -140 Weight 59.7 kg Intake: IV 100 Oral 1331 Output: Urine 1450 1000 240 Other: Voiding Method Diaper Diaper Diaper External Catheter External Catheter External Catheter # Voids 1 1 # Bowel Movements 1 - Labs CBC & Chem 7: 01/07/24 07:10 01/09/24 06:10 Labs: Abnormal Lab Results - Last 24 Hours (Table) 01/08/24 01/08/24 01/09/24 Range/Units 17:27 20:33 06:10 Carbon Dioxide 32 H (22-30) mmol/L BUN 28 H (7-17) mg/dL Creatinine 1.18 H (0.52-1.04) mg/dL Glucose 105 H (74-99) mg/dL POC Glucose (mg/dL) 216 H 207 H (70-110) mg/dL 01/09/24 Range/Units 12:12 Carbon Dioxide (22-30) mmol/L BUN (7-17) mg/dL Creatinine (0.52-1.04) mg/dL Glucose (74-99) mg/dL POC Glucose (mg/dL) 141 H (70-110) mg/dL
[2024-01-09 17:36] LABS: Glucose,Whole Blood 199 mg/dL (70-110)
[2024-01-09 21:38] LABS: Glucose,Whole Blood 189 mg/dL (70-110)
[2024-01-10 06:35] LABS: Glucose,Whole Blood 87 mg/dL (70-110)
[2024-01-10 08:01] LABS: African American GFR (CKD) 59 (>60 ml/min/1.73 sqM); Anion Gap 5 mmol/L; Blood Urea Nitrogen 23 mg/dL (7-17); Calcium 8.7 mg/dL (8.4-10.2); Carbon Dioxide 29 mmol/L (22-30); Chloride 104 mmol/L (98-107); Glucose 85 mg/dL (74-99); Non-African American GFR(CKD) 51 (>60 ml/min/1.73 sqM); Potassium 3.7 mmol/L (3.5-5.1); Sodium 138 mmol/L (137-145)
[2024-01-10 09:11] VITALS: BP 127/84; PULSE 68; RESP 14; TEMP 97.6
--- NOTE | 2024-01-10 12:51 | P.PN ---
Subjective Progress Note Date: 01/10/24 This is a 83-year-old female with a past medical history significant for hypertension, hyperlipidemia, diabetes, congestive heart failure, and cardiomyopathy. Patient follows in the office with Dr. Eddy. We have been asked to see the patient in consultation for congestive heart failure. Patient examined at the bedside. Patient states that she began feeling short of breath on Friday and it has progressively got worse. She states that she is having a hard time having a conversation due to her dyspnea. She also reports increased swelling in her lower extremities. She states that she has not gained any weight recently. She states that she has been compliant at home with her Lasix and a low-sodium diet. It is noted that the patient had an echocardiogram performed last year revealing EF 25 to 30%, anterior apical anterior septal and anterior lateral akinesis, mild to moderate mitral regurgitation, and mild tricuspid regurgitation. Patient's previous echocardiogram revealed preserved EF. The patient states that she does not remember having a cardiac catheterization. She states if she did it was at least 5 to 10 years ago. DIAGNOSTICS: - EKG reveals sinus mechanism with Q waves inferiorly and anteriorly. No signs of acute ischemia.. - Chest xray right lung base airspace disease with associated trace pleural effusion. - Laboratory data: WBC 6.79. Hemoglobin 13.7. Platelet count 165. Sodium 137. Potassium 3.8. BUN 31. Creatinine 1.2. Troponin negative x 1. proBNP 47,800. - Current home cardiac medications include carvedilol 6.25 mg twice a day, losartan 25 mg daily, Imdur 30 mg daily, Lasix 40 mg daily, Lipitor 20 mg at night, aspirin 81 mg at night. 01/08/2024 Patient examined this morning at the bedside. Patient currently denies chest pain or pressure. She reports improvement in her shortness of breath. Vital signs are stable. She remains on IV Lasix 40 mg every 12 hours.. Echocardiogram completed revealing ejection fraction 25 to 30% with moderate mitral r egurgitation and severe pulmonary hypertension 01/09/2024 Patient examined this morning at the bedside. Patient is s/p cardiac cath revealing 90% diagonal, 60-70% LAD stenosis, and also a PDA lesion. Dr. Zheng reviewed images and plan is to bring patient back next week for intervention. Patient currently denies chest pain or pressure. She denies SOB. Vital signs are stable. 01/10/2024 Patient was seen and examined resting comfortably in bed. Vital signs are stable. Labs showed some improvement in renal function with a BUN of 23 and creatinine 1.03. She denies any shortness of breath, orthopnea or PND. She denies chest pain pressure or tightness but does say she feels a bit heavy in the chest. She complains of right radial puncture site tenderness with ecchymosis noted. Objective - Vital Signs Vital signs: Vital Signs Temp 97.6 F 01/10/24 08:00 Pulse 68 01/10/24 08:00 Resp 14 01/10/24 08:00 BP 127/84 01/10/24 08:00 Pulse Ox 97 01/10/24 08:00 FiO2 Intake & Output 01/09/24 01/10/24 01/10/24 18:59 06:59 18:59 Intake Total 218 358 Output Total 390 Balance -172 358 Intake: IV 100 Oral 118 358 Output: Urine 390 Other: Voiding Method Diaper Diaper Diaper External Catheter External Catheter External Catheter # Voids 1 2 # Bowel Movements 1 - Exam VITAL SIGNS: Reviewed. GENERAL: Well-developed in no acute distress. HEENT: Head is normocephalic. Pupils are equal, round. Sclerae anicteric. Mucous membranes of the mouth are moist. Neck supple. No JVD or thyromegaly LUNGS: Respirations even and unlabored. Lungs essentially clear to auscultation bilaterally. HEART: Regular rate and rhythm. S1 and S2 heard. ABDOMEN: Soft. Nondistended. Nontender. EXTREMITIES: Normal range of motion. No clubbing or cyanosis. Peripheral pulses intact. Trace bilateral lower extremity edema, worse at the ankles. Right radial puncture site soft with ecchymosis and tenderness to palpation, pulses intact and normal. NEUROLOGIC: Awake and alert. Oriented x 3. - Labs CBC & Chem 7: 01/07/24 07:10 01/10/24 06:16 Labs: Abnormal Lab Results - Last 24 Hours (Table) 01/09/24 01/09/24 01/10/24 Range/Units 17:35 21:36 06:16 BUN 23 H (7-17) mg/dL POC Glucose (mg/dL) 199 H 189 H (70-110) mg/dL Assessment and Plan Assessment: Shortness of breath Acute on chronic heart failure with reduced EF, 35 to 40%, now 25 to 30% New onset cardiomyopathy in 2022, Ischemic S/P cardiac cath revealing 90% diagonal, 60-70% LAD stenosis, and also a PDA lesion Hypertension Hyperlipidemia Diabetes Moderate mitral regurgitation Severe pulmonary hypertension Plan: From cardiology's perspective we will switch to oral diuretic. Will increase isosorbide to 60 mg daily. She may be discharged home and follow-up with plan for outpatient intervention of the diagonal branch and FFR of the LAD. [employer] note has been reviewed, I agree with a documented findings and plan of care. Patient was seen and examined.
--- NOTE | 2024-01-10 14:09 | P.DS ---
Providers Date of admission: 01/07/24 12:45 Expected date of discharge: 01/10/24 Attending physician: Shayy Hammer MD Consults: 01/06/24 19:17 Consult Physician Routine Consulting Provider: Todd Lehman Consult Reason/Comments: cp Do you want consulting provider notified?: Yes Primary care physician: Dayana Fernandes MD Hospital Course: Discharge Diagnosis: Acute systolic CHF exacerbation Ischemic cardiomyopathy Multivessel CAD Hypertension Dyslipidemia Diabetes Right kidney complex cyst GERD Cognitive impairment Hospital Course: 83-year-old female with a PMH of type II DM, chronic systolic CHF, hyperlipidemia, hypertension, urinary incontinence, and dementia who was transferred from outside hospital where the patient had presented with complaints of shortness of breath. The patient underwent an extensive evaluation at [facility] which was all reviewed with EKG showing sinus rhythm at [address]/T wave changes noted aside from poor R wave progression as reviewed by me. A CTA chest with contrast revealed mild bilateral pleural effusions with no pulmonary embolism. A CT abdomen and pelvis with contrast revealed a complex enhancing cystic mass in the superior pole of the right kidney suspicious for potential carcinoma with MRI recommended with a simple appearing cyst of the liver as well as bilateral hydronephrosis. L aboratory evaluation was remarkable for sodium 142, potassium 3.8, chloride 102, CO2 26, BUN 32, creatinine 1.2, troponin less than 0.05, with BNP 3900. WBC count was 7.1, hemoglobin 13.2, platelet count 149. The patient was treated for CHF exacerbation with IV Lasix prior to transfer. The patient had an SpO2 of 88% on room air in the emergency room. Cardiology consulted. Currently on IV Lasix. Echocardiogram report reviewed, shows LVEF around 30%, moderate mitral regurgitation, severe pulmonary hypertension. Cardiac cath showed significant stenosis involving PDA, critical stenosis involving the diagonal branch and significant disease involving the LAD. Cardiology recommending outpatient follow-up and scheduled outpatient intervention. Being discharged on oral diuretics. Patient seen and examined at bedside. Vital signs reviewed and stable. General: Nontoxic, no distress, appears at stated age Derm: Warm, dry Head: Atraumatic, normocephalic, symmetric Eyes: EOMI, no lid lag, anicteric sclera Mouth: No lip lesion, mucus membranes moist Cardiovascular: S1S2 reg, no murmur Lungs: CTA bilateral, no rhonchi, no rales, no accessory muscle use Abdominal: Soft, nontender to palpation, no guarding, no appreciable organomegaly Ext: No gross muscle atrophy, no edema, no contractures Neuro: CN II-XI grossly intact, no focal neuro deficits Psych: Alert, oriented, appropriate affect A total of 33 minutes of time were spent preparing this complex discharge summary. Patient was discharged on 01/10/2024 at 1243. Patient Condition at Discharge: Stable Plan - Discharge Summary New Discharge Prescriptions: New Spironolactone [Aldactone] 25 mg PO DAILY #60 tab Dapagliflozin Propanediol [Farxiga] 10 mg PO DAILY #60 tab Pantoprazole [Protonix] 40 mg PO DAILY #60 tab Atorvastatin [Lipitor] 40 mg PO HS #60 tab Continue carvediloL [Coreg] 6.25 mg PO BID-W/MEALS tab Furosemide [Lasix] 40 mg PO DAILY Losartan [Cozaar] 25 mg PO DAILY Acetaminophen Tab [Tylenol] 1,000 mg PO Q6HR PRN #30 tablet PRN Reason: Pain Insulin Glargine,Hum.rec.anlog [Basaglar Kwikpen U-100] 8 units SQ HS Ondansetron [Zofran] 8 mg PO BID PRN PRN Reason: Nausea traMADol HCl [Ultram] 50 mg PO BID PRN PRN Reason: Pain Calcium Carbonate/Vitamin D3 [Calcium 600 mg-Vit D3 10 mcg (400 Unit)] 2 tab PO DAILY Dicyclomine HCl 10 mg PO DAILY PRN PRN Reason: Gi Upset Magnesium Oxide [Mag-Ox] 400 mg PO HS Ubidecarenone [Q-Sorb Co Q-10] 200 mg PO DAILY Donepezil [Aricept] 10 mg PO HS Aspirin [Adult Low Dose Aspirin EC] 81 mg PO HS Multivitamins, Thera [Multivitamin (formulary)] 1 tab PO DAILY Changed Isosorbide Mononitrate ER [Imdur] 60 mg PO DAILY #0 Discontinued Atorvastatin [Lipitor] 20 mg PO HS tab Discharge Medication List carvediloL [Coreg] 6.25 mg PO BID-W/MEALS tab 02/17/23 [Rx] Aspirin [Adult Low Dose Aspirin EC] 81 mg PO HS 05/27/23 [History] Donepezil [Aricept] 10 mg PO HS 11/07/23 [History] Furosemide [Lasix] 40 mg PO DAILY 05/27/23 [History] Losartan [Cozaar] 25 mg PO DAILY 05/27/23 [History] Acetaminophen Tab [Tylenol] 1,000 mg PO Q6HR PRN #30 tablet 05/30/23 [Rx] Insulin Glargine,Hum.rec.anlog [Basaglar Kwikpen U-100] 8 units SQ HS 09/23/23 [History] Ondansetron [Zofran] 8 mg PO BID PRN 09/23/23 [History] Calcium Carbonate/Vitamin D3 [Calcium 600 mg-Vit D3 10 mcg (400 Unit)] 2 tab PO DAILY 01/06/24 [History] Dicyclomine HCl 10 mg PO DAILY PRN 01/06/24 [History] Magnesium Oxide [Mag-Ox] 400 mg PO HS 01/06/24 [History] Multivitamins, Thera [Multivitamin (formulary)] 1 tab PO DAILY 01/06/24 [History] Ubidecarenone [Q-Sorb Co Q-10] 200 mg PO DAILY 01/06/24 [History] traMADol HCl [Ultram] 50 mg PO BID PRN 01/06/24 [History] Atorvastatin [Lipitor] 40 mg PO HS #60 tab 01/10/24 [Rx] Dapagliflozin Propanediol [Farxiga] 10 mg PO DAILY #60 tab 01/10/24 [Rx] Isosorbide Mononitrate ER [Imdur] 60 mg PO DAILY #0 01/10/24 [Rx] Pantoprazole [Protonix] 40 mg PO DAILY #60 tab 01/10/24 [Rx] Spironolactone [Aldactone] 25 mg PO DAILY #60 tab 01/10/24 [Rx] Follow up Appointment(s)/Referral(s): Dayana Fernandes MD [Primary Care Provider] - 1-2 days Rocco Eddy MD [STAFF PHYSICIAN] - 1 Week Patient Instructions/Handouts: Heart Failure (DC), After Radial Heart Catheterization (GEN) Activity/Diet/Wound Care/Special Instructions: Please see your criminal investigator customs and PCP. Discharge Disposition: HOME SELF-CARE
[2024-01-11] MEDS ORDERED: ENOXAPARIN 40 MG/0.4 ML SYRINGE SQ SCH (09:00)
[2024-01-11] MEDS ORDERED: FUROSEMIDE 40 MG TAB PO SCH (09:00)
[2024-01-11] MEDS ORDERED: ISOSORBIDE MONONITRATE ER 60 MG TAB.ER.24H PO SCH (09:00)
== END 2024-01-10 13:51 | disposition home or self-care (01) | DRG 286 ==
LOC: EC 18:44 → 6NMEDSUR 19:17 → OBSVTOIN 01-07 12:45
PROVIDERS: ADMIT Internal Medicine; ATTEND Internal Medicine
PROC: B2111ZZ Fluoroscopy of Multiple Coronary Arteries using Low Osmolar Contrast (ICD-10-PCS; principal; 2024-01-09 07:30)
PROC: 4A023N7 Measurement of Cardiac Sampling and Pressure, Left Heart, Percutaneous Approach (ICD-10-PCS; principal; 2024-01-09 07:30)
DX: I11.0 Hypertensive heart disease with heart failure (principal); I50.23 Acute on chronic systolic (congestive) heart failure; F03.94 Unspecified dementia, unspecified severity, with anxiety; F03.93 Unspecified dementia, unspecified severity, with mood disturbance; I25.110 Atherosclerotic heart disease of native coronary artery with unstable angina pectoris; K58.9 Irritable bowel syndrome, unspecified; H91.91 Unspecified hearing loss, right ear; M19.90 Unspecified osteoarthritis, unspecified site; R94.31 Abnormal electrocardiogram [ECG] [EKG]; I08.1 Rheumatic disorders of both mitral and tricuspid valves; E78.5 Hyperlipidemia, unspecified; I25.2 Old myocardial infarction; E11.9 Type 2 diabetes mellitus without complications; I25.5 Ischemic cardiomyopathy; I27.20 Pulmonary hypertension, unspecified; F32.A Depression, unspecified; K21.9 Gastro-esophageal reflux disease without esophagitis; R32 Unspecified urinary incontinence; Z79.4 Long term (current) use of insulin; Z79.82 Long term (current) use of aspirin; Z79.84 Long term (current) use of oral hypoglycemic drugs; Z79.899 Other long term (current) drug therapy; Z87.442 Personal history of urinary calculi; Z86.19 Personal history of other infectious and parasitic diseases
CPT/HCPCS: 36415; 71045; 80048; 80053; 83735; 83880; 84100; 84484; 85025; 85610; 85730; 93005; 93306; 93454; 96361; 96374; 99285

== ENCOUNTER 2024-01-14 10:43 | Day surgery (SDC) | payer MEDICARE, BC ==
[~2024-01-14 10:43] MED LIST changes: +ALPRAZolam 0.25 MG TAB PO PRN; +ALPRAZolam 0.5 MG TAB PO PRN; -HYDROmorphone 0.5 MG/0.5 ML SYRINGE IVP PRN; +NITROGLYCERIN SL TABS 0.4 MG TAB SUBLINGUAL PRN; -SODIUM CHLORIDE 0.9% IRRIGATIO 1,000 ML IRRIGATION PRN; -fentaNYL (PF) 50 MCG/ML 2 ML AMP IV PRN
[2024-01-14] MEDS: IV FLUID CONTINUATION 1,000 ML IV ONE (12:11)
[2024-01-14] MEDS: SODIUM CHLORIDE 0.9% 1,000 ML in EMPTY BAG 1 BAG IV SCH ×2 (12:11→20:00)
[2024-01-14 12:26] LABS: Glucose,Whole Blood 142 mg/dL (70-110)
[2024-01-14 12:43] LABS: Basophils # (A) 0.2 k/uL (0-0.2); Basophils % (A) 3 %; Eosinophils # (A) 0.1 k/uL (0-0.7); Eosinophils % (A) 1 %; HCT 43.6 % (34.0-46.0); HGB 13.9 gm/dL (11.4-16.0); Hypochromasia Slight; Lymphocytes # (A) 1.9 k/uL (1.0-4.8); Lymphocytes % (A) 23 %; MCH 31.1 pg (25.0-35.0); MCV 97.2 fL (80.0-100.0); Mean Platelet Volume 10.2; Monocytes # (A) 0.7 k/uL (0-1.0); Monocytes % (A) 8 %; Neutrophils % (A) 61 %; Platelet Count 121 k/uL (150-450); RBC 4.48 m/uL (3.80-5.40); RDW 15.1 % (11.5-15.5); WBC 8.2 k/uL (3.8-10.6)
[2024-01-14] MEDS: MIDAZOLAM 2 MG/2 ML VIAL IVP ONE (17:58)
[2024-01-14] MEDS: LIDOCAINE 1% INJ 10MG/ML (30 ML VIAL-PF) SQ ONE ×2 (17:59→18:02)
[2024-01-14] MEDS: HEPARIN SODIUM 1,000 UN/ML (10ML VL) IVP ONE ×2 (18:14)
[2024-01-14] MEDS ORDERED: TICAGRELOR 90 MG TAB ONE (18:28)
[2024-01-14] MEDS: TICAGRELOR 90 MG TAB PO ONE (18:30)
[2024-01-14] MEDS ORDERED: niCARdipine 25 MG/10 ML VIAL ONE (18:52)
[2024-01-14] MEDS: NITROGLYCERIN 1000MCG/10ML SYRINGE INTRACORON ONE (19:26)
[2024-01-14] MEDS: IOPAMIDOL-370 200ML BTL INJ ONE (19:26)
[2024-01-14] MEDS: niCARdipine Syringe (1,000 mcg/10 mL) INTRACORON ONE (19:27)
[2024-01-14] MEDS ORDERED: ONDANSETRON 4 MG TAB PO PRN (19:34)
[2024-01-14] MEDS ORDERED: traMADol 50 MG TAB PO PRN (19:34)
[2024-01-14] MEDS ORDERED: DICYCLOMINE 10 MG CAP PO PRN (19:34)
[2024-01-14] MEDS ORDERED: ZOLPIDEM 5 MG TAB PO PRN (19:36)
[2024-01-14] MEDS ORDERED: MAG HYDROX/AL HYDROX/SIMETH 30 ML CUP PO PRN (19:36)
[2024-01-14] MEDS ORDERED: RX INFO: IV CONTRAST WAS GIVEN 1 EACH MISC MISCELLANE PRN (19:36)
[2024-01-14] MEDS ORDERED: ATROPINE SULFATE 0.1 MG/ML 10ML SYRINGE IV PRN (19:36)
[2024-01-14] MEDS ORDERED: NITROGLYCERIN SL TABS 0.4 MG TAB SUBLINGUAL PRN (19:36)
--- NOTE | 2024-01-14 19:43 | P.PCN ---
Date of Procedure: 01/14/24 Operative Findings: PERCUTANEOUS CORONARY INTERVENTION Performing physician Serafin Zheng M.D. Procedure Performed: 1. Successful stenting of the mid LAD using 3.0 x 28 mm Xience drug-eluting stent with an excellent angiographic results. 2. Balloon angioplasty of the first diagonal branch of the LAD 3. Adjunctive use of intravascular imaging and Dobler wire 4. Selective right common femoral artery angiogram and ultrasound-guided access of the right common femoral artery Indication: Severe cardiomyopathy in this 83-year-old female patient who underwent recently a heart catheterization and that revealed intermediate to severe disease involving the LAD and diagonal branch Approach: Right common femoral artery Complications: None Level of Sedation: Moderate with a sedation length of 88 minutes Procedure Discussion: Please refer to diagnostic heart catheterization was performed few days ago. Anticoagulation was initiated using heparin with continuous ACT monitoring. Initially the plan is to perform an FFR of the LAD and diagonal. Anticoagulation as a mention was initiated using heparin with continuous ACT monitoring. Subsequently after zeroing the Doppler wire and equalizing between the Doppler wire and guiding catheter which was JL 3.5 guiding catheter the left main was engaged. The wire was advanced to the first diagonal branch of the LAD and that showed an IFR of 0.88. Attempting advancing the Dobler wire to the LAD was unsuccessful and the wire was buckling in the mid LAD right after the takeoff of the diagonal branch. At that point I decided to wire the LAD using a whisper wire and then I can advance the Dobler wire as a chaka wire to the whisper wire knowing the course of the LAD. I did wired the LAD using a whisper wire but attempting advancing the Dobler wire again was unsuccessful with the following angiogram showing that the lesion appeared to be severely stenotic. At that point I decided to fix the lesion. I did pull the Dobler wire out and advanced another whisper wire to the LAD to have better anchoring. I did balloon angioplasty initially using 2 mm noncompliant balloon and subsequently intravascular ultrasound IVUS was performed and showed a diameter of the LAD around 3 mm. I deployed 3.0 x 28 mm stent which was postdilated using 4 mm noncompliant balloon. Please note that before the stent was deployed I did wired the diagonal branch and the wire was jailed by the stent. I postdilated the stent as a mention using 4 mm noncompliant balloon after that I did rewire the LAD again and subsequently the jailed wire was pulled out. An angiogram was performed and showed no flow in the diagonal branch. At that point I decided to do kissing balloon inflation of both the LAD and diagonal branch which was performed using 2.5 mm balloons. An angiogram after that it showed good angiographic results. Attempting advancing intravascular ultrasound to the LAD was unsuccessful and the catheter was not advanced beyond the proximal portion of the stent which made me concerned about stent struts hanging in the LAD. At that point I decided to balloon the LAD again which I did using 4 mm noncompliant balloon after that I was able to advance the IVUS catheter to the LAD and do manual pullback. That showed that the stent was well opposed and well expanded. The flow in the diagonal branch was ALISHA III flow and there was a hazy in the proximal portion could represent dissection or thrombus but again the flow was ALISHA-3 flow and I decided to stop. The procedure was completed with no complication. After that I did do selective right common femoral artery angiogram before I deployed the Angio-Seal closure device Postprocedure Management: 1. Dual antiplatelet therapy using aspirin and Brilinta for at least 6-month 2. Aggressive cholesterol control 3. Risk factors modification
[2024-01-14] MEDS: ACETAMINOPHEN TAB 500 MG TAB PO PRN (20:07)
[2024-01-14] MEDS: MAGNESIUM OXIDE 400 MG TAB PO SCH (20:08)
[2024-01-14] MEDS: ASPIRIN 81 MG PO SCH (20:08)
[2024-01-14] MEDS: DONEPEZIL 10 MG TAB PO SCH (20:09)
[2024-01-14] MEDS: ATORVASTATIN 40 MG TAB PO SCH (20:09)
[2024-01-14 20:55] LABS: Glucose,Whole Blood 101 mg/dL (70-110)
[2024-01-14] MEDS: ASPIRIN 325 MG TAB PO STA (21:35)
[2024-01-14] MEDS: INSULIN DETEMIR (LEVEMIR) 100 UNIT/ML SYR SQ SCH (21:36)
[2024-01-15 06:17] LABS: Glucose,Whole Blood 117 mg/dL (70-110)
[2024-01-15] MEDS: carvediloL 6.25 MG TAB PO SCH (06:50)
[2024-01-15] MEDS: PANTOPRAZOLE 40 MG TABLET PO SCH (06:50)
[2024-01-15 07:31] VITALS: BP 156/89; PULSE 70; RESP 18; TEMP 97.4
[2024-01-15] MEDS: SPIRONOLACTONE 25 MG TAB PO SCH (08:19)
[2024-01-15] MEDS: DAPAGLIFLOZIN PROPANEDIOL 10 MG TABLET PO SCH (08:19)
[2024-01-15] MEDS: CALCIUM CARB-VIT D 500 MG-5 MCG TAB PO SCH (08:19)
[2024-01-15] MEDS: FUROSEMIDE 40 MG TAB PO SCH (08:20)
[2024-01-15] MEDS: TICAGRELOR 90 MG TAB PO SCH (08:20)
[2024-01-15] MEDS: ISOSORBIDE MONONITRATE ER 30 MG TAB.ER.24H PO SCH (08:20)
[2024-01-15] MEDS: MULTIVITAMINS, THERA 1 EACH TAB PO SCH (08:20)
[2024-01-15] MEDS: LOSARTAN 25 MG TAB PO SCH (08:20)
[2024-01-15 08:39] LABS: African American GFR (CKD) 66 (>60 ml/min/1.73 sqM); Non-African American GFR(CKD) 57 (>60 ml/min/1.73 sqM)
[2024-01-15] MEDS ORDERED: UBIDECARENONE 200 MG PO SCH (09:00)
--- NOTE | 2024-01-15 09:56 | P.DS ---
Providers Attending physician: Serafin Zheng Consults: 01/14/24 19:36 Consult Physician Routine Consulting Provider: [facility] Consult Reason/Comments: Post Interventional patient Do you want consulting provider notified?: Already Contacted Primary care physician: Dayana Fernandes MD Hospital Course: The patient is a pleasant 84-year-old female patient who sees Dr. Eddy on regular basis who was admitted to the hospital recently with a newly diagnosis cardiomyopathy and underwent a heart catheterization and that revealed intermediate to severe disease involving the LAD and diagonal branch. She was admitted to the hospital yesterday and underwent successful PCI of the LAD and diagonal. The procedure was performed from the right groin which is soft and nontender with no bruises. She is asymptomatic from the cardiovascular standpoint of view. She is hemodynamically stable. From the cardiovascular standpoint of view, the patient will be discharged on dual antiplatelet therapy including aspirin and Brilinta along with a statin. The importance of taking dual antiplatelet therapy and the consequences of interrupting them including heart attack and was discussed with the patient in details. The patient stated that she has her daughter who comes every day and made sure that her medication has been taken regularly. Plan - Discharge Summary Discharge Rx Participant: No New Discharge Prescriptions: New Ticagrelor [Brilinta] 90 mg PO BID #180 tablet Continue carvediloL [Coreg] 6.25 mg PO BID-W/MEALS tab Furosemide [Lasix] 40 mg PO DAILY Losartan [Cozaar] 25 mg PO DAILY Acetaminophen Tab [Tylenol] 1,000 mg PO Q6HR PRN #30 tablet PRN Reason: Pain Insulin Glargine,Hum.rec.anlog [Basaglar Kwikpen U-100] 8 units SQ HS Ondansetron [Zofran] 8 mg PO BID PRN PRN Reason: Nausea traMADol HCl [Ultram] 50 mg PO BID PRN PRN Reason: Pain Calcium Carbonate/Vitamin D3 [Calcium 600 mg-Vit D3 10 mcg (400 Unit)] 2 tab PO DAILY Dicyclomine HCl 10 mg PO DAILY PRN PRN Reason: Gi Upset Magnesium Oxide [Mag-Ox] 400 mg PO HS Ubidecarenone [Q-Sorb Co Q-10] 200 mg PO DAILY Spironolactone [Aldactone] 25 mg PO DAILY #60 tab Dapagliflozin Propanediol [Farxiga] 10 mg PO DAILY #60 tab Pantoprazole [Protonix] 40 mg PO DAILY #60 tab Isosorbide Mononitrate ER [Imdur] 30 mg PO DAILY Donepezil [Aricept] 10 mg PO HS Aspirin [Adult Low Dose Aspirin EC] 81 mg PO HS Multivitamins, Thera [Multivitamin (formulary)] 1 tab PO DAILY Atorvastatin [Lipitor] 40 mg PO HS #60 tab Discharge Medication List carvediloL [Coreg] 6.25 mg PO BID-W/MEALS tab 02/17/23 [Rx] Aspirin [Adult Low Dose Aspirin EC] 81 mg PO HS 05/27/23 [History] Donepezil [Aricept] 10 mg PO HS 05/27/23 [History] Furosemide [Lasix] 40 mg PO DAILY 05/27/23 [History] Losartan [Cozaar] 25 mg PO DAILY 05/27/23 [History] Acetaminophen Tab [Tylenol] 1,000 mg PO Q6HR PRN #30 tablet 05/30/23 [Rx] Insulin Glargine,Hum.rec.anlog [Basaglar Kwikpen U-100] 8 units SQ HS 09/23/23 [History] Ondansetron [Zofran] 8 mg PO BID PRN 09/23/23 [History] Calcium Carbonate/Vitamin D3 [Calcium 600 mg-Vit D3 10 mcg (400 Unit)] 2 tab PO DAILY 01/06/24 [History] Dicyclomine HCl 10 mg PO DAILY PRN 01/06/24 [History] Magnesium Oxide [Mag-Ox] 400 mg PO HS 01/06/24 [History] Multivitamins, Thera [Multivitamin (formulary)] 1 tab PO DAILY 01/06/24 [History] Ubidecarenone [Q-Sorb Co Q-10] 200 mg PO DAILY 01/06/24 [History] traMADol HCl [Ultram] 50 mg PO BID PRN 01/06/24 [History] Atorvastatin [Lipitor] 40 mg PO HS #60 tab 01/10/24 [Rx] Dapagliflozin Propanediol [Farxiga] 10 mg PO DAILY #60 tab 01/10/24 [Rx] Pantoprazole [Protonix] 40 mg PO DAILY #60 tab 01/10/24 [Rx] Spironolactone [Aldactone] 25 mg PO DAILY #60 tab 01/10/24 [Rx] Isosorbide Mononitrate ER [Imdur] 30 mg PO DAILY 01/13/24 [History] Ticagrelor [Brilinta] 90 mg PO BID #180 tablet 01/15/24 [Rx] Follow up Appointment(s)/Referral(s): Rocco Eddy MD [STAFF PHYSICIAN] - 1 Week Patient Instructions/Handouts: Moderate Sedation (DC), After Radial Heart Catheterization (GEN) Activity/Diet/Wound Care/Special Instructions: *NO LIFTING, PUSHING, OR PULLING ANYTHING OVER 5 POUNDS FOR 5 DAYS *NO DRIVING FOR 3 DAYS *YOU CAN REMOVE YOUR DRESSING TOMORROW BUT DO NOT SUBMERSE YOUR PUNCTURE SITE IN WATER FOR A FEW DAYS TO PREVENT INFECTION - SO NO TUB BATHS, POOLS, HOT TUBS, DISHES...ETC *ANY SIGNS OF BLEEDING (HARDNESS, SWELLING, OR EXCESSIVE BRUISING) HOLD DIRECT PRESSURE ON YOUR PUNCTURE SITE AND COME TO THE NEAREST EMERGENCY ROOM TO GET YOUR PUNCTURE SITE LOOKED AT - DO NOT DRIVE YOURSELF! EITHER CALL EMS OR HAVE SOMEONE DRIVE YOU!
== END 2024-01-15 12:30 | disposition home or self-care (01) ==
LOC: CATHCVL 10:43 → 6NMEDSUR 19:30 → CATHCVL 01-15 12:30
PROVIDERS: ATTEND Internal Medicine Interventional Cardiology
DX: I25.10 Atherosclerotic heart disease of native coronary artery without angina pectoris (principal); I42.9 Cardiomyopathy, unspecified; Z95.5 Presence of coronary angioplasty implant and graft; Z79.899 Other long term (current) drug therapy; Z79.84 Long term (current) use of oral hypoglycemic drugs; Z79.82 Long term (current) use of aspirin; Z79.02 Long term (current) use of antithrombotics/antiplatelets
CPT/HCPCS: 92978; 93799; 92921; 82565; 85025; C9600; C1760; C1769 ×6; C1887; C1894 ×3; C1725 ×6; C1753; C1874; J2250; J2001; J1644; Q9967; J2305

== ENCOUNTER → 2024-01-23 | Outpatient (CLI) | payer MEDICARE, BC ==
--- NOTE | 2024-01-23 16:15 | US ---
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 N o internal color flow identified. Narrow neck identified. The visualized right radial artery at the palpable abnormality is patent with normal multiphasic waveforms.
== END | disposition home or self-care (01) ==
LOC: RADUSWWP 13:28
PROVIDERS: ATTEND Internal Medicine Cardiovascular Disease
DX: I25.10 Atherosclerotic heart disease of native coronary artery without angina pectoris (principal); I25.5 Ischemic cardiomyopathy

== ENCOUNTER → 2024-05-31 | Outpatient (CLI) | payer MEDICARE, BC ==
--- NOTE | 2024-05-31 12:43 | CT ---
EXAMINATION TYPE: CT abdomen wo con CT DLP: 269 mGycm, Automated exposure control for dose reduction was used. 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 Lack of IV or oral contrast limi ts evaluation of solid and hollow organ viscera. Coronal and sagittal reformats were performed. FINDINGS: LOWER CHEST: Minimal residual reticular groundglass opacity within the left lower lobe. Advance coron alexy care calcifications. Most prominent along the LAD. Small mitral valvular calcifications. ABDOMEN LIVER: Stable few hepatic cysts. GALLBLADDER AND BILE DUCTS: Gallbladder is surgically absent with mild intrahepatic and extra hepatic biliary dilatation likely physiologic and a postcholecystectomy change. No evidence of choledocholit hiasis. PANCREAS: Unremarkable noncontrast appearance. SPLEEN: Unremarkable noncontrast appearance. ADRENAL GLANDS: Unremarkable noncontrast appearance. KIDNEYS AND URETERS: No evidence of hydronephrosis. Limited evaluation due to lack of intravenous con trast. Similar anterior exophytic cystic right renal lesion measuring grossly 3.5 x 2.9 cm. Demonstra paloma a punctate central calculus. Prominent left extrarenal pelvis left renal atrophy again demonstrat ed. No striking calculus. Renal vascular calcifications. STOMACH AND BOWEL: Stomach and duodenum are unremarkable. No focal bowel wall thickening or surroundi ng inflammatory changes. Distal colonic diverticulosis. No evidence of bowel obstruction. PERITONEUM: No evidence of pneumoperitoneum or free fluid. VASCULATURE: Moderate atherosclerotic calcifications are present throughout the abdominal aorta and i ts branches. No evidence of aortic aneurysm. Tortuosity of the abdominal aorta and its branches. MUSCULOSKELETAL: No acute osseous abnormalities. S-shaped scoliotic multilevel degenerative disc dise ase. Similar anterior wedge compression deformity of the curvature of the T11 vertebral body. Approxi mately 60% height loss. Vertebral augmentation changes from prior compression deformity T12 vertebral body. Increased kyphosis at T11-T12. Mild retrolisthesis of L4 on L5 is redemonstrated. LYMPH NODES: No gross evidence for lymphadenopathy. SOFT TISSUE/ABDOMINAL WALL: Unremarkable IMPRESSION: 1. Grossly stable size of right renal lesion from prior exams. Evaluation is limited due to lack of i ntravenous contrast. 2. Post cholecystectomy changes. [facility], , 05/31/2024 12:41 PM
== END | disposition home or self-care (01) ==
LOC: RADCTMAIN 11:51
PROVIDERS: ATTEND Urology
DX: D41.01 Neoplasm of uncertain behavior of right kidney (principal); M40.294 Other kyphosis, thoracic region; I70.0 Atherosclerosis of aorta; K57.30 Diverticulosis of large intestine without perforation or abscess without bleeding; N26.1 Atrophy of kidney (terminal); N28.1 Cyst of kidney, acquired; K76.89 Other specified diseases of liver; Z90.49 Acquired absence of other specified parts of digestive tract
CPT/HCPCS: 74150

== ENCOUNTER 2024-11-17 07:50 | Day surgery (SDC) | payer MEDICARE, BC ==
[2024-11-17] MEDS: IV FLUID CONTINUATION 1,000 ML IV ONE (08:23)
[2024-11-17 08:32] VITALS: RESP 16; TEMP 97.6
[2024-11-17] MEDS: LACTATED RINGERS 1,000 ML IV SCH (08:39)
[2024-11-17 08:42] LABS: Glucose,Whole Blood 157 mg/dL (70-110)
--- NOTE | 2024-11-17 09:10 | P.GSHP ---
History of Present Illness H&P Date: 11/17/24 CHIEF COMPLAINT: GERD HISTORY OF PRESENT ILLNESS: The patient is a 84-year-old female who presents reports gastroesophageal reflux disease. Upper endoscopy was offered for further evaluation and management. PAST MEDICAL HISTORY: Please see list. PAST SURGICAL HISTORY: Please see list. MEDICATIONS: Please see list. ALLERGIES: Please see list. SOCIAL HISTORY: No illicit drug use FAMILY HISTORY: No reports of Crohn disease or ulcerative colitis. REVIEW OF ORGAN SYSTEMS: CONSTITUTIONAL: No reports of fevers or chills. GI: Denies any blood in stools or constipation. PHYSICAL EXAM: VITAL SIGNS: Stable GENERAL: Well-developed and pleasant in no acute distress. HEENT: No scleral icterus. Extraocular movements grossly intact. Moist buccal mucosa. NECK: Supple without lymphadenopathy. CHEST: Unlabored respirations. Equal bilateral excursions. CARDIOVASCULAR: Regular rate and rhythm. Distal 2+ pulses. ABDOMEN: Soft, nondistended. MUSCULOSKELETAL: No clubbing, cyanosis, or edema. ASSESSMENT: 1. Gastroesophageal reflux disease PLAN: 1. 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, IBS, severe pulmonary HTN with EF 60-65%, silent MO, SOB & fluid retention Last Myocardial Infarction Date:: unknown History of Any Multi-Drug Resistant Organisms: C-DIFF Date of last positivie culture/infection: 08/21/15 MDRO Source:: STOOL Past Surgical History: Bowel Resection, Cholecystectomy, Heart Catheterization, Hernia Repair, Hysterectomy, Orthopedic Surgery, Tonsillectomy Additional Past Surgical History / Comment(s): 06/19/15 LAP SIGMOID RESECTION with lysis of adhesions, lithotripsy, cardiac cath with mild disease to proximal LAD, colonoscopy, L thigh cyst removed, BILAT CATARACTS REMOVED WITH LENS IMPLANTS, left ACL repair, recent cardiac cath. Past Anesthesia/Blood Transfusion Reactions: No Reported Reaction Smoking Status: Never smoker - Past Family History Father Family Medical History: Cancer, Congestive Heart Failure (CHF) Additional Family Medical History / Comment(s): prostate CA,lived to 93 Mother Family Medical History: Cancer Additional Family Medical History / Comment(s): liver issues-caused by tylenol. lived to 95 Medications and Allergies Home Medications Medication Instructions Recorded Confirmed Type carvediloL [Coreg] 6.25 mg PO BID-W/MEALS tab 02/17/23 11/17/24 Rx Aspirin [Adult Low Dose Aspirin EC] 81 mg PO HS 05/27/23 11/15/24 History Donepezil [Aricept] 10 mg PO HS 05/27/23 11/17/24 History Furosemide [Lasix] 20 mg PO DAILY 05/27/23 11/17/24 History Losartan [Cozaar] 25 mg PO DAILY 05/27/23 11/17/24 History Acetaminophen Tab [Tylenol] 1,000 mg PO Q6HR PRN #30 tablet 05/30/23 11/17/24 Rx Insulin Glargine,Hum.rec.anlog 10 units SQ HS 09/23/23 11/17/24 History [Basaglar Cristianpen U-100] traMADol HCl [Ultram] 50 mg PO BID PRN 01/06/24 11/17/24 History Atorvastatin [Lipitor] 40 mg PO HS #60 tab 01/10/24 11/17/24 Rx Dapagliflozin Propanediol [Farxiga] 10 mg PO DAILY #60 tab 01/10/24 11/17/24 Rx Pantoprazole [Protonix] 40 mg PO DAILY #60 tab 01/10/24 11/17/24 Rx Spironolactone [Aldactone] 25 mg PO DAILY #60 tab 01/10/24 11/17/24 Rx Isosorbide Mononitrate ER [Imdur] 30 mg PO DAILY 01/13/24 11/17/24 History Allergies Allergy/AdvReac Type Severity Reaction Status Date / Time adhesive tape Allergy red skin Verified 11/17/24 08:21 pregabalin [From Lyrica] AdvReac Hallucinati Verified 11/17/24 08:21 ons Surgical - Exam Vital Signs Temp Pulse Resp BP Pulse Ox 97.6 F 62 16 166/82 100 11/17/24 08:29 11/17/24 08:29 11/17/24 08:29 11/17/24 08:29 11/17/24 08:29 Results - Labs Abnormal Lab Results - Last 24 Hours (Table) 11/17/24 Range/Units 08:38 POC Glucose (mg/dL) 157 H (70-110) mg/dL
[2024-11-17] MEDS ORDERED: LIDOCAINE 1% INJ 10MG/ML (20 ML MDV) ONE (09:16)
[2024-11-17] MEDS ORDERED: PROPOFOL 10 MG/ML 20 ML VIAL IV ONE (09:16)
--- NOTE | 2024-11-17 09:39 | P.PCN ---
Date of Procedure: 11/17/24 Description of Procedure: PREOPERATIVE DIAGNOSIS: Dysphagia Gastroesophageal reflux disease. Unintentional weight Epigastric abdominal pain POSTOPERATIVE DIAGNOSIS: Gastritis. Diaphragmatic hiatal hernia OPERATION: Esophagogastroduodenoscopy with cold forceps biopsies along esophagus, antrum and duodenum SURGEON: Holly Marcelino MD ANESTHESIA: MAC. INDICATIONS: The patient is a 84-year-old female who presents with reflux disease. Benefits and risks of the procedure were described. Informed consent was obtained. DESCRIPTION: The patient was brought into the endoscopy suite and laid in the left lateral decubitus position. An Olympus gastroscope was passed along the posterior oropharynx down to the distal esophagus where the squamocolumnar junction was encountered at 34 cm from the incisors. The stomach was entered and no bile reflux was found. Additional findings are listed below. Biopsies with cold forceps were obtained of the antrum. The first through third portion of the duodenum was examined. Retroflexion of the scope confirmed Hill grade 4 lower esophageal valve. The squamocolumnar junction demonstrated LA grade B erosive esophagitis. The stomach was desufflated. The patient tolerated the procedure well. FINDINGS: Squamocolumnar junction 34 cm from the incisors. Diaphragmatic hiatus at 38 cm. Hiatal hernia, 4 cm, sliding-type Hill grade 4 lower esophageal valve. LA grade B erosive esophagitis. Biopsies obtained Biopsies obtained of the duodenum. Chronic gastritis with biopsies obtained. RECOMMENDATIONS: Upper endoscopy as needed. Plan - Discharge Summary Discharge Rx Participant: No New Discharge Prescriptions: Continue carvediloL [Coreg] 6.25 mg PO BID-W/MEALS tab Furosemide [Lasix] 20 mg PO DAILY Losartan [Cozaar] 25 mg PO DAILY Acetaminophen Tab [Tylenol] 1,000 mg PO Q6HR PRN #30 tablet PRN Reason: Pain Insulin Glargine,Hum.rec.anlog [Basaglar Kwikpen U-100] 10 units SQ HS traMADol HCl [Ultram] 50 mg PO BID PRN PRN Reason: Pain Spironolactone [Aldactone] 25 mg PO DAILY #60 tab Dapagliflozin Propanediol [Farxiga] 10 mg PO DAILY #60 tab Pantoprazole [Protonix] 40 mg PO DAILY #60 tab Isosorbide Mononitrate ER [Imdur] 30 mg PO DAILY Donepezil [Aricept] 10 mg PO HS Aspirin [Adult Low Dose Aspirin EC] 81 mg PO HS Atorvastatin [Lipitor] 40 mg PO HS #60 tab Discharge Medication List carvediloL [Coreg] 6.25 mg PO BID-W/MEALS tab 02/17/23 [Rx] Aspirin [Adult Low Dose Aspirin EC] 81 mg PO HS 05/27/23 [History] Donepezil [Aricept] 10 mg PO HS 05/27/23 [History] Furosemide [Lasix] 20 mg PO DAILY 05/27/23 [History] Losartan [Cozaar] 25 mg PO DAILY 05/27/23 [History] Acetaminophen Tab [Tylenol] 1,000 mg PO Q6HR PRN #30 tablet 05/30/23 [Rx] Insulin Glargine,Hum.rec.anlog [Basaglar Kwikpen U-100] 10 units SQ HS 09/23/23 [History] traMADol HCl [Ultram] 50 mg PO BID PRN 01/06/24 [History] Atorvastatin [Lipitor] 40 mg PO HS #60 tab 01/10/24 [Rx] Dapagliflozin Propanediol [Farxiga] 10 mg PO DAILY #60 tab 01/10/24 [Rx] Pantoprazole [Protonix] 40 mg PO DAILY #60 tab 01/10/24 [Rx] Spironolactone [Aldactone] 25 mg PO DAILY #60 tab 01/10/24 [Rx] Isosorbide Mononitrate ER [Imdur] 30 mg PO DAILY 01/13/24 [History] Follow up Appointment(s)/Referral(s): Holly Marcelino MD [STAFF PHYSICIAN] - 12/07/24 1:00 pm Patient Instructions/Handouts: Hiatal Hernia (DC) Discharge Disposition: HOME SELF-CARE
[2024-11-17 09:40] VITALS: PULSE 52
[2024-11-17 09:58] VITALS: BP 176/82
== END 2024-11-17 11:00 | disposition home or self-care (01) ==
LOC: ORWHC2ENDO 07:50
PROVIDERS: ATTEND Surgery Plastic and Reconstructive Surgery
DX: K29.50 Unspecified chronic gastritis without bleeding (principal); K44.9 Diaphragmatic hernia without obstruction or gangrene; K21.00 Gastro-esophageal reflux disease with esophagitis, without bleeding; I25.10 Atherosclerotic heart disease of native coronary artery without angina pectoris; I25.2 Old myocardial infarction; I11.0 Hypertensive heart disease with heart failure; I50.9 Heart failure, unspecified; I27.20 Pulmonary hypertension, unspecified; E11.9 Type 2 diabetes mellitus without complications; M19.90 Unspecified osteoarthritis, unspecified site; L23.1 Allergic contact dermatitis due to adhesives; Z82.49 Family history of ischemic heart disease and other diseases of the circulatory system; Z87.442 Personal history of urinary calculi; Z90.49 Acquired absence of other specified parts of digestive tract; Z90.710 Acquired absence of both cervix and uterus; Z98.890 Other specified postprocedural states; Z79.84 Long term (current) use of oral hypoglycemic drugs; Z79.02 Long term (current) use of antithrombotics/antiplatelets; Z79.82 Long term (current) use of aspirin; Z79.4 Long term (current) use of insulin; Z79.899 Other long term (current) drug therapy
CPT/HCPCS: 88305; 43239; J2003; J2704

== ENCOUNTER → 2024-11-24 | Outpatient (CLI) | payer MEDICARE, BC ==
--- NOTE | 2024-11-25 06:27 | NM ---
EXAMINATION TYPE: NM bone scan whole body DATE OF EXAM: 11/24/2024 COMPARISON: CT abdomen May 31, 2024. Outside lumbar spine x-ray November 22, 2024 CLINICAL INDICATION: Female, 84 years old with history of S32.040A WEDGE COMPRESSION FX; low back stef n. History of renal cancer. Delayed whole-body scanning was performed following the injection of 17.8 mCi Tc 99m MDP. Images acq uired 3 hours post injection. FINDINGS: Increased radiotracer uptake seen at level of the T11 and T12 vertebra site of moderate to severe com pression type fractures and T12 vertebroplasty. More prominent radiotracer uptake involving the L4 vertebra is noted suggesting more acute fracture i njury. Additional increased radiotracer uptake involving the S1 vertebra suggests acute sacral insuff iciency fracture. There are 2 adjacent areas of increased uptake lateral left mid ribs suggesting acute or subacute fra ctures at this level. Correlate clinically. IMPRESSION: As above. [facility], , 11/25/2024 6:24 AM
== END | disposition home or self-care (01) ==
LOC: RADNMMAIN 10:15
PROVIDERS: ATTEND Physical Medicine & Rehabilitation
DX: S32.040A Wedge compression fracture of fourth lumbar vertebra, initial encounter for closed fracture (principal); M51.17 Intervertebral disc disorders with radiculopathy, lumbosacral region; M48.062 Spinal stenosis, lumbar region with neurogenic claudication; M47.27 Other spondylosis with radiculopathy, lumbosacral region; M16.0 Bilateral primary osteoarthritis of hip; M41.24 Other idiopathic scoliosis, thoracic region; M43.16 Spondylolisthesis, lumbar region; M47.814 Spondylosis without myelopathy or radiculopathy, thoracic region
CPT/HCPCS: 78306; A9503

== ENCOUNTER → 2024-12-07 | Outpatient (CLI) | payer MEDICARE, BC ==
--- NOTE | 2024-12-07 15:09 | XR ---
EXAMINATION TYPE: XR chest 2V DATE OF EXAM: 12/07/2024 3:03 PM COMPARISON: 01/06/2024 CLINICAL INDICATION: Female, 84 years old with history of Z01.818 PRE OP, spine surgery, TECHNIQUE: Frontal and lateral views FINDINGS: Are borderline in size. Tortuous/ectatic thoracic aorta redemonstrated. Eventration anterior right he midiaphragm. Vertebroplasty change lower thoracic spine. No consolidation or pleural effusion. Cholec ystectomy clips. IMPRESSION: Tortuous/ectatic thoracic aorta. CT can be considered to exclude underlying aneurysm. Otherwise, no acute process seen. [facility], Workstation: [facility], 12/07/2024 3:07 PM
[2024-12-07 15:28] LABS: Partial Thromboplastin Time 23.4 sec (22.0-30.0); Prothrombin Time 11.1 sec (10.0-12.5)
[2024-12-07 18:13] LABS: BUN/Creat Ratio 23.39 Ratio (12.00-20.00); Blood Urea Nitrogen 42.1 mg/dL (9.0-27.0); Calcium 8.9 mg/dL (8.7-10.3); Carbon Dioxide 24.3 mmol/L (21.6-31.8); Chloride 98 mmol/L (96-109); Glucose 278 mg/dL (70-110); Potassium 4.7 mmol/L (3.5-5.5); Sodium 135 mmol/L (135-145)
[2024-12-07 19:41] LABS: Basophils # (A) 0.06 X 10*3/uL (0.00-0.10); Eosinophils # (A) 0.08 X 10*3/uL (0.04-0.35); Eosinophils % (A) 1.4 %; HCT 38.5 % (37.2-46.3); HGB 12.4 g/dL (12.0-15.0); Lymphocytes # (A) 1.81 X 10*3/uL (0.90-5.00); Lymphocytes % (A) 31.4 %; MCH 30.9 pg (27.0-32.0); MCHC 32.2 g/dL (32.0-37.0); Mean Platelet Volume 11.8 FL (9.5-12.2); Monocytes # (A) 0.66 X 10*3/uL (0.20-1.00); Monocytes % (A) 11.5 %; NRBC Per 100 WBC 0 X 10*3/uL (0.00-0.01); Neutrophils # (A) 3.12 X 10*3/uL (1.80-7.70); Neutrophils % (A) 54.2 %; Platelet Count 163 X 10*3/uL (140-440); RBC 4.01 X 10*6/uL (4.10-5.20); RDW 13.2 % (11.5-14.5); WBC 5.76 X 10*3/uL (4.50-10.00)
== END | disposition home or self-care (01) ==
LOC: LABPAT 14:24
PROVIDERS: ATTEND Orthopaedic Surgery Orthopaedic Surgery of the Spine
DX: Z01.812 Encounter for preprocedural laboratory examination (principal); Z22.322 Carrier or suspected carrier of Methicillin resistant Staphylococcus aureus; T14.8XXA Other injury of unspecified body region, initial encounter
CPT/HCPCS: 71046; 80048; 85025; 85610; 85730; 87070

== ENCOUNTER 2024-12-22 06:08 | Day surgery (SDC) | payer MEDICARE, BC ==
[~2024-12-22 06:08] MED LIST changes: -ALPRAZolam 0.25 MG TAB PO PRN; -ALPRAZolam 0.5 MG TAB PO PRN; +HYDROmorphone 0.5 MG/0.5 ML SYRINGE IVP PRN; -NITROGLYCERIN SL TABS 0.4 MG TAB SUBLINGUAL PRN; +ceFAZolin 1,000 MG in SODIUM CHLORIDE 0.9% IRRIGATIO 1,000 ML IRRIGATION PRN; +fentaNYL (PF) 50 MCG/ML 2 ML AMP IV PRN
[2024-12-22] MEDS: IV FLUID CONTINUATION 1,000 ML IV ONE (06:44)
[2024-12-22 07:12] LABS: Glucose,Whole Blood 135 mg/dL (70-110)
[2024-12-22] MEDS: DEXAMETHASONE SOD PHOSPHATE 4 MG/ML 1 ML VIAL IV ONE (07:20)
[2024-12-22] MEDS: LACTATED RINGERS 1,000 ML IV SCH (07:21)
[2024-12-22] MEDS: ONDANSETRON 4 MG/2 ML VIAL IVP ONE (07:21)
[2024-12-22] MEDS ORDERED: ePHEDrine 50 MG/ML 1 ML VIAL ONE (07:25)
[2024-12-22] MEDS ORDERED: GLYCOPYRROLATE 0.2 MG/ML 2 ML VIAL ONE (07:25)
[2024-12-22] MEDS ORDERED: WATER FOR INJECTION, STERILE 10 ML VIAL IV ONE (07:25)
[2024-12-22] MEDS ORDERED: fentaNYL (PF) 50 MCG/ML 2 ML AMP ONE (07:25)
[2024-12-22] MEDS ORDERED: LIDOCAINE 1% INJ 10MG/ML (20 ML MDV) ONE (07:25)
[2024-12-22] MEDS ORDERED: PROPOFOL 10 MG/ML 20 ML VIAL IV ONE (07:25)
[2024-12-22] MEDS ORDERED: SUCCINYLCHOLINE CHLORIDE 200 MG/10 ML VIAL IV ONE (07:25)
[2024-12-22] MEDS: ceFAZolin 2 GM in DEXTROSE 5% IN WATER 50 ML IVPB PRN (07:30)
[2024-12-22] MEDS: BUPIVACAINE (PF) 0.5% 30 ML VIAL SQ ONE ×2 (07:50→08:02)
[2024-12-22] MEDS: LIDOCAINE 2%-EPI 1:100,000 20 ML VIAL SQ ONE ×2 (07:50→08:02)
[2024-12-22] MEDS: IOPAMIDOL M200 10 ML VIAL MISCELLANE ONE ×2 (07:50→08:15)
[2024-12-22] MEDS ORDERED: BENZOCAINE/MENTHOL LOZENG 1 EACH LOZENGE MUCOUS MEM PRN (08:55)
[2024-12-22] MEDS ORDERED: HYDROmorphone 0.5 MG/0.5 ML SYRINGE IVP PRN (08:55)
[2024-12-22] MEDS ORDERED: ONDANSETRON 4 MG/2 ML VIAL IVP PRN (08:56)
[2024-12-22] MEDS ORDERED: traMADol 50 MG TAB PO PRN (08:56)
[2024-12-22] MEDS ORDERED: ACETAMINOPHEN TAB 325 MG TAB PO PRN (08:56)
[2024-12-22] MEDS ORDERED: ACETAMINOPHEN TAB 500 MG TAB PO PRN (08:57)
--- NOTE | 2024-12-22 09:02 | P.OP ---
Date of Procedure: 12/22/24 Preoperative Diagnosis: Osteoporotic compression fractures L4 and S1, Debilitating low back pain due to fractures Failed conservative treatment Postoperative Diagnosis: Same Anesthesia: GETA Pathology: other (Vertebral body biopsies from L4 and S1 sent separately to pathology) Condition: stable Disposition: PACU Description of Procedure: BRIEF OPERATIVE NOTE Preoperative Diagnosis: Osteoporotic compression fractures L4 and S1, Debilitating low back pain due to fractures Failed conservative treatment Postoperative Diagnosis: Same Procedure: Kyphoplasty of L4 and S1 Vertebral body biopsy of L4 and S1 Use of biplanar fluoroscopic guidance Surgeon: Dr. Green Private Pilot: Santiago PEACE who is present throughout the entire the case persistence during positioning, dissection, exposure, visualization, and all crucial elements of the case as well as closure. Anesthesia: General anesthesia per Dr. Goins Estimated blood loss: Less than 10 mL Specimen: Vertebral body biopsy of L4 and S1 sent to pathology in formalin Complications: None apparent Components implanted: Bone cement with approximately 8 and half cc in S1 and 6 cc in L4 Disposition: To recovery room in good stable condition. OPERATIVE INDICATIONS The patient has been having issues in their back ever since sustaining an injury. Over the past couple of months patient has been having significant pain in her lower back. She does not have any major injury but had some small injury which began her pain in late September and early October. The patient has been through conservative treatment. She was found to have evidence of active compression fractures at L4 and S1 which correlated well with her low back pain. She does have a number of degenerative changes in her lumbar spine as well. They attempted conservative care with bracing however they're not having any benefit despite brace use. They continue to have significant pain and debility due to their fracture. We felt that a significant portion of her symptoms were stemming from the new fractures at L4 and S1 and that she could have some benefit with vertebral kyphoplasty at those levels. We discussed various treatment options including surgery, and the patient wishes to proceed with surgery We discussed the risk, patient's alternatives and benefits of surgery including but not limited to, risk of bleeding risk of infection, risk of need for further surgery, risk of decreased, loss of motion, loss of function, cement extravasation, nerve damage, paralysis, heart attack, blindness and . OPERATIVE SUMMARY After discussing all the risks, patient alternatives and benefits at length, the patient elected to proceed with surgical intervention, signed informed consent, and presented for their procedure. The patient was seen and examined in the preoperative holding area and the surgical site was marked. The patient was given antibiotics and brought to the operating room. The patient was sedated and intubated by anesthesia in standard fashion. The patient was positioned on to the operating room table in a prone position on the appropriate well-padded and well molded bilateral chest rolls. We were careful to pad any bony prominences and pressure points. We were careful to maintain the patient's cervical spine and good neutral alignment and position throughout. We used 2 C-arm machines to establish biplanar fluoroscopic guidance in AP and lateral positions. We were able to localize the fractures appropriately. The patient was prepped and draped in a normal standard fashion. An appropriate timeout and keystone protocol performed. We were able to proceed with the surgery. The local wound area was infiltrated with local anesthetic. An incision was made over the lateral aspect of the pedicle over the appropriate levels with a small 2 mm stab incision at L4 on the right and bilaterally at S1. Intraoperative fluoroscopy was taken which showed a marker at the appropriate level. With the appropriate level positively confirmed, I was able to position a sharp trocar over the lateral aspect of the pedicle. As able to advance the trocar into the pedicle and into the posterior aspect of vertebral body being careful to avoid penetration cephalad caudad or medially. The trocar was placed appropriately into the posterior aspect of vertebral body at the appropriate levels at L4 on the right and bilaterally at S1. This was confirmed with C-arm guidance. With the trocar intact I was then able to take a bone biopsy with a biopsy punch or a bony drill. The biopsy specimen was passed off to be sent to pathology in formalin. I was then able to place the kyphoplasty balloon within the vertebral body. The position was checked on C-arm. I was able to inflate the balloon under low pressure and visualization with C-arm. The balloon was well enclosed within the vertebral body. The cement was prepared. With the cement at appropriate w orking condition the balloons were deflated and removed. I was able to place bony cement with trocar with the cement delivery device under low pressure. It had good fill within the vertebral body. There is no evidence of any extravasation of the cement posteriorly toward the canal. The cement was well contained at the appropriate levels. The cement was allowed to cure appropriately. The trochars removed and final images were taken on C-arm. This showed the cement at the appropriate levels. We were able to proceed with closure. The wound was cleaned and dried and dressed with the appropriate dressing. The drapes were broken down. The patient was gently rolled back onto their hospital bed being careful to maintain their cervical spine and good neutral alignment and position. They were woken up by anesthesia, extubated, and brought to the recovery room in good stable condition. The patient will be admitted to the hospital for observation and for appropriate postoperative care, medical management and monitoring. We will continue to follow them closely about the postoperative course.
[2024-12-22 09:03] LABS: Glucose,Whole Blood 158 mg/dL (70-110)
--- NOTE | 2024-12-22 09:05 | FL ---
EXAMINATION TYPE: FL guidance operating room, XR lumbar spine 2 or 3V DATE OF EXAM: 12/22/2024 CLINICAL INDICATION: Female, 84 years old with history of COMPRESSION FRACTURE, pain. TECHNIQUE: Fluoroscopy. Intraoperative views lumbar spine. COMPARISON: Outside lumbar spine x-ray November 22, 2024. FINDINGS: Fluoroscopic guidance was provided during vertebroplasty procedure performed by Dr. Green. A total of 62.9 seconds of fluoroscopic time was utilized during the procedure and 8 spot images wa s acquired. Intraoperative images acquired show vertebroplasty performed at L4 and S1 levels with cement extravas ation into the L5-S1 disc space. TOTAL DAP = 15.012 Gycm2 IMPRESSION: As Above. [facility], , 12/22/2024 9:02 AM
[2024-12-22] MEDS: FUROSEMIDE 20 MG TAB PO SCH (13:16)
[2024-12-22] MEDS: SODIUM CHLORIDE 0.9% 1,000 ML IV SCH (13:16)
[2024-12-22] MEDS: DAPAGLIFLOZIN PROPANEDIOL 10 MG TABLET PO SCH (13:16)
[2024-12-22] MEDS: SPIRONOLACTONE 25 MG TAB PO SCH (13:16)
[2024-12-22] MEDS: HYDROcodone/APAP 5-325MG 1 EACH TAB PO PRN (14:45)
[2024-12-22 16:12] LABS: Glucose,Whole Blood 259 mg/dL (70-110)
[2024-12-22] MEDS: carvediloL 6.25 MG TAB PO SCH (17:32)
[2024-12-22] MEDS: traMADol 50 MG TAB PO PRN (19:01)
[2024-12-22] MEDS: CALCIUM CARBONATE 500 MG CHEWABLE PO PRN (20:11)
[2024-12-22] MEDS: SODIUM CHLORIDE 0.9% 500 ML 500 ML IV ONE (20:12)
[2024-12-22 21:17] LABS: Glucose,Whole Blood 433 mg/dL (70-110)
[2024-12-22] MEDS: INSULIN GLARGINE (LANTUS) 100 UNIT/ML SYR SQ SCH (22:05)
[2024-12-22] MEDS: ATORVASTATIN 40 MG TAB PO SCH (22:06)
[2024-12-22] MEDS: DONEPEZIL 10 MG TAB PO SCH (22:06)
[2024-12-22] MEDS: ASPIRIN 81 MG PO SCH (22:06)
[2024-12-22 22:33] LABS: Glucose,Whole Blood 391 mg/dL (70-110)
[2024-12-22] MEDS: INSULIN LISPRO (HumaLOG) 100 UNIT/ML 10 mL VL SQ SCH (22:39)
[2024-12-23 06:15] LABS: Glucose,Whole Blood 218 mg/dL (70-110)
[2024-12-23 06:40] VITALS: BP 132/89; PULSE 65; RESP 16; TEMP 99.2
[2024-12-23] MEDS: PANTOPRAZOLE 40 MG TABLET PO SCH (06:41)
[2024-12-23] MEDS ORDERED: INSULIN LISPRO (HumaLOG) 100 UNIT/ML 10 mL VL SQ SCH ×2 (07:30→12:30)
[2024-12-23] MEDS ORDERED: DEXTROSE 50% SYRINGE 50 ML IVP PRN ×2 (07:40)
[2024-12-23] MEDS: LOSARTAN 25 MG TAB PO SCH (08:10)
[2024-12-23] MEDS: ISOSORBIDE MONONITRATE ER 30 MG TAB.ER.24H PO SCH (08:10)
[2024-12-23 08:14] LABS: Basophils # (A) 0.06 10*3/uL (0.00-0.10); Basophils % (A) 0.5 %; Eosinophils # (A) 0.07 10*3/uL (0.04-0.35); Eosinophils % (A) 0.6 %; HCT 38.8 % (37.2-46.3); HGB 12.9 g/dL (12.0-15.0); Lymphocytes # (A) 1.64 10*3/uL (0.90-5.00); Lymphocytes % (A) 14.5 %; MCH 31.5 pg (27.0-32.0); MCHC 33.2 g/dL (32.0-37.0); MCV 94.9 fL (80.0-97.0); Monocytes # (A) 0.91 10*3/uL (0.20-1.00); Monocytes % (A) 8.1 %; Neutrophils # (A) 8.55 10*3/uL (1.80-7.70); Neutrophils % (A) 75.8 %; Platelet Count 162 10*3/uL (140-440); RBC 4.09 10*6/uL (4.10-5.20); RDW 12.9 % (11.5-14.5); WBC 11.29 10*3/uL (4.50-10.00)
[2024-12-23 08:37] LABS: African American GFR (CKD) 38 (>60 ml/min/1.73 sqM); Anion Gap 6 mmol/L; Blood Urea Nitrogen 54 mg/dL (7-17); Calcium 9.2 mg/dL (8.4-10.2); Carbon Dioxide 26 mmol/L (22-30); Chloride 101 mmol/L (98-107); Glucose 205 mg/dL (74-99); Non-African American GFR(CKD) 33 (>60 ml/min/1.73 sqM); Sodium 133 mmol/L (137-145)
--- NOTE | 2024-12-23 11:04 | P.CONS ---
History of Present Illness - Reason for Consult Consult date: 12/23/24 - History of Present Illness Patient is a 84-year-old female with past medical history of CAD status post PCI with stents placement, chronic systolic CHF, severe pulmonary hypertension, HTN, HLD, type II DM, urinary incontinence, dementia, who presented for elective kyphoplasty of L4 and S1 due to osteoporotic compression fracture L4 S1 and debilitating lower back pain. Procedure was performed on 12/22/2024, patient tolerated procedure well, no immediate postop complications reported, EBL less than 10 cc. Sound physicians consulted for medical management. Reviewed with patient vitals, afebrile, heart rate in 60s, BP 132/89, SpO2 95% on room air. Last blood work was obtained on 12/07/2024 with normal WBC, hemoglobin and platelet count, creatinine was 1.8 at that time baseline. I ordered CBC and BMP. Patient's blood sugar is not optimally controlled. She is on sliding scale insulin and home dose of Lantus 10 nightly, added 2 units mealtime. She was seen examined at bedside, get ready to work with physical therapy. Pain is tolerable, denies shortness of breath, chest pain, has some epigastric ful lness due to hiatal hernia, no abdominal pain. Pertinent positives and negatives as discussed in HPI, a complete review of systems was performed and all other systems are negative. Patient seen and examined at bedside. Vital signs reviewed General: nontoxic, no distress, appears at stated age Derm: warm, dry Head: atraumatic, normocephalic, symmetric Eyes: EOMI, no lid lag, anicteric sclera, pupils equal round reactive to light ENT: Nose and ears atraumatic Neck: No thyromegaly, supple Mouth: no lip lesion, mucus membranes moist Cardiovascular: S1S2 reg, murmur, no edema Lungs: clear to auscultation bilateral, no rhonchi, no rales, no wheeze, no accessory muscle use Abdominal: soft, epigastric tenderness, no guarding, no appreciable organomegaly Ext: no gross muscle atrophy, muscle strength muscle strength 5 out of 5 in all 4 extremities, no contractures Neuro: CN II-XII grossly intact Psych: Alert, oriented, appropriate affect Assessment/Plan: Chronic systolic CHF, not in acute exacerbation CAD status post stents Hypertension Hyperlipidemia -Patient euvolemic, continue home Coreg 6.25 twice daily with meals, Farxiga 10 mg p.o. daily, Lasix 20 mg p.o. daily, Imdur 30 mg p.o. daily, losartan 25 mg p.o. daily, Aldactone 25 mg p.o. daily -Continue aspirin 81 mg p.o. nightly and atorvastatin 40 mg p.o. nightly Type II DM: Continue SSI, Accu-Cheks, hypoglycemia precautions, continue home Lantus 10, added mealtime coverage with 3 units Dementia: Continue donepezil 10 mg p.o. nightly osteoporotic compression fracture L4 S1 s/p elective kyphoplasty of L4 and S1 - Your postop management, pain management, bowel prophylaxis, DVT prophylaxis - Due to patient having significantly elevated creatinine at the end of November, ordered BMP -PT consult DVT prophylaxis: SCD per Ortho Past Medical History Past Medical History: Coronary Artery Disease (CAD), Cancer, Diabetes Mellitus, GERD/Reflux, Hyperlipidemia, Hypertension, Myocardial Infarction (DE), Osteoarthritis (OA), Renal Disease Additional Past Medical History / Comment(s): IDDM, hx diverticulitis, C diff colitis, hx nephrolithiasis, "spots on liver per CT", arthritis, renal mass- cancerous (being monitored), 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 inc ontinent = wears briefs. Last Myocardial Infarction Date:: unknown History of Any Multi-Drug Resistant Organisms: C-DIFF Year Discovered:: 08/21/15 MDRO Source:: STOOL Past Surgical History: Bowel Resection, Cholecystectomy, Heart Catheterization, Heart Catheterization With Stent, Hernia Repair, Hysterectomy, Orthopedic Surgery, Tonsillectomy Additional Past Surgical History / Comment(s): 06/19/15 LAP SIGMOID RESECTION with lysis of adhesions, lithotripsy, cardiac cath with mild disease to proximal LAD, colonoscopy, L thigh cyst removed, BILAT CATARACTS REMOVED WITH LENS IMPLANTS, left ACL repair, recent cardiac cath. Past Anesthesia/Blood Transfusion Reactions: No Reported Reaction Date of Last Stent Placement:: 12/2023 Past Psychological History: Depression Additional Psychological History / Comment(s): due to pain Smoking Status: Never smoker Past Alcohol Use History: Rare Additional Past Alcohol Use History / Comment(s): . Past Drug Use History: None Reported - Past Family History Father Family Medical History: Cancer, Congestive Heart Failure (CHF) Additional Family Medical History / Comment(s): prostate CA,lived to 93 Mother Family Medical History: Cancer Additional Family Medical History / Comment(s): liver issues-caused by tylenol. lived to 95. Medications and Allergies Home Medications Medication Instructions Recorded Confirmed Type carvediloL [Coreg] 6.25 mg PO BID-W/MEALS tab 02/17/23 12/22/24 Rx Aspirin [Adult Low Dose Aspirin EC] 81 mg PO HS 05/27/23 12/22/24 History Donepezil [Aricept] 10 mg PO HS 05/27/23 12/22/24 History Furosemide [Lasix] 20 mg PO DAILY 05/27/23 12/22/24 History Losartan [Cozaar] 25 mg PO DAILY 05/27/23 12/22/24 History Acetaminophen Tab [Tylenol] 1,000 mg PO Q6HR PRN #30 tablet 05/30/23 12/22/24 Rx traMADol HCl [Ultram] 50 mg PO BID PRN 01/06/24 12/22/24 History Atorvastatin [Lipitor] 40 mg PO HS #60 tab 01/10/24 12/22/24 Rx Dapagliflozin Propanediol [Farxiga] 10 mg PO DAILY #60 tab 01/10/24 12/22/24 Rx Pantoprazole [Protonix] 40 mg PO DAILY #60 tab 01/10/24 12/22/24 Rx Spironolactone [Aldactone] 25 mg PO DAILY #60 tab 01/10/24 12/22/24 Rx Isosorbide Mononitrate ER [Imdur] 30 mg PO DAILY 01/13/24 12/22/24 History Insulin Degludec [Tresiba 10 units PO HS 12/17/24 12/22/24 History Flextouch U-100 Pen] Allergies Allergy/AdvReac Type Severity Reaction Status Date / Time adhesive tape Allergy red skin Verified 12/22/24 06:47 pregabalin [From Lyrica] AdvReac Hallucinati Verified 12/22/24 06:47 ons Physical Exam Vitals: Vital Signs Temp Pulse Resp BP BP Pulse Ox 12/23/24 06:39 99.2 F 65 16 132/89 95 12/23/24 02:16 97.5 F L 73 18 125/71 96 12/22/24 19:50 98.1 F 83 18 86/53 89/56 95 12/22/24 14:00 97.3 F L 99 16 95/61 93 L 12/22/24 13:00 14 133/78 12/22/24 12:00 68 14 116/65 92 L 12/22/24 11:30 73 16 113/74 91 L 12/22/24 11:00 66 16 114/73 92 L 12/22/24 10:30 71 16 130/80 92 L 12/22/24 10:00 64 16 134/93 95 12/22/24 09:35 64 16 146/90 95 12/22/24 09:20 71 16 102/58 100 12/22/24 09:05 68 16 124/61 96 12/22/24 08:50 97.6 F 81 16 134/84 99 Intake and Output 12/22/24 12/23/24 12/23/24 22:59 06:59 14:59 Other: Voiding Method Toilet Diaper # Voids 1 3 Results CBC & Chem 7: 12/23/24 07:42 12/23/24 07:42 Labs: Abnormal Lab Results - Last 24 Hours (Table) 12/22/24 12/22/24 12/22/24 Range/Units 09:01 16:10 21:15 POC Glucose (mg/dL) 158 H 259 H 433 H (70-110) mg/dL 12/22/24 12/23/24 Range/Units 22:32 06:13 POC Glucose (mg/dL) 391 H 218 H (70-110) mg/dL
--- NOTE | 2024-12-23 11:19 | P.DS ---
Providers Date of admission: 12/22/2024 Expected date of discharge: 12/23/24 Attending physician: Krish Green Consults: 12/22/24 22:03 Consult Physician Routine Consulting Provider: Indira Physician Consult Reason/Comments: medical Do you want consulting provider notified?: Already Contacted Primary care physician: Dayana Fernandes MD - Discharge Diagnosis(es) (1) Compression fracture of L4 vertebra Current Visit: Yes Status: Acute (2) Sacral fracture, closed Current Visit: Yes Status: Acute (3) History of CA (myocardial infarction) Current Visit: Yes Status: Acute (4) Coronary artery disease Current Visit: No Status: Acute (5) Diabetes Current Visit: No Status: Acute (6) Hypertension Current Visit: No Status: Acute (7) Renal disease Current Visit: No Status: Acute (8) Status post kyphoplasty Current Visit: No Status: Acute Hospital Course: This is a pleasant 84-year-old female who presented with osteoporotic compression fractures of L4 and S1 with debilitating back pain who failed outpatient conservative therapy. She was admitted for an L4 and L5 kyphoplasty with biopsy. The patient tolerated the procedure well and did well postoperatively. She is ambulating in the room with physical therapy this morning. She is ambulating slowly and with assistance but is able to ambulate. She is ambulating to the restroom. Patient would like to be discharged home. She feels she is ready for discharge home. She feels her daughter lives close to her and would be able to help her at home as needed. Condition on day of discharge stable. Patient will be discharged home. Patient was cleared preoperatively for surgery by Dr. Fernandes. Patient currently denies any nausea, vomiting, fever, or chills. Patient is eating and voiding freely without difficulty. Patient may shower Optifoam dressing intact. Patient may remove Optifoam dressing in 3 days and shower without a dressing at that time. Patient should refrain from driving until at least after their first follow-up appointment in the office. Patient should avoid excessive bending, lifting, and twisting; no lifting greater than 10 pounds. Patient should utilize a walker to aid in ambulation as needed. MAPS has been reviewed today, 12/23/2024, with an Overall Overdose Risk Score of 30. An "Opiod Start Talking" Form has been signed and placed in the patient's chart. A prescription has been written for hydrocodone 5 mg / 325 mg, 1 tab, every 6 hours, as needed for acute pain, dispense #28. Prescription is also written for Senokot-S, 1 tab, twice daily, as needed for constipation, dispense #60. Patient's other medical diagnoses include coronary artery disease, diabetes mellitus, hyperlipidemia, hypertension, renal disease, and history of myocardial infarction. Patient must need clearance by medicine prior to discharge home today. Physical Exam on day of discharge: Patient is awake, alert, and oriented 3 Vital signs stable Good chest excursion with deep inspiration and expiration Extensor hallucis longus, plantarflexion, and dorsiflexion positive sustained bilateral lower extremities Incision is clean, dry, and intact; no erythema, purulence, or signs of infection Optifoam dressing intact Procedures: L4 and S1 kyphoplasty with biopsy Patient Condition at Discharge: Stable Plan - Discharge Summary Discharge Rx Participant: No New Discharge Prescriptions: New Sennosides-Docusate Sodium [Senokot-S] 1 tab PO BID PRN #60 tablet PRN Reason: Constipation HYDROcodone/APAP 5-325MG [[place] 5] 1 each PO Q6HR PRN #28 tab PRN Reason: Pain No Action carvediloL [Coreg] 6.25 mg PO BID-W/MEALS tab Furosemide [Lasix] 20 mg PO DAILY Losartan [Cozaar] 25 mg PO DAILY Acetaminophen Tab [Tylenol] 1,000 mg PO Q6HR PRN #30 tablet PRN Reason: Pain traMADol HCl [Ultram] 50 mg PO BID PRN PRN Reason: Pain Spironolactone [Aldactone] 25 mg PO DAILY #60 tab Dapagliflozin Propanediol [Farxiga] 10 mg PO DAILY #60 tab Pantoprazole [Protonix] 40 mg PO DAILY #60 tab Isosorbide Mononitrate ER [Imdur] 30 mg PO DAILY Donepezil [Aricept] 10 mg PO HS Aspirin [Adult Low Dose Aspirin EC] 81 mg PO HS Atorvastatin [Lipitor] 40 mg PO HS #60 tab Insulin Degludec [Tresiba Flextouch U-100 Pen] 10 units PO HS Discharge Medication List carvediloL [Coreg] 6.25 mg PO BID-W/MEALS tab 02/17/23 [Rx] Aspirin [Adult Low Dose Aspirin EC] 81 mg PO HS 05/27/23 [History] Donepezil [Aricept] 10 mg PO HS 05/27/23 [History] Furosemide [Lasix] 20 mg PO DAILY 05/27/23 [History] Losartan [Cozaar] 25 mg PO DAILY 05/27/23 [History] Acetaminophen Tab [Tylenol] 1,000 mg PO Q6HR PRN #30 tablet 05/30/23 [Rx] traMADol HCl [Ultram] 50 mg PO BID PRN 01/06/24 [History] Atorvastatin [Lipitor] 40 mg PO HS #60 tab 01/10/24 [Rx] Dapagliflozin Propanediol [Farxiga] 10 mg PO DAILY #60 tab 01/10/24 [Rx] Pantoprazole [Protonix] 40 mg PO DAILY #60 tab 01/10/24 [Rx] Spironolactone [Aldactone] 25 mg PO DAILY #60 tab 01/10/24 [Rx] Isosorbide Mononitrate ER [Imdur] 30 mg PO DAILY 01/13/24 [History] Insulin Degludec [Tresiba Flextouch U-100 Pen] 10 units PO HS 12/17/24 [History] HYDROcodone/APAP 5-325MG [[place] 5] 1 each PO Q6HR PRN #28 tab 12/23/24 [Rx] Sennosides-Docusate Sodium [Senokot-S] 1 tab PO BID PRN #60 tablet 12/23/24 [Rx] Follow up Appointment(s)/Referral(s): Santiago Brasher PAC [PHYSICIAN RESIDENCY COORDINATOR] - 2 Weeks (Patient may follow-up with Santiago Brasher PA-C or Dr. Nirav Green at [facility] in 2-3 weeks following discharge. ) Dayana Fernandes MD [Primary Care Provider] - 1 Week Activity/Diet/Wound Care/Special Instructions: 1. Patient may shower with Optifoam dressing intact. 2. Patient may remove Optifoam dressing in 3 days and shower without a dressing at that time. 3. Patient should refrain from driving until at least after their first follow- up appointment in the office. 4. Patient should avoid excessive bending, twisting, lifting; avoid overhead lifting; no lifting greater than 10 pounds 5. Take medications as prescribed 6. Patient should utilize a walker to aid in ambulation as needed 7. Do not soak in tub Discharge Disposition: HOME SELF-CARE
== END 2024-12-23 12:25 | disposition home or self-care (01) ==
LOC: OR 06:08 → 4SSUR 08:37 → OR 12-23 12:25
PROVIDERS: ATTEND Orthopaedic Surgery Orthopaedic Surgery of the Spine
DX: M80.08XA Age-related osteoporosis with current pathological fracture, vertebra(e), initial encounter for fracture (principal); M54.50 Low back pain, unspecified; I25.2 Old myocardial infarction; I25.10 Atherosclerotic heart disease of native coronary artery without angina pectoris; E11.9 Type 2 diabetes mellitus without complications; I11.0 Hypertensive heart disease with heart failure; I50.22 Chronic systolic (congestive) heart failure; F03.90 Unspecified dementia, unspecified severity, without behavioral disturbance, psychotic disturbance, mood disturbance, and anxiety; I27.20 Pulmonary hypertension, unspecified; E78.5 Hyperlipidemia, unspecified; Z95.5 Presence of coronary angioplasty implant and graft; K44.9 Diaphragmatic hernia without obstruction or gangrene; M47.816 Spondylosis without myelopathy or radiculopathy, lumbar region; Z79.4 Long term (current) use of insulin; Z79.82 Long term (current) use of aspirin; Z79.84 Long term (current) use of oral hypoglycemic drugs; Z79.899 Other long term (current) drug therapy
CPT/HCPCS: 97530; 97162; 80048; 85025; 88342; 88307; 88311; 72100; 22514; 22515; 20220; C1713; J0330; J1100; J0690; J2405; J2003; J3010; J2704; Q9966; J0665; J1596